=== PATIENT | female | born 1955 | race Caucasian/White ===

== ENCOUNTER 2017-11-30 17:13 | Emergency (ER) | payer MEDICAID, SELFPAY ==
[2017-11-30 17:55] VITALS: BP 126/63; PULSE 84; RESP 18; TEMP 36.9; O2SAT 99; BMI 37.6
--- NOTE | 2017-11-30 17:55 | XR_ITS ---
XR shoulder RT min 2V COMPARISON: Right shoulder 10/06/2016 HISTORY: Right shoulder pain after a fall TECHNIQUE: 3 views right shoulder FINDINGS: The clavicle is intact. There is minor degenerative change of the AC joint as noted previously. Again noted is mild sclerosis and cortical irregularity of the greater tuberosity of the humeral head. Is no fracture and there are no soft tissue calcifications. There is a slightly high riding humeral head suggesting possibility of rotator cuff pathology. IMPRESSION: Mild degenerative changes AC joint, question rotator cuff pathology, no definite interval change from the previous study
--- NOTE | 2017-11-30 19:20 | HMH.EDUTC ---
[facility] Disposition Clinical Impression: History of rotator cuff surgery, Fall Right shoulder pain Qualifiers: Chronicity: acute Qualified Code(s): M25.511 - Pain in right shoulder Disposition: Home, Self-Care Condition on Discharge: Good Instructions: DI for Shoulder Pain, How to Use a Sling, How To Perform RICE (Rest, Ice, Compress, Elevate) Additional Instructions: * use as tolerated. If pain, stop immediately. Do not move beyond the pain. * Rest * ice 15-20 mins 3-4 times a day * Sling for support and swelling unless in shower. Be sure not too tight but not too loose either. You state you already have one at home. * Ibuprofen every 6 hours as needed for pain and inflammation. If you need something more, you can take tylenol every 4 hours as needed as long as your primary care provider has told you it is ok to take both. Referrals: Americo Sharpe [Referring] - (Call first thing saturday morning and report fall onto recently repaired shoulder. ) Time of Disposition: 19:35 Medical Decision Making Vital Signs: 11/30/17 17:55 Temperature 98.5 F Temperature Source Oral Pulse Rate [Left Brachial] 84 Respiratory Rate 18 Blood Pressure [Left Arm] 126/63 Blood Pressure Mean [Left Arm] 84 Blood Pressure Source [Left Arm] Automatic Cuff Blood Pressure Position [Left Arm] Sitting 02 Sat by Pulse Oximetry 99 Oxygen Delivery Method Room Air Orders (Tests/Meds): ORDERS Category Date Time Status XR shoulder RT min 2V Stat Exams 11/30/17 17:55 Taken - Robson Inquiry Pt receiving controlled substance: No [facility] HPI - General Stated complaint: ao [id number] @1500 injured Rt Shoulder Time Seen by Provider: 11/30/17 19:00 Mode of Arrival: Ambulatory Source of Information: Patient Limitations: No Limitations Description of Symptoms (Recalled from Triage Doc. by RN): c/o rt shoulder pain after a fall yesterday. pt advises that she had a rt rotator cuff tear 2 months ago HEENT Symptoms (Recalled from RN notes): No Resp Symptoms (Recalled from RN notes): No Skin Symptoms (Recalled from RN notes): No MS Symptoms (Recalled from RN notes): Yes (rt shoulder pain) Functional Status (Recalled from RN notes): n/a - History of Present Illness Provider Complaint: c/o right shoulder pain and limited ROM s/p fall yesterday. Hx of right rotater cuff repair [address] Sharpe in [place]. Fell yesterday in the grass. Reports falling directly onto anterior shoulder. Tylenol hasn't helped. Can take NSAIDs but hasn't tried them. Denies a return to FROM since surgery but ROM worse since fall. denies N/T - Related Data Home Medications Medication Instructions Recorded Confirmed amlodipine 10 mg tablet 10 mg PO QDAY 11/28/17 aspirin 81 mg tablet,delayed 81 mg PO QDAY 11/28/17 release atorvastatin 80 mg tablet 80 mg PO QDAY 11/28/17 buspirone 10 mg tablet 10 mg PO BID 11/28/17 fluoxetine 20 mg capsule 20 mg PO QDAY 11/28/17 gabapentin 600 mg tablet 600 mg PO TID 11/28/17 hyoscyamine sulfate 0.125 mg tablet 0.125 mg PO QID 11/28/17 isosorbide mononitrate ER 60 mg 60 mg PO QAM 11/28/17 tablet,extended release 24 hr lisinopril 10 mg tablet 10 mg PO QDAY 11/28/17 metoprolol succinate ER 100 mg 100 mg PO QDAY 11/28/17 tablet,extended release 24 hr nitroglycerin 0.4 mg sublingual 0.4 mg SUBLINGUAL Q5M PRN 11/28/17 tablet tiotropium bromide 18 mcg capsule 18 mcg INHALATION QDAY 11/28/17 with inhalation device Previous Rx's Medication Instructions Recorded cephalexin 500 mg capsule 500 mg PO Q8H 10 Days #30 cap 11/28/17 prednisone 20 mg tablet 20 mg PO BID #10 tab 11/28/17 promethazine-DM 6.25 mg-15 mg/5 mL 5 ml PO Q6H PRN #180 ml 11/28/17 syrup Allergies Allergy/AdvReac Type Severity Reaction Status Date / Time No Known Allergies Allergy Unverified 11/28/17 11:27 - Worker's Comp Is this a Worker's Comp case?: No [facility] History I have reviewed the patient's past medical history: Yes Med
[2017-11-30 19:42] VITALS: BP 126/63; PULSE 84; RESP 18; TEMP 36.9; O2SAT 99
== END 2017-11-30 19:43 | disposition home or self-care (01) ==
PROVIDERS: Emergency Provider Nurse Practitioner Family; Family Provider Emergency Medicine; PCP Physician Assistant
DX: M25.511 Pain in right shoulder (principal); W19.XXXA Unspecified fall, initial encounter; Y93.9 Activity, unspecified; Y92.89 Other specified places as the place of occurrence of the external cause
CPT/HCPCS: 73030; 99202; 99282

== ENCOUNTER → 2017-12-12 09:49 | Outpatient (REF) | payer MEDICAID, SELFPAY ==
[2017-12-12 14:08] LABS: Anion Gap 14.2 mEq/L (5-15); Blood Urea Nitrogen 28 mg/dL (7-18); Carbon Dioxide 27 mmol/L (21.0-32.0); Chloride 104 mmol/L (98-107); Creatinine,Serum 0.99 mg/dL (0.55-1.02); Estimated Glomerular Filt Rate 57 ml/min (>60); GFR (African American) 69 ML/MIN (>60); Glucose 95 mg/dL (74-106); Magnesium 2.1 mg/dL (1.4-2.2); Potassium 4.2 mmoL/L (3.5-5.1); Sodium 141 mmol/L (136-145)
== END ==
LOC: LAB 09:49
PROVIDERS: Visit Provider Physician Assistant
DX: M62.838 Other muscle spasm (principal)
CPT/HCPCS: 80048; 83735

== ENCOUNTER 2018-02-18 08:51 | Emergency (ER) | payer MEDICAID, SELFPAY ==
[2018-02-18 09:00] VITALS: BP 125/72; PULSE 68; RESP 22; TEMP 36.8; O2SAT 96; BMI 38.9
--- NOTE | 2018-02-18 09:08 | HMH.EDUTC ---
[facility] [place] Clinical Impression: Bilateral low back pain with sciatica Qualifiers: Chronicity: chronic Sciatica laterality: bilateral sciatica Qualified Code(s): M54.42 - Lumbago with sciatica, left side; M54.41 - Lumbago with sciatica, right side; G89.29 - Other chronic pain Disposition: Home, Self-Care Condition on Discharge: Good Additional Instructions: Take prednisone as directed Follow-up with PCP if no improvement of symptoms in 48-72 hours. Go to ER if the following symptoms presents: urinary incontinence, bowel incontinence, significant unilateral leg swelling. Prescriptions: methylPREDNISolone [Medrol] 4 mg PO DIRECTED 6 Days #1 tab.ds.pk Ketorolac Tromethamine [Toradol 60mg/2mL vial] 60 mg IM ONCE #1 vial Referrals: Domitila Baldwin PA [Primary Care Provider] - Time of Disposition: 09:43 Medical Decision Making - Medical Records Medical records reviewed: Yes: I reviewed the patient's medical records. - Robson Inquiry Pt receiving controlled substance: No Vital Signs: 02/18/18 09:00 Temperature 98.3 F Temperature Source Oral Pulse Rate [Right Brachial] 68 Respiratory Rate 22 Blood Pressure [Right Arm] 125/72 Blood Pressure Mean [Right Arm] 89 Blood Pressure Source [Right Arm] Automatic Cuff Blood Pressure Position [Right Arm] Sitting 02 Sat by Pulse Oximetry 96 Oxygen Delivery Method Room Air [facility] [place] - General Stated complaint: back and leg pain no ao Time Seen by Provider: 02/18/18 09:08 Mode of Arrival: Family Vehicle Source of Information: Patient Limitations: No Limitations Description of Symptoms (Recalled from Triage Doc. by RN): c/o back pain since saturday. Radiates down both legs. No fall noted HEENT Symptoms (Recalled from RN notes): No Resp Symptoms (Recalled from RN notes): No Skin Symptoms (Recalled from RN notes): No MS Symptoms (Recalled from RN notes): Yes Functional Status (Recalled from RN notes): n/a - History of Present Illness Provider Complaint: Patient with pre-existing sciatica presents with worsening low back pain that radiates down both legs posteriorly. She reports noticing this change after cooking all day 2 days ago. She has also noticed some extra bruising along her calfs bilaterally, though she has not any trauma to them since symptom onset. She has been taking Toradol once a day, aspirin, and gabapentin for pain. She denies unilateral leg swelling, bowel and urinary incontinence. Location: back, left, right, lower extremity Radiation: extremity Quality: sharp Consistency: constant Relieving factors: medication, movement Exacerbating factors: rest Associated symptoms: denies other symptoms Treatments prior to arrival: NSAID, aspirin - Related Data Home Medications Medication Instructions Recorded Confirmed amlodipine 10 mg tablet 10 mg PO QDAY 11/28/17 aspirin 81 mg tablet,delayed 81 mg PO QDAY 11/28/17 release atorvastatin 80 mg tablet 80 mg PO QDAY 11/28/17 fluoxetine 20 mg capsule 20 mg PO QDAY 11/28/17 gabapentin 600 mg tablet 600 mg PO TID 11/28/17 hyoscyamine sulfate 0.125 mg tablet 0.125 mg PO QID 11/28/17 isosorbide mononitrate ER 60 mg 60 mg PO QAM 11/28/17 tablet,extended release 24 hr lisinopril 10 mg tablet 10 mg PO QDAY 11/28/17 metoprolol succinate ER 100 mg 100 mg PO QDAY 11/28/17 tablet,extended release 24 hr nitroglycerin 0.4 mg sublingual 0.4 mg SUBLINGUAL Q5M PRN 11/28/17 tablet tiotropium bromide 18 mcg capsule 18 mcg INHALATION QDAY 11/28/17 with inhalation device Previous Rx's Medication Instructions Recorded ibuprofen 800 mg tablet 800 mg PO TID PRN 30 Days #30 tab 12/02/17 prednisone 20 mg tablet 20 mg PO BID #10 tab 12/12/17 buspirone 10 mg tablet 10 mg PO BID #60 tab 12/27/17 Ketorolac Tromethamine [Toradol 60 mg IM ONCE #1 vial 02/18/18 60mg/2mL vial] methylPREDNISolone [Medrol] 4 mg PO DIRECTED 6 Days #1 02/18/18 tab.ds.pk Allergies Allergy/AdvReac Type
--- NOTE | 2018-02-18 09:12 | ED_ITS ---
[facility] [place] Dis[place] Clinical Impression: Bilateral low back pain with sciatica Qualifiers: Chronicity: chronic Sciatica laterality: bilateral sciatica Qualified Code(s): M54.42 - Lumbago with sciatica, left side; M54.41 - Lumbago with sciatica, right side; G89.29 - Other chronic pain Disposition: Home, Self-Care Condition on Discharge: Good Additional Instructions: Take prednisone as directed Follow-up with PCP if no improvement of symptoms in 48-72 hours. Go to ER if the following symptoms presents: urinary incontinence, bowel incontinence, significant unilateral leg swelling. Prescriptions: methylPREDNISolone [Medrol] 4 mg PO DIRECTED 6 Days #1 tab.ds.pk Ketorolac Tromethamine [Toradol 60mg/2mL vial] 60 mg IM ONCE #1 vial Referrals: Doimtila Baldwin PA [Primary Care Provider] - Time of Disposition: 09:43 Medical Decision Making - Medical Records Medical records reviewed: Yes: I reviewed the patient's medical records. - Robson Inquiry Pt receiving controlled substance: No Vital Signs: 02/18/18 09:00 Temperature 98.3 F Temperature Source Oral Pulse Rate [Right Brachial] 68 Respiratory Rate 22 Blood Pressure [Right Arm] 125/72 Blood Pressure Mean [Right Arm] 89 Blood Pressure Source [Right Arm] Automatic Cuff Blood Pressure Position [Right Arm] Sitting 02 Sat by Pulse Oximetry 96 Oxygen Delivery Method Room Air [facility] [place] HPI - General Stated complaint: back and leg pain no ao Time Seen by Provider: 02/18/18 09:08 Mode of Arrival: Family Vehicle Source of Information: Patient Limitations: No Limitations Description of Symptoms (Recalled from Triage Doc. by RN): c/o back pain since saturday. Radiates down both legs. No fall noted HEENT Symptoms (Recalled from RN notes): No Resp Symptoms (Recalled from RN notes): No Skin Symptoms (Recalled from RN notes): No MS Symptoms (Recalled from RN notes): Yes Functional Status (Recalled from RN notes): n/a - History of Present Illness Provider Complaint: Patient with pre-existing sciatica presents with worsening low back pain that radiates down both legs posteriorly. She reports noticing this change after cooking all day 2 days ago. She has also noticed some extra bruising along her calfs bilaterally, though she has not any trauma to them since symptom onset. She has been taking Toradol once a day, aspirin, and gabapentin for pain. She denies unilateral leg swelling, bowel and urinary incontinence. Location: back, left, right, lower extremity Radiation: extremity Quality: sharp Consistency: constant Relieving factors: medication, movement Exacerbating factors: rest Associated symptoms: denies other symptoms Treatments prior to arrival: NSAID, aspirin - Related Data Home Medications Medication Instructions Recorded Confirmed amlodipine 10 mg tablet 10 mg PO QDAY 11/28/17 aspirin 81 mg tablet,delayed 81 mg PO QDAY 11/28/17 release atorvastatin 80 mg tablet 80 mg PO QDAY 11/28/17 fluoxetine 20 mg capsule 20 mg PO QDAY 11/28/17 gabapentin 600 mg tablet 600 mg PO TID 11/28/17 hyoscyamine sulfate 0.125 mg tablet 0.125 mg PO QID 11/28/17 isosorbide mononitrate ER 60 mg 60 mg PO QAM 11/28/17 tablet,extended release 24 hr lisinopril 10 mg tablet 10 mg PO QDAY 11/28/17 metoprolol succinate ER 100 mg 100 mg PO QDAY 11/28/17 tablet,extended release 24 hr nitroglycerin 0.4 mg sublingual 0.4 m
[2018-02-18 10:28] VITALS: BP 120/70; PULSE 70; RESP 20; TEMP 37; O2SAT 96
== END 2018-02-18 10:30 | disposition home or self-care (01) ==
PROVIDERS: Emergency Provider Physician Assistant; Family Provider Emergency Medicine; PCP Physician Assistant
DX: M54.41 Lumbago with sciatica, right side (principal); M54.42 Lumbago with sciatica, left side; I10 Essential (primary) hypertension; J45.909 Unspecified asthma, uncomplicated; J44.9 Chronic obstructive pulmonary disease, unspecified; I73.9 Peripheral vascular disease, unspecified; F17.210 Nicotine dependence, cigarettes, uncomplicated; Z79.82 Long term (current) use of aspirin
CPT/HCPCS: 96372; 99201

== ENCOUNTER → 2018-03-10 09:50 | Outpatient (REF) | payer MEDICAID, SELFPAY ==
[2018-03-10 13:54] LABS: Basophils % 0.5 % (0.1-2.0); Eosinophils # 0.2 K/mm3 (0.0-0.4); Eosinophils % 2.6 % (0.1-12.0); Hematocrit 44.3 % (37.0-47.0); Hemoglobin 14.2 g/dL (12.2-16.2); Lymphocytes # 2.5 K/mm3 (0.7-4.5); Mean Corpuscular HGB Conc 32.1 g/dL (31.8-35.4); Mean Corpuscular Hemoglobin 31.3 pg (27.0-31.2); Mean Corpuscular Volume 97.4 fl (81-99); Mean Platelet Volume 7.9 fl (7.4-10.4); Monocytes # 0.5 K/mm3 (0.1-1.0); Monocytes % 4.8 % (1.7-9.3); Neutrophils % 65.1 % (37.0-80.0); Platelet Count 353 K/mm3 (142-424); Red Blood Count 4.55 M/mm3 (4.20-5.40); Red Cell Distribution Width 13.5 % (11.5-17.5); White Blood Count 9.2 K/mm3 (4.8-10.8)
[2018-03-10 14:14] LABS: Alanine Aminotransferase 24 U/L (12-78); Albumin Level 3.6 gm/dL (3.4-5.0); Albumin/Globulin Ratio 0.9 (1.1-1.8); Alkaline Phosphatase 132 U/L (46-116); Anion Gap 15.6 mEq/L (5-15); Aspartate Amino Transferase 18 U/L (15-37); Bilirubin,Total 0.4 mg/dL (0.2-1.0); Blood Urea Nitrogen 15 mg/dL (7-18); Calcium 9.3 mg/dL (8.5-10.1); Carbon Dioxide 26 mmol/L (21.0-32.0); Chloride 104 mmol/L (98-107); Chol/HDL Ratio 3.2 (1-3.5); Cholesterol 225 mg/dL (140-200); Estimated Glomerular Filt Rate 57 ml/min (>60); GFR (African American) 68 ML/MIN (>60); Glucose 108 mg/dL (74-106); HDL Cholesterol 70 mg/dL (29-89); LDL Cholesterol 136 mg/dL (0-130); Potassium 4.6 mmoL/L (3.5-5.1); Sodium 141 mmol/L (136-145); T4 (Thyroxine) 10.9 ug/dl (4.7-13.3); Thyroid Stimulating Hormone 3.14 uIU/ml (0.358-3.740); Total Protein,Serum 7.6 gm/dL (6.4-8.2); Triglycerides 95 mg/dL (30-200); VLDL Cholesterol 19 mg/dL (0-40)
[2018-03-11 06:05] LABS: Vitamin D 25 Hydroxy 28.3 ng/mL (30.0-100.0)
== END ==
LOC: LAB 09:50
PROVIDERS: Visit Provider Physician Assistant
DX: R53.83 Other fatigue (principal)
CPT/HCPCS: 80053; 80061; 82652; 84436; 84443; 85025

== ENCOUNTER 2018-05-13 11:33 | Emergency (ER) | payer MEDICAID, SELFPAY ==
[2018-05-13 11:34] VITALS: BP 149/89; PULSE 72; RESP 18; TEMP 36.8; O2SAT 96; BMI 39.4
--- NOTE | 2018-05-13 11:42 | HMH.EDWEAK ---
ED Disposition Clinical Impression: Chest pain, Weakness, Tobacco abuse Disposition: Xfer Short-Term Hosp Condition on Discharge: Good Referrals: Domitila Baldwin PA [Primary Care Provider] - Forms: Transfer Record - ED - Critical Care Critical Care Time: No Attestation: On , the high probability of a clinically significant, sudden or life threatening deterioration of the following system(s) required my full and direct attention, intervention and personal management. The time I documented below is in addition to time spent performing reported procedures but includes the following listed in this critical care notation. Medical Decision Making - Robson Inquiry Pt receiving controlled substance: No Robson was queried for this patient: No Vital Signs: 05/13/18 11:34 05/13/18 15:30 Temperature 98.2 F 97.7 F Temperature Source Oral Oral Pulse Rate [Right Brachial] 72 94 H Respiratory Rate 18 18 Blood Pressure [Right Arm] 149/89 143/76 Blood Pressure Mean [Right Arm] 109 98 Blood Pressure Source [Right Arm] Automatic Cuff Automatic Cuff Blood Pressure Position [Right Arm] Sitting Sitting 02 Sat by Pulse Oximetry 96 94 L Oxygen Delivery Method Room Air Room Air - Lab Data Lab Results 05/13/18 11:40: WBC 9.8, RBC 4.54, Hgb 13.7, Hct 43.1, MCV 94.9, MCH 30.2, MCHC 31.8, RDW 13.4, Plt Count 305, MPV 7.2 L, Neut % (Auto) 49.6, Lymph % (Auto) 41.0, [place] % (Auto) 5.3, Eos % (Auto) 3.2, Baso % (Auto) 0.8, Neut # (Auto) 4.9, Lymph # (Auto) 4.0, [place] # (Auto) 0.5, Eos # (Auto) 0.3, Baso # (Auto) 0.1 05/13/18 11:40: D-Dimer 899 H* 05/13/18 11:40: Sodium 141, Potassium 4.3, Chloride 106, Carbon Dioxide 28, Anion Gap 11.3, BUN 28 H, Creatinine 1.00, Estimated Creat Clear 94, Estimated GFR 56 L, Est GFR ( Amer) 68, Glucose 89, Calcium 8.5, Total Bilirubin 0.4, AST 18, ALT 21, Alkaline Phosphatase 129 H, Total Creatine Kinase 114, CK-MB (CK-2) 1.0, CK-MB (CK-2) Rel Index 0.9, Troponin I < 0.02, Total Protein 7.6, Albumin 3.4, Globulin 4.2 H, Albumin/Globulin Ratio 0.8 L 05/13/18 11:40: B-Natriuretic Peptide 28 05/13/18 14:10: Urine Color Yellow, Urine Appearance Clear, Urine pH 7.5, Ur Specific [place] 1.010, Urine Protein Negative, Urine Glucose (UA) Negative, Urine Ketones Negative, Urine Blood Negative, Urine Nitrate Negative, Urine Bilirubin Negative, Urine Urobilinogen 0.2, Ur Leukocyte Esterase Negative, Urine RBC Occasional, Urine WBC Occasional, Ur Squamous Epith Cells 10-20, Urine Bacteria Trace Result diagrams: 05/13/18 11:40 05/13/18 11:40 Orders (Tests/Meds): ED MEDICATIONS Discontinued Medications Generic Name Dose Route Start Last Admin Trade Name Freq PRN Reason Stop Dose Admin Enoxaparin Sodium 80 mg 05/13/18 15:04 05/13/18 15:07 Lovenox 80mg/0.8ml Syringe SQ 05/13/18 15:05 80 mg ONCE ONE Administration Famotidine 20 mg 05/13/18 15:04 05/13/18 15:08 Pepcid 20mg/2ml Vial IV 05/13/18 15:05 20 mg ONCE ONE Administration Iopamidol 70 ml 05/13/18 13:24 05/13/18 13:25 [id number]; 75ml Vial IV 05/13/18 13:25 70 ml ONCE ONE Administration Sodium Chloride 40 ml 05/13/18 13:24 05/13/18 13:25 Rad-Saline Flush 10ml Syringe IV 05/13/18 13:25 40 ml ONCE ONE Administration - Radiology Data #1 Image(s): Chest Image Reviewed: Yes I reviewed the patient's radiology image, Yes I reviewed the patient's radiology image w/the ED provider Preliminary Findings: Normal/NAD IMPRESSION: No change with no acute finding - CT Data CT Scan: Chest Time Received: 14:52 Findings Narrative: IMPRESSION: No acute finding. No evidence of pulmonary embolus Coronary artery calcifications Dictated By: Rajendra Gregg MD Signed By: <Electronically signed by Rajendra Gregg MD in [place]> 05/13/18 0483 DD/ 2220
--- NOTE | 2018-05-13 11:46 | ED_ITS ---
ED Disposition Clinical Impression: Chest pain, Weakness, Tobacco abuse Disposition: Xfer Short-Term Hosp Condition on Discharge: Good Referrals: Domitila Baldwin PA [Primary Care Provider] - Forms: Transfer Record - ED - Critical Care Critical Care Time: No Attestation: On , the high probability of a clinically significant, sudden or life threatening deterioration of the following system(s) required my full and direct attention, intervention and personal management. The time I documented below is in addition to time spent performing reported procedures but includes the following listed in this critical care notation. Medical Decision Making - Robson Inquiry Pt receiving controlled substance: No Robson was queried for this patient: No Vital Signs: 05/13/18 11:34 05/13/18 15:30 Temperature 98.2 F 97.7 F Temperature Source Oral Oral Pulse Rate [Right Brachial] 72 94 H Respiratory Rate 18 18 Blood Pressure [Right Arm] 149/89 143/76 Blood Pressure Mean [Right Arm] 109 98 Blood Pressure Source [Right Arm] Automatic Cuff Automatic Cuff Blood Pressure Position [Right Arm] Sitting Sitting 02 Sat by Pulse Oximetry 96 94 L Oxygen Delivery Method Room Air Room Air - Lab Data Lab Results 05/13/18 11:40: WBC 9.8, RBC 4.54, Hgb 13.7, Hct 43.1, MCV 94.9, MCH 30.2, MCHC 31.8, RDW 13.4, Plt Count 305, MPV 7.2 L, Neut % (Auto) 49.6, Lymph % (Auto) 41.0, [place] % (Auto) 5.3, Eos % (Auto) 3.2, Baso % (Auto) 0.8, Neut # (Auto) 4.9 , Lymph # (Auto) 4.0, [place] # (Auto) 0.5, Eos # (Auto) 0.3, Baso # (Auto) 0.1 05/13/18 11:40: D-Dimer 899 H* 05/13/18 11:40: Sodium 141, Potassium 4.3, Chloride 106, Carbon Dioxide 28, Anion Gap 11.3, BUN 28 H, Creatinine 1.00, Estimated Creat Clear 94, Estimated GFR 56 L, Est GFR ( Amer) 68, Glucose 89, Calcium 8.5, Total Bilirubin 0.4, AST 18, ALT 21, Alkaline Phosphatase 129 H, Total Creatine Kinase 114, CK- MB (CK-2) 1.0, CK-MB (CK-2) Rel Index 0.9, Troponin I < 0.02, Total Protein 7.6 , Albumin 3.4, Globulin 4.2 H, Albumin/Globulin Ratio 0.8 L 05/13/18 11:40: B-Natriuretic Peptide 28 05/13/18 14:10: Urine Color Yellow, Urine Appearance Clear, Urine pH 7.5, Ur Specific [place] 1.010, Urine Protein Negative, Urine Glucose (UA) Negative, Urine Ketones Negative, Urine Blood Negative, Urine Nitrate Negative, Urine Bilirubin Negative, Urine Urobilinogen 0.2, Ur Leukocyte Esterase Negative, Urine RBC Occasional, Urine WBC Occasional, Ur Squamous Epith Cells 10-20, Urine Bacteria Trace Result diagrams: 05/13/18 11:40 05/13/18 11:40 Orders (Tests/Meds): ED MEDICATIONS Discontinued Medications Generic Name Dose Route Start Last Admin Trade Name Freq PRN Reason Stop Dose Admin Enoxaparin Sodium 80 mg 05/13/18 15:04 05/13/18 15:07 Lovenox 80mg/0.8ml Syringe SQ 05/13/18 15:05 80 mg ONCE ONE Administration Famotidine 20 mg 05/13/18 15:04 05/13/18 15:08 Pepcid 20mg/2ml Vial IV 05/13/18 15:05 20 mg ONCE ONE Administration Iopamidol 70 ml 05/13/18 13:24 05/13/18 13:25 [id number]; 75ml Vial IV 05/13/18 13:25 70 ml ONCE ONE Administration Sodium Chloride 40 ml 05/13/18 13:24 05/13/18 13:25 Rad-Saline Flush 10ml Syri
--- NOTE | 2018-05-13 11:47 | XR_ITS ---
XR chest 2V HISTORY: ITS.REASON: chest pain ORDERING PHYSICIAN: Zoila Ramachandran MD PATIENT AGE: 63 years COMPARISON: 10/30/2017 FINDINGS: The cardiomediastinal silhouette and pulmonary vascularity are within normal limits. The lungs are clear without infiltrates, suspicious nodules, or pleural effusions. Hypertrophic changes are present along the inferolateral acromial region on the right with osteoarthritic change of the glenohumeral joint and subacromial stenosis. There are degenerative changes in the thoracic spine. IMPRESSION: No change with no acute finding
--- NOTE | 2018-05-13 11:56 | PC.NURSE ---
notified CV lab staff of order for echo
--- NOTE | 2018-05-13 11:57 | PC.NURSE ---
notified Rad of xray order on pt.
--- NOTE | 2018-05-13 11:59 | PC.NURSE ---
SANDOVAL ALFONSO speaking Kassi Pavon APRN
[2018-05-13 12:09] LABS: Basophils # 0.1 K/mm3 (0-0.2); Basophils % 0.8 % (0.1-2.0); Eosinophils # 0.3 K/mm3 (0.0-0.4); Eosinophils % 3.2 % (0.1-12.0); Hematocrit 43.1 % (37.0-47.0); Hemoglobin 13.7 g/dL (12.2-16.2); Mean Corpuscular HGB Conc 31.8 g/dL (31.8-35.4); Mean Corpuscular Hemoglobin 30.2 pg (27.0-31.2); Mean Corpuscular Volume 94.9 fl (81-99); Mean Platelet Volume 7.2 fl (7.4-10.4); Monocytes # 0.5 K/mm3 (0.1-1.0); Monocytes % 5.3 % (1.7-9.3); Neutrophils # 4.9 K/mm3 (1.8-7.8); Neutrophils % 49.6 % (37.0-80.0); Platelet Count 305 K/mm3 (142-424); Red Blood Count 4.54 M/mm3 (4.20-5.40); Red Cell Distribution Width 13.4 % (11.5-17.5); White Blood Count 9.8 K/mm3 (4.8-10.8)
--- NOTE | 2018-05-13 12:18 | CA_ITS ---
PROCEDURE: 2-D M-mode and color Doppler study INDICATIONS FOR THE TEST: Chest pain+ COPD+ Heart Murmur Tobacco Smoking+ Palpitations Fatigue Syncope Edema Hypertension+Diabetes Mellitus Rheumatic Fever SOB+OGDEN + Obesity+Hyperlipidemia+ Family History HD+ Additional History cad, stents, weakness PATIENT INFORMATION HEIGHT: 63 WEIGHT:223 GENDER: Female B/P:149/89 2-D/M-MODE INTERPRETATION: 2-D MEASUREMENTS OBSERVED VALUES IN CMS Right Ventricular Dimension (RVDd) 1.4 Interventricular Septum (Thickness)(IVsd) 0.9 Left Ventricular Internal Dimensions(LVIDd) 5.2 Left Ventricular Posterior Wall (Thickness)(LVPWd) 1.0 Aortic Root 3.0 Aortic Cusp Separation 2.0 Left Atrial Dimensions (LAD) 4.0 2D 1. Left atrium is mildly enlarged, left ventricle is normal size, there is mild concentric left ventricular hypertrophy, visually estimated ejection fraction of 55% with no obvious regional wall motion abnormality. 2. The right atrium and right ventricle are normal size and contractility. 3. The aortic valve is thickened and calcified, leaflet continue to display mobility. 4. The mitral and tricuspid valve leaflets are minimally thickened 5. The pulmonic valve is poorly visualized. 6. No significant pericardial effusion noted. DOPPLER INTERROGATION: Doppler interrogation of the aortic, mitral and tricuspid valvular presence of mild mitral, mild aortic and mild tricuspid regurgitation, tricuspid and jet velocity is insufficient for calculation of the right ventricular systolic pressure, diastolic parameters are inconclusive. CONCLUSION: 1. Mildly enlarged left atrium, normal left ventricular size, mild concentric left ventricular hypertrophy, visually estimated ejection fraction 55% with no obvious regional wall motion abnormality, diastolic parameters are inconclusive. 2. Mild aortic, mild mitral and tricuspid regurgitation 3. No significant pericardial effusion noted.
[2018-05-13 12:29] LABS: Alanine Aminotransferase 21 U/L (12-78); Albumin Level 3.4 gm/dL (3.4-5.0); Albumin/Globulin Ratio 0.8 (1.1-1.8); Alkaline Phosphatase 129 U/L (46-116); Anion Gap 11.3 mEq/L (5-15); Aspartate Amino Transferase 18 U/L (15-37); Bilirubin,Total 0.4 mg/dL (0.2-1.0); Blood Urea Nitrogen 28 mg/dL (7-18); CKMB Relative Index 0.9 U/L (0-4.0); Calcium 8.5 mg/dL (8.5-10.1); Carbon Dioxide 28 mmol/L (21.0-32.0); Chloride 106 mmol/L (98-107); Creatine Kinase 114 U/L (26-192); Creatinine Clearance Estimated 94 mL/min (0-300); Estimated Glomerular Filt Rate 56 ml/min (>60); GFR (African American) 68 ML/MIN (>60); Globulin 4.2 gm/dl (1.3-3.2); Glucose 89 mg/dL (74-106); Potassium 4.3 mmoL/L (3.5-5.1); Sodium 141 mmol/L (136-145); Total Protein,Serum 7.6 gm/dL (6.4-8.2); Troponin I < 0.02 ng/ml (0.00-0.06)
[2018-05-13 12:33] LABS: D-Dimer 899 ng/mL (0-400)
--- NOTE | 2018-05-13 12:41 | CT_ITS ---
CT angio chest HISTORY: ITS.REASON: chest pain, weakness and elevated dimer. ORDERING PHYSICIAN: Zoila Ramachandran MD PATIENT AGE: 63 years COMPARISON: 10/02/2017 TECHNIQUE: Axial images obtained following the administration of 75 mL of Isovue 370 . Sagittal, and coronal reformatted images are also generated and reviewed. All CT scans at the facility use one or more dose reduction, viz: automated exposure control; ma/kV adjustment per patient size (including targeted exams where dose is matched to indication; i.e. head); or iterative reconstruction technique. FINDINGS: No evidence of pulmonary embolus, aortic aneurysm , or aortic dissection. There are coronary artery calcifications present. Scattered small lymph nodes are present within mediastinum. There are centrilobular emphysematous changes. There is mild motion artifact which somewhat obscures fine detail. There are patchy areas of groundglass density within the lungs nonspecific. There is evidence of old granulomatous disease. The left adrenal gland is enlarged as before. IMPRESSION: No acute finding. No evidence of pulmonary embolus Coronary artery calcifications
--- NOTE | 2018-05-13 12:54 | PC.NURSE ---
CV lab staff at
[2018-05-13 14:22] LABS: Microscopic, Urine URINE MICROSCOPIC (MICROSCOPIC)
[2018-05-13 14:25] LABS: Appearance,Urine CLEAR (Clear); Bilirubin,Urine Negative (Negative); Blood, Urine Negative (Negative); Color,Urine YELLOW (Yellow); Glucose,Urine (UA) Negative (Negative); Ketones,Urine Negative (Negative); Leukocyte Esterase,Urine Negative (Negative); Nitrate,Urine Negative (Negative); PH,Urine 7.5 (5.0-8.5); Protein,Urine Negative (Negative); Urobilinogen,Urine 0.2 EU/dl (0.2)
[2018-05-13 15:09] LABS: Bacteria,Urine Trace /lpf; RBC,Urine Occasional #/hpf (0-3); WBC,Urine Occasional #/hpf (0-3)
[2018-05-13 15:30] VITALS: BP 143/76; PULSE 94; RESP 18; TEMP 36.5; O2SAT 94
--- NOTE | 2018-05-13 16:20 | PC.NURSE ---
Report called to [facility] spoke with Rebekah. Ambulance here to transport
[2018-05-13 16:22] VITALS: BP 143/76; PULSE 61; RESP 18; TEMP 36.5; O2SAT 94
== END 2018-05-13 16:23 | disposition short-term general hospital (02) ==
PROVIDERS: Emergency Provider Emergency Medicine; Family Provider Emergency Medicine; PCP Physician Assistant
DX: R07.9 Chest pain, unspecified (principal); R53.83 Other fatigue; F17.210 Nicotine dependence, cigarettes, uncomplicated; J44.9 Chronic obstructive pulmonary disease, unspecified; I10 Essential (primary) hypertension; Z79.82 Long term (current) use of aspirin; Z79.899 Other long term (current) drug therapy
CPT/HCPCS: 71046; 71275; 80053; 81001; 82550; 82553; 83880; 84484; 85025; 85378; 93005; 93306; 96372; 96374; 99284; Q9967

== ENCOUNTER → 2018-06-24 10:16 | Outpatient (CLI) | payer MEDICAID, SELFPAY ==
[2018-06-24 10:32] LABS: Basophils # 0.1 K/mm3 (0-0.2); Basophils % 0.9 % (0.1-2.0); Eosinophils # 0.4 K/mm3 (0.0-0.4); Hematocrit 39.8 % (37.0-47.0); Hemoglobin 13.1 g/dL (12.2-16.2); Lymphocytes # 3.1 K/mm3 (0.7-4.5); Lymphocytes % 35.9 K/mm3 (10-50); Mean Corpuscular HGB Conc 32.9 g/dL (31.8-35.4); Mean Corpuscular Hemoglobin 30.8 pg (27.0-31.2); Mean Corpuscular Volume 93.5 fl (81-99); Monocytes # 0.3 K/mm3 (0.1-1.0); Monocytes % 3.6 % (1.7-9.3); Neutrophils # 4.8 K/mm3 (1.8-7.8); Neutrophils % 55.5 % (37.0-80.0); Platelet Count 285 K/mm3 (142-424); Red Blood Count 4.26 M/mm3 (4.20-5.40); Red Cell Distribution Width 13.6 % (11.5-17.5); White Blood Count 8.7 K/mm3 (4.8-10.8)
[2018-06-24 12:56] LABS: Anion Gap 8.4 mEq/L (5-15); Blood Urea Nitrogen 28 mg/dL (7-18); Calcium 8.8 mg/dL (8.5-10.1); Carbon Dioxide 29 mmol/L (21.0-32.0); Chloride 108 mmol/L (98-107); Creatinine,Serum 0.97 mg/dL (0.55-1.02); Estimated Glomerular Filt Rate 58 ml/min (>60); GFR (African American) 71 ML/MIN (>60); Glucose 104 mg/dL (74-106); Potassium 4.4 mmoL/L (3.5-5.1); Sodium 141 mmol/L (136-145)
== END ==
PROVIDERS: Visit Provider Nurse Practitioner Family
DX: R07.2 Precordial pain (principal)
CPT/HCPCS: 36415; 80048; 85025

== ENCOUNTER → 2019-04-20 10:43 | Outpatient (CLI) | payer MEDICAID, SELFPAY ==
--- NOTE | 2019-04-20 10:52 | XR_ITS ---
XR chest 2V HISTORY: ITS.REASON: Edema, dyspnea ORDERING PHYSICIAN: CIRO Garcia PATIENT AGE: 64 years COMPARISON: 05/13/2018 FINDINGS: The cardiomediastinal silhouette and pulmonary vascularity are within normal limits. The lungs are clear without infiltrates, suspicious nodules, or pleural effusions. No acute bony abnormalities. There is an old right fifth rib fracture. Degenerative changes are present in the thoracic spine IMPRESSION: No change with no acute finding
== END ==
PROVIDERS: PCP Physician Assistant; Visit Provider Physician Assistant
DX: R60.9 Edema, unspecified (principal); R06.00 Dyspnea, unspecified
CPT/HCPCS: 71046

== ENCOUNTER → 2019-04-29 07:43 | Outpatient (CLI) | payer MEDICAID, SELFPAY ==
--- NOTE | 2019-04-29 07:45 | CA_ITS ---
PROCEDURE: 2-D M-mode and color Doppler study INDICATIONS FOR THE TEST: Chest pain COPD+ Heart Murmur Tobacco Smoking Palpitations Fatigue Syncope Edema+ Hypertension+Diabetes Mellitus Rheumatic Fever SOB+OGDEN Obesity Hyperlipidemia+ Family History HD Additional History CAD PATIENT INFORMATION HEIGHT: 65 WEIGHT:235 GENDER: Female B/P:140/80 2-D/M-MODE INTERPRETATION: 2-D MEASUREMENTS OBSERVED VALUES IN CMS Right Ventricular Dimension (RVDd) 2.7 Interventricular Septum (Thickness)(IVsd) 1.6 Left Ventricular Internal Dimensions(LVIDd) 4.4 Left Ventricular Posterior Wall (Thickness)(LVPWd) 1.1 Aortic Root 3.6 Aortic Cusp Separation 1.9 Left Atrial Dimensions (LAD) 3.9 2D 1. Left atrium is mildly enlarged, left ventricle is normal size, mild concentric left ventricular hypertrophy, visually estimated ejection fraction 55% with no regional wall motion abnormality. 2. The right atrium and right ventricle are mildly enlarged with normal contractility. 3. The aortic valve is thickened and calcified leaflet continue to display mobility. 4. The mitral and tricuspid valve leaflets are minimally thickened. 5. The pulmonic valve is poorly visualized. 6. No significant pericardial effusion noted. DOPPLER INTERROGATION: Doppler interrogation of the aortic, mitral and tricuspid valvular presence of mild mitral and tricuspid regurgitation, tricuspid regurgitation jet velocity is inadequate for calculation of the right ventricular systolic pressure, grade 1 diastolic dysfunction seen with tissue Doppler evidence of raised left atrial pressure. CONCLUSION: 1. Mildly enlarged left atrium, normal left ventricular size, mild concentric left ventricular hypertrophy, visually estimated ejection fraction 55% no wall motion abnormality, grade 1 diastolic dysfunction seen with tissue Doppler evidence of raised left atrial pressure. 2. Mild mitral and tricuspid regurgitation 3. No significant pericardial effusion noted.
== END ==
PROVIDERS: PCP Emergency Medicine; Visit Provider Physician Assistant
DX: R06.00 Dyspnea, unspecified (principal); R60.9 Edema, unspecified
CPT/HCPCS: 93306

== ENCOUNTER → 2019-04-29 17:54 | Outpatient (CLI) | payer MEDICAID, SELFPAY ==
[2019-04-29 18:51] LABS: Anion Gap 15.1 mEq/L (5-15); Blood Urea Nitrogen 26 mg/dL (7-18); Calcium 9.1 mg/dL (8.5-10.1); Carbon Dioxide 27 mmol/L (21.0-32.0); Chloride 102 mmol/L (98-107); Creatinine,Serum 1.24 mg/dL (0.55-1.02); Estimated Glomerular Filt Rate 44 ml/min (>60); GFR (African American) 53 ML/MIN (>60); Glucose 145 mg/dL (74-106); Potassium 4.1 mmoL/L (3.5-5.1); Sodium 140 mmol/L (136-145)
== END ==
PROVIDERS: Visit Provider Nurse Practitioner Family
DX: R60.0 Localized edema (principal)
CPT/HCPCS: 80048

== ENCOUNTER → 2019-11-24 18:53 | Outpatient (CLI) | payer MEDICAID, SELFPAY ==
[2019-11-24 19:30] LABS: Basophils # 0.1 K/mm3 (0-0.2); Basophils % 0.8 % (0.1-2.0); Eosinophils # 0.3 K/mm3 (0.0-0.4); Eosinophils % 3.1 % (0.1-12.0); Hematocrit 42.3 % (37.0-47.0); Hemoglobin 13.7 g/dL (12.2-16.2); Lymphocytes # 2.7 K/mm3 (0.7-4.5); Lymphocytes % 30.7 % (10-50); Mean Corpuscular HGB Conc 32.5 g/dL (31.8-35.4); Mean Corpuscular Hemoglobin 29.7 pg (27.0-31.2); Mean Corpuscular Volume 91.5 fl (81-99); Mean Platelet Volume 8.1 fl (7.4-10.4); Monocytes # 0.4 K/mm3 (0.1-1.0); Monocytes % 4.5 % (1.7-9.3); Neutrophils # 5.4 K/mm3 (1.8-7.8); Platelet Count 412 K/mm3 (142-424); Red Blood Count 4.62 M/mm3 (4.20-5.40); Red Cell Distribution Width 14.4 % (11.5-17.5); White Blood Count 8.9 K/mm3 (4.8-10.8)
[2019-11-24 21:52] LABS: Alanine Aminotransferase 19 U/L (12-78); Albumin Level 3.6 gm/dL (3.4-5.0); Albumin/Globulin Ratio 0.9 (1.1-1.8); Alkaline Phosphatase 118 U/L (46-116); Anion Gap 17.6 mEq/L (5-15); Aspartate Amino Transferase 12 U/L (15-37); Bilirubin,Total 0.3 mg/dL (0.2-1.0); Blood Urea Nitrogen 22 mg/dL (7-18); Calcium 8.9 mg/dL (8.5-10.1); Carbon Dioxide 24 mmol/L (21.0-32.0); Chloride 102 mmol/L (98-107); Chol/HDL Ratio 3.7 (1-3.5); Cholesterol 223 mg/dL (140-200); Creatinine,Serum 0.99 mg/dL (0.55-1.02); Estimated Glomerular Filt Rate 57 ml/min (>60); GFR (African American) 69 ML/MIN (>60); Globulin 4.1 gm/dl (1.3-3.2); Glucose 67 mg/dL (74-106); HDL Cholesterol 61 mg/dL (29-89); LDL Cholesterol 140 mg/dL (0-130); Potassium 4.6 mmoL/L (3.5-5.1); Sodium 139 mmol/L (136-145); T4 (Thyroxine) 10.6 ug/dl (4.7-13.3); Thyroid Stimulating Hormone 1.14 uIU/ml (0.358-3.740); Total Protein,Serum 7.7 gm/dL (6.4-8.2); Triglycerides 109 mg/dL (30-200); VLDL Cholesterol 22 mg/dL (0-40)
[2019-11-26 06:21] LABS: Vitamin D 25 Hydroxy 40.4 ng/mL (30.0-100.0)
== END ==
PROVIDERS: Visit Provider Physician Assistant
DX: G25.81 Restless legs syndrome (principal); G62.9 Polyneuropathy, unspecified; M62.838 Other muscle spasm; N28.9 Disorder of kidney and ureter, unspecified
CPT/HCPCS: 80053; 80061; 82652; 84436; 84443; 85025

== ENCOUNTER → 2019-12-06 14:15 | Outpatient (CLI) | payer MEDICAID, SELFPAY ==
--- NOTE | 2019-12-06 14:16 | XR_ITS ---
PROCEDURE: XR ANKLE WT BEARING LT MIN 3V CLINICAL INDICATION: foot ankle pain COMPARISON: No exams were available for comparison FINDINGS: There is no acute fracture or dislocation. Degenerative dorsal posterior and plantar calcaneal spurring is noted. IMPRESSION: Calcaneal spurring Dictated by: Catarino Best 12/07/2019 11:54 Electronically signed by Catarino Best in [place] 12/07/2019 11:54
--- NOTE | 2019-12-06 14:16 | XR_ITS ---
PROCEDURE: XR FOOT WT BEARING RT 3V CLINICAL INDICATION: foot ankle pain Is multi joint osteoarthritis. Degenerative dorsal posterior and plantar calcaneal spurring is noted. COMPARISON: FTR3 FOOT-RT-3 VIEWS from 08/13/2016 FTR3 FOOT-RT-3 VIEWS from 08/28/2016 XR FOOT RT 2V from 07/06/2019 FINDINGS: No fracture or dislocation. No lytic or blastic change. . There is multi joint osteoarthritis. Degenerative dorsal posterior and plantar calcaneal spurring is noted. No erosive changes evident. IMPRESSION: Multiple degenerative findings. No acute bone pathology. Dictated by: Catarino Best 12/07/2019 12:04 Electronically signed by Catarino Best in [place] 12/07/2019 12:04
--- NOTE | 2019-12-06 14:16 | XR_ITS ---
PROCEDURE: XR ANKLE WT BEARING RT MIN 3V CLINICAL INDICATION: foot ankle pain COMPARISON: No exams were available for comparison FINDINGS: There is no acute fracture or dislocation. There is degenerative dorsal posterior and plantar calcaneal spurring. The tibiotalar joint space appears preserved. IMPRESSION: No acute findings. Calcaneal spurring. Dictated by: Catarino Best 12/07/2019 12:11 Electronically signed by Catarino Best in [place] 12/07/2019 12:11
--- NOTE | 2019-12-06 14:16 | XR_ITS ---
PROCEDURE: XR FOOT WT BEARING LT 3V CLINICAL INDICATION: foot ankle pain COMPARISON: FTR3 FOOT-RT-3 VIEWS from 08/13/2016 FTR3 FOOT-RT-3 VIEWS from 08/28/2016 XR FOOT RT 2V from 07/06/2019 FINDINGS: No fracture or dislocation. No lytic or blastic change. There is normal mineralization. There is multi joint osteoarthritis perhaps greatest at the 1st metatarsophalangeal joint. Mild hallux valgus deformity is noted. No erosive changes evident. Degenerative dorsal posterior and plantar calcaneal spurring is noted. The dorsal soft tissue swelling at the level of the mid metatarsals noted previously is diminished. No findings to suggest air in the soft tissues are apparent. Other findings:None. IMPRESSION: Degenerative findings. No acute bone pathology Dictated by: Catarino Best 12/07/2019 12:07 Electronically signed by Catarino Best in [place] 12/07/2019 12:07
== END ==
PROVIDERS: PCP Physician Assistant; Visit Provider Podiatrist
DX: M25.572 Pain in left ankle and joints of left foot (principal)
CPT/HCPCS: 73610; 73630

== ENCOUNTER 2020-02-29 15:20 | Emergency (ER) | payer MEDICAID, SELFPAY ==
[2020-02-29 15:36] VITALS: BP 143/78; PULSE 63; RESP 18; TEMP 37; O2SAT 95; BMI 41.4
--- NOTE | 2020-02-29 15:41 | XR_ITS ---
PROCEDURE: XR CHEST PORTABLE CLINICAL HISTORY: cough/respiratory symptoms COMPARISON: CXR2V XR chest 2V from 05/13/[address] angio chest from 06/14/2019 XR CHEST PORTABLE from 08/27/2019 XR CHEST 2V from 01/03/2020 FINDINGS: The cardiomediastinal silhouette and pulmonary vascularity are within normal limits. The lungs are clear without infiltrates, suspicious nodules, or pleural effusions. There is a nondisplaced fracture involving the posterior aspect of the right 9th rib age indeterminate. IMPRESSION: Nondisplaced fracture right 9th rib otherwise negative Dictated by: Rajendra Gregg MD 02/29/2020 16:25 Electronically signed by Rajendra Gregg MD in [place] 02/29/2020 16:25
--- NOTE | 2020-02-29 15:48 | HMH.COUGH ---
Cough Clinic HPI - History of Present Illness Complaint:: 64-year-old white female, heavy smoker, history of emphysema, 1 day of the sudden onset of weakness, fevers, cough, she states is nonproductive but has junky sounding cough in the exam room. Her is at home, he has not been ill. She denies exposure to other ill folks. Home Medications: Home Medications Medication Instructions Recorded Confirmed Type aspirin 325 mg tablet 325 mg PO DAILY #90 tab 11/24/19 01/11/20 Rx cholecalciferol (vitamin D3) 25 1,000 unit PO ONCE #90 cap 11/24/19 01/11/20 Rx mcg (1,000 unit) capsule clopidogrel 75 mg tablet 75 mg PO DAILY #90 tab 11/24/19 01/11/20 Rx fenofibrate nanocrystallized 145 145 mg PO DAILY #90 tab 11/24/19 01/11/20 Rx mg tablet furosemide 20 mg tablet 20 mg PO QHS #90 tab 11/24/19 01/11/20 Rx gabapentin 600 mg tablet 600 mg PO TID #90 tab 11/24/19 01/11/20 Rx ibuprofen 800 mg tablet 800 mg PO TID PRN #30 tab 11/24/19 01/11/20 Rx isosorbide mononitrate 60 mg 60 mg PO QAM #90 tab 11/24/19 01/11/20 Rx tablet,extended release 24 hr metoprolol succinate 100 mg 100 mg PO QDAY #90 tab 11/24/19 01/11/20 Rx tablet,extended release 24 hr albuterol sulfate 1 puff CONTINUOUS NEBULIZATION 12/07/19 01/11/20 History DAILY ergocalciferol (vitamin D2) 1,250 50,000 unit PO QWEEK #14 cap 01/07/20 01/11/20 Rx mcg (50,000 unit) capsule promethazine-DM 6.25 mg-15 mg/5 mL 5 ml PO Q6H PRN #180 ml 01/11/20 01/11/20 Rx oral syrup Albuterol Sulfate [Proventil Hfa] See Rx Instructions .ROUTE .COMPLEX 02/29/20 History Atorvastatin Calcium [Atorvastatin 10 mg PO DAILY 02/29/20 History 10mg Tab] Buspirone HCl [Buspar 10mg 10 mg PO BID 02/29/20 History tablet] Doxycycline Hyclate [Doxycycline 100 mg PO BID 10 Days #20 cap 02/29/20 Rx 100mg Capsule] Fluoxetine HCl See Rx Instructions .ROUTE .COMPLEX 02/29/20 History Oseltamivir Phosphate 75 mg PO BID 02/29/20 History Ropinirole HCl See Rx Instructions .ROUTE .COMPLEX 02/29/20 History Tizanidine HCl 4 mg PO BID MDD \ 02/29/20 History lisinopriL [Prinivil 10mg Tablet] See Rx Instructions .ROUTE .COMPLEX 02/29/20 History methylPREDNISolone [Medrol] 4 mg PO PER PKG DIR 02/29/20 History predniSONE [Deltasone 20mg 20 mg PO BID 7 Days #14 tab 02/29/20 Rx tablet] Allergies/Adverse Reactions: Allergies Allergy/AdvReac Type Severity Reaction Status Date / Time No Known Allergies Allergy Verified 02/29/20 15:31 Cough Clinic Triage - Symptoms Fever History: No Chills: Yes Myalgia: Yes Nasal Drainage: No Sore Throat: Yes Productive Cough: No Non-productive Cough: Yes Ear or Sinus Pain: No Joint Pain: Yes Chest Pain: No Rash: No Shortness of Breath: Yes Nausea or Vomitting: Yes Headache: Yes Abdominal Pain: No Diarrhea: No - Exposure History Foreign Travel: No Direct Contact with COVID-19 Patient: No - Risk Factors Greater than 60 Years Old: Yes COPD: Yes Diabetes: No Heart Disease: Yes (stents, htn, hl) Home Oxygen Use: Yes Chronic Renal Disease: No Chronic Liver Disease: No Neurologic/Neurodevelopmental/intellectual disability: No Other Chronic Diseases: No If Female, currently : No Current Smoker: Yes (1ppd) Former Smoker: No Cough Clinic History I have reviewed the patient's past medical history: Yes Medical History: Reports:: Asthma, Chronic Obstructive Pulmonary Disease (COPD), Coronary Artery Disease, Depression, Gastroesophageal Reflux Disease(GERD), Hyperlipidemia, Hypertension, Lung Disease, Migraine Denies:: Cancer, Diabetes Mellitus Type 1, Diabetes Mellitus Type 2, Internal Pacemaker, MRSA, Seizures Comment: PVD pt needs to be scheduled for consultation for colonoscopy on 05/20/19 Laterality Cases: Bilateral: Arthroscopy Shoulder, Other Other Surgeries: Yes: Cardiac Catheterization, Colonoscopy, Coronary Stent, Hysterectomy-Total. No: Pacemaker Amputation: No Fractures: No Comment: Rotator cuff x2, rt
[2020-02-29 15:56] LABS: Hemoglobin 11.9 g/dL (12.2-16.2); Mean Corpuscular Volume 95.5 fl (81-99); Red Blood Count 4.09 M/mm3 (4.20-5.40); White Blood Count 11.4 K/mm3 (4.8-10.8)
[2020-02-29 15:57] LABS: Basophils # 0.1 K/mm3 (0-0.2); Basophils % 0.6 % (0.1-2.0); Eosinophils # 0.4 K/mm3 (0.0-0.4); Eosinophils % 3.3 % (0.1-12.0); Lymphocytes # 3.4 K/mm3 (0.7-4.5); Lymphocytes % 30.1 % (10-50); Mean Corpuscular HGB Conc 30.6 g/dL (31.8-35.4); Mean Corpuscular Hemoglobin 29.2 pg (27.0-31.2); Mean Platelet Volume 7.6 fl (7.4-10.4); Monocytes # 0.6 K/mm3 (0.1-1.0); Monocytes % 5.5 % (1.7-9.3); Neutrophils # 6.9 K/mm3 (1.8-7.8); Neutrophils % 60.5 % (37.0-80.0); Platelet Count 360 K/mm3 (142-424); Red Cell Distribution Width 14.4 % (11.5-17.5)
[2020-02-29 16:02] VITALS: BP 134/78; PULSE 63; RESP 18; TEMP 37; O2SAT 95
== END 2020-02-29 16:04 | disposition home or self-care (01) ==
PROVIDERS: Emergency Provider Internal Medicine Adolescent Medicine; PCP Physician Assistant
DX: J44.1 Chronic obstructive pulmonary disease with (acute) exacerbation (principal); F17.210 Nicotine dependence, cigarettes, uncomplicated; F33.1 Major depressive disorder, recurrent, moderate; I10 Essential (primary) hypertension; E78.5 Hyperlipidemia, unspecified; K21.9 Gastro-esophageal reflux disease without esophagitis; Z79.899 Other long term (current) drug therapy
CPT/HCPCS: 36415; 71045; 85025; 99201; 99213

== ENCOUNTER 2020-04-24 10:51 | Emergency (ER) | payer MEDICAID, SELFPAY ==
[2020-04-24 10:52] VITALS: BP 135/87; PULSE 96; RESP 16; TEMP 36.6; O2SAT 98; BMI 40.7
--- NOTE | 2020-04-24 10:58 | HMH.EDBACK ---
ED Disposition Clinical Impression: Lumbar radiculopathy Disposition: Home, Self-Care Condition on Discharge: Good Instructions: DI for Back Pain With Sciatica Prescriptions: Cyclobenzaprine HCl [Flexeril 10mg tablet] 5 mg PO TID PRN #5 tab PRN Reason: spasm Prescription Printed Naproxen 500 mg PO BID PRN #10 tab PRN Reason: pain Prescription Printed Referrals: Domitila Baldwin PA [Primary Care Provider] - 3 days Tran Krueger MD [Physician] - 3 days - Critical Care Critical Care Time: No Attestation: On , the high probability of a clinically significant, sudden or life threatening deterioration of the following system(s) required my full and direct attention, intervention and personal management. The time I documented below is in addition to time spent performing reported procedures but includes the following listed in this critical care notation. Medical Decision Making - Medical Records Medical records reviewed: Yes: I reviewed the patient's medical records. - Robson Inquiry Pt receiving controlled substance: Yes Robson was queried for this patient: No Risks and benefits of using a controlled substance: were discussed with pt by me Vital Signs: 04/24/20 10:52 04/24/20 11:47 04/24/20 12:00 Temperature 98 F Temperature Source Oral Pulse Rate [Left Radial] 96 H 75 73 Respiratory Rate 16 Blood Pressure [Right Arm] 135/87 118/83 120/79 Blood Pressure Mean [Right Arm] 103 94 92 Blood Pressure Source [Right Arm] Automatic Cuff Automatic Cuff Blood Pressure Position [Right Arm] Sitting Sitting Sitting 02 Sat by Pulse Oximetry 98 95 93 L Oxygen Delivery Method Room Air Room Air Room Air - Lab Data Lab Results 04/24/20 10:55: Urine Color Yellow, Urine Appearance Clear, Urine pH 6.5, Ur Specific [place] 1.010, Urine Protein Negative, Urine Glucose (UA) Negative, Urine Ketones Negative, Urine Blood Negative, Urine Nitrate Negative, Urine Bilirubin Negative, Urine Urobilinogen 0.2, Ur Leukocyte Esterase Negative, Urine RBC None, Urine WBC None, Ur Squamous Epith Cells 3-5, Urine Bacteria None Orders (Tests/Meds): ED MEDICATIONS Discontinued Medications Generic Name Dose Route Start Last Admin Trade Name Freq PRN Reason Stop Dose Admin Diazepam 5 mg 04/24/20 11:04 04/24/20 11:15 Diazepam 5mg Tablet PO 04/24/20 11:05 5 mg ONCE ONE Administration Ketorolac Tromethamine 30 mg 04/24/20 11:05 04/24/20 11:15 Toradol 60mg/2ml Vial IM 04/24/20 11:06 30 mg ONCE ONE Administration Oxycodone/Acetaminophen 1 each 04/24/20 11:34 04/24/20 11:43 Percocet 7.5/325mg Tablet PO 04/24/20 11:35 1 each ONCE ONE Administration Medical Decision Narrative: History and exam does not appear consistent with cauda equina, discitis, epidural abscess, mass. No recent trauma, no need for imaging at this time. This is happened to her before and was related to sciatica. No UTI. She has some improvement with Valium, Percocet and Toradol here. Will discharge home with anti-inflammatories and muscle relaxers, advised follow-up with orthopedic surgery for further advice and management, possible consideration for physical therapy if symptoms not resolved with conservative management in the next several days. Back Pain HPI - General Stated Complaint: lower back pain Time Seen by Provider: 04/24/20 10:58 Mode of Arrival: Ambulatory Source of Information: Patient Limitations: No Limitations - History of Present Illness HPI Narrative: This is a 65-year-old female with a past medical history significant for hypertension, hyperlipidemia, COPD, coronary artery disease, GERD who presents to the emergency department for evaluation of lower back pain that started yesterday. There was no trauma or fall. She had the symptoms several years ago and it was related to sciatica. The pain radiates down both legs. She denies any loss of bowel or bladder control. No recent fevers
[2020-04-24 11:10] LABS: Appearance,Urine CLEAR (Clear); Bilirubin,Urine Negative (Negative); Blood, Urine Negative (Negative); Color,Urine YELLOW (Yellow); Glucose,Urine (UA) Negative (Negative); Ketones,Urine Negative (Negative); Leukocyte Esterase,Urine Negative (Negative); Microscopic, Urine URINE MICROSCOPIC (MICROSCOPIC); Nitrate,Urine Negative (Negative); PH,Urine 6.5 (5.0-8.5); Protein,Urine Negative (Negative); Urobilinogen,Urine 0.2 EU/dl (0.2)
[2020-04-24 11:47] VITALS: BP 118/83; PULSE 75; O2SAT 95
--- NOTE | 2020-04-24 11:47 | PC.NURSE ---
Pt states she has had no relief from meds at this time. Pt sitting in position of comfort.
[2020-04-24 12:00] VITALS: BP 120/79; PULSE 73; O2SAT 93
[2020-04-24 12:17] VITALS: BP 120/79; PULSE 79; RESP 16; TEMP 36.6; O2SAT 98
== END 2020-04-24 12:18 | disposition home or self-care (01) ==
PROVIDERS: Emergency Provider Emergency Medicine; PCP Physician Assistant
DX: M54.16 Radiculopathy, lumbar region (principal); I10 Essential (primary) hypertension; E78.5 Hyperlipidemia, unspecified; I25.10 Atherosclerotic heart disease of native coronary artery without angina pectoris; J44.9 Chronic obstructive pulmonary disease, unspecified; K21.9 Gastro-esophageal reflux disease without esophagitis; F17.210 Nicotine dependence, cigarettes, uncomplicated; Z79.899 Other long term (current) drug therapy
CPT/HCPCS: 81001; 96372; 99282

== ENCOUNTER → 2020-06-23 10:44 | Outpatient (CLI) | payer MEDICAID, SELFPAY ==
--- NOTE | 2020-06-23 | MM_ITS ---
PROCEDURE: MM DIG MAMM BI DX W/CAD Digital Breast Tomosynthesis Included CLINICAL INDICATION: Palpable area right breast with bruising COMPARISON: [facility] DIGMAMMS MAMMOGRAM SCREEN-STEREO EQUIPMENT REPAIRER N/C from 09/23/1995 MG DIGMAMMS MAMMOGRAM SCREEN-STEREO EQUIPMENT REPAIRER N/C from 01/31/2001 MG DMSB DIG MAMM-SCREEN CULLEN from 03/24/2015 US US BREAST RT COMPLETE from 06/23/2020 TECHNIQUE: Standard CC and MLO images and 3D Tomosynthesis was obtained. R2 CAD reviewed. FINDINGS: There is average fibroglandular tissue. There is an ill-defined 18 x 17 mm asymmetric density in the upper inner aspect of the right breast. The margins are not well circumscribed. No abnormal calcifications. This has developed since the previous exam. There is some reported bruising in this area by the technologist. The left breast has an unremarkable appearance. Right breast ultrasound: In the 1 o'clock region of the right breast, there is a complex nodule measuring approximately 18 x 15 mm. This has a solid sent center with peripheral increased echogenicity with enhanced through transmission of sound and may represent a hematoma. This corresponds to the mammographic abnormality. This does not have a typical appearance for neoplasm. An abscess would be included in the differential diagnosis. No other significant anomalies are evident. IMPRESSION: Complex 18 mm nodule in the 1 o'clock region of the right breast as described above. This may be due to a hematoma. An abscess would be included in the differential diagnosis. Please correlate with clinical parameters. Recommend short-term sonographic follow-up in 4-6 weeks. BI-RAD Category: 3 Probably Benign Finding Short Term Follow-up FOLLOW-UP: Suggest follow-up ultrasound in 4-6 weeks (A letter has been sent to the patient regarding results of the study.) Dictated b Rajendra Gregg MD 06/24/2020 09:12 Rajendra Gregg MD in [place] 06/24/2020 09:12
--- NOTE | 2020-06-23 10:44 | US_ITS ---
PROCEDURE: MM DIG MAMM BI DX W/CAD Digital Breast Tomosynthesis Included CLINICAL INDICATION: Palpable area right breast with bruising COMPARISON: MG DIGMAMMS MAMMOGRAM SCREEN-INSPECTION AND TESTING SUPERVISOR N/C from 09/23/1995 MG DIGMAMMS MAMMOGRAM SCREEN-INSPECTION AND TESTING SUPERVISOR N/C from 01/31/2001 MG DMSB DIG MAMM-SCREEN CULLEN from 03/24/2015 US US BREAST RT COMPLETE from 06/23/2020 TECHNIQUE: Standard CC and MLO images and 3D Tomosynthesis was obtained. R2 CAD reviewed. FINDINGS: There is average fibroglandular tissue. There is an ill-defined 18 x 17 mm asymmetric density in the upper inner aspect of the right breast. The margins are not well circumscribed. No abnormal calcifications. This has developed since the previous exam. There is some reported bruising in this area by the technologist. The left breast has an unremarkable appearance. Right breast ultrasound: In the 1 o'clock region of the right breast, there is a complex nodule measuring approximately 18 x 15 mm. This has a solid sent center with peripheral increased echogenicity with enhanced through transmission of sound and may represent a hematoma. This corresponds to the mammographic abnormality. This does not have a typical appearance for neoplasm. An abscess would be included in the differential diagnosis. No other significant anomalies are evident. IMPRESSION: Complex 18 mm nodule in the 1 o'clock region of the right breast as described above. This may be due to a hematoma. An abscess would be included in the differential diagnosis. Please correlate with clinical parameters. Recommend short-term sonographic follow-up in 4-6 weeks. BI-RAD Category: 3 Probably Benign Finding Short Term Follow-up FOLLOW-UP: Suggest follow-up ultrasound in 4-6 weeks (A letter has been sent to the patient regarding results of the study.) Dictated b Rajendra Gregg MD 06/24/2020 09:12 Rajendra Gregg MD in [place] 06/24/2020 09:12
== END ==
PROVIDERS: PCP Physician Assistant; Visit Provider Physician Assistant
DX: N64.89 Other specified disorders of breast (principal)
CPT/HCPCS: 76641; 77062; 77066; G0279

== ENCOUNTER 2020-07-12 11:50 | Emergency (ER) | payer MEDICAID, SELFPAY ==
[2020-07-12 11:51] VITALS: BP 135/81; PULSE 96; RESP 20; TEMP 37.2; O2SAT 98; BMI 42.0
--- NOTE | 2020-07-12 12:06 | XR_ITS ---
PROCEDURE: XR FOOT LT 2V CLINICAL INDICATION: fall Posttraumatic pain COMPARISON: CR FTR3 FOOT-RT-3 VIEWS from 08/28/2016 CR XR FOOT RT 2V from 07/06/2019 CR XR FOOT WT BEARING RT 3V from 12/06/2019 CR XR FOOT WT BEARING LT 3V from 12/06/2019 FINDINGS: No fracture or dislocation. No lytic or blastic change. There is normal mineralization. There are mild osteoarthritic changes the 1st metatarsophalangeal joint Other findings:There is a small calcaneal spur and small Achilles enthesophyte. IMPRESSION: No acute findings. Dictated by: Rajendra Gregg MD 07/12/2020 12:45 Rajendra Gregg MD in [place] 07/12/2020 12:45
--- NOTE | 2020-07-12 12:07 | PC.NURSE ---
Radiology notified of xray
--- NOTE | 2020-07-12 12:13 | HMH.EDGENADL ---
ED Disposition Clinical Impression: Puncture wound of left foot excluding toes with infection Qualifiers: Encounter type: initial encounter Qualified Code(s): S91.332A - Puncture wound without foreign body, left foot, initial encounter Disposition: Home, Self-Care Condition on Discharge: Good Additional Instructions: Follow-up with Dr. Rehman, flask maker, within 2 to 3 days, call for appointment. Use crutches and elevate your foot. Clean the wound gently with soap and water daily and re-bandage. Keflex as prescribed. Turn to the emergency department if increasing swelling, pain, redness, red streaks, or fever greater than 100 degrees. Additional instructions for CONTROLLED SUBSTANCES: You have been prescribed a medication that is a controlled substance. Controlled substances include pain medications known as opiates and sedative nerve medications known as benzodiazepines. Tramadol, fioricet, and gabapentin are also controlled substances. Some common opiates include: Codeine (such as Tylenol #3) Hydrocodone (Vicodin, Lortab, Lorcet, [place]) Oxycodone (Percocet, Percodan, Oxycodone, Oxy IR) Some common benzodiazepines include: Diazepam (Valium) Lorazepam (Ativan) Alprazolam (Xanax) Clonazepam (Klonopin) Oxazepam (Serax) All of these controlled substances are highly addictive and frequently abused. Misuse can and frequently does lead to addiction as well as overdose and . Medication should be stored in a locked cabinet or other secure storage unit. Do not store the medication in a motor vehicle. Short term supplies, 3 days or less, are prescribed because of the highly addictive nature of the medication. Any of the controlled substance medication NOT taken should be disposed of properly and NOT SAVED. The recommended method of disposing of unused medications is: Place the medicines in a sealable plastic bag. If the medicine is a solid, crush it or add water to dissolve it. Add something undesirable (cat litter, coffee grounds, etc.) Dispose of sealed bag in household trash Do not flush or pour unused medicines down a sink or drain. Controlled substances should not be shared, given away or sold. Because of the addictive nature and frequent abuse, these medications are sometimes stolen. These medications should be kept in a safe place where they cannot be stolen. Do not keep them in your car or purse. Lost or stolen prescriptions for controlled substances WILL NOT BE REFILLED in this emergency department, regardless of whether a police report was filed. Prescriptions: Hydrocod/Acet 5/325 mg [[place] 5/325mg tablet] 1 tab PO Q6HP PRN #10 tab PRN Reason: Pain Transmission Status: Received by [id number] cephALEXin [Keflex 500mg Cap] 500 mg PO QID #40 cap Transmission Status: Received by [id number] Referrals: Domitila Baldwin PA [Primary Care Provider] - - Critical Care Critical Care Time: No Attestation: On , the high probability of a clinically significant, sudden or life threatening deterioration of the following system(s) required my full and direct attention, intervention and personal management. The time I documented below is in addition to time spent performing reported procedures but includes the following listed in this critical care notation. Medical Decision Making - Robson Inquiry Pt receiving controlled substance: Yes Robson was queried for this patient: Yes Reference #:: [id number] Risks and benefits of using a controlled substance: were discussed with pt by me Comment: 13 rxs. last rx gabapentin Vital Signs: 07/12/20 11:51 Temperature 98.9 F Temperature Source Oral Pulse Rate [Left Radial] 96 H Respiratory Rate 20 Blood Pressure [Right Arm] 135/81 Blood Pressure Mean [Right Arm] 99 Blood Pressure Source [Right Arm] Automatic Cuff Blood Pressure Position [Right Arm] Sitting 02 Sat by Pulse Oximetry 98 Oxygen Delivery Method Room Air
--- NOTE | 2020-07-12 13:17 | PC.NURSE ---
Dressing applied to open area on left foot. Pt tolerated well and DC instructions given for home care.Pt verbalized understanding
[2020-07-12 13:59] VITALS: BP 128/81; PULSE 90; RESP 20; TEMP 36.9; O2SAT 93
== END 2020-07-12 14:04 | disposition home or self-care (01) ==
PROVIDERS: Emergency Provider Emergency Medicine; PCP Physician Assistant
DX: S91.332A Puncture wound without foreign body, left foot, initial encounter (principal); W01.0XXA Fall on same level from slipping, tripping and stumbling without subsequent striking against object, initial encounter; Y92.019 Unspecified place in single-family (private) house as the place of occurrence of the external cause; I10 Essential (primary) hypertension; F33.1 Major depressive disorder, recurrent, moderate; J44.9 Chronic obstructive pulmonary disease, unspecified; K21.9 Gastro-esophageal reflux disease without esophagitis; I25.10 Atherosclerotic heart disease of native coronary artery without angina pectoris; E78.5 Hyperlipidemia, unspecified; G43.709 Chronic migraine without aura, not intractable, without status migrainosus; F17.210 Nicotine dependence, cigarettes, uncomplicated; Z90.710 Acquired absence of both cervix and uterus; Z79.899 Other long term (current) drug therapy
CPT/HCPCS: 10060; 73620; 96372; 99283

== ENCOUNTER 2020-08-29 21:22 | Emergency (ER) | payer MEDICAID, SELFPAY ==
--- NOTE | 2020-08-29 21:34 | ECG_ITS ---
APPROVED REPORT Exam: Resting ECG HR:88 bpm ECG Measurements Heart Rate 88 AXES VT 132 P 56 QRSd 86 QRS 46 QT 362 T 47 QTc 438 Conclusion Normal sinus rhythm Nonspecific ST and T wave abnormality Abnormal ECG Electronically signed by : Gurvinder Gregory, 08/30/2020 07:20:26
[2020-08-29 21:38] VITALS: BP 155/89; PULSE 95; RESP 20; TEMP 36.6; O2SAT 95; BMI 41.4
--- NOTE | 2020-08-29 22:38 | XR_ITS ---
PROCEDURE: XR CHEST 2V CLINICAL HISTORY: SHORTNESS OF AIR COMPARISON: CT AGCHEST CT angio chest from 06/14/2019 CR XR CHEST PORTABLE from 08/27/2019 CR XR CHEST 2V from 01/03/2020 CR XR CHEST PORTABLE from 02/29/2020 FINDINGS: The cardiomediastinal silhouette and pulmonary vascularity are within normal limits. The lungs are clear without infiltrates, suspicious nodules, or pleural effusions. There is minimal upper thoracic curvature convex left and lumbar curvature convex right. There is an old right 5th rib fracture. IMPRESSION: No acute findings. Dictated by: Rajendra Gregg MD 08/30/2020 05:27 Rajendra Gregg MD in [place] 08/30/2020 05:27
[2020-08-29 22:45] LABS: Basophils # 0.1 K/mm3 (0-0.2); Chloride 104 mmol/L (98-107); Eosinophils # 0.3 K/mm3 (0.0-0.4); Eosinophils % 2.9 % (0.1-12.0); Hematocrit 42.5 % (37.0-47.0); Hemoglobin 13.6 g/dL (12.2-16.2); Lymphocytes # 3.5 K/mm3 (0.7-4.5); Lymphocytes % 35.9 % (10-50); Mean Corpuscular Hemoglobin 30.4 pg (27.0-31.2); Mean Corpuscular Volume 95.2 fl (81-99); Mean Platelet Volume 7.2 fl (7.4-10.4); Monocytes # 0.5 K/mm3 (0.1-1.0); Monocytes % 5.1 % (1.7-9.3); Neutrophils # 5.4 K/mm3 (1.8-7.8); Neutrophils % 55.1 % (37.0-80.0); Platelet Count 334 K/mm3 (142-424); Potassium 3.8 mmoL/L (3.5-5.1); Red Blood Count 4.47 M/mm3 (4.20-5.40); Red Cell Distribution Width 13.9 % (11.5-17.5); Sodium 139 mmol/L (136-145); White Blood Count 9.8 K/mm3 (4.8-10.8)
[2020-08-29 22:48] LABS: Blood Urea Nitrogen 25 mg/dl (7-17); Creatinine Clearance Estimated 48 mL/min (50-200); Estimated Glomerular Filt Rate 56 ml/min (>60); GFR (African American) 68 ML/MIN (>60)
[2020-08-29 22:49] LABS: Anion Gap 9.8 mEq/L (5-15); Calcium 9.3 mg/dl (8.4-10.2); Carbon Dioxide 29 mmol/L (22.0-30.0); Glucose 120 mg/dl (74-100)
[2020-08-29 22:58] LABS: NT Pro Brain Natriuretic Pep. 45.8 pg/mL (0-125)
[2020-08-29 23:04] VITALS: BP 159/85; PULSE 85; RESP 18; O2SAT 95
[2020-08-29 23:08] LABS: Troponin I < 0.01 ng/ml (0.00-0.034)
--- NOTE | 2020-08-29 23:37 | HMH.EDSOB ---
ED Disposition Clinical Impression: Leg edema Disposition: Home, Self-Care Condition on Discharge: Good Instructions: DI for Shortness of Breath Additional Instructions: see pcp in am Referrals: Domitila Baldwin PA [Primary Care Provider] - - Critical Care Critical Care Time: No Attestation: On 08/29/20, the high probability of a clinically significant, sudden or life threatening deterioration of the following system(s) required my full and direct attention, intervention and personal management. The time I documented below is in addition to time spent performing reported procedures but includes the following listed in this critical care notation. Medical Decision Making - Medical Records Medical records reviewed: Yes: I reviewed the patient's medical records. - Robson Inquiry Pt receiving controlled substance: No Vital Signs: 08/29/20 21:38 08/29/20 23:04 Temperature 97.8 F Temperature Source Oral Pulse Rate [Right Brachial] 95 H 85 Respiratory Rate 20 18 Blood Pressure [Right Arm] 155/89 H 159/85 H Blood Pressure Mean [Right Arm] 111 109 Blood Pressure Source [Right Arm] Automatic Cuff Blood Pressure Position [Right Arm] Sitting 02 Sat by Pulse Oximetry 95 95 Oxygen Delivery Method Room Air Room Air - Lab Data Lab results reviewed: Yes: I reviewed the patient's lab results. Lab Results 08/29/20 21:50: WBC 9.8, RBC 4.47, Hgb 13.6, Hct 42.5, MCV 95.2, MCH 30.4, MCHC 32.0, RDW 13.9, Plt Count 334, MPV 7.2 L, Neut % (Auto) 55.1, Lymph % (Auto) 35.9, [place] % (Auto) 5.1, Eos % (Auto) 2.9, Baso % (Auto) 1.0, Neut # (Auto) 5.4, Lymph # (Auto) 3.5, [place] # (Auto) 0.5, Eos # (Auto) 0.3, Baso # (Auto) 0.1 08/29/20 21:50: Sodium 139, Potassium 3.8, Chloride 104, Carbon Dioxide 29, Anion Gap 9.8, BUN 25 H, Creatinine 1.00, Estimated Creat Clear 48, Estimated GFR 56 L, Est GFR ( Amer) 68, Glucose 120 H, Calcium 9.3, Troponin I < 0.01, NT-Pro-B Natriuret Pep 45.8 Result diagrams: 08/29/20 21:50 08/29/20 21:50 Orders (Tests/Meds): ORDERS Category Date Time Status Chest XR 2 view (NOT portable) [XR chest 2V] Stat Exams 08/29/20 22:38 Taken Troponin I Q3H Lab 08/30/20 01:45 Ordered Troponin I Q3H Lab 08/30/20 04:45 Ordered - Radiology Data #1 Image(s): Chest Image Reviewed: Yes I reviewed the patient's radiology image Preliminary Findings: Normal/NAD - ECG Data Tracing #1 Normal Sinus Rhythm: Yes Ischemic changes: non-specific ST-T wave changes - THIEN Score for Non-Stemi Age of Patient: 60-69 years old Heart Rate: 90-109 bpm Systolic Blood Pressure: 140-159 mmHg Serum Creatinine: 0.80-1.19 mg/dl CHF [place] Class: I-No CHF Other Risk Factors: None Non-Stemi Risk Score: 104 Resp/SOB HPI - General Chief Complaint: Shortness of Breath/Dyspnea Stated Complaint: R leg swollen pain in both Time Seen by Provider: 08/29/20 23:00 Mode of Arrival: Family Vehicle Source of Information: Patient, Medical Record Limitations: No Limitations Description of Symptoms (Recalled from ER Triage Doc. by RN): PT COMPLAINS OF BOTH ANKLES ARE SORE, RIGHT LEG SWELLING/SORENESS, BOTH LEGS SWELLING MORE THAN NORMAL,SHORTNESS OF AIR (SHE STATES IS NORMAL)BUT AUDIBLE AT TIME OF TRIAGE - History of Present Illness more sob and leg swelling than usual - has pain rt lower leg - MD Complaint: shortness of breath Onset (ago): hour(s) Severity: moderate Known history of: COPD, congestive heart failure Associated symptoms: denies other symptoms Treatment prior to arrival: none - Related Data Home oxygen amount: none Home Medications Medication Instructions Recorded Confirmed albuterol sulfate 1 puff CONTINUOUS NEBULIZATION 12/07/19 08/29/20 DAILY Albuterol Sulfate [Proventil Hfa] See Rx Instructions .ROUTE .COMPLEX 02/29/20 08/29/20 Atorvastatin Calcium [Lipitor 10mg 10 mg PO DAILY 02/29/20 08/29/20 Tab] lisinopriL [Prinivil 10mg Tablet] See Rx Instructions .RO
[2020-08-29 23:59] VITALS: BP 171/100; PULSE 86; RESP 16; TEMP 36.8; O2SAT 98
[2020-08-30 00:11] LABS: D-Dimer 0.75 ug/mL (0.15-8.0)
== END 2020-08-30 00:04 | disposition home or self-care (01) ==
PROVIDERS: Emergency Provider Emergency Medicine; PCP Physician Assistant
DX: R60.0 Localized edema (principal); J44.9 Chronic obstructive pulmonary disease, unspecified; I10 Essential (primary) hypertension; E78.5 Hyperlipidemia, unspecified; I25.10 Atherosclerotic heart disease of native coronary artery without angina pectoris; K21.9 Gastro-esophageal reflux disease without esophagitis; F17.210 Nicotine dependence, cigarettes, uncomplicated; G43.709 Chronic migraine without aura, not intractable, without status migrainosus; Z79.899 Other long term (current) drug therapy
CPT/HCPCS: 71046; 80048; 83880; 84484; 85025; 85378; 93005; 96372; 96374; 99283

== ENCOUNTER → 2020-08-30 09:51 | Outpatient (CLI) | payer MEDICAID, SELFPAY ==
--- NOTE | 2020-08-30 09:53 | CA_ITS ---
APPROVED REPORT Right Lower Extremity Venous Study for DVT. 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 Study suggests no evidence of SVT of the right lower extremity. Conclusion Study suggests no evidence of DVT of the right lower extremity. Study suggests no evidence of SVT of the right lower extremity. Critical Notification Physician Notified Date: 08/30/2020 Time: 10:20 Physician Name: Quintin Baldwin Electronically signed by : Rajendra Gregg MD 08/30/2020 17:51:07
[2020-08-30 10:49] LABS: Basophils # 0.1 K/mm3 (0-0.2); Basophils % 0.6 % (0.1-2.0); Eosinophils % 0.5 % (0.1-12.0); Hematocrit 44.3 % (37.0-47.0); Hemoglobin 14.1 g/dL (12.2-16.2); Lymphocytes # 1.5 K/mm3 (0.7-4.5); Lymphocytes % 17.4 % (10-50); Mean Corpuscular HGB Conc 31.8 g/dL (31.8-35.4); Mean Corpuscular Hemoglobin 30.6 pg (27.0-31.2); Mean Corpuscular Volume 96.5 fl (81-99); Mean Platelet Volume 7.1 fl (7.4-10.4); Monocytes # 0.3 K/mm3 (0.1-1.0); Monocytes % 3.5 % (1.7-9.3); Neutrophils # 6.9 K/mm3 (1.8-7.8); Neutrophils % 78.1 % (37.0-80.0); Platelet Count 360 K/mm3 (142-424); Red Blood Count 4.59 M/mm3 (4.20-5.40); Red Cell Distribution Width 13.8 % (11.5-17.5); White Blood Count 8.9 K/mm3 (4.8-10.8)
[2020-08-30 11:44] LABS: Erythrocyte Sedimentation Rate 18 mm/hr (0-30)
[2020-08-30 12:23] LABS: Chloride 105 mmol/L (98-107)
[2020-08-30 12:24] LABS: Potassium 4.3 mmoL/L (3.5-5.1); Sodium 139 mmol/L (136-145)
[2020-08-30 12:26] LABS: Alanine Aminotransferase 20 U/L (12-78); Aspartate Amino Transferase 25 U/L (14-36); Blood Urea Nitrogen 26 mg/dl (7-17); Estimated Glomerular Filt Rate 63 ml/min (>60); GFR (African American) 77 ML/MIN (>60)
[2020-08-30 12:27] LABS: Albumin Level 4.2 g/dl (3.5-5.0); Albumin/Globulin Ratio 1.2 (1.1-1.8); Alkaline Phosphatase 120 U/L (38-126); Anion Gap 12.3 mEq/L (5-15); Bilirubin,Total 0.5 mg/dl (0.2-1.3); Calcium 9.4 mg/dl (8.4-10.2); Carbon Dioxide 26 mmol/L (22.0-30.0); Globulin 3.5 g/dL (1.3-3.2); Glucose 140 mg/dl (74-100); Total Protein,Serum 7.7 g/dl (6.3-8.2)
[2020-08-30 12:33] LABS: C-Reactive Protein 7.8 mg/L (0-4)
[2020-08-30 12:45] LABS: T4 (Thyroxine) 10.8 ug/dl (5.53-11.0)
[2020-08-30 12:58] LABS: Thyroid Stimulating Hormone 0.57 uIU/mL (0.465-4.68)
[2020-08-30 13:39] LABS: Hemoglobin A1C 6.3 % (4.0-6.0)
[2020-08-30 14:08] LABS: Vitamin B12 286 pg/mL (239-931)
[2020-08-31 13:13] LABS: Anti-Centromere B Antibodies <0.2 AI (0.0-0.9); Anti-Jo-1 <0.2 AI (0.0-0.9); Anti-Smith Antibody <0.2 AI (0.0-0.9); Antichromatin Antibodies <0.2 AI (0.0-0.9); Antiscleroderma-70 Antibodies <0.2 AI (0.0-0.9); RNP Antibodies <0.2 AI (0.0-0.9); Sjogren's Anti-SS-A <0.2 AI (0.0-0.9); Sjogren's Anti-SS-B <0.2 AI (0.0-0.9)
[2020-09-01 10:17] LABS: Anti-DNA (DS) Ab Qn <1 IU/mL (0-9); RA Latex Turbid. 12.3 IU/mL (0.0-13.9)
== END ==
PROVIDERS: PCP Physician Assistant; Visit Provider Physician Assistant
DX: R60.9 Edema, unspecified (principal); M25.571 Pain in right ankle and joints of right foot; M25.572 Pain in left ankle and joints of left foot; G62.9 Polyneuropathy, unspecified
CPT/HCPCS: 36415; 80053; 82607; 83036; 84436; 84443; 85025; 85651; 86140; 86225; 86235; 86431; 93971

== ENCOUNTER → 2020-09-12 10:45 | Outpatient (CLI) | payer MEDICAID, SELFPAY ==
--- NOTE | 2020-09-12 10:51 | XR_ITS ---
PROCEDURE: XR FOOT WT BEARING LT 3V CLINICAL INDICATION: pain COMPARISON: CR XR FOOT RT 2V from 07/06/2019 CR XR FOOT WT BEARING RT 3V from 12/06/2019 CR XR FOOT WT BEARING LT 3V from 12/06/2019 CR XR FOOT LT 2V from 07/12/2020 FINDINGS: Minor osteoarthritic changes 1st metatarsophalangeal joint. Small calcaneal spurs present and there is minimal hypertrophic change of the anterior distal talus. IMPRESSION: No change with no acute finding. Mild osteoarthritic change 1st MTP joint Dictated by: Rajendra Gregg MD 09/12/2020 11:37 Rajendra Gregg MD in [place] 09/12/2020 11:37
--- NOTE | 2020-09-12 10:51 | XR_ITS ---
PROCEDURE: XR FOOT WT BEARING RT 3V CLINICAL INDICATION: pain COMPARISON: CR XR FOOT RT 2V from 07/06/2019 CR XR FOOT WT BEARING RT 3V from 12/06/2019 CR XR FOOT WT BEARING LT 3V from 12/06/2019 CR XR FOOT LT 2V from 07/12/2020 FINDINGS: No fracture or dislocation. No lytic or blastic change. There is normal mineralization. Mild osteoarthritic changes are present at the 1st metatarsophalangeal joint and 1st tarsal metatarsal joint as well as the talonavicular joint. There is some mild superior displacement of the navicular with mild pes planus. The superior displacement of the navicular is less than when compared to the previous exam. There is an overlying wrap in place. Small calcaneal spur noted. IMPRESSION: Osteoarthritic change with pes planus as described above Dictated by: Rajendra Gregg MD 09/12/2020 11:58 Rajendra Gregg MD in [place] 09/12/2020 11:58
--- NOTE | 2020-09-12 10:51 | XR_ITS ---
PROCEDURE: XR SHOULDER RT MIN 2V CLINICAL INDICATION: shoulder pain COMPARISON: CR SHOU3R [id number] VIEWS from 10/06/2016 CR SHOULDCMRT XR shoulder RT min 2V from 11/30/2017 FINDINGS: There are severe osteoarthritic changes the right glenohumeral joint with high-riding humeral head and severe subacromial stenosis which has progressed since the previous exam. Rotator cuff tear suspected with this degree subacromial stenosis. MRI may confirm. There is an old right 5th rib fracture. IMPRESSION: Severe osteoarthritis with severe subacromial stenosis suggesting rotator cuff tear which may be confirmed with MRI. These findings have progressed Dictated by: Rajendra Gregg MD 09/12/2020 11:54 Rajendra Gregg MD in [place] 09/12/2020 11:54
--- NOTE | 2020-09-12 10:51 | XR_ITS ---
PROCEDURE: XR SHOULDER LT MIN 2V CLINICAL INDICATION: BL shoulder pain COMPARISON: CR SHOU3R [id number] VIEWS from 10/06/2016 CR SHOULDCMRT XR shoulder RT min 2V from 11/30/2017 FINDINGS: No fracture or dislocation. No lytic or blastic change. There is normal mineralization. Mild osteoarthritic changes are present involving the glenohumeral joint on the left and at the AC joint. There is slightly high-riding humeral head on the left. Other findings:None. IMPRESSION: Osteoarthritic change Dictated by: Rajendra Gregg MD 09/12/2020 11:56 Rajendra Gregg MD in [place] 09/12/2020 11:56
== END ==
PROVIDERS: PCP Physician Assistant; Visit Provider Podiatrist
DX: M25.512 Pain in left shoulder (principal); M25.511 Pain in right shoulder; M25.572 Pain in left ankle and joints of left foot; M25.571 Pain in right ankle and joints of right foot
CPT/HCPCS: 73030; 73630

== ENCOUNTER → 2020-09-15 10:42 | Outpatient (CLI) | payer MEDICAID, SELFPAY ==
--- NOTE | 2020-09-15 10:48 | US_ITS ---
PROCEDURE: US BREAST RT COMPLETE CLINICAL INDICATION: 4 week f/u COMPARISON: US US BREAST RT COMPLETE from 06/23/2020 FINDINGS: Targeted ultrasound upper inner quadrant at the site of the previous lesion now appears entirely normal suggesting that this did represent a resolving hematoma or possibly an abscess which has resolved. The surrounding breast parenchyma is unremarkable. There are 2 normal appearing nodes in the axilla. IMPRESSION: Interval resolution of previous palpable tender lesion suggesting either resolving hematoma or and or abscess Dictated by: Dr. Domenic Correia MD 09/16/2020 13:07 Dr. Domenic Correia MD in [place] 09/16/2020 13:07
== END ==
PROVIDERS: PCP Physician Assistant; Visit Provider Physician Assistant
DX: N64.4 Mastodynia (principal)
CPT/HCPCS: 76641

== ENCOUNTER → 2020-09-29 12:28 | Outpatient (CLI) | payer MEDICAID, SELFPAY ==
--- NOTE | 2020-09-29 12:30 | US_ITS ---
APPROVED REPORT Exam Type: Lower Extremity Segmental Pressures Machine Operator Helper: Ashlie Gallegos RDCS Indications Claudication: Rest Pain: Edema Current Smoker History of Smoking CAD Pressures/Indices Right Indices Left Indices Brachial 146.00 mmHg Brachial 132.00 mmHg Low Thigh 0.00 mmHg 0.00 Low Thigh 130.00 mmHg 0.89 Calf 153.00 mmHg 1.05 Calf 129.00 mmHg 0.88 Ankle(PT) 133.00 mmHg 0.91 Ankle(PT) 118.00 mmHg 0.81 Ankle(DP) 134.00 mmHg 0.92 Ankle(DP) 119.00 mmHg 0.82 Digit 107.00 mmHg 0.73 Digit 110.00 mmHg 0.75 Findings diminished pulse bilaterally at posterior tibeal waveforms normal R LINDA .92 L LINDA .82 R TBI .7 L TBI .82 Conclusion diminished pulse bilaterally at posterior tibeal waveforms normal R LINDA .92 L LINDA .82 R TBI .7 L TBI .82 Mild left arterial disease Electronically signed by : Rajendra Gregg MD 09/29/2020 17:44:17
== END ==
PROVIDERS: PCP Physician Assistant; Visit Provider Podiatrist
DX: R09.89 Other specified symptoms and signs involving the circulatory and respiratory systems (principal)
CPT/HCPCS: 93923

== ENCOUNTER → 2020-09-29 13:08 | Outpatient (CLI) | payer MEDICAID, SELFPAY ==
[2020-09-29 15:49] LABS: Blood Urea Nitrogen 27 mg/dl (7-17); Estimated Glomerular Filt Rate 56 ml/min (>60); GFR (African American) 68 ML/MIN (>60)
== END ==
PROVIDERS: Visit Provider Podiatrist
DX: Z01.818 Encounter for other preprocedural examination (principal)
CPT/HCPCS: 36415; 82565; 84520

== ENCOUNTER → 2020-10-05 08:35 | Outpatient (CLI) | payer MEDICAID, SELFPAY ==
--- NOTE | 2020-10-05 08:35 | MR_ITS ---
PROCEDURE: MR ANKLE RT WO/W CON CLINICAL INDICATION: pain evaluate for rt ankle peronial tendonitis. Pt s/o rt ankle pain x 6-7 months with no known injury or trauma. Pt states it hurts all over the rt ankle. A the the COMPARISON: CR XR FOOT WT BEARING RT 3V from 09/12/2020 TECHNIQUE: Routine multiplanar multi echo sequences are performed without and with gadolinium enhancement. FINDINGS: There is a 10x 4 mm sub chondral cystic area in the central aspect the calcaneus along the anterior aspect of the posterior subtalar joint. A small subchondral area of increased T2 signal is present along the posterior aspect of the anterior subtalar joint within the calcaneus and there is a sub cortical cystic area within the central aspect of the talus inferiorly between the anterior and posterior subtalar joint. These areas may represent sub chondral cystic changes from osteoarthritis. There is pes planus. Small ankle joint effusion is present and there is a small amount of fluid between the tarsal bones. Cystic areas also present in the proximal aspect of the 3rd metatarsal. There is a small amount fluid within the tendon sheath of the flexor digitorum longus and flexor hallucis longus at the ankle joint area. The posterior tibialis, flexor digitorum longus, and flexor hallucis longus tendons appear intact. There is increased T2 signal involving the peroneus brevis tendon just distal to the tip of the lateral malleolus. The there is some contrast enhancement in this region best demonstrated on the coronal post enhanced images. A complete tear is not present. There is some generalized edema of the ankle. There is increased T2 signal involving the extensor hallucis longus tendon. This is at the level of the ankle joint. Tendinitis or or tendon tear is a consideration. This is best demonstrated on series 7, image 17. Please correlate with physical exam two the possibility of tendon tear at this region. IMPRESSION: 1. Increased T2 signal of the peroneus brevis tendon consistent with tendinitis. Partial tear is also consideration. 2. Focal increased T2 signal involving the extensor hallucis longus tendon which may be due to tendinitis or partial tear. 3. Osteoarthritic changes of the ankle with scattered subchondral cystic changes and joint effusions. Dictated by: Rajendra Gregg MD 10/10/2020 08:39 Rajendra Gregg MD in [place] 10/10/2020 08:39
== END ==
PROVIDERS: PCP Physician Assistant; Visit Provider Podiatrist
DX: M67.88 Other specified disorders of synovium and tendon, other site (principal)
CPT/HCPCS: 73723; A9576

== ENCOUNTER 2020-10-28 11:02 | Emergency (ER) | payer MEDICAID, SELFPAY ==
[2020-10-28 11:15] VITALS: BP 128/68; PULSE 92; RESP 22; TEMP 36.9; O2SAT 96; BMI 44.9
--- NOTE | 2020-10-28 11:26 | HMH.EDUTC ---
[facility] [place] Disposition Clinical Impression: Bronchitis, Exposure to COVID-19 virus, Viral syndrome Disposition: Home, Self-Care Condition on Discharge: Good Instructions: Preventing the Spread of Coronavirus Discharge Instructions Additional Instructions: Drink plenty of fluids. Take tylenol for pain or fever. Return if you begin to have difficulty breathing. Follow up with your regular doctor. GO TO THE ER FOR ANY WORSENING SYMPTOMS Prescriptions: Benzonatate [Tessalon Perle 100mg Cap] 100 mg PO TIDP PRN #30 cap PRN Reason: Cough Transmission Status: Received by [id number] Azithromycin [Z-Zion 250mg Tab*] 250 mg PO UD DOSE PK #6 tab [facility]: [id number] Referrals: Domitila Baldwin PA [Primary Care Provider] - Time of Disposition: 12:15 Medical Decision Making - Medical Records Medical records reviewed: No: I reviewed the patient's medical records. - Robson Inquiry Pt receiving controlled substance: No Vital Signs: 10/28/20 11:15 10/28/20 12:16 Temperature 98.4 F 98.4 F Temperature Source Oral Pulse Rate 92 H Pulse Rate [Right Brachial] 92 H Respiratory Rate 22 22 Blood Pressure 128/68 Blood Pressure [Right Arm] 128/68 Blood Pressure Mean [Right Arm] 88 Blood Pressure Source [Right Arm] Automatic Cuff Blood Pressure Position [Right Arm] Sitting 02 Sat by Pulse Oximetry 96 Oxygen Delivery Method Room Air - Lab Data Lab Results 10/28/20 11:47: Influenza Type A Ag Negative, Influenza Type B Ag Negative Orders (Tests/Meds): ORDERS Category Date Time Status Covid-19 Nasal PCR Sendout Armando Stat Lab 10/28/20 11:15 Received [facility] [place] HPI - General Stated complaint: fever,headache,achey Time Seen by Provider: 10/28/20 11:26 - History of Present Illness Provider Complaint: She c/o chills, fever, cough, and diarrhea since yesterday. She has family members that currently have covid. She denies any chest pain or shortness of breath. - Related Data Home Medications Medication Instructions Recorded Confirmed Atorvastatin Calcium [Lipitor 10mg 10 mg PO DAILY 02/29/20 10/20/20 Tab] fluticasone propionate 50 g INTRANASAL 10/10/20 10/20/20 mcg/actuation nasal spray,suspension loratadine 10 mg tablet 10 mg PO tab 10/10/20 10/20/20 fluoxetine 20 mg capsule 20 mg PO DAILY cap 10/20/20 10/20/20 lisinopril 10 mg tablet 10 mg PO DAILY tab 10/20/20 10/20/20 ropinirole 2 mg tablet 2 mg PO HS tab 10/20/20 10/20/20 Previous Rx's Medication Instructions Recorded aspirin 325 mg tablet 325 mg PO DAILY #90 tab 11/24/19 fenofibrate nanocrystallized 145 145 mg PO DAILY #90 tab 11/24/19 mg tablet furosemide 20 mg tablet 20 mg PO QHS #90 tab 11/24/19 isosorbide mononitrate 60 mg 60 mg PO QAM #90 tab 11/24/19 tablet,extended release 24 hr metoprolol succinate 100 mg 100 mg PO QDAY #90 tab 11/24/19 tablet,extended release 24 hr tramadol 50 mg tablet 50 mg PO Q8H #30 tab 05/09/20 tizanidine 4 mg tablet 4 mg PO BID #180 tab 05/31/20 buspirone 10 mg tablet 10 mg PO BID #90 tab 07/04/20 njtoyocorq-lqnpvubllcydi-gexmqxzt 1 cap PO BID PRN #20 cap 07/04/20 50 mg-300 mg-40 mg capsule clopidogrel 75 mg tablet 75 mg PO DAILY #90 tab 08/10/20 trazodone 50 mg tablet 50 mg PO QHS #90 tab 08/30/20 cyclobenzaprine 10 mg tablet 10 mg PO TID PRN #90 tab 09/02/20 metformin 500 mg tablet,extended 500 mg PO DAILY #30 tab 09/02/20 release 24hr gabapentin 600 mg tablet 600 mg PO TID #90 tab 09/13/20 diclofenac sodium 1 % topical gel 4 g TOPICAL QID PRN 30 Days #100 g 09/16/20 meloxicam 7.5 mg tablet 7.5 mg PO DAILY #30 tab 09/16/20 albuterol sulfate 90 mcg/actuation 1 inh INHALATION QID PRN #8.5 g 10/06/20 aerosol inhaler ipratropium 0.5 mg-albuterol 3 mg 3 ml INHALATION QID PRN #180 ml 10/06/20 (2.5 mg base)/3 mL nebulization soln fluticasone 250 mcg-salmeterol 50 1 inh INHALATION BID #60 each 10/11/20 mcg/dose blistr p
[2020-10-28 12:04] LABS: UTC Influenza A Antigen Negative (Negative)
[2020-10-28 12:05] LABS: UTC Influenza B Antigen Negative (Negative)
[2020-10-28 12:16] VITALS: BP 128/68; PULSE 92; RESP 22; TEMP 36.9; O2SAT 96
[2020-10-29 14:17] LABS: Covid-19 Nasal PCR Sendout Lex POSITIVE
--- NOTE | 2020-10-29 14:22 | PC.NURSE ---
Patient notified of positive COVID. Educated on quarantine.
== END 2020-10-28 12:21 | disposition home or self-care (01) ==
PROVIDERS: Emergency Provider Nurse Practitioner Family; PCP Physician Assistant
DX: U07.1 COVID-19 (principal); I10 Essential (primary) hypertension; E78.5 Hyperlipidemia, unspecified; K21.9 Gastro-esophageal reflux disease without esophagitis; E10.9 Type 1 diabetes mellitus without complications; J44.9 Chronic obstructive pulmonary disease, unspecified; F17.210 Nicotine dependence, cigarettes, uncomplicated; Z79.899 Other long term (current) drug therapy
CPT/HCPCS: 87804; 99201; U0004

== ENCOUNTER 2020-11-20 13:15 | Emergency (ER) | payer MEDICAID, SELFPAY ==
[2020-11-20 13:16] VITALS: BP 146/79; PULSE 89; RESP 16; TEMP 36.8; O2SAT 98; BMI 42.0
[2020-11-20 14:16] VITALS: BP 146/79; PULSE 70; O2SAT 95
[2020-11-20 14:30] VITALS: BP 149/72; PULSE 84; O2SAT 94
[2020-11-20 15:00] VITALS: BP 131/67; PULSE 86; O2SAT 95
--- NOTE | 2020-11-20 15:01 | HMH.EDGENADL ---
ED Disposition Clinical Impression: Viral syndrome Disposition: Home, Self-Care Condition on Discharge: Good Additional Instructions: You were seen on an emergency basis. It is very important that you follow up with your primary care provider and/or specialist as we discussed within 2 days. All labs and imaging were obtained and interpreted here to rule out life threatening emergencies, but your final results should be reviewed by your primary doctor at your follow up appointment. Please return to the emergency department if any of your symptoms worsen, or if they do not improve as we discussed. Referrals: Domitila Baldwin PA [Primary Care Provider] - - Critical Care Critical Care Time: No Attestation: On 11/20/20, the high probability of a clinically significant, sudden or life threatening deterioration of the following system(s) required my full and direct attention, intervention and personal management. The time I documented below is in addition to time spent performing reported procedures but includes the following listed in this critical care notation. Medical Decision Making - Medical Records Medical records reviewed: Yes: I reviewed the patient's medical records. - Robson Inquiry Pt receiving controlled substance: No Vital Signs: 11/20/20 13:16 11/20/20 14:16 11/20/20 14:30 Temperature 98.2 F Temperature Source Oral Pulse Rate [Right] 89 70 84 Respiratory Rate 16 Blood Pressure [Right Arm] 146/79 H 146/79 H 149/72 H Blood Pressure Mean [Right Arm] 101 101 97 Blood Pressure Source [Right Arm] Automatic Cuff Automatic Cuff Automatic Cuff Blood Pressure Position [Right Arm] Sitting Sitting Sitting 02 Sat by Pulse Oximetry 98 95 94 L Oxygen Delivery Method Room Air Room Air Room Air 11/20/20 15:00 11/20/20 17:35 Temperature Temperature Source Pulse Rate [Right] 86 74 Respiratory Rate 16 Blood Pressure [Right Arm] 131/67 132/74 Blood Pressure Mean [Right Arm] 88 93 Blood Pressure Source [Right Arm] Automatic Cuff Automatic Cuff Blood Pressure Position [Right Arm] Sitting Sitting 02 Sat by Pulse Oximetry 95 97 Oxygen Delivery Method Room Air Room Air - Lab Data Lab results reviewed: Yes: I reviewed the patient's lab results. Lab Results 11/20/20 16:50: WBC 9.9, RBC 4.43, Hgb 13.3, Hct 41.1, MCV 92.8, MCH 30.1, MCHC 32.5, RDW 14.5, Plt Count 390, MPV 7.4, Neut % (Auto) 59.1, Lymph % (Auto) 30.2, [place] % (Auto) 5.4, Eos % (Auto) 4.2, Baso % (Auto) 1.0, Neut # (Auto) 5.9, Lymph # (Auto) 3.0, [place] # (Auto) 0.5, Eos # (Auto) 0.4, Baso # (Auto) 0.1 11/20/20 16:50: Sodium 141, Potassium 4.3, Chloride 103, Carbon Dioxide 30, Anion Gap 12.3, BUN 19 H, Creatinine 0.90, Estimated Creat Clear 48, Estimated GFR 63, Est GFR ( Amer) 77, Glucose 106 H, Calcium 9.7, Total Bilirubin 0.4, AST 27, ALT 16, Alkaline Phosphatase 165 H, Total Protein 8.4 H, Albumin 4.3, Globulin 4.1 H, Albumin/Globulin Ratio 1.0 L Result diagrams: 11/20/20 16:50 11/20/20 16:50 Orders (Tests/Meds): ED MEDICATIONS Generic Name Dose Route Start Last Admin Trade Name Freq PRN Reason Stop Dose Admin Lactated Ringer's 1,000 mls @ 999 mls/hr 11/20/20 16:15 11/20/20 17:29 Lactated Ringer's 1000 Ml Bag IV 11/20/20 17:15 999 mls/hr .Q1H1M PAOLA Administration Discontinued Medications Generic Name Dose Route Start Last Admin Trade Name Freq PRN Reason Stop Dose Admin Acetaminophen 650 mg 11/20/20 18:02 11/20/20 18:03 Acetaminophen 325mg Tab PO 11/20/20 18:03 650 mg ONCE ONE Administration Albuterol/Ipratropium 2 puff 11/20/20 15:04 11/20/20 15:21 Combivent 20mcg/100mcg Respimat Inhaler IH 11/20/20 15:05 2 puff ONCE ONE Administration Lactated Ringer's 500 mls @ 999 mls/hr 11/20/20 15:15 Lactated Ringer's 1000 Ml Bag IV 11/20/20 15:45 .Q31M PAOLA Miscellaneous 1 unit 11/20/20 15:04 11/20/20 15:21 Aerochamber/Optihaler 11/20/20 15:05 1 unit ONCE ONE
--- NOTE | 2020-11-20 16:18 | PC.NURSE ---
at bedside attempting IV access with US
[2020-11-20 16:54] LABS: Basophils # 0.1 K/mm3 (0-0.2); Eosinophils # 0.4 K/mm3 (0.0-0.4); Eosinophils % 4.2 % (0.1-12.0); Hematocrit 41.1 % (37.0-47.0); Hemoglobin 13.3 g/dL (12.2-16.2); Lymphocytes % 30.2 % (10-50); Mean Corpuscular HGB Conc 32.5 g/dL (31.8-35.4); Mean Corpuscular Hemoglobin 30.1 pg (27.0-31.2); Mean Corpuscular Volume 92.8 fl (81-99); Mean Platelet Volume 7.4 fl (7.4-10.4); Monocytes # 0.5 K/mm3 (0.1-1.0); Monocytes % 5.4 % (1.7-9.3); Neutrophils # 5.9 K/mm3 (1.8-7.8); Neutrophils % 59.1 % (37.0-80.0); Platelet Count 390 K/mm3 (142-424); Red Blood Count 4.43 M/mm3 (4.20-5.40); Red Cell Distribution Width 14.5 % (11.5-17.5); White Blood Count 9.9 K/mm3 (4.8-10.8)
[2020-11-20 17:07] LABS: Alanine Aminotransferase 16 U/L (12-78); Albumin Level 4.3 g/dl (3.5-5.0); Alkaline Phosphatase 165 U/L (38-126); Anion Gap 12.3 mEq/L (5-15); Aspartate Amino Transferase 27 U/L (14-36); Bilirubin,Total 0.4 mg/dl (0.2-1.3); Blood Urea Nitrogen 19 mg/dl (7-17); Calcium 9.7 mg/dl (8.4-10.2); Carbon Dioxide 30 mmol/L (22.0-30.0); Chloride 103 mmol/L (98-107); Creatinine Clearance Estimated 48 mL/min (50-200); Estimated Glomerular Filt Rate 63 ml/min (>60); GFR (African American) 77 ML/MIN (>60); Globulin 4.1 g/dL (1.3-3.2); Glucose 106 mg/dl (74-100); Potassium 4.3 mmoL/L (3.5-5.1); Sodium 141 mmol/L (136-145); Total Protein,Serum 8.4 g/dl (6.3-8.2)
[2020-11-20 17:35] VITALS: BP 132/74; PULSE 74; RESP 16; O2SAT 97
[2020-11-20 18:51] VITALS: BP 132/74; PULSE 70; RESP 16; TEMP 36.8; O2SAT 98
== END 2020-11-20 18:58 | disposition home or self-care (01) ==
PROVIDERS: Emergency Provider Physician Assistant; PCP Physician Assistant
DX: B34.9 Viral infection, unspecified (principal); Z86.16 Personal history of COVID-19; I25.10 Atherosclerotic heart disease of native coronary artery without angina pectoris; J44.9 Chronic obstructive pulmonary disease, unspecified; I10 Essential (primary) hypertension; K21.9 Gastro-esophageal reflux disease without esophagitis; Z79.899 Other long term (current) drug therapy
CPT/HCPCS: 80053; 85025; 96365; 99283

== ENCOUNTER → 2020-12-12 10:52 | Outpatient (CLI) | payer MEDICAID, SELFPAY ==
--- NOTE | 2020-12-12 10:52 | CT_ITS ---
Procedure: CT ANGIO ABDOMEN/FEMORAL CLINICAL HISTORY: CT angio abdomen/RUNOFF bilateral lower ext. Bilateral leg pain, leg dislpcation, cool to touch Abnormal brissa COMPARISON: CT CT ABDOMEN PELVIS W CON from 01/03/2020 TECHNIQUE: IV Contrast: 100ml Isovue 370 Axial images obtained with sagittal and coronal reformats. All CT scans at the facility use one or more dose reduction, viz: automated exposure control, ma/kV adjustment per patient size (including targeted exams where dose is matched to indication, i.e. head), or iterative reconstruction technique. FINDINGS: Scattered atheromatous changes are present involving the abdominal aorta. There is a small saccular aneurysm projecting off the posterior aspect of the abdominal aorta just below the level of the renal arteries. This area measures 8 mm. There is mild dilatation of the infrarenal abdominal aorta at 2.8 cm. There is no evidence retroperitoneal hemorrhage. There are atheromatous changes involving the renal arteries with less than 50 percent stenosis of the proximal right renal artery. There is a small left accessory renal artery inferior to the main renal artery supplying the lower pole to the left kidney. No significant aortic stenosis. Atheromatous changes involve the iliac arteries bilaterally. The right common iliac and external iliac and internal iliac show no significant stenosis. No significant stenosis of the left common or external iliac artery. Right lower extremity runoff: The common femoral, superficial femoral artery, and right popliteal artery have an unremarkable appearance. There is 3 vessel runoff to the ankle in the right calf. Left lower extremity runoff: Mild atheromatous changes of the left common femoral without significant stenosis. The left superficial femoral and popliteal artery have an unremarkable appearance. There is 3 vessel runoff to the ankle on the left. Small vessel disease noted involving the distal posterior tibial on the left. No occlusive changes evident.. Nonvascular 4 mm noncalcified nodule right lower lobe medially. Subpleural opacity right posterior costophrenic sulcus. There is left-sided adrenal enlargement not significantly changed and may be due to adenomatous involvement. There is a small umbilical hernia containing fat. There are mild degenerative changes of the hips and knees with small bilateral knee joint effusions. IMPRESSION: 1. 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 2. Scattered atheromatous changes of the aorta and iliac vessels. 3. Negative bilateral lower extremity runoff. No significant stenotic lesions or areas of occlusion evident. 4. Mild osteoarthritis of the hips and knees with small bilateral knee joint effusions Dictated by: Rajendra Gregg MD 12/14/2020 11:04 Rajendra Gregg MD in [place] 12/14/2020 11:04
[2020-12-12 11:48] LABS: Blood Urea Nitrogen 26 mg/dl (7-17); Estimated Glomerular Filt Rate 56 ml/min (>60); GFR (African American) 68 ML/MIN (>60)
== END ==
PROVIDERS: PCP Physician Assistant; Visit Provider Internal Medicine
DX: I70.213 Atherosclerosis of native arteries of extremities with intermittent claudication, bilateral legs (principal); R94.30 Abnormal result of cardiovascular function study, unspecified
CPT/HCPCS: 36415; 75635; 82565; 84520; 93225; 93226; Q9967

== ENCOUNTER → 2021-01-23 13:42 | Outpatient (CLI) | payer MEDICAID, SELFPAY ==
[2021-01-23 14:14] LABS: Alanine Aminotransferase 15 U/L (12-78); Albumin Level 4.2 g/dl (3.5-5.0); Albumin/Globulin Ratio 1.4 (1.1-1.8); Alkaline Phosphatase 126 U/L (38-126); Anion Gap 12.7 mEq/L (5-15); Aspartate Amino Transferase 21 U/L (14-36); Bilirubin,Total 0.4 mg/dl (0.2-1.3); Blood Urea Nitrogen 22 mg/dl (7-17); Calcium 9.8 mg/dl (8.4-10.2); Carbon Dioxide 27 mmol/L (22.0-30.0); Chloride 106 mmol/L (98-107); Chol/HDL Ratio 3.5 (1-3.5); Cholesterol 213 mg/dl (140-200); Estimated Glomerular Filt Rate 63 ml/min (>60); GFR (African American) 77 ML/MIN (>60); Globulin 3.1 g/dL (1.3-3.2); Glucose 132 mg/dl (74-100); HDL Cholesterol 61 mg/dl (40-60); Potassium 4.7 mmoL/L (3.5-5.1); Sodium 141 mmol/L (136-145); Total Protein,Serum 7.3 g/dl (6.3-8.2); Triglycerides 132 mg/dl (30-150); VLDL Cholesterol 26 mg/dL (0-40)
[2021-01-23 14:22] LABS: Amphetamine/Metha Screen,Urine Negative ng/ml (<1000); Barbiturates Screen,Urine Negative ng/ml (<200)
[2021-01-23 14:23] LABS: Benzodiazepines Screen,Urine Negative ng/ml (<200); Cannabinoid Screen,Urine Negative ng/ml (<50)
[2021-01-23 14:24] LABS: Cocaine Screen,Urine Negative ng/ml (<300); Direct LDL Cholesterol 111.39 mg/dL (100-129)
[2021-01-23 14:25] LABS: Methadone Screen,Urine Negative ng/ml (<300); Opiate Screen,Urine Negative ng/ml (<300)
[2021-01-23 14:26] LABS: Basophils # 0.1 K/mm3 (0-0.2); Eosinophils # 0.2 K/mm3 (0.0-0.4); Eosinophils % 3.2 % (0.1-12.0); Hematocrit 42.2 % (37.0-47.0); Hemoglobin 13.4 g/dL (12.2-16.2); Lymphocytes # 2.6 K/mm3 (0.7-4.5); Lymphocytes % 34.7 % (10-50); Mean Corpuscular HGB Conc 31.8 g/dL (31.8-35.4); Mean Corpuscular Volume 94.3 fl (81-99); Mean Platelet Volume 8.2 fl (7.4-10.4); Monocytes # 0.4 K/mm3 (0.1-1.0); Monocytes % 4.6 % (1.7-9.3); Neutrophils # 4.3 K/mm3 (1.8-7.8); Neutrophils % 56.6 % (37.0-80.0); Phencyclidine Screen,Urine Negative ng/ml (<25); Platelet Count 338 K/mm3 (142-424); Red Blood Count 4.47 M/mm3 (4.20-5.40); Red Cell Distribution Width 14.7 % (11.5-17.5); White Blood Count 7.6 K/mm3 (4.8-10.8)
[2021-01-23 14:29] LABS: 25-OH Vitamin D, Total 19.3 ng/mL (30-100); Free T4 (Free Thyroxine) 1.02 ng/dl (0.78-2.19)
[2021-01-23 14:36] LABS: Hemoglobin A1C 6.4 % (4.0-6.0)
[2021-01-23 14:44] LABS: Thyroid Stimulating Hormone 1.19 uIU/mL (0.465-4.68)
== END ==
PROVIDERS: Visit Provider Physician Assistant
DX: I25.10 Atherosclerotic heart disease of native coronary artery without angina pectoris (principal); E11.9 Type 2 diabetes mellitus without complications; E55.9 Vitamin D deficiency, unspecified; M54.40 Lumbago with sciatica, unspecified side; M79.604 Pain in right leg; M79.605 Pain in left leg; R22.43 Localized swelling, mass and lump, lower limb, bilateral; R53.83 Other fatigue; R60.0 Localized edema; Z79.899 Other long term (current) drug therapy; Z79.84 Long term (current) use of oral hypoglycemic drugs
CPT/HCPCS: 80053; 80061; 80305; 82043; 82306; 83036; 84439; 84443; 85025

== ENCOUNTER 2021-05-08 20:30 | Emergency (ER) | payer MEDICAID, SELFPAY ==
[2021-05-08 20:50] VITALS: BP 156/91; PULSE 86; RESP 26; TEMP 36.7; O2SAT 93; BMI 43.4
--- NOTE | 2021-05-08 21:43 | HMH.EDUTC ---
[facility] Disposition Clinical Impression: Headache Qualifiers: Headache type: unspecified Headache chronicity pattern: unspecified pattern Intractability: not intractable Qualified Code(s): R51.9 - Headache, unspecified Disposition: Home, Self-Care Condition on Discharge: Good Instructions: Migraine -- Adult, DI for Headache Additional Instructions: Go home lay down and sleep off remainder of migraine headache *Follow up with your Family Doctor if no improvement or any worsening of symptoms Straight to ER if any life threatening symptoms or worse headache of your life Return if needed Referrals: Domitila Baldwin PA [Primary Care Provider] - As needed Time of Disposition: 22:18 Medical Decision Making - Robson Inquiry Pt receiving controlled substance: No Robson was queried for this patient: No Vital Signs: 05/08/21 20:50 05/08/21 22:07 Temperature 98.0 F 98.0 F Temperature Source Oral Pulse Rate 86 Pulse Rate [Right Brachial] 86 Respiratory Rate 26 H 26 H Blood Pressure 156/91 H Blood Pressure [Left Arm] 156/91 H Blood Pressure Mean [Left Arm] 112 Blood Pressure Source [Left Arm] Automatic Cuff Blood Pressure Position [Left Arm] Sitting 02 Sat by Pulse Oximetry 93 L Oxygen Delivery Method Room Air Orders (Tests/Meds): ED MEDICATIONS Discontinued Medications Generic Name Dose Route Start Last Admin Trade Name Aroldo PRN Reason Stop Dose Admin Ketorolac Tromethamine 60 mg 05/08/21 22:00 05/08/21 22:05 Ketorolac 60mg/2ml Vial IM 05/08/21 22:01 60 mg ONCE ONE Administration Promethazine HCl 6.25 mg 05/08/21 22:00 05/08/21 22:05 Promethazine Hcl 25mg/Ml 1ml Vial IM 05/08/21 22:01 6.25 mg ONCE ONE Administration Sodium Chloride 25 ml 05/08/21 22:00 05/08/21 22:07 Sodium Chloride 0.9% 25ml Bag IV 05/08/21 22:01 Not Given ONCE ONE Medical Decision Narrative: Medication discussed with pharmacy Patient has history of COPD and reports that she has taken both Toradol and phenergan in the past without complications or reactions Patient reports that headache is much improved after medication family at patient side to drive her home [facility] HPI - General Stated complaint: MANNING Time Seen by Provider: 05/08/21 21:43 Mode of Arrival: Ambulatory Source of Information: Patient Limitations: No Limitations Description of Symptoms (Recalled from Triage Doc. by RN): PATIENT C/O HEADACHE WITH NAUSEA, VOMITING, AND DECREASED APPETITE X 5 DAYS HEENT Symptoms (Recalled from RN notes): Yes Resp Symptoms (Recalled from RN notes): No Skin Symptoms (Recalled from RN notes): No MS Symptoms (Recalled from RN notes): No Functional Status (Recalled from RN notes): WNL - History of Present Illness Provider Complaint: Patient states that she has a history of migraine headaches and sometimes she has to come in and get a shot of Toradol for it States that she started with the migraine about 5 days ago States that she has tried to clear it up with over the counter medication but it hasnt helped and she is having some nausea with it and not wanting to eat due to making her sick at her stomach States that this is like other migraines she has had in the past and denies worse headache of her life States that she took Ibuprofen this morning but hasnt helped - Related Data Home Medications Medication Instructions Recorded Confirmed Atorvastatin Calcium [Lipitor 10mg 10 mg PO DAILY 02/29/20 03/01/21 Tab] fluticasone propionate 50 1 g INTRANASAL DAILY 10/10/20 03/01/21 mcg/actuation nasal spray,suspension loratadine 10 mg tablet 10 mg PO DAILY tab 10/10/20 03/01/21 lisinopril 10 mg tablet 10 mg PO DAILY tab 10/20/20 03/01/21 Buspirone HCl [Buspar 10mg See Rx Instructions .ROUTE .COMPLEX 05/08/21 tablet] Cholecalciferol (Vitamin D3) 25 mcg PO DAILY 05/08/21 [Vitamin D3 1,000 Unit Cap] Clopidogrel Bisulfate [Plavix] See Rx Instructions .ROUTE .COMPLEX 05/08/21 Er
[2021-05-08 22:07] VITALS: BP 156/91; PULSE 86; RESP 26; TEMP 36.7; O2SAT 93
== END 2021-05-08 22:22 | disposition home or self-care (01) ==
PROVIDERS: Emergency Provider Nurse Practitioner; PCP Physician Assistant
DX: G43.909 Migraine, unspecified, not intractable, without status migrainosus (principal); E11.9 Type 2 diabetes mellitus without complications; J44.9 Chronic obstructive pulmonary disease, unspecified; I10 Essential (primary) hypertension; K21.9 Gastro-esophageal reflux disease without esophagitis; E78.5 Hyperlipidemia, unspecified; F17.210 Nicotine dependence, cigarettes, uncomplicated; Z79.899 Other long term (current) drug therapy
CPT/HCPCS: 96372; 99202; G0463

== ENCOUNTER → 2021-05-10 10:23 | Outpatient (CLI) | payer MEDICAID, SELFPAY | PROVIDERS: Visit Provider Surgery | DX: Z01.812 Encounter for preprocedural laboratory examination (principal); Z20.822 Contact with and (suspected) exposure to COVID-19; Z12.11 Encounter for screening for malignant neoplasm of colon | CPT/HCPCS: U0003 ==

== ENCOUNTER 2021-05-11 07:26 | Day surgery (SDC) | payer MEDICAID, SELFPAY ==
[2021-05-08 14:39] VITALS: BMI 43.7
--- NOTE | 2021-05-11 07:21 | HMH.ANESCL ---
[facility] Anesthesia Checklist - Patient Identification Patient Identification: Arm Band - Structural Data Admitted From: Home Planned Operative Procedure/s: Colonoscopy Consent for Planned Operative Procedure(s) Verified: Yes - NPO Status Verified Time NPO: 00:00 - Additional verifications Anesthesia Reactions: No - Airway Assessment C-Spine Mobility Assessed: Yes TMJ Mobility Assessed: Yes - Neurological Assessment Level of Consciousness: Awake Hx Seizures: No Numbness or tingling in extremities: No - Anesthesia Plan Anesthesia Risk discussed: Yes Anesthesia Plan: Verified ASA Class: III Anesthesia Type: MAC [facility] History I have reviewed the patient's past medical history: Yes Medical History: Reports:: Asthma, Chronic Obstructive Pulmonary Disease (COPD), Coronary Artery Disease, Depression, Diabetes Mellitus Type 1, Diabetes Mellitus Type 2, Gastroesophageal Reflux Disease(GERD), Hyperlipidemia, Hypertension, Lung Disease, Migraine, Peripheral Artery Disease Denies:: Cancer, Internal Pacemaker, MRSA, Seizures *Have you ever received a pneumonia vaccine?: No *Have you received a flu vaccine this season?: Yes Other Medical History: Reports: Arthritis Anesthesia experience/problems:: None Laterality Cases: Left: Other, Bilateral: Arthroscopy Shoulder, Cataract Other Surgeries: Yes: Cardiac Catheterization, Colonoscopy, Coronary Stent, Hysterectomy-Total. No: Pacemaker Amputation: No Fractures: No - *Social History Last grade of school completed: High school graduate Smoking Status: Current every day smoker Tobacco Type: cigarettes # Packs/Day (cigarettes): 1 Alcohol Intake: never Substance Use Type: denies use *Occupational Status:: other Housing: other Household Members: other *Travel in the last 8 weeks: None - Psychiatric History Pschychiatric History:: Reports:: Depression Family Hx:: Cancer, Diabetes
[2021-05-11 07:49] VITALS: BP 127/72; PULSE 76; RESP 20; TEMP 36.3; O2SAT 95
[2021-05-11 07:56] LABS: POC Glucose,Bedside 115 (70-110)
[2021-05-11 08:11] VITALS: O2SAT 98
--- NOTE | 2021-05-11 08:56 | HMH.SCOPE ---
- Procedure: Date: 05/11/21 Patient Date of :: 1955 Procedure Performed:: Colonoscopy with polypectomy Indications:: History of complex polyps Performing Provider:: Nash Forrester MD Referring Provider:: . Sedation:: Monitored anesthesia care Procedure:: After informed consent was obtained the patient was taken to the endoscopy suite. Sedation ensued after the patient was transferred to the left lateral decubitus position. Pulse, blood pressure, and oxygen saturation were monitored throughout the procedure. Digital rectal exam revealed no significant abnormality. The colonoscope was placed in position. The entire colon was evaluated. The colonoscope was carefully removed and the patient was transferred to recovery in stable condition. Please see findings and specimens below for detail. Findings:: Bowel preparation poor Fairly significant tortuosity and spasticity Complex polyps (see specimens) Specimens:: Lobulated 9 mm right colon polyp (snare) Polyp at 65 cm Lobulated splenic flexure polyp (snare) Recommendations:: Timing of repeat colonoscopy is pending pathology but will likely be between 2-3 years secondary to history of multiple complex polyps, limited bowel preparation, and polyps noted on fairly short-term repeat evaluation. Complications:: No immediate Estimated blood obtained (mL): 1
[2021-05-11 08:58] VITALS: BP 111/59; PULSE 85; RESP 16; TEMP 36.2; O2SAT 95
[2021-05-11 09:13] VITALS: BP 108/65; PULSE 80; RESP 16; O2SAT 98
[2021-05-11 09:28] VITALS: BP 113/65; PULSE 84; RESP 18; O2SAT 98
== END 2021-05-11 09:28 | disposition home or self-care (01) ==
LOC: OUTP 07:27
PROVIDERS: PCP Physician Assistant; Visit Provider Surgery
PROC: 0DJD8ZZ Inspection of Lower Intestinal Tract, Via Natural or Artificial Opening Endoscopic (ICD-10-PCS; CPT 45385; principal; 2021-05-11 08:30)
DX: Z12.11 Encounter for screening for malignant neoplasm of colon (principal); Z86.010 Personal history of colon polyps; K56.2 Volvulus; K63.5 Polyp of colon; J44.9 Chronic obstructive pulmonary disease, unspecified; I25.10 Atherosclerotic heart disease of native coronary artery without angina pectoris; F32.9 Major depressive disorder, single episode, unspecified; E10.9 Type 1 diabetes mellitus without complications; E11.9 Type 2 diabetes mellitus without complications; K21.9 Gastro-esophageal reflux disease without esophagitis; E78.5 Hyperlipidemia, unspecified; I10 Essential (primary) hypertension
CPT/HCPCS: 45385; 45380; 82962

== ENCOUNTER → 2021-05-24 09:38 | Outpatient (CLI) | payer MEDICAID, SELFPAY ==
[2021-05-24 10:06] LABS: Basophils # 0.1 K/mm3 (0-0.2); Basophils % 1.4 % (0.1-2.0); Eosinophils # 0.3 K/mm3 (0.0-0.4); Eosinophils % 3.8 % (0.1-12.0); Hematocrit 43.8 % (37.0-47.0); Hemoglobin 14.3 g/dL (12.2-16.2); Lymphocytes # 2.8 K/mm3 (0.7-4.5); Lymphocytes % 31.4 % (10-50); Mean Corpuscular HGB Conc 32.7 g/dL (31.8-35.4); Mean Corpuscular Hemoglobin 29.4 pg (27.0-31.2); Mean Corpuscular Volume 89.9 fl (81-99); Mean Platelet Volume 8.7 fl (7.4-10.4); Monocytes # 0.5 K/mm3 (0.1-1.0); Monocytes % 5.5 % (1.7-9.3); Neutrophils # 5.2 K/mm3 (1.8-7.8); Neutrophils % 57.9 % (37.0-80.0); Platelet Count 336 K/mm3 (142-424); Red Blood Count 4.87 M/mm3 (4.20-5.40); Red Cell Distribution Width 14.3 % (11.5-17.5); White Blood Count 8.9 K/mm3 (4.8-10.8)
[2021-05-24 10:34] LABS: Alanine Aminotransferase 12 U/L (12-78); Albumin Level 4.1 g/dl (3.5-5.0); Albumin/Globulin Ratio 1.2 (1.1-1.8); Alkaline Phosphatase 137 U/L (38-126); Anion Gap 13.7 mEq/L (5-15); Aspartate Amino Transferase 18 U/L (14-36); Bilirubin,Total 0.4 mg/dl (0.2-1.3); Blood Urea Nitrogen 24 mg/dl (7-17); Calcium 9.4 mg/dl (8.4-10.2); Carbon Dioxide 27 mmol/L (22.0-30.0); Chloride 103 mmol/L (98-107); Chol/HDL Ratio 4.3 (1-3.5); Cholesterol 225 mg/dl (140-200); Estimated Glomerular Filt Rate 56 ml/min (>60); GFR (African American) 68 ML/MIN (>60); Globulin 3.3 g/dL (1.3-3.2); Glucose 99 mg/dl (74-100); HDL Cholesterol 52 mg/dl (40-60); Potassium 4.7 mmoL/L (3.5-5.1); Sodium 139 mmol/L (136-145); Total Protein,Serum 7.4 g/dl (6.3-8.2); Triglycerides 281 mg/dl (30-150); Uric Acid 4.7 mg/dl (2.5-6.2); VLDL Cholesterol 56 mg/dL (0-40)
[2021-05-24 10:35] LABS: Microalbumin < 6.000 mg/L (0-16.7)
[2021-05-24 10:45] LABS: C-Reactive Protein 5.8 mg/L (0-4); Direct LDL Cholesterol 127.05 mg/dL (100-129)
[2021-05-24 10:47] LABS: Erythrocyte Sedimentation Rate 10 mm/hr (0-30)
[2021-05-24 10:51] LABS: T4 (Thyroxine) 9.7 ug/dl (5.53-11.0)
[2021-05-24 11:05] LABS: Thyroid Stimulating Hormone 3.25 uIU/mL (0.465-4.68)
[2021-05-24 11:40] LABS: Vitamin B12 329 pg/mL (239-931)
[2021-05-24 11:41] LABS: Folate 5.97 ng/mL
[2021-05-25 05:30] LABS: HIV Screen 4th Generation wRfx Non Reactive (Non Reactive)
[2021-05-25 12:15] LABS: RA Latex Turbid. 31.4 IU/mL (0.0-13.9)
[2021-05-25 14:21] LABS: Anti-Centromere B Antibodies <0.2 AI (0.0-0.9); Anti-DNA (DS) Ab Qn <1 IU/mL (0-9); Anti-Jo-1 <0.2 AI (0.0-0.9); Anti-Smith Antibody <0.2 AI (0.0-0.9); Antichromatin Antibodies <0.2 AI (0.0-0.9); Antiscleroderma-70 Antibodies <0.2 AI (0.0-0.9); RNP Antibodies <0.2 AI (0.0-0.9); Sjogren's Anti-SS-A <0.2 AI (0.0-0.9); Sjogren's Anti-SS-B <0.2 AI (0.0-0.9)
[2021-05-26 02:13] LABS: Lupus Reflex Interpretation Comment: (.); PTT-LA 34.4 sec (0.0-51.9)
[2021-05-26 23:07] LABS: Anti-Cyclic Citrullinated Pept 5 units (0-19)
== END ==
PROVIDERS: Visit Provider Physician Assistant
DX: G62.9 Polyneuropathy, unspecified (principal); M79.605 Pain in left leg; M79.604 Pain in right leg; M79.671 Pain in right foot; M79.672 Pain in left foot; R22.43 Localized swelling, mass and lump, lower limb, bilateral
CPT/HCPCS: 36415; 80053; 80061; 82043; 82607; 82746; 83036; 84436; 84443; 84550; 85025; 85613; 85651; 86140; 86200; 86225; 86235; 86431; 86703; G0432

== ENCOUNTER → 2021-06-14 14:11 | Outpatient (CLI) | payer MEDICAID, SELFPAY ==
--- NOTE | 2021-06-14 14:11 | MR_ITS ---
PROCEDURE: MR LUMBAR SPINE WO CON CLINICAL INDICATION: LBP with BLE radiculopathy COMPARISON: None TECHNIQUE: Standard multiplanar multiecho sequences are performed without contrast. 3-D MIP and myelographic images are also rendered and reviewed FINDINGS: The spinal cord ends at the L1-L2 level. There is degenerative disc disease in the lower thoracic spine. There is mild facet hypertrophic change on right T11-T12 with right-sided foraminal narrowing imaged only in the sagittal plane. L1-L2: Mild degenerative disc disease with minimal bulging disc and mild facet hypertrophic change. L2-L3: Unremarkable. L3-L4: Mild bilateral foraminal narrowing from facet and endplate hypertrophy L4-5: Mild degenerative disc disease with moderate right-sided and [id number] left-sided foraminal narrowing from facet hypertrophy, mild bulging disc, and minimal endplate hypertrophic change. The foraminal narrowing is greater on the right compared to the left. There is moderate facet and ligamentum hypertrophic change at this level with borderline canal stenosis. L5-S1: Facet and ligamentum hypertrophic change with mild to moderate right and moderate left foraminal narrowing. No extruded herniated disc IMPRESSION: Multilevel lumbar spondylosis as described above. Please see above for detailed description at each level. No extruded herniated disc apparent Dictated by: Rajendra Gregg MD 06/14/2021 18:21 Rajendra Gregg MD in [place] 06/14/2021 18:21
== END ==
PROVIDERS: PCP Physician Assistant; Visit Provider Physician Assistant
DX: M54.16 Radiculopathy, lumbar region (principal); G62.9 Polyneuropathy, unspecified; M79.604 Pain in right leg; M79.605 Pain in left leg; M79.671 Pain in right foot; M79.672 Pain in left foot
CPT/HCPCS: 72148; 76376

== ENCOUNTER 2021-06-28 20:22 | Emergency (ER) | payer MEDICAID, SELFPAY ==
[2021-06-28 20:37] VITALS: BP 156/71; PULSE 80; RESP 16; TEMP 36.5; O2SAT 95; BMI 42.0
--- NOTE | 2021-06-28 20:44 | XR_ITS ---
PROCEDURE INFORMATION: Exam: XR Left Knee Exam date and time: 06/28/2021 8:44 PM Age: 66 years old Clinical indication: Injury or trauma; Blunt trauma; Knee; Left; Patient HX: Fall 3 ft off scaffolding TECHNIQUE: Imaging protocol: XR Left knee. Views: 3 views. COMPARISON: CR [id number] [id number] VIEWS-LT 01/07/2017 7:35 PM FINDINGS: Bones/joints: Mild tricompartmental osteoarthrosis. No acute fracture or dislocation. Soft tissues: Normal. IMPRESSION: No acute fracture or dislocation.
--- NOTE | 2021-06-28 20:44 | CT_ITS ---
PROCEDURE INFORMATION: Exam: CT Head Without Contrast Exam date and time: 06/28/2021 8:44 PM Age: 66 years old Clinical indication: Injury or trauma; Fall; Blunt trauma (contusions or hematomas); Consciousness not specified TECHNIQUE: Imaging protocol: Computed tomography of the head without contrast. 3D rendering (Not supervised by radiologist): MIP and/or 3D reconstructed images were created by the technologist. Radiation optimization: All CT scans at this facility use at least one of these dose optimization techniques: automated exposure control; mA and/or kV adjustment per patient size (includes targeted exams where dose is matched to clinical indication); or iterative reconstruction. COMPARISON: No relevant prior studies available. FINDINGS: Brain: Chronic left thalamic lacunar infarction. Mild to moderate chronic brain volume loss and chronic small vessel ischemic changes. Cerebral ventricles: No ventriculomegaly. Paranasal sinuses: Visualized sinuses are unremarkable. No fluid levels. Mastoid air cells: Small left mastoid effusion. Orbital cavity: Status post bilateral cataract surgery. Bones/joints: Unremarkable. No acute fracture. Soft tissues: Unremarkable. IMPRESSION: No acute intracranial findings.
--- NOTE | 2021-06-28 20:44 | CT_ITS ---
PROCEDURE INFORMATION: Exam: CT Cervical Spine Without Contrast Exam date and time: 06/28/2021 8:44 PM Age: 66 years old Clinical indication: Injury or trauma; Fall; Blunt trauma TECHNIQUE: Imaging protocol: Computed tomography images of the cervical spine without contrast. Radiation optimization: All CT scans at this facility use at least one of these dose optimization techniques: automated exposure control; mA and/or kV adjustment per patient size (includes targeted exams where dose is matched to clinical indication); or iterative reconstruction. COMPARISON: CT HEAD/BRAIN WO CON 06/28/2021 9:38 PM FINDINGS: Bones/joints: Straightening of the curvature of the cervical spine is likely positional. Discs/Spinal canal/Neural foramina: No significant disc protrusion. No severe spinal canal stenosis. No significant neural foraminal narrowing. Mastoid air cells: Small left mastoid effusion. Lungs: Lung apices are normal. Soft tissues: Unremarkable. IMPRESSION: No acute fracture or malalignment of the cervical spine.
--- NOTE | 2021-06-28 20:44 | XR_ITS ---
PROCEDURE INFORMATION: Exam: XR Left Foot Exam date and time: 06/28/2021 8:44 PM Age: 66 years old Clinical indication: Injury or trauma; Blunt trauma; Foot; Left; Patient HX: Fall 3 ft off scaffolding TECHNIQUE: Imaging protocol: XR Left foot. Views: 3 or more views. COMPARISON: CR XR FOOT WT BEARING LT 3V 09/12/2020 10:55 AM FINDINGS: Bones/joints: Calcaneus enthesophytes. No acute fracture or dislocation. Soft tissues: Moderate soft tissue edema around the lower calf and ankle. IMPRESSION: No acute fracture or dislocation.
--- NOTE | 2021-06-28 20:44 | XR_ITS ---
PROCEDURE INFORMATION: Exam: XR Pelvis Exam date and time: 06/28/2021 8:44 PM Age: 66 years old Clinical indication: Injury or trauma; Fall; Blunt trauma (contusions or hematomas); Bilateral; Pelvic region TECHNIQUE: Imaging protocol: XR pelvis. Views: 1 or 2 view. COMPARISON: CT ABDOMEN PELVIS W CON 01/03/2020 3:52 PM FINDINGS: Bones/joints: No acute fracture or dislocation. Soft tissues: Unremarkable. IMPRESSION: No acute fracture or dislocation.
--- NOTE | 2021-06-28 20:44 | XR_ITS ---
PROCEDURE INFORMATION: Exam: XR Chest Exam date and time: 06/28/2021 8:44 PM Age: 66 years old Clinical indication: Injury or trauma; Blunt trauma (contusions or hematomas); Patient HX: Fall 3 ft off scaffolding TECHNIQUE: Imaging protocol: XR of the chest. Views: 1 view. COMPARISON: CR XR CHEST 2V 08/29/2020 11:06 PM FINDINGS: Lungs: Mild bibasilar atelectasis. Pleural spaces: Unremarkable. No pleural effusion. No pneumothorax. Heart/Mediastinum: Unremarkable. No cardiomegaly. Bones/joints: Old right 5th rib fracture. IMPRESSION: No acute intrathoracic organ injury.
--- NOTE | 2021-06-28 20:44 | XR_ITS ---
PROCEDURE INFORMATION: Exam: XR Left Tibia and Fibula Exam date and time: 06/28/2021 8:44 PM Age: 66 years old Clinical indication: Injury or trauma; Blunt trauma; Lower leg; Left; Patient HX: Fall 3 ft off scaffolding TECHNIQUE: Imaging protocol: XR Left tibia and fibula. Views: 2 views. COMPARISON: CR XR FOOT WT BEARING LT 3V 09/12/2020 10:55 AM FINDINGS: Bones/joints: No acute fracture or dislocation. Calcaneus enthesophytes. Soft tissues: Normal. Other findings: Moderate edema around the calf. IMPRESSION: 1. No acute fracture or dislocation. 2. Moderate edema around the calf.
--- NOTE | 2021-06-28 20:45 | XR_ITS ---
PROCEDURE INFORMATION: Exam: XR Right Toe(s) Exam date and time: 06/28/2021 8:45 PM Age: 66 years old Clinical indication: Injury or trauma; Fall; Blunt trauma; Toes; Right TECHNIQUE: Imaging protocol: XR Right toes. Views: Minimum 2 views. COMPARISON: CR XR FOOT WT BEARING RT 3V 09/12/2020 10:55 AM FINDINGS: Bones/joints: No acute fracture or dislocation. Mild osteoarthrosis of the great toe MTP joint. Soft tissues: Normal. IMPRESSION: No acute fracture or dislocation.
--- NOTE | 2021-06-28 20:45 | XR_ITS ---
PROCEDURE INFORMATION: Exam: XR Right Foot Exam date and time: 06/28/2021 8:45 PM Age: 66 years old Clinical indication: Injury or trauma; Fall; Blunt trauma; Foot; Right TECHNIQUE: Imaging protocol: XR Right foot. Views: 3 or more views. COMPARISON: CR XR FOOT WT BEARING RT 3V 09/12/2020 10:55 AM FINDINGS: Bones/joints: Calcaneus enthesophytes. No acute fracture or dislocation. Soft tissues: Normal. IMPRESSION: No acute fracture or dislocation.
--- NOTE | 2021-06-28 21:03 | ECG_ITS ---
APPROVED REPORT Exam: Resting ECG HR:73 bpm ECG Measurements Heart Rate 73 AXES IA 136 P 69 QRSd 86 QRS 75 QT 370 T 45 QTc 407 Conclusion Normal sinus rhythm ST abnormality, possible digitalis effect Abnormal ECG Electronically signed by : Gurvinder Gregory MD 06/29/2021 22:28:26
--- NOTE | 2021-06-28 21:11 | PC.NURSE ---
attempt for iv and labs x 2 per this nurse. unable to obtain. lab notified. po from lab at bedside.
--- NOTE | 2021-06-28 21:21 | HMH.EDFALL ---
ED Disposition Clinical Impression: Multiple contusions Syncope Qualifiers: Syncope type: vasovagal syncope Qualified Code(s): R55 - Syncope and collapse Concussion without loss of consciousness Qualifiers: Encounter type: initial encounter Qualified Code(s): S06.0X0A - Concussion without loss of consciousness, initial encounter Sprain of foot, left Qualifiers: Encounter type: initial encounter Qualified Code(s): S93.602A - Unspecified sprain of left foot, initial encounter Disposition: Home, Self-Care Condition on Discharge: Good Instructions: DI for Ligament Sprains Additional Instructions: ice and call pcp for follow up Referrals: Domitila Baldwin PA [Primary Care Provider] - - Critical Care Critical Care Time: No Attestation: On 06/28/21, the high probability of a clinically significant, sudden or life threatening deterioration of the following system(s) required my full and direct attention, intervention and personal management. The time I documented below is in addition to time spent performing reported procedures but includes the following listed in this critical care notation. Medical Decision Making - Medical Records Medical records reviewed: Yes: I reviewed the patient's medical records. - Robson Inquiry Pt receiving controlled substance: No Vital Signs: 06/28/21 20:37 Temperature 97.7 F Temperature Source Oral Pulse Rate [Right Brachial] 80 Respiratory Rate 16 Blood Pressure [Right Arm] 156/71 H Blood Pressure Mean [Right Arm] 99 Blood Pressure Source [Right Arm] Automatic Cuff Blood Pressure Position [Right Arm] Sitting 02 Sat by Pulse Oximetry 95 Oxygen Delivery Method Room Air - Lab Data Lab results reviewed: Yes: I reviewed the patient's lab results. Lab Results 06/28/21 22:07: WBC 12.1 H, RBC 4.51, Hgb 13.3, Hct 40.4, MCV 89.6, MCH 29.5, MCHC 33.0, RDW 14.7, Plt Count 322, MPV 7.7, Neut % (Auto) 58.3, Lymph % (Auto) 34.3, Stephens % (Auto) 4.2, Eos % (Auto) 2.2, Baso % (Auto) 0.9, Neut # (Auto) 7.1, Lymph # (Auto) 4.2, Stephens # (Auto) 0.5, Eos # (Auto) 0.3, Baso # (Auto) 0.1 06/28/21 22:07: Sodium 140, Potassium 4.2, Chloride 104, Carbon Dioxide 29, Anion Gap 11.2, BUN 22 H, Creatinine 1.10 H, Estimated Creat Clear 43, Estimated GFR 50 L, Est GFR ( Amer) 61, Glucose 92, Calcium 9.3, Total Bilirubin 0.3, AST 26, ALT 17, Alkaline Phosphatase 146 H, Troponin I < 0.01, Total Protein 8.0, Albumin 4.4, Globulin 3.6 H, Albumin/Globulin Ratio 1.2 Result diagrams: 06/28/21 22:07 06/28/21 22:07 Orders (Tests/Meds): ORDERS Category Date Time Status Troponin I Q3H Lab 06/28/21 23:40 Received Troponin I Q3H Lab 06/29/21 02:46 Ordered - Radiology Data #1 Image(s): Chest, Pelvis, Tib/Fib, Ankle, Foot/Toes Image Reviewed: Yes I have reviewed radiologist's interpretation Preliminary Findings: No Fracture Seen - CT Data CT Scan: Head, C-Spine Time Received: 00:[address] Reviewed: Yes: I have viewed the radiologist's interpretation Preliminary Findings: No Fracture Seen - ECG Data Tracing #1 Normal Sinus Rhythm: Yes Ischemic changes: non-specific ST-T wave changes Medical Decision Narrative: cough syncope and has multiple contusions but no fx Fall HPI - General Chief Complaint: Fall Stated Complaint: AO [id number] fell off [facility], 3 ft Time Seen by Provider: 06/28/21 20:45 Mode of Arrival: Family Vehicle Source of Information: Patient, Medical Record Limitations: No Limitations Description of Symptoms (Recalled from ER Triage Doc. by RN): pt presents after falling approx 3 feet off a scaffold earlier this afternoon. she stated she was up there painting, took a drink of coffee, became strangled on the coffee and came to on the floor. reports family witnessed event and helped her up. reports pain to the left knee, radiating to left foot. difficulty in weight-bearing on same side. also complains of pain in right great toe. denies dyspnea, payton
[2021-06-28 22:20] LABS: Basophils # 0.1 K/mm3 (0-0.2); Basophils % 0.9 % (0.1-2.0); Eosinophils # 0.3 K/mm3 (0.0-0.4); Eosinophils % 2.2 % (0.1-12.0); Hematocrit 40.4 % (37.0-47.0); Hemoglobin 13.3 g/dL (12.2-16.2); Lymphocytes # 4.2 K/mm3 (0.7-4.5); Lymphocytes % 34.3 % (10-50); Mean Corpuscular Hemoglobin 29.5 pg (27.0-31.2); Mean Corpuscular Volume 89.6 fl (81-99); Mean Platelet Volume 7.7 fl (7.4-10.4); Monocytes # 0.5 K/mm3 (0.1-1.0); Monocytes % 4.2 % (1.7-9.3); Neutrophils # 7.1 K/mm3 (1.8-7.8); Neutrophils % 58.3 % (37.0-80.0); Platelet Count 322 K/mm3 (142-424); Red Blood Count 4.51 M/mm3 (4.20-5.40); Red Cell Distribution Width 14.7 % (11.5-17.5); White Blood Count 12.1 K/mm3 (4.8-10.8)
[2021-06-28 22:22] LABS: Chloride 104 mmol/L (98-107)
[2021-06-28 22:23] LABS: Potassium 4.2 mmoL/L (3.5-5.1); Sodium 140 mmol/L (136-145)
[2021-06-28 22:25] LABS: Alanine Aminotransferase 17 U/L (12-78); Alkaline Phosphatase 146 U/L (38-126); Aspartate Amino Transferase 26 U/L (14-36); Bilirubin,Total 0.3 mg/dl (0.2-1.3); Blood Urea Nitrogen 22 mg/dl (7-17); Creatinine Clearance Estimated 43 mL/min (50-200); Estimated Glomerular Filt Rate 50 ml/min (>60); GFR (African American) 61 ML/MIN (>60)
[2021-06-28 22:26] LABS: Albumin Level 4.4 g/dl (3.5-5.0); Albumin/Globulin Ratio 1.2 (1.1-1.8); Anion Gap 11.2 mEq/L (5-15); Calcium 9.3 mg/dl (8.4-10.2); Carbon Dioxide 29 mmol/L (22.0-30.0); Globulin 3.6 g/dL (1.3-3.2); Glucose 92 mg/dl (74-100)
[2021-06-28 22:40] LABS: Troponin I < 0.01 ng/ml (0.00-0.034)
[2021-06-29 00:10] LABS: Troponin I < 0.01 ng/ml (0.00-0.034)
[2021-06-29 00:37] VITALS: BP 145/70; PULSE 75; RESP 18; TEMP 36.8; O2SAT 99
== END 2021-06-29 00:39 | disposition home or self-care (01) ==
PROVIDERS: Emergency Provider Emergency Medicine; PCP Physician Assistant
DX: S06.0X0A Concussion without loss of consciousness, initial encounter (principal); S93.602A Unspecified sprain of left foot, initial encounter; W11.XXXA Fall on and from ladder, initial encounter; Y92.019 Unspecified place in single-family (private) house as the place of occurrence of the external cause; E11.9 Type 2 diabetes mellitus without complications; F33.1 Major depressive disorder, recurrent, moderate; J44.9 Chronic obstructive pulmonary disease, unspecified; I25.10 Atherosclerotic heart disease of native coronary artery without angina pectoris; K21.9 Gastro-esophageal reflux disease without esophagitis; E78.5 Hyperlipidemia, unspecified; I10 Essential (primary) hypertension; F17.210 Nicotine dependence, cigarettes, uncomplicated; Z79.899 Other long term (current) drug therapy
CPT/HCPCS: 29515; 36415; 70450; 71045; 72125; 72170; 73562; 73590; 73630; 73660; 80053; 84484; 85025; 93005; 99282

== ENCOUNTER → 2021-07-17 10:25 | Outpatient (POV) | payer MEDICAID, SELFPAY ==
[2021-07-17 10:58] VITALS: BP 147/81; PULSE 85; RESP 18; O2SAT 93; BMI 44.2
--- NOTE | 2021-07-17 12:21 | HMH.PMCON ---
Assessment and Plan (1) Degenerative joint disease (DJD) of lumbar spine Status: Chronic Category: Medical Code(s): M47.816 - Spondylosis without myelopathy or radiculopathy, lumbar region (2) Lumbar radiculopathy Status: Chronic Category: Medical Code(s): M54.16 - Radiculopathy, lumbar region (3) Facet arthropathy Status: Chronic Category: Medical Code(s): M47.819 - Spondylosis without myelopathy or radiculopathy, site unspecified (4) Lumbar spondylosis Status: Chronic Category: Medical Code(s): M47.816 - Spondylosis without myelopathy or radiculopathy, lumbar region - Assessment and plan all Dx Assessment and Plan for all problems:: Patient I did review her MRI. She does have facet hypertrophy along with lumbar spondylosis. She has a positive Kemps test with difficulty bending forward or extension/twisting at waist. Patient is on Plavix therapy prescribed by Dr. Gamboa office in [facility] for cardiac stents. The patient is also diabetic. We did discuss medial branch block/facet joint injections at L4-L5 L5-S1 bilaterally. This would be the patient's number #1 diagnostic injection. We did discuss if she gets at least 60% relief we will proceed with a repeat injection. Again if she gets significant relief, we can proceed with an RFA. She is in agreement. She does understand we will seek approval for the patient to hold her Plavix therapy with Dr. Gamboa. We will see her back in the clinic after her medial branch block/facet joint injections for evaluation of symptoms. She is diabetic. She has been informed of the risks and benefits of corticosteroids and to closely monitor her blood glucose level following the injection. She is in agreement. Risks and benefits of the procedure have been explained to the patient. Patient would like to proceed with the procedure. Possible side effects of corticosteroids have been discussed with the patient. Patient has been instructed to contact the clinic with any concerns before the next appointment. Dr. Robb has reviewed this note and agrees with this plan of care. This note was dictated using voice recognition software and make contain errors or omissions. HPI - Data of Consult Patient: new to practice Consult date: 07/17/21 Requesting Physician: Bethany Osborn APRN Primary Care Provider: CIRO Garcia - Consult Narrative Reason for consult: Low back pain, bilateral lower extremity pain History of present illness: Ms. Zavaleta is a 66 year old female who presents today for consultation for chronic low back pain and bilateral lower extremity pain. Patient was referred to us by Domitila Baldwin PA-C. Patient says that she has had this pain for greater than a year. She denies any fall or trauma. She says that she did develop Covid in October 2020. Since then her pain has worsened to her lower extremities. Patient says that her pain is worse with standing walking and when lying down. She says when her legs are elevated, she does get some relief. She is unable to lift her legs alone, however. She says that she feels worse with leaning forward. She is unable to bend forward or turn or extend at her waist. She says that she is unable to tie her shoes due to the pain. Patient did undergo physical therapy for the past and says that she got no relief. She has tried taking ibuprofen and anti-inflammatories but had GI upset. Patient does have imaging from 06/14/2021?MRI of her lumbar spine. She says that she is currently taking acetaminophen with codeine by her primary care provider. Patient says that she is also having swelling in her bilateral lower extremities. She is on Plavix for cardiac stents which was prescribed to her by Dr. Gamboa in [facility]. She has tried home stretching program with no significant relief. CC: Bethany Osborn APRN [facility] History Medical History: Reports:: Asthma, Chronic Obstructive Pulmonary Disease (COPD), Toure
== END ==
PROVIDERS: PCP Physician Assistant; Visit Provider Clinical Nurse Specialist Family Health
DX: M47.896 Other spondylosis, lumbar region (principal); M54.16 Radiculopathy, lumbar region
CPT/HCPCS: 99202; G0463

== ENCOUNTER 2021-07-28 09:54 | Emergency (ER) | payer MEDICAID, SELFPAY ==
[2021-07-28 10:57] VITALS: BP 167/94; PULSE 74; RESP 18; TEMP 36.7; O2SAT 95; BMI 42.8
[2021-07-28 11:02] VITALS: BP 167/94; PULSE 74; RESP 18; TEMP 36.7
--- NOTE | 2021-07-28 11:39 | HMH.EDUTC ---
[facility] [place] Disposition Clinical Impression: Viral syndrome, Exposure to COVID-19 virus, Bronchitis Disposition: Home, Self-Care Condition on Discharge: Good Instructions: DI for Acute Bronchitis, DI for COVID-19 (Suspected or Confirmed ), Preventing the Spread of Coronavirus Discharge Instructions Additional Instructions: Drink plenty of fluids. Take tylenol or ibuprofen for pain or fever. Take the medications as directed. Follow up with your regular doctor. GO TO THE ER FOR ANY WORSENING SYMPTOMS Quarantine until you know the results of your covid-19 test. If it is positive, the health department should call you and give you further instructions about your length of Quarantine and other things. Notify your school or workplace of your results and follow their instructions regarding return to work/school. The cough medication (promethazine dm) will make you drowsy, so don't drive or operate heavy machinery after taking it. Prescriptions: methylPREDNISolone [Medrol] 4 mg PO DIRECTED 6 Days #21 packet Transmission Status: Received by [facility] Benzonatate [Tessalon Perle 100mg Cap] 100 mg PO TIDP PRN #30 cap PRN Reason: Cough Transmission Status: Received by [facility] Azithromycin [Z-Zion 250mg Tab*] 250 mg PO UD DOSE PK #6 tab Transmission Status: Received by [facility] Referrals: Domitila Baldwin PA [Primary Care Provider] - Forms: Work/School Release Time of Disposition: 11:43 Medical Decision Making - Medical Records Medical records reviewed: No: I reviewed the patient's medical records. - Robson Inquiry Pt receiving controlled substance: No Vital Signs: 07/28/21 10:57 07/28/21 11:02 Temperature 98.1 F 98.1 F Temperature Source Oral Pulse Rate 74 Pulse Rate [Left] 74 Respiratory Rate 18 18 Blood Pressure 167/94 H Blood Pressure [Right Arm] 167/94 H Blood Pressure Mean [Right Arm] 118 02 Sat by Pulse Oximetry 95 Oxygen Delivery Method Room Air Orders (Tests/Meds): ORDERS Category Date Time Status Covid-19 Nasal PCR ([facility]) Routine Lab 07/28/21 10:59 Received [facility] [place] HPI - General Stated complaint: exposure,symthoms Time Seen by Provider: 07/28/21 11:39 Mode of Arrival: Ambulatory Source of Information: Patient Limitations: No Limitations Description of Symptoms (Recalled from Triage Doc. by RN): pt c/o MANNING, nausea, soa, chills and lethargy. HEENT Symptoms (Recalled from RN notes): Yes Resp Symptoms (Recalled from RN notes): Yes (soa) Skin Symptoms (Recalled from RN notes): No MS Symptoms (Recalled from RN notes): No Functional Status (Recalled from RN notes): body aches and chills - History of Present Illness Provider Complaint: She is here complaining of having a headache for since yesterday, a dry cough, body aches. She was exposed to covid-19 last week. She has been vaccinated against covid-19. She actually had covid-19 last October also. She states that she feels exactly like she did when she first started having covid symptoms before. She denies any shortness of breath or chest pain. - Related Data Home Medications Medication Instructions Recorded Confirmed fluticasone propionate 50 1 g INTRANASAL DAILY 10/10/20 06/08/21 mcg/actuation nasal spray,suspension loratadine 10 mg tablet 10 mg PO DAILY tab 10/10/20 06/08/21 lisinopril 10 mg tablet 10 mg PO DAILY tab 10/20/20 06/08/21 Buspirone HCl [Buspar 10mg 10 mg PO DAILY 05/08/21 06/08/21 tablet] Cholecalciferol (Vitamin D3) 25 mcg PO DAILY 05/08/21 06/08/21 [Vitamin D3 1,000 Unit Cap] Clopidogrel Bisulfate [Plavix] 75 mg PO DAILY 05/08/21 06/08/21 Ergocalciferol (Vitamin D2) 1,250 mcg PO WEEKLY 05/08/21 06/08/21 [Drisdol] Meloxicam 7.5 mg PO DAILY 05/08/21 06/08/21 Metformin HCl [Glucophage Xr] 500 mg PO DAILY 05/08/21 06/08/21 Ropinirole HCl 2 mg PO HS 05/08/21 06/08/21 Pramipexole Di-HCl [Pramipexole 0.5 mg PO DAILY 05/11/21 06/08/21 Dihy
--- NOTE | 2021-07-29 09:19 | PC.NURSE ---
informed patient that she was positive
--- NOTE | 2021-07-31 09:34 | PC.NURSE ---
Notified pt of positive COVID results
== END 2021-07-28 11:58 | disposition home or self-care (01) ==
PROVIDERS: Emergency Provider Nurse Practitioner Family; PCP Physician Assistant
DX: U07.1 COVID-19 (principal)
CPT/HCPCS: 99202; G0463; U0003

== ENCOUNTER 2021-08-18 10:15 | Day surgery (SDC) | payer MEDICAID, SELFPAY ==
[2021-08-18 10:17] VITALS: BP 124/68; PULSE 73; RESP 18; TEMP 36.7; O2SAT 95; BMI 42.0
[2021-08-18 11:03] VITALS: BP 152/73; PULSE 72; RESP 18; O2SAT 96
[2021-08-18 11:04] VITALS: BP 155/85; PULSE 72; RESP 18; O2SAT 96
[2021-08-18 11:16] VITALS: BP 141/77; PULSE 72; RESP 20; O2SAT 96
--- NOTE | 2021-08-18 11:22 | HMH.PMPROC ---
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 She has increasing pain in her low back. Is worse with extension and twisting. She is tender over the facet joints of L4-5 and L5-S1 bilaterally. We will plan on bilateral lumbar medial branch block/facet joint injections of L4-5 and L5-S1 today. Procedure Details:: Lumbar medial branch block Informed consent was obtained and the risks and benefits of the procedure was explained to the patient. The back was prepped using ChloraPrep. The skin and subcutaneous tissues were anesthetized using lidocaine. I placed 22-gauge spinal needles into the facet joint/medial branches of L4-L5 and L5-S1 bilaterally. Needle placement was confirmed with dye. After this we injected 3 mL bupivacaine 0.25% and Depo-Medrol 20 mg into each facet joint/medial branch of L4-L5 and L5-S1 bilaterally. We used a total of 80 mg Depo-Medrol for both levels bilaterally. The patient tolerated the procedure well with no complications. Plan and Disposition:: We will follow-up with her and 2 weeks. Will reevaluate symptoms at that time. If these blocks are successful then we will seek approval for RF ablation to the facet joints of L4-5 and L5-S1 bilaterally.
== END 2021-08-18 11:17 | disposition home or self-care (01) ==
LOC: SC.PAINP 10:16
PROVIDERS: PCP Physician Assistant; Visit Provider Anesthesiology
DX: M51.36 Other intervertebral disc degeneration, lumbar region (principal); M47.816 Spondylosis without myelopathy or radiculopathy, lumbar region; M54.06 Panniculitis affecting regions of neck and back, lumbar region; G43.909 Migraine, unspecified, not intractable, without status migrainosus; I25.10 Atherosclerotic heart disease of native coronary artery without angina pectoris; E78.5 Hyperlipidemia, unspecified; I10 Essential (primary) hypertension; J44.9 Chronic obstructive pulmonary disease, unspecified; J45.909 Unspecified asthma, uncomplicated; K21.9 Gastro-esophageal reflux disease without esophagitis; M19.90 Unspecified osteoarthritis, unspecified site; E11.9 Type 2 diabetes mellitus without complications
CPT/HCPCS: 64493; 64494; J1040; Q9966

== ENCOUNTER → 2021-08-22 08:11 | Outpatient (POV) | payer MEDICAID, SELFPAY ==
--- NOTE | 2021-08-22 08:27 | HMH.PAINSOAP ---
[facility] Pain Management SOAP Note Subjective:: Patient is a 66-year-old white female who presents today for follow-up after medial branch block/facet joint injections. Patient did undergo injective therapy on 08/18/2021. She reports 2 days later her pain worsened at a 10 out of 10. She says the pain is worse now than it was prior to the injection. She is now having twitching in her legs at bedtime as well as worsening low back pain. She rates her pain a 10 out of 10. She did contact the clinic yesterday to be seen today. The patient says the medial branch blocks did not give her relief. The patient's MRI was positive for spondylosis and facet arthropathy. Patient says that she is unable to stand, walk, or band since the injection. She says her leg pain is worse at bedtime. Review of Systems General: No recent weight changes, no fever, no sleep disturbances Respiratory: No cough, no shortness of air, no recurring pulmonary infections Cardiovascular/peripheral vascular: No chest pain, no palpitations, no edema, no shortness of breath Gastrointestinal: No new onset incontinence, normal bowel movements reported Genitourinary: No new onset incontinence Musculoskeletal: Low back pain worse with standing, walking, bending forward Psychiatric: [Normal mood/affect] Neurological: [Denies weakness in extremities], [denies balance issues] Objective:: Physical exam General: Alert and oriented x3, no acute distress, pleasant and cooperative, [on room air] Lungs: Respirations even and unlabored, symmetrical chest expansion Eyes: PERRL Musculoskeletal: Flexion and extension of lumbar [spine] somewhat guarded secondary to pain, strength in upper and lower extremities [5/5], [antalgic gait noted] Neurological: Speech clear, [client care coordinator equal], no gross sensory deficit Assessment:: Degenerative disc disease lumbar spine with lumbar radiculopathy symptoms, lumbar spondylosis, lumbar facet arthropathy, restless leg syndrome Plan:: We will order the patient prednisone 20 mg 1 tablet p.o. twice daily for 5 days to see if this relieves some of her symptoms. We will also start the patient on Requip 0.25 mg 1 tablet p.o. at bedtime. She is having twitching and leg pain at bedtime. We will see the patient back in 2 weeks to see if the medication has relieved her symptoms. Risks and benefits of the medication have been explained in detail to the patient. If side effects do present with the medication, she has been advised to stop the medication immediately and call the clinic. The patient has been advised to consult with his/her primary care provider and pharmacist regarding drug-drug interaction of medications currently prescribed. Patient has been instructed to contact the clinic with any concerns before the next appointment. Dr. Robb has reviewed this note and agrees with this plan of care. This note was dictated using voice recognition software and make contain errors or omissions. [facility] History I have reviewed the patient's past medical history: Yes Medical History: Reports:: Asthma, Chronic Obstructive Pulmonary Disease (COPD), Coronary Artery Disease, Depression, Gastroesophageal Reflux Disease(GERD), Hyperlipidemia, Hypertension, Lung Disease, Migraine, Peripheral Artery Disease Denies:: Cancer, Diabetes Mellitus Type 1, Diabetes Mellitus Type 2, Internal Pacemaker, MRSA, Seizures *Have you ever received a pneumonia vaccine?: No *Have you received a flu vaccine this season?: No Other Medical History: Reports: Arthritis. Denies: Blood Transfusion Reaction Laterality Cases: Left: Other, Bilateral: Arthroscopy Shoulder Other Surgeries: Yes: Cardiac Catheterization, Colonoscopy, Coronary Stent, Hysterectomy-Total. No: Pacemaker Amputation: No Fractures: No - *Social History Smoking Status: Current every day smoker Tobacco Type: cigarettes # Packs/Day (cigarettes): 1 Alcohol Intake: never Alcohol Intake Frequency:: holidays/special occasions
[2021-08-22 08:34] VITALS: PULSE 74; RESP 18; O2SAT 95; BMI 42.5
== END ==
PROVIDERS: Visit Provider Clinical Nurse Specialist Family Health
DX: M51.16 Intervertebral disc disorders with radiculopathy, lumbar region (principal); M47.896 Other spondylosis, lumbar region; M54.06 Panniculitis affecting regions of neck and back, lumbar region; G25.81 Restless legs syndrome
CPT/HCPCS: 99212; G0463

== ENCOUNTER → 2021-09-05 08:45 | Outpatient (POV) | payer MEDICAID, SELFPAY ==
[2021-09-05 08:54] VITALS: BP 153/83; PULSE 77; RESP 18; O2SAT 95; BMI 42.8
--- NOTE | 2021-09-05 09:04 | HMH.PAINSOAP ---
[facility] Pain Management SOAP Note Subjective:: Patient is a 66-year-old white female who presents today for follow-up. The patient is being seen in the clinic for low back pain with radiation into bilateral lower extremities. The pain is worse for the patient when she is standing, walking, and bending. The patient did undergo medial branch block/facet joint injections but got no relief and actually reported her pain to be worse after the injections. With the patient's return visit, she was started on prednisone and Requip for worsening lower extremity pain. Today, the patient has returned and reports prednisone gave her no relief. She also says that she was on Requip and did forget to inform the clinic. Patient does rate her pain a 10 out of 10 today. She is using a walker for ambulation. She says that she is having pain in bilateral low back area with radiation into her bilateral legs along with numbness and tingling. She does have occasional weakness in her lower extremities as well. Patient is diabetic and is on Plavix therapy. She did try physical therapy for more than 6 weeks in the past with no significant relief. She has also tried home stretching. She is unable to take anti-inflammatories due to Plavix use. She has tried using ice and heat therapies as well as oral prednisone. Patient is managed with acetaminophen with codeine and gets no relief. She has also tried tramadol in the past and says this did not help her. Review of Systems General: No recent weight changes, no fever, no sleep disturbances Respiratory: No cough, no shortness of air, no recurring pulmonary infections Cardiovascular/peripheral vascular: No chest pain, no palpitations, no edema, no shortness of breath Gastrointestinal: No new onset incontinence, normal bowel movements reported Genitourinary: No new onset incontinence Musculoskeletal: Low back pain with radiation into bilateral lower extremities worse with standing walking and movement Psychiatric: [Normal mood/affect] Neurological: [Denies weakness in extremities], [denies balance issues] Objective:: Physical exam General: Alert and oriented x3, no acute distress, pleasant and cooperative Lungs: Respirations even and unlabored, symmetrical chest expansion Eyes: PERRL Musculoskeletal: Flexion and extension of lumbar [spine] somewhat guarded secondary to pain, [antalgic gait noted] Neurological: Speech clear, no gross sensory deficit Assessment:: Degenerative disc disease lumbar spine with lumbar radiculopathy symptoms Plan:: Patient I did review her MRI. She does have bulging disks with foraminal narrowing at L4-L5 area. Given the patient's worsening symptoms and minimal relief with the medial branch blocks, we will schedule the patient for lumbar epidural steroid injection at L4-L5 area. We did discuss today the patient's options if she does not get relief with the epidural steroid injection. She has tried acetaminophen with codeine along with tramadol. The medications did not give her any relief. If the patient does not get significant relief with the injection, she and I did discuss possible spinal cord stimulation therapy. We will begin the process in the event the patient does not get long-term relief with the injection. We will schedule patient for psychological evaluation. The patient is on Plavix therapy and does understand she will need to hold this medication prior to the injection. She is also diabetic. Patient will continue with home stretching and ice and heat therapies. We will follow up with her after the injection for reevaluation of symptoms. Possible side effects of corticosteroids have been discussed with the patient. Risks and benefits of the procedure have been explained to the patient. Patient would like to proceed with the procedure. Patient has been instructed to contact the clinic with any concerns before the next appointment. Dr. Robb has reviewed this
== END ==
PROVIDERS: Visit Provider Clinical Nurse Specialist Family Health
DX: M51.16 Intervertebral disc disorders with radiculopathy, lumbar region (principal)
CPT/HCPCS: 99212; G0463

== ENCOUNTER → 2021-09-07 14:26 | Outpatient (CLI) | payer MEDICAID, SELFPAY ==
[2021-09-07 14:51] LABS: Creatinine,Urine Random 66 mg/dL (Not Estab.)
[2021-09-07 14:52] LABS: Microalbumin/Creatinine Ratio 12.2
== END ==
PROVIDERS: Visit Provider Physician Assistant
DX: E11.9 Type 2 diabetes mellitus without complications (principal); Z79.84 Long term (current) use of oral hypoglycemic drugs
CPT/HCPCS: 82043; 82570

== ENCOUNTER → 2021-09-11 12:25 | Outpatient (CLI) | payer MEDICAID, SELFPAY ==
[2021-09-11 12:57] LABS: Basophils # 0.1 K/mm3 (0-0.2); Basophils % 0.8 % (0.1-2.0); Eosinophils # 0.2 K/mm3 (0.0-0.4); Eosinophils % 2.4 % (0.1-12.0); Hematocrit 43.5 % (37.0-47.0); Hemoglobin 14.2 g/dL (12.2-16.2); Lymphocytes # 3.4 K/mm3 (0.7-4.5); Lymphocytes % 36.6 % (10-50); Mean Corpuscular HGB Conc 32.7 g/dL (31.8-35.4); Mean Corpuscular Hemoglobin 31.1 pg (27.0-31.2); Mean Corpuscular Volume 95.1 fl (81-99); Mean Platelet Volume 7.7 fl (7.4-10.4); Monocytes # 0.4 K/mm3 (0.1-1.0); Monocytes % 4.5 % (1.7-9.3); Neutrophils # 5.2 K/mm3 (1.8-7.8); Neutrophils % 55.7 % (37.0-80.0); Platelet Count 353 K/mm3 (142-424); Red Blood Count 4.57 M/mm3 (4.20-5.40); Red Cell Distribution Width 14.6 % (11.5-17.5); White Blood Count 9.3 K/mm3 (4.8-10.8)
[2021-09-11 13:42] LABS: Alanine Aminotransferase 14 U/L (12-78); Albumin Level 3.7 g/dl (3.5-5.0); Albumin/Globulin Ratio 1.2 (1.1-1.8); Alkaline Phosphatase 110 U/L (38-126); Anion Gap 12.1 mEq/L (5-15); Aspartate Amino Transferase 21 U/L (14-36); Bilirubin,Total 0.4 mg/dl (0.2-1.3); Blood Urea Nitrogen 22 mg/dl (7-17); Calcium 9.1 mg/dl (8.4-10.2); Carbon Dioxide 28 mmol/L (22.0-30.0); Chloride 106 mmol/L (98-107); Chol/HDL Ratio 3.5 (1-3.5); Cholesterol 209 mg/dl (140-200); Estimated Glomerular Filt Rate 45 ml/min (>60); GFR (African American) 55 ML/MIN (>60); Globulin 3.1 g/dL (1.3-3.2); Glucose 98 mg/dl (74-100); HDL Cholesterol 60 mg/dl (40-60); Potassium 4.1 mmoL/L (3.5-5.1); Sodium 142 mmol/L (136-145); Total Protein,Serum 6.8 g/dl (6.3-8.2); Triglycerides 220 mg/dl (30-150); VLDL Cholesterol 44 mg/dL (0-40)
[2021-09-11 13:55] LABS: 25-OH Vitamin D, Total 55.5 ng/mL (30-100)
[2021-09-11 14:10] LABS: Thyroid Stimulating Hormone 0.96 uIU/mL (0.465-4.68)
[2021-09-11 14:15] LABS: Ferritin 27.6 ng/ml (11.1-264)
[2021-09-11 14:28] LABS: Vitamin B12 526 pg/mL (239-931)
== END ==
PROVIDERS: Visit Provider Physician Assistant
DX: E11.42 Type 2 diabetes mellitus with diabetic polyneuropathy (principal); G25.81 Restless legs syndrome; E55.9 Vitamin D deficiency, unspecified; Z79.84 Long term (current) use of oral hypoglycemic drugs
CPT/HCPCS: 36415; 80053; 80061; 82306; 82607; 82728; 83036; 84439; 84443; 85025

== ENCOUNTER 2021-09-12 19:47 | Emergency (ER) | payer MEDICAID, SELFPAY ==
[2021-09-12 19:48] VITALS: BP 168/90; PULSE 72; RESP 20; TEMP 37; O2SAT 96; BMI 42.0
--- NOTE | 2021-09-12 20:35 | HMH.EDUTC ---
[facility] [place] Disposition Clinical Impression: Low back pain Qualifiers: Chronicity: unspecified Back pain laterality: bilateral Sciatica presence: with sciatica Sciatica laterality: bilateral sciatica Qualified Code(s): M54.42 - Lumbago with sciatica, left side Disposition: Home, Self-Care Condition on Discharge: Good Instructions: Low Back Pain, DI for Low Back Pain, DI for Chronic Pain -- Adult, Prednisone Additional Instructions: *Take prescribed pain medication as prescribed *Remember you had a Toradol shot in the clinic today, which is similar to Motrin *Ice 20 minutes every 2 hours for the first 48 hours after the initial injury followed by moist heat every 20 minutes 3-4 times a day to affected area Follow up with Pain management you may call the office tomorrow to see if they may can see you sooner *Keep this area active, no movement leads to more stiffness, However take it easy and avoid heavy lifting pushing or pulling *Follow up with you family doctor if no improvement for further treatment Referrals: Domitila Baldwin PA [Primary Care Provider] - As needed Time of Disposition: 21:12 Medical Decision Making - Robson Inquiry Pt receiving controlled substance: No Robson was queried for this patient: No Vital Signs: 09/12/21 19:48 Temperature 98.6 F Temperature Source Oral Pulse Rate [Left Radial] 72 Respiratory Rate 20 Blood Pressure [Right Arm] 168/90 H Blood Pressure Mean [Right Arm] 116 Blood Pressure Source [Right Arm] Automatic Cuff Blood Pressure Position [Right Arm] Sitting 02 Sat by Pulse Oximetry 96 Oxygen Delivery Method Room Air Orders (Tests/Meds): ED MEDICATIONS Discontinued Medications Generic Name Dose Route Start Last Admin Trade Name Aroldo PRN Reason Stop Dose Admin Ketorolac Tromethamine 30 mg 09/12/21 20:57 09/12/21 21:20 Ketorolac 60mg/2ml Vial IM 09/12/21 20:58 30 mg ONCE ONE Administration Methylprednisolone Sodium Succinate 125 mg 09/12/21 21:09 09/12/21 21:20 Methylprednisolone Sod Succ 125mg Vial IM 09/12/21 21:10 125 mg ONCE ONE Administration Medical Decision Narrative: Medication discussed and dosed per pharmacy due to patient medications Discussed with patient an recommended Xray of Lspine and patient declined xray states that she had xray for them Patient states that she has had both SoluMedrol and Toradol injections in the past without complications or reactions Medications discussed with pharmacy Patient state that pain is much better after injections [facility] [place] HPI - General Stated complaint: back pain Time Seen by Provider: 09/12/21 20:39 Mode of Arrival: Ambulatory Source of Information: Patient Limitations: No Limitations Description of Symptoms (Recalled from Triage Doc. by RN): c/o lower back pain when she woke up this am, denies any injury HEENT Symptoms (Recalled from RN notes): No Resp Symptoms (Recalled from RN notes): No Skin Symptoms (Recalled from RN notes): No MS Symptoms (Recalled from RN notes): Yes Functional Status (Recalled from RN notes): na - History of Present Illness Provider Complaint: Patient states that she has a history of low back pain and she sees pain management and got several injections in her back and they are suppose to be doing an epidural to help with pain but she woke up this morning with pain in her lower back that goes into buttock and both upper legs Denies injury states that she has took her prescribed pain medication but it didnt help much so she came in to see if she could get a shot or something to help tonight Denies loss of control of bowel or bladder - Related Data Home Medications Medication Instructions Recorded Confirmed fluticasone propionate 50 1 g INTRANASAL DAILY 10/10/20 09/07/21 mcg/actuation nasal spray,suspension loratadine 10 mg tablet 10 mg PO DAILY tab 10/10/20 09/07/21 lisinopril 10 mg tablet 10 mg PO DAILY tab 10/20/20 09/07/21 Buspirone HCl [Buspar 10mg 10 mg PO DA
[2021-09-12 21:39] VITALS: BP 168/90; PULSE 72; RESP 20; TEMP 37; O2SAT 96
== END 2021-09-12 21:40 | disposition home or self-care (01) ==
PROVIDERS: Emergency Provider Nurse Practitioner; PCP Physician Assistant
DX: M54.42 Lumbago with sciatica, left side (principal); J44.9 Chronic obstructive pulmonary disease, unspecified; I25.10 Atherosclerotic heart disease of native coronary artery without angina pectoris; F33.1 Major depressive disorder, recurrent, moderate; K21.9 Gastro-esophageal reflux disease without esophagitis; E78.5 Hyperlipidemia, unspecified; I10 Essential (primary) hypertension; G43.709 Chronic migraine without aura, not intractable, without status migrainosus; Z79.899 Other long term (current) drug therapy
CPT/HCPCS: 96372; 99202; G0463

== ENCOUNTER 2021-09-22 07:37 | Emergency (ER) | payer MEDICAID, SELFPAY ==
[2021-09-22 07:52] VITALS: BP 132/74; PULSE 90; O2SAT 97
[2021-09-22 08:01] VITALS: BP 133/85; PULSE 86; O2SAT 95
[2021-09-22 08:02] VITALS: BP 132/74; PULSE 94; RESP 17; TEMP 36.6; O2SAT 94; BMI 42.8
--- NOTE | 2021-09-22 08:14 | XR_ITS ---
PROCEDURE: XR CHEST PORTABLE CLINICAL HISTORY: sob COMPARISON: CT [facility] CT angio chest from 06/14/2019 CR XR CHEST PORTABLE from 02/29/2020 CR XR CHEST 2V from 08/29/2020 CR XR CHEST PORTABLE from 06/28/2021 FINDINGS: The cardiomediastinal silhouette and pulmonary vascularity are within normal limits. COPD changes. There is faint increased density in the left upper lobe which may represent an area of infiltrate. Soft tissue artifact would be an additional consideration. Chronic changes are present in the right lower lobe. Degenerative changes of the shoulders. IMPRESSION: Possible left upper lobe infiltrate. Upright PA and lateral chest may provide further evaluation. Dictated by: Rajendra Gregg MD 09/22/2021 08:56 Rajendra Gregg MD in [place] 09/22/2021 08:56
--- NOTE | 2021-09-22 08:15 | PC.NURSE ---
Called rad for chest x ray
--- NOTE | 2021-09-22 08:26 | HMH.EDGENADL ---
ED Disposition Clinical Impression: Acute bronchitis Qualifiers: Bronchitis organism: unspecified organism Qualified Code(s): J20.9 - Acute bronchitis, unspecified Disposition: Home, Self-Care Condition on Discharge: Good Instructions: DI for Acute Bronchitis Additional Instructions: Prednisone and Zithromax as prescribed. Tylenol or ibuprofen for achiness and headache. Continue your other breathing medications as per usual. Prescriptions: predniSONE [Prednisone 20mg Tab] 20 mg PO BID #10 tab Transmission Status: Received by [facility] Azithromycin [Zithromax 250mg tab] 250 mg PO DIRECTED #6 tab Transmission Status: Received by [facility] Referrals: Domitila Baldwin PA [Primary Care Provider] - 3 days - Critical Care Critical Care Time: No Attestation: On 09/22/21, the high probability of a clinically significant, sudden or life threatening deterioration of the following system(s) required my full and direct attention, intervention and personal management. The time I documented below is in addition to time spent performing reported procedures but includes the following listed in this critical care notation. Medical Decision Making - Medical Records Medical records reviewed: Yes: I reviewed the patient's medical records. MR Comment: Reviewed previous Covid tests. Positive PCR test on 10/28/2020 and on 07/28/2021. Vaccinated on 01/16/2021. - Robson Inquiry Pt receiving controlled substance: No Vital Signs: 09/22/21 07:52 09/22/21 08:01 09/22/21 08:02 Temperature 97.9 F Temperature Source Oral Pulse Rate 90 86 Pulse Rate [Right Radial] 94 H Respiratory Rate 17 Blood Pressure 132/74 133/85 Blood Pressure [Right Arm] 132/74 Blood Pressure Mean 100 101 Blood Pressure Mean [Right Arm] 93 Blood Pressure Source [Right Arm] Automatic Cuff Blood Pressure Position [Right Arm] Supine 02 Sat by Pulse Oximetry 97 95 94 L Oxygen Delivery Method Room Air - Lab Data Lab Results 09/22/21 08:08: WBC 7.7, RBC 4.69, Hgb 14.4, Hct 45.5, MCV 96.8, MCH 30.7, MCHC 31.7 L, RDW 14.8, Plt Count 353, MPV 8.0, Neut % (Auto) 59.8, Lymph % (Auto) 32.0, [place] % (Auto) 4.3, Eos % (Auto) 2.6, Baso % (Auto) 1.4, Neut # (Auto) 4.6, Lymph # (Auto) 2.5, [place] # (Auto) 0.3, Eos # (Auto) 0.2, Baso # (Auto) 0.1 09/22/21 08:08: Sodium 141, Potassium 4.3, Chloride 106, Carbon Dioxide 29, Anion Gap 10.3, BUN 20 H, Creatinine 0.80, Estimated Creat Clear 47, Estimated GFR 72, Est GFR ( Amer) 87, Glucose 121 H, Calcium 9.3, Total Bilirubin 0.3, AST 20, ALT 16, Alkaline Phosphatase 134 H, Total Protein 7.3, Albumin 4.0, Globulin 3.3 H, Albumin/Globulin Ratio 1.2 09/22/21 08:08: SARS-CoV-2 (PCR) Not detected, Influenza A Untype (PCR) Not detected, Influenza Type B (PCR) Not detected Result diagrams: 09/22/21 08:08 09/22/21 08:08 - Radiology Data #1 Image(s): Chest Image Reviewed: Yes I reviewed the patient's radiology image, Yes I discussed the image results w/the radiologist, Yes I have reviewed radiologist's interpretation 2 view chest x-ray negative. Initial portable read as possible left upper infiltrate, but 2 view is normal according to Dr. Chauhan. PROCEDURE: XR CHEST PORTABLE CLINICAL HISTORY: sob COMPARISON: CT [facility] CT angio chest from 06/14/2019 CR XR CHEST PORTABLE from 02/29/2020 CR XR CHEST 2V from 08/29/2020 CR XR CHEST PORTABLE from 06/28/2021 FINDINGS: The cardiomediastinal silhouette and pulmonary vascularity are within normal limits. COPD changes. There is faint increased density in the left upper lobe which may represent an area of infiltrate. Soft tissue artifact would be an additional consideration. Chronic changes are present in the right lower lobe. Degenerative changes of the shoulders. IMPRESSION: Possible left upper lobe infiltrate. Upright PA and lateral chest may provide further evaluation. Dictated by:
[2021-09-22 08:37] LABS: Coronavirus 19, PCR Not Detected (NotDetected); Influenza A, PCR Not Detected (NotDetected); Influenza B, PCR Not Detected (NotDetected)
[2021-09-22 08:39] LABS: Basophils # 0.1 K/mm3 (0-0.2); Basophils % 1.4 % (0.1-2.0); Eosinophils # 0.2 K/mm3 (0.0-0.4); Eosinophils % 2.6 % (0.1-12.0); Hematocrit 45.5 % (37.0-47.0); Hemoglobin 14.4 g/dL (12.2-16.2); Lymphocytes # 2.5 K/mm3 (0.7-4.5); Mean Corpuscular HGB Conc 31.7 g/dL (31.8-35.4); Mean Corpuscular Hemoglobin 30.7 pg (27.0-31.2); Mean Corpuscular Volume 96.8 fl (81-99); Monocytes # 0.3 K/mm3 (0.1-1.0); Monocytes % 4.3 % (1.7-9.3); Neutrophils # 4.6 K/mm3 (1.8-7.8); Neutrophils % 59.8 % (37.0-80.0); Platelet Count 353 K/mm3 (142-424); Red Blood Count 4.69 M/mm3 (4.20-5.40); Red Cell Distribution Width 14.8 % (11.5-17.5); White Blood Count 7.7 K/mm3 (4.8-10.8)
[2021-09-22 08:45] LABS: Alanine Aminotransferase 16 U/L (12-78); Albumin/Globulin Ratio 1.2 (1.1-1.8); Alkaline Phosphatase 134 U/L (38-126); Anion Gap 10.3 mEq/L (5-15); Aspartate Amino Transferase 20 U/L (14-36); Bilirubin,Total 0.3 mg/dl (0.2-1.3); Blood Urea Nitrogen 20 mg/dl (7-17); Calcium 9.3 mg/dl (8.4-10.2); Carbon Dioxide 29 mmol/L (22.0-30.0); Chloride 106 mmol/L (98-107); Creatinine Clearance Estimated 47 mL/min (50-200); Estimated Glomerular Filt Rate 72 ml/min (>60); GFR (African American) 87 ML/MIN (>60); Globulin 3.3 g/dL (1.3-3.2); Glucose 121 mg/dl (74-100); Potassium 4.3 mmoL/L (3.5-5.1); Sodium 141 mmol/L (136-145); Total Protein,Serum 7.3 g/dl (6.3-8.2)
--- NOTE | 2021-09-22 09:05 | XR_ITS ---
PROCEDURE: XR CHEST 2V CLINICAL HISTORY: possible LATRICE infilt on pCXR COMPARISON: No exams were available for comparison FINDINGS: The cardiomediastinal silhouette and pulmonary vascularity are within normal limits. The lungs are clear without infiltrates, suspicious nodules, or pleural effusions. Previously noted patchy density in the left upper lobe is no longer apparent and was consistent with overlying soft tissue attenuation. Degenerative changes of the spine. Coronary artery stent. IMPRESSION: No acute findings. Dictated by: Rajendra Gregg MD 09/22/2021 09:23 Rajendra Gregg MD in [place] 09/22/2021 09:23
[2021-09-22 09:42] VITALS: BP 141/81; PULSE 79; RESP 19; TEMP 36.6; O2SAT 94
== END 2021-09-22 09:42 | disposition home or self-care (01) ==
PROVIDERS: Emergency Provider Emergency Medicine; PCP Physician Assistant
DX: J44.0 Chronic obstructive pulmonary disease with (acute) lower respiratory infection (principal); J20.9 Acute bronchitis, unspecified; Z20.822 Contact with and (suspected) exposure to COVID-19; K21.9 Gastro-esophageal reflux disease without esophagitis; I10 Essential (primary) hypertension; E78.5 Hyperlipidemia, unspecified; Z79.899 Other long term (current) drug therapy; F17.210 Nicotine dependence, cigarettes, uncomplicated
CPT/HCPCS: 71045; 71046; 80053; 85025; 99283; C9803; U0003; U0005

== ENCOUNTER 2021-10-06 12:53 | Day surgery (SDC) | payer MEDICAID, SELFPAY ==
[2021-10-06 12:55] VITALS: BP 141/83; PULSE 83; RESP 18; TEMP 36.7; O2SAT 96; BMI 43.7
[2021-10-06 13:29] VITALS: BP 149/78; PULSE 81; RESP 18; O2SAT 95
[2021-10-06 13:32] VITALS: BP 144/88; PULSE 81; RESP 18; O2SAT 95
--- NOTE | 2021-10-06 13:40 | P.PCN_ITS ---
- Procedure Date: 10/06/21 Time: 13:40 Anesthesiologist:: Lila Newsome MD Complications:: None Pre-procedure Diagnosis:: Degenerative disc disease of lumbar spine with lumbar radiculopathy Post-procedure Diagnosis:: Same Indications for Procedure:: Patient is a very pleasant 66-year-old white female who presents today with chronic low back pain rating into her legs related to the above diagnosis. She has tried and failed conservative treatment including oral pain medications and home stretching program for greater than 6 weeks. The plan for today is for the patient to undergo a lumbar epidural steroid injection under fluoroscopy at L5- S1 #1. Procedure Details:: Informed consent was obtained and the risk and benefits of the procedure was explained to the patient. The patient was taken to the procedure room. The patient was placed prone on the procedure table. The patient was prepped and draped in sterile fashion. C-arm fluoroscopy was used to view the lumbar spine. Skin and subcutaneous tissues were anesthetized using lidocaine. I placed an 18-gauge epidural needle and advanced into the L5-S1 interspace using fluoroscopic guidance and [id number] to air and saline. After confirmation of needle placement in the epidural space with dye I injected 1 mL of lidocaine 1.0% with Depo-Medrol 80 mg. Patient tolerated the procedure well with no complications. Plan and Disposition:: Follow-up with this patient in 2 weeks. Will reevaluate pain symptoms at that time.
[2021-10-06 13:51] VITALS: BP 144/84; PULSE 78; RESP 20; O2SAT 95
== END 2021-10-06 13:52 | disposition home or self-care (01) ==
LOC: SC.PAINP 12:54
PROVIDERS: PCP Physician Assistant; Visit Provider Anesthesiology Pain Medicine
DX: M51.16 Intervertebral disc disorders with radiculopathy, lumbar region (principal); G43.909 Migraine, unspecified, not intractable, without status migrainosus; I25.10 Atherosclerotic heart disease of native coronary artery without angina pectoris; I73.9 Peripheral vascular disease, unspecified; E78.5 Hyperlipidemia, unspecified; I10 Essential (primary) hypertension; J44.9 Chronic obstructive pulmonary disease, unspecified; K21.9 Gastro-esophageal reflux disease without esophagitis; F32.A Depression, unspecified; Z72.0 Tobacco use; Z99.81 Dependence on supplemental oxygen; N28.9 Disorder of kidney and ureter, unspecified
CPT/HCPCS: 62323; J1040; Q9966

== ENCOUNTER 2021-10-16 10:08 | Emergency (ER) | payer MEDICAID, SELFPAY ==
--- NOTE | 2021-10-16 11:35 | XR_ITS ---
PROCEDURE: XR ANKLE RT MIN 3V XR tib fib right two views CLINICAL INDICATION: pain COMPARISON: CR XR ANKLE WT BEARING LT MIN 3V from 12/06/2019 CR XR ANKLE WT BEARING RT MIN 3V from 12/06/2019 CR XR TIBIA FIBULA RT 2V from 10/16/2021 FINDINGS: No fracture or dislocation. No lytic or blastic change. There is normal mineralization. The joint spaces are well-preserved. No significant degenerative/arthritic changes. No erosive changes evident. Other findings:Mild soft tissue swelling of the ankle on both sides. IMPRESSION: Soft tissue swelling otherwise negative Dictated by: Rajendra Gregg MD 10/16/2021 12:18 Rajendra Gregg MD in [place] 10/16/2021 12:18
--- NOTE | 2021-10-16 11:35 | XR_ITS ---
PROCEDURE: XR FOOT RT MIN 3V CLINICAL INDICATION: pain COMPARISON: CR XR FOOT WT BEARING LT 3V from 09/12/2020 CR XR FOOT WT BEARING RT 3V from 09/12/2020 CR XR FOOT LT MIN 3V from 06/28/2021 CR XR FOOT RT MIN 3V from 06/28/2021 FINDINGS: No acute fracture or dislocation. There are mild osteoarthritic changes at the 1st MTP joint. Small calcaneal spur and Achilles enthesophyte noted. At the base of the 3rd metatarsal there is no lucent area measuring approximately 1 cm. This is nonspecific and could even be due to artifact from overlying grooves within the proximal metatarsal. A lesion here is not excluded. IMPRESSION: No acute fracture. Lucency of the proximal 3rd metatarsal possibly due to artifact versus lucent lesion. Follow-up suggested Dictated by: Rjaendra Gregg MD 10/16/2021 12:22 Rajendra Gregg MD in [place] 10/16/2021 12:22
[2021-10-16 11:39] VITALS: BP 149/65; PULSE 89; RESP 18; TEMP 36.6; O2SAT 96; BMI 42.0
--- NOTE | 2021-10-16 12:07 | HMH.EDUTC ---
[facility] [place] Clinical Impression: Right leg pain, Right leg swelling, Synovial cyst of popliteal space [Nolasco], right knee Disposition: Home, Self-Care Condition on Discharge: Good Instructions: DI for Nolasco Cyst, DI for Leg Pain Additional Instructions: Rest the extremity, Elevate the extremity as tolerated while you are resting. Take tylenol or ibuprofen for pain. Follow up with Dr. Whitmore (orthopedics). I put in a referral but you need to call his office and schedule an appointment. Follow up with your regular doctor. GO TO THE ER FOR ANY WORSENING SYMPTOMS Prescriptions: Ibuprofen [Ibuprofen 600mg Tablet] 600 mg PO Q6HP PRN #30 tab PRN Reason: Mild Pain Transmission Status: Pending to [id number] Referrals: Domitila Baldwin PA [Primary Care Provider] - Mj Whitmore MD [Staff Physician] - Time of Disposition: 13:16 Medical Decision Making - Medical Records Medical records reviewed: No: I reviewed the patient's medical records. - Robson Inquiry Pt receiving controlled substance: No Vital Signs: 10/16/21 11:39 Temperature 97.9 F Temperature Source Oral Pulse Rate [Left] 89 Respiratory Rate 18 Blood Pressure [Right Arm] 149/65 H Blood Pressure Mean [Right Arm] 93 02 Sat by Pulse Oximetry 96 [facility] [place] - General Stated complaint: right ankle pain Time Seen by Provider: 10/16/21 12:07 Mode of Arrival: Wheelchair Source of Information: Patient Limitations: No Limitations Description of Symptoms (Recalled from Triage Doc. by RN): pt states pt started having R foot/ankle/tib fib pain. pt states as of this am she can no longer put weight on her foot and is in worse pain. pt is very edematous. HEENT Symptoms (Recalled from RN notes): No Resp Symptoms (Recalled from RN notes): No Skin Symptoms (Recalled from RN notes): No MS Symptoms (Recalled from RN notes): Yes (R foot/ankle and tib fib pain and swelling) Functional Status (Recalled from RN notes): wnl - History of Present Illness Provider Complaint: She c/o right lower leg swelling and pain for the past 2 days. She states that her right ankle and lower leg hurts and is very tender when she tries to walk on it. She denies any chest pain or shortness of breath. She denies any history blood clots. - Related Data Home Medications Medication Instructions Recorded Confirmed fluticasone propionate 50 1 g INTRANASAL DAILY 10/10/20 10/06/21 mcg/actuation nasal spray,suspension loratadine 10 mg tablet 10 mg PO DAILY tab 10/10/20 10/06/21 lisinopril 10 mg tablet 10 mg PO DAILY tab 10/20/20 10/06/21 Buspirone HCl [Buspar 10mg 10 mg PO DAILY 05/08/21 10/06/21 tablet] Cholecalciferol (Vitamin D3) 25 mcg PO DAILY 05/08/21 10/06/21 [Vitamin D3 1,000 Unit Cap] Clopidogrel Bisulfate [Plavix] 75 mg PO DAILY 05/08/21 10/06/21 Meloxicam 7.5 mg PO DAILY 05/08/21 10/06/21 Metformin HCl [Glucophage Xr] 500 mg PO DAILY 05/08/21 10/06/21 Pramipexole Di-HCl [Pramipexole 0.5 mg PO DAILY 05/11/21 10/06/21 Dihydrochloride] Tizanidine HCl 4 mg PO BID 05/11/21 10/06/21 Atorvastatin Calcium [Lipitor 20mg 20 mg PO HS 08/18/21 10/06/21 Tab] Azithromycin [Z-Zion 250mg Tab*] 250 mg PO UD DOSE PK 08/18/21 10/06/21 Trazodone HCl See Rx Instructions .ROUTE .COMPLEX 08/18/21 10/06/21 methylPREDNISolone [Medrol] 4 mg PO DIRECTED 08/18/21 10/06/21 Azithromycin [Zithromax 250mg 250 mg PO DIRECTED 10/06/21 10/06/21 tab] Cyclobenzaprine HCl [Flexeril 10mg See Rx Instructions .ROUTE .COMPLEX 10/06/21 10/06/21 tablet] Ropinirole HCl 4 mg PO HS 10/06/21 10/06/21 predniSONE [Prednisone 20mg 20 mg PO BID 10/06/21 10/06/21 Tab] predniSONE [Prednisone 20mg 20 mg PO BID 10/06/21 10/06/21 Tab] Previous Rx's Medication Instructions Recorded aspirin 325 mg tablet 325 mg PO DAILY #90 tab 11/24/19 fenofibrate nanocrystallized 145 145 mg PO DAILY #90 tab 11/24/19 mg tablet isosorbide
--- NOTE | 2021-10-16 12:22 | CA_ITS ---
APPROVED REPORT Right Lower Extremity Venous Study for DVT. Preliminary School Psychologist: MARY Indications Lower Extremity Pain: Right Current Smoker CAD right leg swelling, no injury Vein Imaging CFV (R): compressive, spontaneous, phasic, augmentation SFJ (R): compressive, spontaneous, phasic, augmentation FEM (R): compressive, spontaneous, phasic, augmentation POP (R): compressive, spontaneous, phasic, augmentation DFV (R): compressive, spontaneous, phasic, augmentation PTV (R): compressive, spontaneous, phasic, augmentation GSV (R): compressive, spontaneous, phasic, augmentation SSV (R): compressive, spontaneous, phasic, augmentation Peroneals (R):compressive, spontaneous, phasic, augmentation GAS (R): compressive, spontaneous, phasic, augmentation Findings Color flow duplex demonstrates no evidence of DVT of the following right lower extremity Veins:Common Femoral Vein, Femoral Vein, Popliteal Vein, Posterior Tibial Veins, Peroneal Veins. Negative for DVT. Incidental finding of a Nolasco's cyst in the right popliteal fossa measuring 3.5 x 1.6cm. Conclusion Negative for DVT. Incidental finding of a Nolasco's cyst in the right popliteal fossa measuring 3.5 x 1.6cm. Critical Notification Critical Value: No Physician Notified Date: 10/16/2021 Time: 13:14 Physician Name: Real Other Discipline: SAVANAH Electronically signed by : Rajendra Gregg MD 10/16/2021 16:20:11
[2021-10-16 13:31] VITALS: BP 149/65; PULSE 89; RESP 18; TEMP 37.2
== END 2021-10-16 13:35 | disposition home or self-care (01) ==
PROVIDERS: Emergency Provider Nurse Practitioner Family; PCP Physician Assistant
DX: M71.21 Synovial cyst of popliteal space [Baker], right knee (principal); I10 Essential (primary) hypertension; K21.9 Gastro-esophageal reflux disease without esophagitis; E11.9 Type 2 diabetes mellitus without complications; I25.10 Atherosclerotic heart disease of native coronary artery without angina pectoris; J44.9 Chronic obstructive pulmonary disease, unspecified; F17.210 Nicotine dependence, cigarettes, uncomplicated; E78.5 Hyperlipidemia, unspecified; Z79.899 Other long term (current) drug therapy
CPT/HCPCS: 73590; 73610; 73630; 93971; 99202; G0463

== ENCOUNTER → 2021-10-26 10:34 | Outpatient (POV) | payer MEDICAID, SELFPAY ==
[2021-10-26 10:46] VITALS: BP 137/80; PULSE 102; RESP 18; O2SAT 94; BMI 43.7
--- NOTE | 2021-10-26 11:09 | HMH.PAINSOAP ---
[facility] Pain Management SOAP Note Subjective:: Patient is a pleasant 66-year-old female who is here today for a follow-up after a lumbar epidural steroid injection under fluoroscopy at L5-S1 #1. Patient is currently being managed for degenerative disc disease of the lumbar spine with lumbar radiculopathy. After the procedure, patient states that she had no relief. Patient previously had a medial branch block with no relief as well. Patient says that she has shooting sharp pain from her low back to bilateral legs and feet. From the patient's MRI in May 2021, patient has multilevel lumbar spondylosis, mild to moderate left-sided foraminal narrowing from facet hypertrophy, and ligamentum hypertrophic changes that is causing spinal canal stenosis. Patient is currently being managed with gabapentin 800 mg 3 times a day that is prescribed by Domitila Baldwin PA-C. Patient says that this medication is helping some of her discomfort but it is not helping her back pain. She rates her pain today as 8 out of 10. Her Robson number is [phone] with an active morphine equivalent of 0. Review of Systems General: No recent weight changes, no fever, no sleep disturbances Respiratory: No cough, no shortness of air, no recurring pulmonary infections Cardiovascular/peripheral vascular: No chest pain, no palpitations, no edema, no shortness of breath Gastrointestinal: No new onset incontinence, normal bowel movements reported Genitourinary: No new onset incontinence Musculoskeletal: Low back pain, radiating pain to bilateral hips, legs, and feet Psychiatric: [Normal mood/affect] Neurological: [Denies weakness in extremities], [denies balance issues] Objective:: Physical exam General: Alert and oriented x3, no acute distress, pleasant and cooperative Lungs: Respirations even and unlabored, symmetrical chest expansion Eyes: PERRL Musculoskeletal: Flexion and extension of lumbar [spine] somewhat guarded secondary to pain, [antalgic gait noted] Neurological: Speech clear, no gross sensory deficit Assessment:: Degenerative disc disease of the lumbar spine with lumbar radiculopathy Spondylosis Spinal stenosis Plan:: We will schedule the patient for another lumbar epidural steroid injection with epidurogram at the level of L4-L5#2. Patient is a diabetic we will need her sugar monitored during the procedure. Risks and benefits of the procedure have been explained to the patient. Patient would like to proceed with the procedure. I also discussed with the patient that she could be a good candidate for a spinal cord stimulator trial. We will refer the patient for a psychiatric evaluation for spinal cord stimulator trial. Patient has been instructed to contact the clinic with any concerns before the next appointment. Dr. Robb has reviewed this note and agrees with this plan of care. This note was dictated using voice recognition software and make contain errors or omissions. [facility] History Medical History: Reports:: Asthma, Chronic Obstructive Pulmonary Disease (COPD), Coronary Artery Disease, Depression, Diabetes Mellitus Type 2, Gastroesophageal Reflux Disease(GERD), Hyperlipidemia, Hypertension, Lung Disease, Migraine, Peripheral Artery Disease, Peripheral Vascular Disease Denies:: Cancer, Diabetes Mellitus Type 1, Internal Pacemaker, MRSA, Seizures *Have you ever received a pneumonia vaccine?: Yes *Have you received a flu vaccine this season?: No Other Medical History: Reports: Arthritis. Denies: Blood Transfusion Reaction Laterality Cases: Left: Other, Bilateral: Arthroscopy Shoulder Other Surgeries: Yes: Cardiac Catheterization, Colonoscopy, Coronary Stent, Hysterectomy-Total. No: Pacemaker Amputation: No Fractures: No - *Social History Smoking Status: Current every day smoker Tobacco Type: cigarettes # Packs/Day (cigarettes): 1 Alcohol Intake: never Alcohol Intake Frequency:: holidays/special occasions only Substance Use Type: denies
== END ==
PROVIDERS: Visit Provider Clinical Nurse Specialist Family Health
DX: M51.16 Intervertebral disc disorders with radiculopathy, lumbar region (principal); M54.6 Pain in thoracic spine; M48.00 Spinal stenosis, site unspecified
CPT/HCPCS: 99212; G0463

== ENCOUNTER 2021-11-12 15:19 | Emergency (ER) | payer MEDICAID, SELFPAY ==
[2021-11-12 16:10] VITALS: BP 149/80; PULSE 72; RESP 18; TEMP 36.9; O2SAT 92; BMI 42.0
[2021-11-12 16:27] LABS: UTC Strep Screen (Rapid) Negative (Negative)
[2021-11-12 16:28] LABS: UTC Influenza A Antigen Negative (Negative); UTC Influenza B Antigen Negative (Negative)
--- NOTE | 2021-11-12 16:50 | HMH.EDUTC ---
[facility] [place] Dis[place] Clinical Impression: Bronchitis, COVID-19 virus test result unknown Disposition: Home, Self-Care Condition on Discharge: Good Instructions: Acute Bronchitis, DI for Acute Bronchitis Additional Instructions: Start antibiotic today. Be sure to complete entire prescription even if feeling better Tylenol and ibuprofen as needed for pain or fever Humidifier/vaporizer/hot steamy shower Follow-up with primary care tomorrow. Follow-up immediately in the ER of the [facility] for new or worsening symptoms or no noticeable improvement over the next 48-72 hours. Stop smoking Inhaler every 4-6 hours as needed. Should help open airways improved cough, wheezing, shortness of breath Fahad Engel will not cause drowsiness to use at bedtime to help stop cough so that she can get some sleep Start steroids today. Helps with inflammation therefore coughing and wheezing. Follow directions on package. Prescriptions: predniSONE [Prednisone 20mg Tab] 20 mg PO BID #10 tab Transmission Status: Pending to [id number] Azithromycin [Zithromax 250mg tab] 250 mg PO DIRECTED #6 tab Transmission Status: Pending to [id number] Referrals: Domitila Baldwin PA [Primary Care Provider] - Time of Disposition: 17:02 Medical Decision Making - Robson Inquiry Pt receiving controlled substance: No Vital Signs: 11/12/21 16:10 Temperature 98.5 F Temperature Source Oral Pulse Rate [Right Brachial] 72 Respiratory Rate 18 Blood Pressure [Right Arm] 149/80 H Blood Pressure Mean [Right Arm] 103 Blood Pressure Source [Right Arm] Automatic Cuff Blood Pressure Position [Right Arm] Sitting 02 Sat by Pulse Oximetry 92 L Oxygen Delivery Method Room Air - Lab Data Lab Results 11/12/21 16:17: Influenza Type A Ag Negative, Influenza Type B Ag Negative 11/12/21 16:17: Strep Scn Rapid Clinic Negative Orders (Tests/Meds): ORDERS Category Date Time Status Covid-19 Nasal PCR ([facility]) Routine Lab 11/12/21 16:10 Received Strep Screen Confirmation Stat Micro 11/12/21 16:17 Received [facility] [place] HPI - General Chief complaint: Urgent Treatment Center Stated complaint: sore throat,cough,MANNING,no taste/smell Time Seen by Provider: 11/12/21 16:50 Mode of Arrival: Ambulatory Source of Information: Patient Limitations: No Limitations Description of Symptoms (Recalled from Triage Doc. by RN): PATIENT C/O BODY ACHES, HEADACHE, SORE THROAT, DECREASED APPETITE, AND LOSS OF TASTE AND SMELL X 2 DAYS HEENT Symptoms (Recalled from RN notes): Yes Resp Symptoms (Recalled from RN notes): Yes Skin Symptoms (Recalled from RN notes): No MS Symptoms (Recalled from RN notes): No Functional Status (Recalled from RN notes): WNL - Related Data Home Medications Medication Instructions Recorded Confirmed fluticasone propionate 50 1 g INTRANASAL DAILY 10/10/20 10/26/21 mcg/actuation nasal spray,suspension loratadine 10 mg tablet 10 mg PO DAILY tab 10/10/20 10/26/21 lisinopril 10 mg tablet 10 mg PO DAILY tab 10/20/20 10/26/21 Buspirone HCl [Buspar 10mg 10 mg PO DAILY 05/08/21 10/26/21 tablet] Cholecalciferol (Vitamin D3) 25 mcg PO DAILY 05/08/21 10/26/21 [Vitamin D3 1,000 Unit Cap] Clopidogrel Bisulfate [Plavix] 75 mg PO DAILY 05/08/21 10/26/21 Meloxicam 7.5 mg PO DAILY 05/08/21 10/26/21 Metformin HCl [Glucophage Xr] 500 mg PO DAILY 05/08/21 10/26/21 Pramipexole Di-HCl [Pramipexole 0.5 mg PO DAILY 05/11/21 10/26/21 Dihydrochloride] Tizanidine HCl 4 mg PO BID 05/11/21 10/26/21 Atorvastatin Calcium [Lipitor 20mg 20 mg PO HS 08/18/21 10/26/21 Tab] Trazodone HCl See Rx Instructions .ROUTE .COMPLEX 08/18/21 10/26/21 methylPREDNISolone [Medrol] 4 mg PO DIRECTED 08/18/21 10/26/21 Cyclobenzaprine HCl [Flexeril 10mg See Rx Instructions .ROUTE .COMPLEX 10/06/21 10/26/21 tablet] Ropinirole HCl 4 mg PO HS 10/06/21 10/26/21 Previous Rx's Medication Instructions Recorded aspirin 325 mg tablet 325 mg PO DA
[2021-11-12 17:03] VITALS: BP 149/80; PULSE 72; RESP 18; TEMP 36.9; O2SAT 92
== END 2021-11-12 17:15 | disposition home or self-care (01) ==
PROVIDERS: Emergency Provider Nurse Practitioner Family; PCP Physician Assistant
DX: J20.9 Acute bronchitis, unspecified (principal); J45.909 Unspecified asthma, uncomplicated; E11.9 Type 2 diabetes mellitus without complications; F33.1 Major depressive disorder, recurrent, moderate; K21.9 Gastro-esophageal reflux disease without esophagitis; E78.5 Hyperlipidemia, unspecified; I10 Essential (primary) hypertension; F17.210 Nicotine dependence, cigarettes, uncomplicated
CPT/HCPCS: 87804; 87880; 96372; 99202; C9803; G0463; U0003; U0005

== ENCOUNTER → 2021-12-01 09:56 | Day surgery (SDC) | payer MEDICAID, SELFPAY ==
[2021-12-01 10:07] VITALS: BP 153/84; PULSE 91; RESP 20; TEMP 36.2; O2SAT 95; BMI 42.0
[2021-12-01 11:13] VITALS: BP 161/78; PULSE 89; RESP 18; O2SAT 95
[2021-12-01 11:14] VITALS: BP 117/66; PULSE 93; RESP 18; O2SAT 94
[2021-12-01 11:30] VITALS: BP 149/82; PULSE 89; RESP 20; O2SAT 94
--- NOTE | 2021-12-01 11:30 | P.PCN_ITS ---
- Procedure Date: 12/01/21 Time: 11:30 Anesthesiologist:: Lila Newsome MD Complications:: None Pre-procedure Diagnosis:: Degenerative disc disease of the lumbar spine with lumbar radiculopathy Post-procedure Diagnosis:: Same Indications for Procedure:: Patient is a very pleasant 66-year-old white female who presents today with chronic low back pain rating into her legs related to the above diagnosis. She has tried and failed conservative treatment including oral pain medications and home stretching program for greater than 6 weeks. She has previously undergone a lumbar epidural steroid injection under fluoroscopy at L5-S1 #1 but unfortunately she states she did not receive any pain relief. She also has previously undergone a medial branch block injection with no relief. She states the pain is worse with prolonged standing and walking but she denies any pain relief with leaning forward. She states that resting including sitting down or laying down temporarily helps with the pain. She states that the pain starts in her low back and radiates into her legs. The plan for today is for the patient to undergo a lumbar epidural steroid injection under fluoroscopy at L4-L5 #2 with epidurogram. Procedure Details:: Informed consent was obtained and the risk and benefits of the procedure was explained to the patient. The patient was taken to the procedure room. The patient was placed prone on the procedure table. The patient was prepped and draped in sterile fashion. C-arm fluoroscopy was used to view the lumbar spine. Skin and subcutaneous tissues were anesthetized using lidocaine. I placed an 18-gauge epidural needle and advanced into the 4 L5 interspace using fluoroscopic guidance and [id number] to air and saline. Confirmation of needle placement in the epidural space was performed with contrast dye and an epidurogram was performed which demonstrated very minimal stenosis at L4-L5. I did not appreciate any stenosis at L3-L4 or L5-S1. I injected 1 mL of lidocaine 1.0% with Depo-Medrol 80 mg. Patient tolerated the procedure well with no complications. Plan and Disposition:: Will follow-up with this patient in 2 weeks. Will reevaluate pain symptoms at that time. Discussed epidurogram findings with the patient which included very minimal stenosis at L4-L5. I did not appreciate any stenosis at L3-L4 or L5-S1. Furthermore, the patient states that even though she experiences pain with prolonged standing and walking and that it does improve with sitting down or laying down, she denies any relief with leaning forward. I discussed with the patient that she she only experienced very minimal or short-term pain relief with this injection we may consider spinal cord stimulation in the future. I we will give her a brochure on the [employer] SCS system today.
== END ==
PROVIDERS: PCP Physician Assistant; Visit Provider Anesthesiology Pain Medicine
DX: M51.16 Intervertebral disc disorders with radiculopathy, lumbar region (principal)
CPT/HCPCS: 62323; J1040; Q9966

== ENCOUNTER → 2021-12-04 12:33 | Outpatient (CLI) | payer MEDICAID, SELFPAY | PROVIDERS: PCP Physician Assistant; Visit Provider Nurse Practitioner | DX: Z20.822 Contact with and (suspected) exposure to COVID-19 (principal) | CPT/HCPCS: C9803; U0003; U0005 ==

== ENCOUNTER → 2021-12-05 14:14 | Outpatient (CLI) | payer MEDICAID, SELFPAY ==
--- NOTE | 2021-12-05 14:19 | XR_ITS ---
FINAL REPORT CLINICAL HISTORY: SOA, cough, smoker, 5 cardiac stents. COMPARISON: September 22, 2021 FINDINGS: Two views of the chest were obtained. The heart size and pulmonary vascularity are within normal limits. The mediastinum is normal. No acute pulmonary abnormality is identified. There is no pneumothorax. The bony thorax is intact. IMPRESSION: No active cardiopulmonary disease. Reviewed, Interpreted and Dictated by Andres Max III, MD Transcribed by Nohemy Ulrich Authenticated by Andres Max III, MD on 12/05/2021 03:45:39 PM [facility]
== END ==
PROVIDERS: PCP Physician Assistant; Visit Provider Nurse Practitioner Family
DX: R06.02 Shortness of breath (principal)
CPT/HCPCS: 71046

== ENCOUNTER 2021-12-11 10:37 | Emergency (ER) | payer MEDICAID, SELFPAY ==
[2021-12-11 10:44] VITALS: BP 162/96; PULSE 99; RESP 18; TEMP 37.1; O2SAT 97; BMI 43.0
--- NOTE | 2021-12-11 10:47 | XR_ITS ---
FINAL REPORT CLINICAL HISTORY: soa COMPARISON: December 05, 2021 FINDINGS: There is lordotic positioning. The heart size is normal. The mediastinum is normal. There is minimal scarring in the lung bases. There is no focal infiltrate or edema. There are no pleural effusions. There is no pneumothorax. There is no osseous abnormality. IMPRESSION: No acute cardiopulmonary process Reviewed, Interpreted and Dictated by Deyvi Guerra MD Transcribed by Enmanuel Joshi Authenticated by Deyvi Guerra MD on 12/11/2021 12:17:34 PM [facility]
--- NOTE | 2021-12-11 10:49 | HMH.EDGENADL ---
ED Disposition Clinical Impression: Bronchitis Disposition: Home, Self-Care Condition on Discharge: Good Instructions: DI for Acute Bronchitis Additional Instructions: follow up pcp Referrals: Domitila Baldwin PA [Primary Care Provider] - - Critical Care Critical Care Time: No Attestation: On , the high probability of a clinically significant, sudden or life threatening deterioration of the following system(s) required my full and direct attention, intervention and personal management. The time I documented below is in addition to time spent performing reported procedures but includes the following listed in this critical care notation. Medical Decision Making - Medical Records Medical records reviewed: Yes: I reviewed the patient's medical records. - Robson Inquiry Pt receiving controlled substance: No Vital Signs: 12/11/21 10:44 12/11/21 11:11 Temperature 98.7 F Temperature Source Oral Pulse Rate 91 H Pulse Rate [Left Radial] 99 H Respiratory Rate 18 20 Blood Pressure 143/79 H Blood Pressure [Right Arm] 162/96 H Blood Pressure Mean [Right Arm] 118 02 Sat by Pulse Oximetry 97 94 L Oxygen Delivery Method Room Air Room Air Orders (Tests/Meds): ED MEDICATIONS Discontinued Medications Generic Name Dose Route Start Last Admin Trade Name Freq PRN Reason Stop Dose Admin Albuterol/Ipratropium 4 puff 12/11/21 10:47 12/11/21 10:52 Combivent 20mcg/100mcg Respimat Inhaler IH 12/11/21 10:48 4 puff ONCE ONE Administration Prednisone 60 mg 12/11/21 10:48 12/11/21 10:52 Prednisone 20mg Tab PO 12/11/21 10:49 60 mg ONCE ONE Administration ORDERS Category Date Time Status Chest XR -- portable [XR chest portable] Stat Exams 12/11/21 10:47 Taken Medical Decision Narrative: reeval, apperas well vss, ok with plan to rx and f/u pcp General Adult HPI - General Chief complaint: Upper Respiratory Infection Stated complaint: covid symptoms Time Seen by Provider: 12/11/21 10:49 Mode of Arrival: Ambulatory Limitations: No Limitations Description of Symptoms (Recalled from ER Triage Doc. by RN): pt to ed c/o covid symptoms. pt states loss of taste and smell, soa, aches and chills since yesterday/ pt denies cp. - History of Present Illness HPI narrative: 1 day uri symptoms, wheezing, fever Radiation: non-radiation Severity: moderate Quality: constant Relieving factors: none Exacerbating factors: none Associated symptoms: denies other symptoms - Related Data Home Medications Medication Instructions Recorded Confirmed fluticasone propionate 50 1 g INTRANASAL DAILY 10/10/20 12/05/21 mcg/actuation nasal spray,suspension loratadine 10 mg tablet 10 mg PO DAILY tab 10/10/20 12/05/21 lisinopril 10 mg tablet 10 mg PO DAILY tab 10/20/20 12/05/21 Buspirone HCl [Buspar 10mg 10 mg PO DAILY 05/08/21 12/05/21 tablet] Cholecalciferol (Vitamin D3) 25 mcg PO DAILY 05/08/21 12/05/21 [Vitamin D3 1,000 Unit Cap] Clopidogrel Bisulfate [Plavix] 75 mg PO DAILY 05/08/21 12/05/21 Meloxicam 7.5 mg PO DAILY 05/08/21 12/05/21 Metformin HCl [Glucophage Xr] 500 mg PO DAILY 05/08/21 12/05/21 Pramipexole Di-HCl [Pramipexole 0.5 mg PO DAILY 05/11/21 12/05/21 Dihydrochloride] Tizanidine HCl 4 mg PO BID 05/11/21 12/05/21 Atorvastatin Calcium [Lipitor 20mg 20 mg PO HS 08/18/21 12/05/21 Tab] Trazodone HCl See Rx Instructions .ROUTE .COMPLEX 08/18/21 12/05/21 methylPREDNISolone [Medrol] 4 mg PO DIRECTED 08/18/21 12/05/21 Cyclobenzaprine HCl [Flexeril 10mg See Rx Instructions .ROUTE .COMPLEX 10/06/21 12/05/21 tablet] Ropinirole HCl 4 mg PO HS 10/06/21 12/05/21 Ergocalciferol (Vitamin D2) See Rx Instructions .ROUTE .COMPLEX 12/01/21 12/05/21 [Drisdol] Previous Rx's Medication Instructions Recorded aspirin 325 mg tablet 325 mg PO DAILY #90 tab 11/24/19 fenofibrate nanocrystallized 145 145 mg PO DAILY #90 tab 11/24/19 mg tablet isosorbide mononi
--- NOTE | 2021-12-11 10:53 | PC.NURSE ---
Radiology at bedside
[2021-12-11 11:11] VITALS: BP 143/79; PULSE 91; RESP 20; O2SAT 94
[2021-12-11 12:16] VITALS: BP 145/88; PULSE 88; RESP 18; TEMP 37.1; O2SAT 96
== END 2021-12-11 12:19 | disposition home or self-care (01) ==
PROVIDERS: Emergency Provider Emergency Medicine; PCP Physician Assistant
DX: J20.9 Acute bronchitis, unspecified (principal); J06.9 Acute upper respiratory infection, unspecified; Z20.822 Contact with and (suspected) exposure to COVID-19; I10 Essential (primary) hypertension; E78.5 Hyperlipidemia, unspecified; F17.210 Nicotine dependence, cigarettes, uncomplicated; I25.10 Atherosclerotic heart disease of native coronary artery without angina pectoris; K21.9 Gastro-esophageal reflux disease without esophagitis; E11.9 Type 2 diabetes mellitus without complications; Z79.899 Other long term (current) drug therapy
CPT/HCPCS: 71045; 99282; C9803; U0003; U0005

== ENCOUNTER → 2021-12-14 13:03 | Outpatient (CLI) | payer MEDICAID, SELFPAY | PROVIDERS: Visit Provider Nurse Practitioner | DX: Z20.822 Contact with and (suspected) exposure to COVID-19 (principal) | CPT/HCPCS: C9803; U0003; U0005 ==

== ENCOUNTER → 2022-01-08 08:43 | Outpatient (POV) | payer MEDICAID, SELFPAY ==
[2022-01-08 09:13] VITALS: BP 135/72; PULSE 101; RESP 18; O2SAT 94; BMI 42.0
--- NOTE | 2022-01-08 09:45 | HMH.PAINSOAP ---
[facility] Pain Management SOAP Note Subjective:: She is a very pleasant 66-year-old white female who presents today for follow-up. She is currently being treated for degenerative disc disease of the lumbar spine with lumbar radiculopathy. She has previously tried and failed conservative treatment including oral pain medications and home stretching program for greater than 6 weeks. She also recently underwent a lumbar epidural steroid injection at L5-S1 #1 with epidurogram on December 01, 2021 but unfortunately she did not experience any pain relief with this injection. Epidurogram demonstrated very minimal stenosis at L4-5 but there was no stenosis appreciated at L3-L4 and L5-S1. At the last visit we discussed that given the epidurogram findings she may be a better candidate for spinal cord stimulator therapy compared to the mild procedure. She is interested in learning more about spinal cord stimulator therapy. Continues to experience low back pain rating down her legs that she describes as sharp shooting aching pain with associated numbness and tingling. She is currently taking gabapentin 800 mg 3 times daily that is prescribed by her primary care physician and she notes very minimal pain relief with this medication. She is requesting medication therapy to help in the interim. Objective:: General: Alert and oriented x3, no acute distress, pleasant and cooperative Lungs: Resps E/U, symmetric chest expansion Eyes: PERRL Musculoskeletal: limited flexion and extension of the lumbar spine secondary to pain. Deep tendon reflexes were normal in bilateral lower extremities. Motor exam was grossly intact in the bilateral lower extremities, antalgic gait noted. Positive straight leg raise on the right. 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 I discussed with the patient regarding the steps to undergo SCS implantation including psychological evaluation, SCS trial, and SCS implant. I discussed with patient we will first schedule her for psychological evaluation and follow-up in our clinic in 1 month for reassessment and scheduling for SCS trial. I will also prescribe her ibuprofen 800 mg 3 times daily #90 for 1 month supply. I gave the patient instructions to take 2 tablets of Tylenol 500 mg with 1 tablet of ibuprofen 800 mg to be taken up to 3 times daily as needed for pain. She is to continue gabapentin 800 mg 3 times daily. [facility] History Medical History: Reports:: Asthma, Chronic Obstructive Pulmonary Disease (COPD), Coronary Artery Disease, Depression, Diabetes Mellitus Type 1, Diabetes Mellitus Type 2, Gastroesophageal Reflux Disease(GERD), Hyperlipidemia, Hypertension, Lung Disease, Migraine, Peripheral Artery Disease, Peripheral Vascular Disease Denies:: Cancer, Internal Pacemaker, MRSA, Seizures *Have you ever received a pneumonia vaccine?: Yes *Have you received a flu vaccine this season?: Yes Other Medical History: Reports: Arthritis. Denies: Blood Transfusion Reaction Laterality Cases: Left: Other, Bilateral: Arthroscopy Shoulder Other Surgeries: Yes: Cardiac Catheterization, Colonoscopy, Coronary Stent, Hysterectomy-Total. No: Pacemaker Amputation: No Fractures: No - *Social History Smoking Status: Current every day smoker Tobacco Type: cigarettes # Packs/Day (cigarettes): 1 Alcohol Intake: never Alcohol Intake Frequency:: holidays/special occasions only Substance Use Type: denies use *Occupational Status:: unemployed Housing: house Household Members: spouse *Travel in the last 8 weeks: None - Psychiatric History Pschychiatric History:: Reports:: Depression Family Hx:: Other
== END ==
PROVIDERS: Visit Provider Anesthesiology Pain Medicine
DX: M51.16 Intervertebral disc disorders with radiculopathy, lumbar region (principal)
CPT/HCPCS: 99212; G0463

== ENCOUNTER 2022-01-12 08:43 | Emergency (ER) | payer MEDICAID, SELFPAY ==
[2022-01-12 08:44] VITALS: BP 158/81; PULSE 86; RESP 18; TEMP 36.8; O2SAT 94
--- NOTE | 2022-01-12 08:59 | XR_ITS ---
FINAL REPORT CLINICAL HISTORY: cough COMPARISON: December 11, 2021 FINDINGS: The heart size is normal. The mediastinum is normal. There are chronic changes in the lung bases. There are no pleural effusions. There is no pneumothorax. There is no osseous abnormality. IMPRESSION: No acute cardiopulmonary process Reviewed, Interpreted and Dictated by Deyvi Guerra MD Transcribed by Enmanuel Joshi Authenticated by Deyvi Guerra MD on 01/12/2022 10:36:[address] [facility]
[2022-01-12 09:01] VITALS: BP 117/67; PULSE 78; RESP 13; O2SAT 97
[2022-01-12 09:23] LABS: Coronavirus 19, PCR Not Detected (NotDetected); Influenza A, PCR Not Detected (NotDetected); Influenza B, PCR Not Detected (NotDetected)
[2022-01-12 09:28] LABS: Basophils % 0.6 % (0.1-2.0); Eosinophils # 0.2 K/mm3 (0.0-0.4); Hematocrit 42.2 % (37.0-47.0); Hemoglobin 13.9 g/dL (12.2-16.2); Lymphocytes % 28.6 % (10-50); Mean Corpuscular HGB Conc 32.9 g/dL (31.8-35.4); Mean Corpuscular Hemoglobin 30.8 pg (27.0-31.2); Mean Corpuscular Volume 93.9 fl (81-99); Mean Platelet Volume 7.3 fl (7.4-10.4); Monocytes # 0.4 K/mm3 (0.1-1.0); Monocytes % 5.1 % (1.7-9.3); Neutrophils # 4.4 K/mm3 (1.8-7.8); Neutrophils % 62.7 % (37.0-80.0); Platelet Count 328 K/mm3 (142-424); Red Cell Distribution Width 13.3 % (11.5-17.5)
[2022-01-12 09:31] VITALS: BP 107/73; PULSE 83; RESP 15; O2SAT 97
[2022-01-12 09:34] LABS: Alanine Aminotransferase 19 U/L (12-78); Albumin Level 4.1 g/dl (3.5-5.0); Albumin/Globulin Ratio 1.4 (1.1-1.8); Alkaline Phosphatase 111 U/L (38-126); Aspartate Amino Transferase 27 U/L (14-36); Bilirubin,Total 0.5 mg/dl (0.2-1.3); Blood Urea Nitrogen 19 mg/dl (7-17); Calcium 8.8 mg/dl (8.4-10.2); Carbon Dioxide 29 mmol/L (22.0-30.0); Chloride 104 mmol/L (98-107); Creatinine Clearance Estimated 2 mL/min (50-200); Estimated Glomerular Filt Rate 63 ml/min (>60); GFR (African American) 76 ML/MIN (>60); Glucose 111 mg/dl (74-100); Lipase 55 U/L (23-300); Sodium 140 mmol/L (136-145); Total Protein,Serum 7.1 g/dl (6.3-8.2)
--- NOTE | 2022-01-12 09:49 | PC.NURSE ---
Patient ambulatory to restroom with tech
--- NOTE | 2022-01-12 09:54 | HMH.EDGENADL ---
ED Disposition Clinical Impression: Gastroenteritis, Viral syndrome Acute bronchitis Qualifiers: Bronchitis organism: other organism Qualified Code(s): J20.8 - Acute bronchitis due to other specified organisms COPD (chronic obstructive pulmonary disease) Qualifiers: COPD type: COPD with acute exacerbation Qualified Code(s): J44.1 - Chronic obstructive pulmonary disease with (acute) exacerbation Disposition: Home, Self-Care Condition on Discharge: Good Instructions: DI for Viral Gastroenteritis -- Adult Prescriptions: Doxycycline Monohydrate [Doxycycline [place] 100mg Tab] 100 mg PO Q12 #20 tab Transmission Status: Pending to [facility] methylPREDNISolone [Medrol 4mg tab] 4 mg PO DIRECTED #21 tab Transmission Status: Pending to [facility] Ondansetron [Zofran 4mg ODT] 4 mg PO BIDP PRN #10 tab PRN Reason: Nausea Transmission Status: Pending to [facility] Referrals: Domitila Baldwin PA [Primary Care Provider] - - Critical Care Critical Care Time: No Attestation: On 01/12/22, the high probability of a clinically significant, sudden or life threatening deterioration of the following system(s) required my full and direct attention, intervention and personal management. The time I documented below is in addition to time spent performing reported procedures but includes the following listed in this critical care notation. Medical Decision Making - Medical Records Medical records reviewed: Yes: I reviewed the patient's medical records. - Robson Inquiry Pt receiving controlled substance: No Vital Signs: 01/12/22 08:44 01/12/22 09:01 01/12/22 09:31 Temperature 98.2 F Temperature Source Oral Pulse Rate 78 83 Pulse Rate [Right Radial] 86 Respiratory Rate 18 13 15 Blood Pressure 117/67 107/73 L Blood Pressure [Right Arm] 158/81 H Blood Pressure Mean 86 82 Blood Pressure Mean [Right Arm] 106 Blood Pressure Source [Right Arm] Automatic Cuff Blood Pressure Position [Right Arm] Sitting 02 Sat by Pulse Oximetry 94 L 97 97 Oxygen Delivery Method Room Air 01/12/22 10:10 01/12/22 10:30 Temperature Temperature Source Pulse Rate 74 68 Pulse Rate [Right Radial] Respiratory Rate 15 15 Blood Pressure 118/98 H 105/60 L Blood Pressure [Right Arm] Blood Pressure Mean 103 80 Blood Pressure Mean [Right Arm] Blood Pressure Source [Right Arm] Blood Pressure Position [Right Arm] 02 Sat by Pulse Oximetry 96 96 Oxygen Delivery Method - Lab Data Lab Results 01/12/22 08:15: SARS-CoV-2 (PCR) Not detected, Influenza A Untype (PCR) Not detected, Influenza Type B (PCR) Not detected 01/12/22 09:15: WBC 7.0, RBC 4.50, Hgb 13.9, Hct 42.2, MCV 93.9, MCH 30.8, MCHC 32.9, RDW 13.3, Plt Count 328, MPV 7.3 L, Neut % (Auto) 62.7, Lymph % (Auto) 28.6, [place] % (Auto) 5.1, Eos % (Auto) 3.0, Baso % (Auto) 0.6, Neut # (Auto) 4.4, Lymph # (Auto) 2.0, [place] # (Auto) 0.4, Eos # (Auto) 0.2, Baso # (Auto) 0.0 01/12/22 09:15: Sodium 140, Potassium 4.0, Chloride 104, Carbon Dioxide 29, Anion Gap 11.0, BUN 19 H, Creatinine 0.90, Estimated Creat Clear 2, Estimated GFR 63, Est GFR ( Amer) 76, Glucose 111 H, Calcium 8.8, Total Bilirubin 0.5, AST 27, ALT 19, Alkaline Phosphatase 111, Total Protein 7.1, Albumin 4.1, Globulin 3.0, Albumin/Globulin Ratio 1.4, Lipase 55 01/12/22 10:10: Urine Color Yellow, Urine Appearance Clear, Urine pH 7.0, Ur Specific [place] 1.010, Urine Protein Negative, Urine Glucose (UA) Negative, Urine Ketones Negative, Urine Blood Trace-i, Urine Nitrate Negative, Urine Bilirubin Negative, Urine Urobilinogen 0.2, Ur Leukocyte Esterase Negative, Urine RBC Occasional, Urine WBC 3-5, Ur Squamous Epith Cells 3-5, Urine Bacteria None Result diagrams: 01/12/22 09:15 01/12/22 09:15 Orders (Tests/Meds): ED MEDICATIONS Discontinued Medications Generic Name Dose Route Start Last Admin Trade Name Freq PRN Reason Stop Dose Admin Albuterol/Ip
[2022-01-12 10:10] VITALS: BP 118/98; PULSE 74; RESP 15; O2SAT 96
[2022-01-12 10:14] LABS: Microscopic, Urine URINE MICROSCOPIC (MICROSCOPIC)
[2022-01-12 10:20] LABS: Appearance,Urine CLEAR (Clear); Bilirubin,Urine Negative (Negative); Blood, Urine TRACE-I (Negative); Color,Urine YELLOW (Yellow); Glucose,Urine (UA) Negative (Negative); Ketones,Urine Negative (Negative); Leukocyte Esterase,Urine Negative (Negative); Nitrate,Urine Negative (Negative); Protein,Urine Negative (Negative); Urobilinogen,Urine 0.2 EU/dl (0.2)
[2022-01-12 10:30] VITALS: BP 105/60; PULSE 68; RESP 15; O2SAT 96
--- NOTE | 2022-01-12 10:32 | PC.NURSE ---
Respiratory called fro [facility]
[2022-01-12 10:42] LABS: RBC,Urine Occasional #/hpf (0-3)
[2022-01-12 11:29] VITALS: BP 111/74; PULSE 71; RESP 14; TEMP 36.8; O2SAT 91
== END 2022-01-12 11:31 | disposition home or self-care (01) ==
PROVIDERS: Emergency Provider Emergency Medicine; PCP Physician Assistant
DX: J02.0 Streptococcal pharyngitis (principal)
CPT/HCPCS: 71045; 80053; 81001; 83690; 85025; 96365; 96367; 96375; 99283; C9803; U0003; U0005

== ENCOUNTER → 2022-01-17 12:08 | Outpatient (CLI) | payer MEDICAID, SELFPAY ==
--- NOTE | 2022-01-17 12:12 | XR_ITS ---
FINAL REPORT CLINICAL HISTORY: RT knee pain FINDINGS: 4 views of the right knee were obtained. There is no acute fracture or dislocation. Mild degenerative changes are greatest in the medial compartment. The soft tissues are unremarkable. IMPRESSION: Mild degenerative change. Reviewed, Interpreted and Dictated by Andres Max III, MD Transcribed by Enmanuel Joshi Authenticated by Andres Max III, MD on 01/17/2022 01:41:48 PM [facility]
--- NOTE | 2022-01-17 12:12 | XR_ITS ---
FINAL REPORT CLINICAL HISTORY: bilateral knee pain FINDINGS: 4 views of the left knee were obtained. There is no acute fracture or dislocation. There are mild and moderate degenerative changes. There is moderate narrowing of the medial compartment joint space. A small joint effusion is present. IMPRESSION: Mild and moderate degenerative change with a small joint effusion. Reviewed, Interpreted and Dictated by Andres Max III, MD Transcribed by Enmanuel Joshi Authenticated by Andrse Max III, MD on 01/17/2022 01:41:43 PM [facility]
== END ==
PROVIDERS: PCP Physician Assistant; Visit Provider Orthopaedic Surgery
DX: M25.562 Pain in left knee (principal); M25.561 Pain in right knee
CPT/HCPCS: 73564

== ENCOUNTER 2022-01-22 10:03 | Emergency (ER) | payer MEDICAID, SELFPAY ==
--- NOTE | 2022-01-22 09:56 | ECG_ITS ---
APPROVED REPORT Exam: Resting ECG HR:81 bpm ECG Measurements Heart Rate 81 AXES UT 132 P 39 QRSd 86 QRS 69 QT 357 T 65 QTc 394 Conclusion SINUS RHYTHM MODERATE ST DEPRESSION [0.05+ mV ST DEPRESSION] ABNORMAL ECG UNCONFIRMED REPORT Electronically signed by : Gurvinder Gregory MD 01/22/2022 19:47:55
[2022-01-22 10:03] VITALS: BP 148/79; PULSE 81; RESP 17; TEMP 37.1; O2SAT 98; BMI 43.7
--- NOTE | 2022-01-22 10:07 | XR_ITS ---
FINAL REPORT CLINICAL HISTORY: chest pain COMPARISON: January 12, 2022 FINDINGS: A single portable view of the chest was obtained. The heart size and pulmonary vascularity are within normal limits. The mediastinum is within normal limits. There is right bronchial wall thickening that may represent bronchitis similar to prior exam. The bony thorax is intact. IMPRESSION: Right bronchial wall thickening that may represent bronchitis, similar. Reviewed, Interpreted and Dictated by Andres Max III, MD Transcribed by Bethany Ramirez Authenticated by Andres Max III, MD on 01/22/2022 10:46:49 AM [facility]
[2022-01-22 10:20] LABS: Basophils # 0.1 K/mm3 (0-0.2); Basophils % 1.1 % (0.1-2.0); Eosinophils # 0.3 K/mm3 (0.0-0.4); Eosinophils % 2.3 % (0.1-12.0); Hematocrit 44.8 % (37.0-47.0); Hemoglobin 14.3 g/dL (12.2-16.2); Lymphocytes % 34.1 % (10-50); Mean Corpuscular HGB Conc 31.9 g/dL (31.8-35.4); Mean Corpuscular Hemoglobin 30.8 pg (27.0-31.2); Mean Corpuscular Volume 96.8 fl (81-99); Mean Platelet Volume 7.6 fl (7.4-10.4); Monocytes # 0.6 K/mm3 (0.1-1.0); Monocytes % 4.9 % (1.7-9.3); Neutrophils # 6.8 K/mm3 (1.8-7.8); Neutrophils % 57.6 % (37.0-80.0); Platelet Count 397 K/mm3 (142-424); Red Blood Count 4.63 M/mm3 (4.20-5.40); Red Cell Distribution Width 13.5 % (11.5-17.5); White Blood Count 11.8 K/mm3 (4.8-10.8)
[2022-01-22 10:25] LABS: Chloride 100 mmol/L (98-107); Sodium 136 mmol/L (136-145)
[2022-01-22 10:26] LABS: Potassium 4.3 mmoL/L (3.5-5.1)
[2022-01-22 10:28] LABS: Alanine Aminotransferase 21 U/L (12-78); Albumin Level 4.1 g/dl (3.5-5.0); Albumin/Globulin Ratio 1.2 (1.1-1.8); Alkaline Phosphatase 142 U/L (38-126); Anion Gap 10.3 mEq/L (5-15); Aspartate Amino Transferase 25 U/L (14-36); Bilirubin,Total 0.6 mg/dl (0.2-1.3); Blood Urea Nitrogen 26 mg/dl (7-17); Carbon Dioxide 30 mmol/L (22.0-30.0); Estimated Glomerular Filt Rate 63 ml/min (>60); GFR (African American) 76 ML/MIN (>60); Globulin 3.4 g/dL (1.3-3.2); Total Protein,Serum 7.5 g/dl (6.3-8.2)
[2022-01-22 10:29] LABS: Calcium 9.1 mg/dl (8.4-10.2); Glucose 92 mg/dl (74-100)
[2022-01-22 10:31] VITALS: BP 127/60; PULSE 71; RESP 21; O2SAT 95
[2022-01-22 10:57] LABS: Troponin I < 0.01 ng/ml (0.00-0.034)
[2022-01-22 11:01] VITALS: BP 130/93; PULSE 69; RESP 19; O2SAT 94
--- NOTE | 2022-01-22 11:04 | HMH.EDCP ---
ED Disposition Clinical Impression: Chest pain Disposition: Home, Self-Care Condition on Discharge: Good Instructions: DI for Atypical Chest Pain Additional Instructions: Please keep your appointment with your auth specialist in the next week. Please return to the hospital if your chest pain returns, difficulty breathing, heart racing, lightheadedness or any other concerns. Referrals: Provider,Referral, [Primary Care Provider] - - Critical Care Critical Care Time: No Attestation: On 01/22/22, the high probability of a clinically significant, sudden or life threatening deterioration of the following system(s) required my full and direct attention, intervention and personal management. The time I documented below is in addition to time spent performing reported procedures but includes the following listed in this critical care notation. Medical Decision Making - Medical Records Medical records reviewed: Yes: I reviewed the patient's medical records. - Robson Inquiry Pt receiving controlled substance: No Vital Signs: 01/22/22 10:03 01/22/22 10:31 01/22/22 11:01 Temperature 98.8 F Temperature Source Oral Pulse Rate 71 69 Pulse Rate [Left Radial] 81 Respiratory Rate 17 21 19 Blood Pressure 127/60 130/93 H Blood Pressure [Right Arm] 148/79 H Blood Pressure Mean 108 104 Blood Pressure Mean [Right Arm] 102 Blood Pressure Source [Right Arm] Automatic Cuff Blood Pressure Position [Right Arm] Sitting 02 Sat by Pulse Oximetry 98 95 94 L Oxygen Delivery Method Room Air 01/22/22 11:20 Temperature 98.8 F Temperature Source Pulse Rate 73 Pulse Rate [Left Radial] Respiratory Rate 20 Blood Pressure 130/93 H Blood Pressure [Right Arm] Blood Pressure Mean Blood Pressure Mean [Right Arm] Blood Pressure Source [Right Arm] Blood Pressure Position [Right Arm] 02 Sat by Pulse Oximetry Oxygen Delivery Method Room Air - Lab Data Lab results reviewed: Yes: I reviewed the patient's lab results. Lab Results 01/22/22 10:05: WBC 11.8 H, RBC 4.63, Hgb 14.3, Hct 44.8, MCV 96.8, MCH 30.8, MCHC 31.9, RDW 13.5, Plt Count 397, MPV 7.6, Neut % (Auto) 57.6, Lymph % (Auto) 34.1, [place] % (Auto) 4.9, Eos % (Auto) 2.3, Baso % (Auto) 1.1, Neut # (Auto) 6.8, Lymph # (Auto) 4.0, [place] # (Auto) 0.6, Eos # (Auto) 0.3, Baso # (Auto) 0.1 01/22/22 10:05: Sodium 136, Potassium 4.3, Chloride 100, Carbon Dioxide 30, Anion Gap 10.3, BUN 26 H, Creatinine 0.90, Estimated GFR 63, Est GFR ( Amer) 76, Glucose 92, Calcium 9.1, Total Bilirubin 0.6, AST 25, ALT 21, Alkaline Phosphatase 142 H, Troponin I < 0.01, Total Protein 7.5, Albumin 4.1, Globulin 3.4 H, Albumin/Globulin Ratio 1.2 Result diagrams: 01/22/22 10:05 01/22/22 10:05 Medical Decision Narrative: Miss trevino is a 66 yo female w/ PMH for T2DM who presents to the ED for chest pain which hsa since resolved on arrival. Patient is afebrile and hemodynamically stable on arrival, non toxic appearing. Physical exam: Patient is satting well on RA, breathing comfortably and has equal breath sounds bilaterally, no heart murmurs. Differentials to consider but not limited to include: IA/CAD, pneumonia, viral mediated illness, low suspicion for PE given current clinical picture will not investigate further. Basic labs, trop are non actionable. Patient is discharged and informed to fu w/ her PCP in 2-3 days for further management. Chest Pain HPI - General Chief Complaint: Chest Pain Stated Complaint: chest pain Time Seen by Provider: 01/22/22 10:10 Mode of Arrival: Ambulatory Source of Information: Patient Limitations: No Limitations Description of Symptoms (Recalled from ER Triage Doc. by RN): c/o left chest pain since 8am - History of Present Illness HPI narrative: Miss Trevino is a 66 yo female w/ T2DM who presents to the ED for intermittent left sided chest pain which started around 8AM, has since resolved. Patient reports x2 episodes lasting a few seconds with s
[2022-01-22 11:20] VITALS: BP 130/93; PULSE 73; RESP 20; TEMP 37.1; O2SAT 95
== END 2022-01-22 11:21 | disposition home or self-care (01) ==
PROVIDERS: Emergency Provider Student in an Organized Health Care Education/Training Program
DX: R07.89 Other chest pain (principal); M54.32 Sciatica, left side; M54.31 Sciatica, right side; I10 Essential (primary) hypertension; I25.10 Atherosclerotic heart disease of native coronary artery without angina pectoris; I73.9 Peripheral vascular disease, unspecified; K21.9 Gastro-esophageal reflux disease without esophagitis; E78.5 Hyperlipidemia, unspecified; E10.42 Type 1 diabetes mellitus with diabetic polyneuropathy; M19.90 Unspecified osteoarthritis, unspecified site; G25.81 Restless legs syndrome; G43.909 Migraine, unspecified, not intractable, without status migrainosus; E55.9 Vitamin D deficiency, unspecified; J44.9 Chronic obstructive pulmonary disease, unspecified; F32.A Depression, unspecified; Z79.02 Long term (current) use of antithrombotics/antiplatelets; Z79.1 Long term (current) use of non-steroidal anti-inflammatories (NSAID); Z79.51 Long term (current) use of inhaled steroids; Z79.82 Long term (current) use of aspirin; Z79.84 Long term (current) use of oral hypoglycemic drugs; Z79.899 Other long term (current) drug therapy
CPT/HCPCS: 71045; 80053; 84484; 85025; 93005; 99284

== ENCOUNTER → 2022-02-07 18:40 | Outpatient (CLI) | payer MEDICAID, SELFPAY ==
[2022-02-07 13:23] LABS: Basophils # 0.1 K/mm3 (0-0.2); Basophils % 0.9 % (0.1-2.0); Eosinophils # 0.4 K/mm3 (0.0-0.4); Eosinophils % 4.2 % (0.1-12.0); Hematocrit 43.3 % (37.0-47.0); Hemoglobin 13.7 g/dL (12.2-16.2); Lymphocytes # 3.1 K/mm3 (0.7-4.5); Lymphocytes % 37.4 % (10-50); Mean Corpuscular HGB Conc 31.5 g/dL (31.8-35.4); Mean Corpuscular Hemoglobin 31.1 pg (27.0-31.2); Mean Corpuscular Volume 98.5 fl (81-99); Mean Platelet Volume 8.6 fl (7.4-10.4); Monocytes # 0.4 K/mm3 (0.1-1.0); Monocytes % 5.1 % (1.7-9.3); Neutrophils # 4.3 K/mm3 (1.8-7.8); Neutrophils % 52.3 % (37.0-80.0); Platelet Count 349 K/mm3 (142-424); Red Cell Distribution Width 13.8 % (11.5-17.5); White Blood Count 8.2 K/mm3 (4.8-10.8)
[2022-02-07 13:27] LABS: Alanine Aminotransferase 19 U/L (12-78); Albumin/Globulin Ratio 1.4 (1.1-1.8); Alkaline Phosphatase 117 U/L (38-126); Anion Gap 12.2 mEq/L (5-15); Aspartate Amino Transferase 23 U/L (14-36); Bilirubin,Total 0.5 mg/dl (0.2-1.3); Blood Urea Nitrogen 23 mg/dl (7-17); Calcium 9.2 mg/dl (8.4-10.2); Carbon Dioxide 26 mmol/L (22.0-30.0); Chloride 105 mmol/L (98-107); Chol/HDL Ratio 2.7 (1-3.5); Cholesterol 200 mg/dl (140-200); Estimated Glomerular Filt Rate 63 ml/min (>60); GFR (African American) 76 ML/MIN (>60); Globulin 2.9 g/dL (1.3-3.2); Glucose 100 mg/dl (74-100); HDL Cholesterol 74 mg/dl (40-60); Magnesium 1.9 mg/dl (1.6-2.3); Potassium 4.2 mmoL/L (3.5-5.1); Sodium 139 mmol/L (136-145); Total Protein,Serum 6.9 g/dl (6.3-8.2); Triglycerides 72 mg/dl (30-150); VLDL Cholesterol 14 mg/dL (0-40)
[2022-02-07 13:51] LABS: 25-OH Vitamin D, Total 41.8 ng/mL (30-100)
[2022-02-07 13:53] LABS: Direct LDL Cholesterol 88.76 mg/dL (100-129)
[2022-02-07 14:10] LABS: Hemoglobin A1C 6.1 % (4.0-6.0)
[2022-02-07 14:42] LABS: Vitamin B12 > 1000 pg/mL (239-931)
[2022-02-07 19:22] LABS: Iron 96 ug/dL (37-170)
[2022-02-07 19:31] LABS: Total Iron Binding Capacity 383 ug/dL (265-497)
[2022-02-07 19:54] LABS: Thyroid Stimulating Hormone 1.88 uIU/mL (0.465-4.68)
[2022-02-07 19:59] LABS: Ferritin 25.4 ng/ml (11.1-264)
== END ==
PROVIDERS: Visit Provider Physician Assistant
DX: I10 Essential (primary) hypertension (principal); E11.9 Type 2 diabetes mellitus without complications; E66.9 Obesity, unspecified; Z79.84 Long term (current) use of oral hypoglycemic drugs; Z72.0 Tobacco use; Z68.41 Body mass index [BMI] 40.0-44.9, adult
CPT/HCPCS: 80053; 80061; 82306; 82607; 82728; 83036; 83540; 83550; 83735; 84443; 85025

== ENCOUNTER 2022-02-18 20:38 | Emergency (ER) | payer MEDICAID, SELFPAY ==
[2022-02-18 20:39] VITALS: BP 165/82; PULSE 82; RESP 20; TEMP 36.7; O2SAT 96; BMI 43.4
--- NOTE | 2022-02-18 21:02 | XR_ITS ---
PROCEDURE INFORMATION: Exam: XR Chest Exam date and time: 02/18/2022 9:03 PM Age: 66 years old Clinical indication: Pain; Left-sided; Additional info: Shoulder pain unable to raise left arm no trauma TECHNIQUE: Imaging protocol: XR of the chest. Views: 2 views. COMPARISON: CR XR CHEST PORTABLE 01/22/2022 10:09 AM FINDINGS: Lungs: Coarse interstitial lung markings likely chronic. No consolidation. Pleural spaces: Unremarkable. No pleural effusion. No pneumothorax. Heart/Mediastinum: Unremarkable. No cardiomegaly. Bones/joints: Unremarkable. IMPRESSION: No acute findings.
--- NOTE | 2022-02-18 21:02 | CT_ITS ---
PROCEDURE INFORMATION: Exam: CT Cervical Spine Without Contrast Exam date and time: 02/18/2022 9:16 PM Age: 66 years old Clinical indication: Other: Left shoulder pain; Additional info: L shuolder to neck pain unable to raise left arm no trauma TECHNIQUE: Imaging protocol: Computed tomography images of the cervical spine without contrast. Radiation optimization: All CT scans at this facility use at least one of these dose optimization techniques: automated exposure control; mA and/or kV adjustment per patient size (includes targeted exams where dose is matched to clinical indication); or iterative reconstruction. COMPARISON: CT CERVICAL SPINE WO CON 06/28/2021 9:45 PM FINDINGS: Bones/joints: No acute fracture. Normal alignment. Discs/Spinal canal/Neural foramina: No significant disc protrusion. No severe spinal canal stenosis. No significant neural foraminal narrowing. Lungs: Lung apices are normal. Soft tissues: Unremarkable. IMPRESSION: No acute findings.
--- NOTE | 2022-02-18 21:02 | XR_ITS ---
PROCEDURE INFORMATION: Exam: XR Left Shoulder Exam date and time: 02/18/2022 9:06 PM Age: 66 years old Clinical indication: Pain; Shoulder; Left; Additional info: L shoulder pain no trauma unable to raise arm TECHNIQUE: Imaging protocol: XR Left shoulder. Views: 2 or more views. COMPARISON: CR XR SHOULDER LT MIN 2V 09/12/2020 10:55 AM FINDINGS: Bones/joints: No acute fracture or dislocation. Degenerative changes at the AC joint with mild joint space narrowing and osteophyte formation. There is also seen degenerative lucencies involving the humeral head. No AVN. Soft tissues: Normal. IMPRESSION: No acute findings. Chronic changes as above.
[2022-02-18 21:10] LABS: Basophils # 0.2 K/mm3 (0-0.2); Basophils % 1.5 % (0.1-2.0); Eosinophils # 0.3 K/mm3 (0.0-0.4); Eosinophils % 2.4 % (0.1-12.0); Hematocrit 43.3 % (37.0-47.0); Hemoglobin 14.2 g/dL (12.2-16.2); Lymphocytes % 38.5 % (10-50); Mean Corpuscular HGB Conc 32.7 g/dL (31.8-35.4); Mean Corpuscular Hemoglobin 31.2 pg (27.0-31.2); Mean Corpuscular Volume 95.2 fl (81-99); Monocytes # 0.4 K/mm3 (0.1-1.0); Monocytes % 4.1 % (1.7-9.3); Neutrophils # 5.6 K/mm3 (1.8-7.8); Neutrophils % 53.5 % (37.0-80.0); Platelet Count 310 K/mm3 (142-424); Red Blood Count 4.55 M/mm3 (4.20-5.40); Red Cell Distribution Width 13.8 % (11.5-17.5); White Blood Count 10.5 K/mm3 (4.8-10.8)
[2022-02-18 21:16] LABS: Alanine Aminotransferase 23 U/L (12-78); Albumin Level 4.4 g/dl (3.5-5.0); Albumin/Globulin Ratio 1.3 (1.1-1.8); Alkaline Phosphatase 129 U/L (38-126); Anion Gap 8.3 mEq/L (5-15); Aspartate Amino Transferase 28 U/L (14-36); Bilirubin,Total 0.5 mg/dl (0.2-1.3); Blood Urea Nitrogen 28 mg/dl (7-17); Calcium 8.9 mg/dl (8.4-10.2); Carbon Dioxide 29 mmol/L (22.0-30.0); Chloride 104 mmol/L (98-107); Creatinine Clearance Estimated 47 mL/min (50-200); Estimated Glomerular Filt Rate 63 ml/min (>60); GFR (African American) 76 ML/MIN (>60); Globulin 3.5 g/dL (1.3-3.2); Glucose 86 mg/dl (74-100); Potassium 4.3 mmoL/L (3.5-5.1); Sodium 137 mmol/L (136-145); Total Protein,Serum 7.9 g/dl (6.3-8.2)
[2022-02-18 21:22] LABS: C-Reactive Protein 4.8 mg/L (0-4)
[2022-02-18 21:33] LABS: Procalcitonin 0.067 ng/mL (0.0-2.0); Troponin I < 0.01 ng/ml (0.00-0.034)
[2022-02-18 21:34] LABS: Erythrocyte Sedimentation Rate 17 mm/hr (0-30)
--- NOTE | 2022-02-18 21:45 | HMH.EDUPEXT ---
ED Disposition Clinical Impression: Shoulder pain, left Qualifiers: Chronicity: acute Qualified Code(s): M25.512 - Pain in left shoulder Disposition: Home, Self-Care Condition on Discharge: Good Instructions: DI for Shoulder Pain Additional Instructions: ice and see pcp for follow up Referrals: Domitila Baldwin PA [Primary Care Provider] - - Critical Care Critical Care Time: No Attestation: On 02/18/22, the high probability of a clinically significant, sudden or life threatening deterioration of the following system(s) required my full and direct attention, intervention and personal management. The time I documented below is in addition to time spent performing reported procedures but includes the following listed in this critical care notation. Medical Decision Making - Medical Records Medical records reviewed: Yes: I reviewed the patient's medical records. - Robson Inquiry Pt receiving controlled substance: No Vital Signs: 02/18/22 20:39 Temperature 98.0 F Temperature Source Oral Pulse Rate [Right] 82 Respiratory Rate 20 Blood Pressure [Right Arm] 165/82 H Blood Pressure Mean [Right Arm] 109 Blood Pressure Source [Right Arm] Automatic Cuff 02 Sat by Pulse Oximetry 96 Oxygen Delivery Method Room Air - Lab Data Lab results reviewed: Yes: I reviewed the patient's lab results. Lab Results 02/18/22 21:00: ESR 17 02/18/22 21:00: Troponin I < 0.01, C-Reactive Protein 4.8 H, Procalcitonin 0.067 02/18/22 21:00: WBC 10.5, RBC 4.55, Hgb 14.2, Hct 43.3, MCV 95.2, MCH 31.2, MCHC 32.7, RDW 13.8, Plt Count 310, MPV 8.0, Neut % (Auto) 53.5, Lymph % (Auto) 38.5, Fannin % (Auto) 4.1, Eos % (Auto) 2.4, Baso % (Auto) 1.5, Neut # (Auto) 5.6, Lymph # (Auto) 4.0, Fannin # (Auto) 0.4, Eos # (Auto) 0.3, Baso # (Auto) 0.2 02/18/22 21:00: Sodium 137, Potassium 4.3, Chloride 104, Carbon Dioxide 29, Anion Gap 8.3, BUN 28 H, Creatinine 0.90, Estimated Creat Clear 47, Estimated GFR 63, Est GFR ( Amer) 76, Glucose 86, Calcium 8.9, Total Bilirubin 0.5, AST 28, ALT 23, Alkaline Phosphatase 129 H, Total Protein 7.9, Albumin 4.4, Globulin 3.5 H, Albumin/Globulin Ratio 1.3 Result diagrams: 02/18/22 21:00 02/18/22 21:00 Orders (Tests/Meds): ED MEDICATIONS Generic Name Dose Route Start Last Admin Trade Name Freq PRN Reason Stop Dose Admin Sodium Chloride 1,000 mls @ 999 mls/hr 02/18/22 21:15 02/18/22 21:35 Sod Chlor 0.9% 1000ml Bag IV 02/18/22 22:15 999 mls/hr .Q1H1M PAOLA Administration Discontinued Medications Generic Name Dose Route Start Last Admin Trade Name Freq PRN Reason Stop Dose Admin Ketorolac Tromethamine 30 mg 02/18/22 21:02 02/18/22 21:35 Ketorolac 30mg/Ml Vial IV 02/18/22 21:03 30 mg ONCE ONE Administration ORDERS Category Date Time Status Troponin I Q3H Lab 02/19/22 00:15 Ordered Troponin I Q3H Lab 02/19/22 03:15 Ordered - Radiology Data #1 Image(s): Chest, Shoulder Image Reviewed: Yes I have reviewed radiologist's interpretation Preliminary Findings: No Fracture Seen - CT Data CT Scan: C-Spine Time Received: 22:[address] Reviewed: Yes: I have viewed the radiologist's interpretation Preliminary Findings: No Fracture Seen Medical Decision Narrative: has acute exacerbation of lt shoulder pain w/o trauma and no rash with dec rom in all martines Upper Extremity HPI - General Chief Complaint: Extremity Injury, Upper Stated Complaint: knots on left shoulder, neck pain Time Seen by Provider: 02/18/22 21:45 Mode of Arrival: Family Vehicle Source of Information: Patient, Medical Record Limitations: No Limitations Description of Symptoms (Recalled from ER Triage Doc. by RN): Pt c/o L shoulder pain that radiates to posterior neck. States she woke up yesterday with the left shoulder pain and today, feels like there is a knot on my shoulder . Denies any trauma, falls, recent injury. She Denies ny fever, chills, n/v/d, cough, or SOA. Denies chest pain or
[2022-02-18 22:11] VITALS: BP 145/79; PULSE 80; RESP 20; TEMP 36.7; O2SAT 97
== END 2022-02-18 22:34 | disposition home or self-care (01) ==
PROVIDERS: Emergency Provider Emergency Medicine; PCP Physician Assistant
DX: M25.512 Pain in left shoulder (principal); M54.2 Cervicalgia; I10 Essential (primary) hypertension; I25.10 Atherosclerotic heart disease of native coronary artery without angina pectoris; I73.9 Peripheral vascular disease, unspecified; E10.42 Type 1 diabetes mellitus with diabetic polyneuropathy; K21.9 Gastro-esophageal reflux disease without esophagitis; E78.5 Hyperlipidemia, unspecified; M51.17 Intervertebral disc disorders with radiculopathy, lumbosacral region; J98.4 Other disorders of lung; G25.81 Restless legs syndrome; G43.909 Migraine, unspecified, not intractable, without status migrainosus; E55.9 Vitamin D deficiency, unspecified; F32.A Depression, unspecified; F17.210 Nicotine dependence, cigarettes, uncomplicated; J44.9 Chronic obstructive pulmonary disease, unspecified; Z79.02 Long term (current) use of antithrombotics/antiplatelets; Z79.51 Long term (current) use of inhaled steroids; Z79.82 Long term (current) use of aspirin; Z79.84 Long term (current) use of oral hypoglycemic drugs; Z79.899 Other long term (current) drug therapy
CPT/HCPCS: 71046; 72125; 73030; 80053; 84145; 84484; 85025; 85651; 86140; 96361; 96365; 96374; 96375; 99285; J2405

== ENCOUNTER 2022-03-01 21:22 | Emergency (ER) | payer MEDICAID, SELFPAY ==
[2022-03-01] VITALS (7 sets, daily range): BP systolic 123–147; BP diastolic 72–118; PULSE 79–91; RESP 16; TEMP 36.7; O2SAT 94–96; BMI 43.4
--- NOTE | 2022-03-01 22:12 | XR_ITS ---
PROCEDURE INFORMATION: Exam: XR Right Knee Exam date and time: 03/01/2022 10:11 PM Age: 66 years old Clinical indication: Pain; Knee; Right; Patient HX: Denies injury TECHNIQUE: Imaging protocol: XR Right knee. Views: 3 views. COMPARISON: CR XR KNEE RT 4V 01/17/2022 12:20 PM FINDINGS: Bones/joints: Superior pole patellar enthesophyte. Mild tricompartmental osteoarthrosis. No acute fracture or dislocation. Soft tissues: Normal. Other findings: Mild edema overlying the patellar tendon. IMPRESSION: No acute fracture or dislocation.
--- NOTE | 2022-03-01 23:44 | HMH.EDGENADL ---
ED Disposition Clinical Impression: Knee pain, acute Qualifiers: Laterality: right Qualified Code(s): M25.561 - Pain in right knee Disposition: Home, Self-Care Condition on Discharge: Good Instructions: DI for Knee Pain Additional Instructions: call pcp and ortho for follow up Prescriptions: predniSONE [Prednisone 20mg Tab] 20 mg PO BID #10 tab Transmission Status: Pending to [id number] Referrals: Domitila Baldwin PA [Primary Care Provider] - Mj Whitmore MD [Staff Physician] - - Critical Care Critical Care Time: No Attestation: On 03/01/22, the high probability of a clinically significant, sudden or life threatening deterioration of the following system(s) required my full and direct attention, intervention and personal management. The time I documented below is in addition to time spent performing reported procedures but includes the following listed in this critical care notation. Medical Decision Making - Medical Records Medical records reviewed: Yes: I reviewed the patient's medical records. - Robson Inquiry Pt receiving controlled substance: No Vital Signs: 03/01/22 21:22 03/01/22 21:28 03/01/22 21:30 Temperature 98.1 F Temperature Source Oral Pulse Rate 89 89 Pulse Rate [Left] 91 H Respiratory Rate 16 Blood Pressure 138/118 H 138/73 Blood Pressure [Right Arm] 138/73 Blood Pressure Mean 123 Blood Pressure Mean [Right Arm] 94 02 Sat by Pulse Oximetry 96 96 96 Oxygen Delivery Method Room Air Room Air Room Air - Lab Data Lab results reviewed: Yes: I reviewed the patient's lab results. Orders (Tests/Meds): ORDERS Category Date Time Status XR knee RT 3V Stat Exams 03/01/22 22:12 Taken - Radiology Data #1 Image(s): Knee Image Reviewed: Yes I reviewed the patient's radiology image Preliminary Findings: Abnormal Medical Decision Narrative: has rt knee pain with no def fx - no reddness General Adult HPI - General Chief complaint: PAIN Stated complaint: Pain R Knee Time Seen by Provider: 03/01/22 23:47 Mode of Arrival: Ambulatory Source of Information: Patient, Medical Record Limitations: No Limitations Description of Symptoms (Recalled from ER Triage Doc. by RN): pt states she is having knee pain in the right knee states that its 08/27 - History of Present Illness HPI narrative: rt knee pain w/o fever and no trauma and pain with wt bearing - no hip pain Onset (ago): hour(s) Location: lower extremity Severity: moderate Associated symptoms: denies other symptoms - Related Data Home Medications Medication Instructions Recorded Confirmed loratadine 10 mg tablet 10 mg PO DAILY tab 10/10/20 02/07/22 lisinopril 10 mg tablet 10 mg PO DAILY tab 10/20/20 02/07/22 Cholecalciferol (Vitamin D3) 25 mcg PO DAILY 05/08/21 02/07/22 [Vitamin D3 1,000 Unit Cap] Metformin HCl [Glucophage Xr] 500 mg PO DAILY 05/08/21 02/07/22 Atorvastatin Calcium [Lipitor 20mg 20 mg PO HS 08/18/21 02/07/22 Tab] Cyclobenzaprine HCl [Flexeril 10mg See Rx Instructions .ROUTE .COMPLEX 10/06/21 02/07/22 tablet] furosemide 20 mg tablet 20 mg PO tab 02/07/22 02/07/22 trazodone 100 mg tablet 100 mg PO HS tab 02/07/22 02/07/22 Previous Rx's Medication Instructions Recorded aspirin 325 mg tablet 325 mg PO DAILY #90 tab 11/24/19 fenofibrate nanocrystallized 145 145 mg PO DAILY #90 tab 11/24/19 mg tablet isosorbide mononitrate 60 mg 60 mg PO QAM #90 tab 11/24/19 tablet,extended release 24 hr metoprolol succinate 100 mg 100 mg PO QDAY #90 tab 11/24/19 tablet,extended release 24 hr diclofenac sodium 1 % topical gel 4 g TOPICAL QID PRN 30 Days #100 g 09/16/20 albuterol sulfate 90 mcg/actuation 1 inh INHALATION QID PRN #8.5 g 10/06/20 aerosol inhaler fluoxetine 20 mg capsule 20 mg PO DAILY #90 cap 11/08/20 cetirizine 10 mg tablet 10 mg PO DAILY #30 tab 12/18/21 fluticasone propionate 50 1 spray INTRANASAL QDAY 30 Days
[2022-03-02] VITALS: BP 135/81; PULSE 76; O2SAT 92
[2022-03-02 00:25] VITALS: BP 135/81; PULSE 78; RESP 14; TEMP 36.5; O2SAT 98
== END 2022-03-02 00:30 | disposition home or self-care (01) ==
PROVIDERS: Emergency Provider Emergency Medicine; PCP Physician Assistant
DX: M25.561 Pain in right knee (principal); M51.17 Intervertebral disc disorders with radiculopathy, lumbosacral region; I10 Essential (primary) hypertension; I25.10 Atherosclerotic heart disease of native coronary artery without angina pectoris; I73.9 Peripheral vascular disease, unspecified; K21.9 Gastro-esophageal reflux disease without esophagitis; E78.5 Hyperlipidemia, unspecified; E11.40 Type 2 diabetes mellitus with diabetic neuropathy, unspecified; M19.90 Unspecified osteoarthritis, unspecified site; G43.909 Migraine, unspecified, not intractable, without status migrainosus; G25.81 Restless legs syndrome; J44.9 Chronic obstructive pulmonary disease, unspecified; F32.A Depression, unspecified; F17.210 Nicotine dependence, cigarettes, uncomplicated; Z79.01 Long term (current) use of anticoagulants; Z79.1 Long term (current) use of non-steroidal anti-inflammatories (NSAID); Z79.51 Long term (current) use of inhaled steroids; Z79.82 Long term (current) use of aspirin; Z79.84 Long term (current) use of oral hypoglycemic drugs; Z79.899 Other long term (current) drug therapy
CPT/HCPCS: 73562; 99284

== ENCOUNTER → 2022-03-19 13:59 | Outpatient (CLI) | payer MEDICARE, MEDICAID, SELFPAY ==
--- NOTE | 2022-03-19 14:01 | CA_ITS ---
FINAL REPORT TECHNIQUE: Color Doppler, duplex Doppler and compression sonography of the left lower extremity deep venous systems was performed. CLINICAL HISTORY: pain left lower FINDINGS: There is no evidence of deep venous thrombosis from the level of the groin to the calf. The veins are patent and compressible. IMPRESSION: No evidence of deep venous thrombosis left lower extremity. Reviewed, Interpreted and Dictated by Andres Max III, MD Transcribed by Enmanuel Joshi Authenticated by Andres Max III, MD on 03/19/2022 03:59:27 PM [facility]
== END ==
PROVIDERS: PCP Physician Assistant; Visit Provider Physician Assistant
DX: R60.0 Localized edema (principal)
CPT/HCPCS: 93971

== ENCOUNTER 2022-03-21 15:35 | Emergency (ER) | payer MEDICARE, MEDICAID, SELFPAY ==
[2022-03-21 15:36] VITALS: BP 112/79; PULSE 91; RESP 18; TEMP 36.9; O2SAT 95; BMI 42.5
--- NOTE | 2022-03-21 16:56 | HMH.EDGENADL ---
ED Disposition Clinical Impression: Ruptured Bakers cyst, Bilateral leg pain Disposition: Home, Self-Care Condition on Discharge: Fair Instructions: DI for Nolasco Cyst Additional Instructions: Take Percocet instead of hydrocodone for pain. Do not take hydrocodone while taking Percocet. Wheelchair as needed. See Dr. Whitmore in his office tomorrow as scheduled. Additional instructions for CONTROLLED SUBSTANCES: You have been prescribed a medication that is a controlled substance. Controlled substances include pain medications known as opiates and sedative nerve medications known as benzodiazepines. Tramadol, fioricet, and gabapentin are also controlled substances. Some common opiates include: Codeine (such as Tylenol #3) Hydrocodone (Vicodin, Lortab, Lorcet, Corry) Oxycodone (Percocet, Percodan, Oxycodone, Oxy IR) Some common benzodiazepines include: Diazepam (Valium) Lorazepam (Ativan) Alprazolam (Xanax) Clonazepam (Klonopin) Oxazepam (Serax) All of these controlled substances are highly addictive and frequently abused. Misuse can and frequently does lead to addiction as well as overdose and . Medication should be stored in a locked cabinet or other secure storage unit. Do not store the medication in a motor vehicle. Short term supplies, 3 days or less, are prescribed because of the highly addictive nature of the medication. Any of the controlled substance medication NOT taken should be disposed of properly and NOT SAVED. The recommended method of disposing of unused medications is: Place the medicines in a sealable plastic bag. If the medicine is a solid, crush it or add water to dissolve it. Add something undesirable (cat litter, coffee grounds, etc.) Dispose of sealed bag in household trash Do not flush or pour unused medicines down a sink or drain. Controlled substances should not be shared, given away or sold. Because of the addictive nature and frequent abuse, these medications are sometimes stolen. These medications should be kept in a safe place where they cannot be stolen. Do not keep them in your car or purse. Lost or stolen prescriptions for controlled substances WILL NOT BE REFILLED in this emergency department, regardless of whether a police report was filed. Prescriptions: Oxycodone HCl/Acetaminophen [Percocet 5/325mg tablet] 1 tab PO Q6HP PRN #10 tablet PRN Reason: Moderate To Severe Pain Transmission Status: Sent to [facility] Referrals: Domitila Baldwin PA [Primary Care Provider] - - Critical Care Critical Care Time: No Attestation: On 03/21/22, the high probability of a clinically significant, sudden or life threatening deterioration of the following system(s) required my full and direct attention, intervention and personal management. The time I documented below is in addition to time spent performing reported procedures but includes the following listed in this critical care notation. Medical Decision Making - Medical Records Medical records reviewed: Yes: I reviewed the patient's medical records. MR Comment: Reviewed venous Doppler result from 03/19/2022 left leg which was negative for DVT. Reviewed recent x-ray of right knee 03/01/2022 which showed mild osteoarthritis no acute fracture or dislocation. Reviewed previous venous Doppler of right lower extremity at this facility 10/16/2021 which showed no DVT, but incidental note of Nolasco's cyst. - Robson Inquiry Pt receiving controlled substance: Yes Robson was queried for this patient: Yes Risks and benefits of using a controlled substance: were discussed with pt by me Vital Signs: 03/21/22 15:36 03/21/22 17:01 Temperature 98.4 F Temperature Source Oral Pulse Rate 90 Pulse Rate [Right Radial] 91 H Respiratory Rate 18 18 Blood Pressure 167/112 H Blood Pressure [Right Arm] 112/79 Blood Pressure Mean 130 Blood Pressure Mean [Right Arm] 90 Blood Pressure Source [Right Arm] Aut
[2022-03-21 17:01] VITALS: BP 167/112; PULSE 90; RESP 18; O2SAT 96
--- NOTE | 2022-03-21 17:04 | XR_ITS ---
PROCEDURE INFORMATION: Exam: XR Right Knee Exam date and time: 03/21/2022 5:13 PM Age: 67 years old Clinical indication: Pain; Knee; Right TECHNIQUE: Imaging protocol: XR Right knee. Views: 3 views. COMPARISON: CR XR KNEE RT 3V 03/01/2022 10:11 PM FINDINGS: Bones/joints: Mild-moderate narrowing of the medial knee compartment is demonstrated. Mild patellofemoral degenerative changes are demonstrated. Soft tissues: There is mild soft tissue swelling superficial to the medial knee compartment. There is a small suprapatellar effusion. IMPRESSION: 1. Mild-moderate degenerative osteoarthritis most pronounced involving the medial knee compartment. 2. Small suprapatellar effusion. 3. Soft tissue swelling superficial to the medial knee compartment. Could not exclude ligamentous injury.
--- NOTE | 2022-03-21 17:04 | XR_ITS ---
PROCEDURE INFORMATION: Exam: XR Left Knee Exam date and time: 03/21/2022 5:14 PM Age: 67 years old Clinical indication: Pain; Knee; Left TECHNIQUE: Imaging protocol: XR Left knee. Views: 3 views. COMPARISON: CR XR KNEE LT 4V 01/17/2022 12:20 PM FINDINGS: Bones/joints: Moderate narrowing medial knee compartment. Prominent spur formation arising from the medial femoral condyle corresponding region of the tibial plateau. Mild patellofemoral degenerative changes demonstrated. Osteophyte formation arising from the anteromedial lateral femoral condyles. Soft tissues: Small suprapatellar effusion. IMPRESSION: 1. Tricompartmental degenerative osteoarthritis. Findings most pronounced medial knee compartment. 2. Small suprapatellar effusion.
--- NOTE | 2022-03-21 17:06 | PC.NURSE ---
pt reports has a walker at home but is unable to use it for ambulation at this r/t pain.
--- NOTE | 2022-03-21 17:07 | PC.NURSE ---
contacted care management for assistance with wheelchair ordering, spoke with farzad
[2022-03-21 17:45] VITALS: BP 162/71; PULSE 87; RESP 20; TEMP 36.8; O2SAT 97
--- NOTE | 2022-03-22 15:27 | CARE MANAGER ---
Received call from ER (Fanny Gamez) regarding patient need for a wheelchair, order and demographic was faxed to [facility] and wheelchair was delivered to [facility] ER.
== END 2022-03-21 17:45 | disposition home or self-care (01) ==
PROVIDERS: Emergency Provider Emergency Medicine; PCP Physician Assistant
DX: M66.0 Rupture of popliteal cyst; M79.605 Pain in left leg; M79.604 Pain in right leg; J44.9 Chronic obstructive pulmonary disease, unspecified; I25.10 Atherosclerotic heart disease of native coronary artery without angina pectoris; E10.9 Type 1 diabetes mellitus without complications; E11.9 Type 2 diabetes mellitus without complications; K21.9 Gastro-esophageal reflux disease without esophagitis; E78.5 Hyperlipidemia, unspecified; I10 Essential (primary) hypertension; G43.909 Migraine, unspecified, not intractable, without status migrainosus; I73.9 Peripheral vascular disease, unspecified
CPT/HCPCS: 73562; 99213; 99283; G0463

== ENCOUNTER → 2022-04-05 08:15 | Outpatient (POV) | payer MEDICARE, MEDICAID, SELFPAY ==
[2022-04-05 08:45] VITALS: BP 145/74; PULSE 75; RESP 18; TEMP 36.6; O2SAT 94; BMI 36.8
--- NOTE | 2022-04-05 10:22 | HMH.PAINSOAP ---
[facility] Pain Management SOAP Note Subjective:: Patient is a pleasant 67-year-old female who presents today for follow-up. Patient is currently being treated for degenerative disc disease of lumbar spine with lumbar radiculopathy symptoms, facet arthropathy, lumbar spondylosis. We have previously tried 1 round of medial branch block at L4-L5 and L5-S1, lumbar epidural steroid injection x2 that all did not provide significant relief. When we last saw this patient, we have discussed with her that she might benefit more from a spinal cord stimulator therapy. We referred the patient for psychiatric evaluation but she canceled that appointment. We have not seen this patient since December 2021. Lately, patient has been managing her pain with gabapentin 800 mg 3 times a day and she was given short rounds of [place] 5 mg 3 times a day and Percocet 5 mg. She is complaining today of worsening low back pain that radiates down to her legs. Her knees are also hurting. She says that she almost fell the other day because she feels like her back gave out on her. Rates her pain today as 8/10. Robson [phone] with an active morphine equivalent of 15. Injection History: 08/18/2021- [facility] [place]. L4-L5, L5-S1 20% relief 10/06/2021 - [facility] L4-L5, 20-30% relief 12/01/2021 - [facility] L4-L5, 20% relief Review of Systems: General: No recent weight changes, no fever, no sleep disturbances Respiratory: No cough, no shortness of air, no recurring pulmonary infections Cardiovascular/peripheral vascular: No chest pain, no palpitations, no edema, no shortness of breath Gastrointestinal: No new onset incontinence, normal bowel movements reported Genitourinary: No new onset incontinence Musculoskeletal: Low back pain, bilateral knee pain, bilateral hip pain Psychiatric: [Normal mood/affect] Neurological: [Denies weakness in extremities], [denies balance issues] Objective:: Physical Exam: General: Alert and oriented x3, no acute distress, pleasant and cooperative Lungs: Respirations even and unlabored, symmetrical chest expansion Eyes: PERRL Musculoskeletal: Flexion and extension of lumbar [spine] somewhat guarded secondary to pain, [antalgic gait noted]; bilateral SI are positive for JULIA, Caroline's, [place]'s, [place]'s, compression, and distraction. Tender to palpation around the bilateral greater trochanteric bursa's. Neurological: Speech clear, no gross sensory deficit Assessment:: Degenerative disc disease of lumbar spine with lumbar radiculopathy symptoms Lumbar facet arthropathy, lumbar spondylosis Bilateral sacroiliitis Bilateral greater trochanteric bursitis Plan:: Patient has been having worsening pain in the low back that radiates to bilateral lower extremities. We have tried medial branch block and lumbar epidural steroid injection that provided minimal relief. We were working of the patient for a spinal cord stimulator therapy. She canceled her psychiatric evaluation. Today, patient is complaining of significant pain around her bilateral upper buttock and bilateral lateral thigh. She has trouble getting up from a sitting position. Tender to palpation around the bilateral greater trochanteric bursa. SI exam is positive. We will schedule the patient for bilateral SI injection. Then 2 weeks later, we will schedule the patient for a bilateral greater trochanteric bursa injection. Follow-up after her injections Patient has been instructed to contact the clinic with any concerns before the next appointment. Dr. Robb has reviewed this note and agrees with this plan of care. This note was dictated using voice recognition software and make contain errors or omissions. [facility] History Medical History: Reports:: Asthma, Chronic Obstructive Pulmonary Disease (COPD), Coronary Artery Disease, Depression, Diabetes Mellitus Type 1, Diabetes Mellitus Type 2, Gastroesophageal Reflux Disease(GERD), Hyperlipidemia, Hypertension, Lung Disease, Migraine, Peripheral Artery Disease, P
== END ==
PROVIDERS: Visit Provider Student in an Organized Health Care Education/Training Program
DX: M51.16 Intervertebral disc disorders with radiculopathy, lumbar region (principal); M47.896 Other spondylosis, lumbar region; M46.1 Sacroiliitis, not elsewhere classified; M70.61 Trochanteric bursitis, right hip; M70.62 Trochanteric bursitis, left hip
CPT/HCPCS: 99212; G0463

== ENCOUNTER 2022-04-15 22:12 | Emergency (ER) | payer MEDICARE, MEDICAID, SELFPAY ==
[2022-04-15 22:14] VITALS: BP 172/91; PULSE 82; RESP 18; TEMP 36.7; O2SAT 93; BMI 43.0
[2022-04-15 22:25] VITALS: BMI 43.0
--- NOTE | 2022-04-15 22:25 | XR_ITS ---
PROCEDURE INFORMATION: Exam: XR Right Knee Exam date and time: 04/15/2022 10:51 PM Age: 67 years old Clinical indication: Injury or trauma; Fall; Blunt trauma; Knee; Right TECHNIQUE: Imaging protocol: XR Right knee. Views: 3 views. COMPARISON: CR XR KNEE RT 3V 03/21/2022 5:13 PM FINDINGS: Bones/joints: There is a nonanatomic lucency in the fibular head that was not on prior study. Mild tricompartmental osteoarthrosis. Small patellar superior enthesophyte. Soft tissues: Mild anterior soft tissue edema. Vasculature: Vascular calcifications. IMPRESSION: 1. There is a nonanatomic lucency in the fibular head that was not on prior study. Please correlate with point tenderness to see if this represents a nondisplaced fracture or artifact. 2. Mild anterior soft tissue edema.
--- NOTE | 2022-04-15 22:25 | XR_ITS ---
PROCEDURE INFORMATION: Exam: XR Left Hip Exam date and time: 04/15/2022 10:49 PM Age: 67 years old Clinical indication: Injury or trauma; Fall; Blunt trauma (contusions or hematomas); Left; Hip TECHNIQUE: Imaging protocol: XR Left hip. Views: 2 or 3 views hip with pelvis when performed. COMPARISON: CR XR PELVIS 1-2V 06/28/2021 9:10 PM FINDINGS: Bones/joints: No acute fracture or dislocation. Soft tissues: Unremarkable. IMPRESSION: No acute fracture or dislocation. If the patient is unable to bear weight, consider CT to exclude occult fracture.
--- NOTE | 2022-04-15 22:26 | XR_ITS ---
PROCEDURE INFORMATION: Exam: XR Chest Exam date and time: 04/15/2022 10:48 PM Age: 67 years old Clinical indication: Injury or trauma; Fall; Blunt trauma (contusions or hematomas) TECHNIQUE: Imaging protocol: XR of the chest. Views: 4 or more views. COMPARISON: CR XR CHEST 2V 02/18/2022 9:03 PM FINDINGS: Lungs: Unremarkable. No consolidation. Pleural spaces: Unremarkable. No pleural effusion. No pneumothorax. Heart/Mediastinum: Unremarkable. No cardiomegaly. Bones/joints: Unremarkable. IMPRESSION: No acute findings.
--- NOTE | 2022-04-15 23:09 | HMH.EDFALL ---
ED Disposition Clinical Impression: Right knee sprain Qualifiers: Encounter type: initial encounter Involved ligament of knee: unspecified ligament Qualified Code(s): S83.91XA - Sprain of unspecified site of right knee, initial encounter Contusion of hip, left Qualifiers: Encounter type: initial encounter Qualified Code(s): S70.02XA - Contusion of left hip, initial encounter Disposition: Home, Self-Care Condition on Discharge: Good Instructions: How to Prevent Falls Additional Instructions: ice and call pcp for follow up Referrals: Domitila Baldwin PA [Primary Care Provider] - - Critical Care Critical Care Time: No Attestation: On 04/15/22, the high probability of a clinically significant, sudden or life threatening deterioration of the following system(s) required my full and direct attention, intervention and personal management. The time I documented below is in addition to time spent performing reported procedures but includes the following listed in this critical care notation. Medical Decision Making - Medical Records Medical records reviewed: Yes: I reviewed the patient's medical records. - Robson Inquiry Pt receiving controlled substance: No Vital Signs: 04/15/22 22:14 Temperature 98.0 F Temperature Source Oral Pulse Rate [Right] 82 Respiratory Rate 18 Blood Pressure [Right Arm] 172/91 H Blood Pressure Mean [Right Arm] 118 02 Sat by Pulse Oximetry 93 L - Lab Data Lab results reviewed: Yes: I reviewed the patient's lab results. - Radiology Data #1 Image(s): Pelvis, Hip, Knee Image Reviewed: Yes I have reviewed radiologist's interpretation Preliminary Findings: No Fracture Seen - CT Data CT Scan: Other (hip and knee ) Time Received: 01:[address] Reviewed: Yes: I have viewed the radiologist's interpretation Preliminary Findings: Abnormal Medical Decision Narrative: pt with djd changes and on going issues with knees but no acute fx Fall HPI - General Chief Complaint: Fall Stated Complaint: AO 2130 Fell Left hip pain Time Seen by Provider: 04/15/22 23:09 Mode of Arrival: Ambulatory Source of Information: Patient, Medical Record Limitations: No Limitations Description of Symptoms (Recalled from ER Triage Doc. by RN): pt states rt knee gave out and pt fell landing on lt side. pt c/o rt knee, lt hip pain - History of Present Illness HPI Narrative: rt knee gave out and fall with lt hip pain - has seen ortho and uses walker complaint: fall Onset (ago): hour(s) Fall from: walking Fall witnessed: no Place fall occurred: home Loss of consciousness: none Prolonged down time: no Context: tripped/slipped, history of frequent falls Location of injury - extremities: Left: thigh, Right: knee Severity: moderate Associated symptoms (after fall): denies - Related Data Home Medications Medication Instructions Recorded Confirmed loratadine 10 mg tablet 10 mg PO DAILY tab 10/10/20 03/22/22 lisinopril 10 mg tablet 10 mg PO DAILY tab 10/20/20 03/22/22 Cholecalciferol (Vitamin D3) 25 mcg PO DAILY 05/08/21 03/22/22 [Vitamin D3 1,000 Unit Cap] Metformin HCl [Glucophage Xr] 500 mg PO DAILY 05/08/21 03/22/22 Atorvastatin Calcium [Lipitor 20mg 20 mg PO HS 08/18/21 03/22/22 Tab] Cyclobenzaprine HCl [Flexeril 10mg See Rx Instructions .ROUTE .COMPLEX 10/06/21 03/22/22 tablet] furosemide 20 mg tablet 20 mg PO DAILY tab 02/07/22 03/22/22 trazodone 100 mg tablet 100 mg PO HS tab 02/07/22 03/22/22 Blood Sugar Diagnostic [Blood See Rx Instructions .ROUTE 04/05/22 Glucose Test] .MEDSUPPLY Blood-Glucose Meter See Rx Instructions .ROUTE 04/05/22 NEEDED PRN Buspirone HCl [Buspar 10mg See Rx Instructions .ROUTE .COMPLEX 04/05/22 tablet] Cetirizine HCl 10 mg PO DAILY 04/05/22 Clopidogrel Bisulfate [Plavix] See Rx Instructions .ROUTE .COMPLEX 04/05/22 Ergocalciferol (Vitamin D2) See Rx Instructions .ROUTE .COMPLEX 04/05/22 [Drisdol] Ferrous Sulfate
--- NOTE | 2022-04-16 00:14 | CT_ITS ---
PROCEDURE INFORMATION: Exam: CT Right Lower Extremity Without Contrast, Knee Exam date and time: 04/16/2022 12:28 AM Age: 67 years old Clinical indication: Injury or trauma; Fall; Blunt trauma; Knee; Right TECHNIQUE: Imaging protocol: CT of the Right lower extremity without contrast was performed. Exam focused on the knee. Radiation optimization: All CT scans at this facility use at least one of these dose optimization techniques: automated exposure control; mA and/or kV adjustment per patient size (includes targeted exams where dose is matched to clinical indication); or iterative reconstruction. COMPARISON: CR XR KNEE RT 3V 04/15/2022 10:51 PM FINDINGS: Bones/joints: Mild tricompartmental osteoarthrosis. No acute fracture or dislocation. Patellar superior pole enthesophyte. Small suprapatellar knee effusion. Soft tissues: Small popliteal cyst. IMPRESSION: No acute fracture or dislocation. Possible fibular head fracture seen on radiographs was artifact.
--- NOTE | 2022-04-16 00:14 | CT_ITS ---
PROCEDURE INFORMATION: Exam: CT Left Lower Extremity Without Contrast, Hip Exam date and time: 04/16/2022 12:31 AM Age: 67 years old Clinical indication: Injury or trauma; Fall; Blunt trauma; Hip; Left TECHNIQUE: Imaging protocol: CT of the Left lower extremity without contrast was performed. Exam focused on the hip. Radiation optimization: All CT scans at this facility use at least one of these dose optimization techniques: automated exposure control; mA and/or kV adjustment per patient size (includes targeted exams where dose is matched to clinical indication); or iterative reconstruction. COMPARISON: CR XR HIP LT 2-3V W/PELVIS 04/15/2022 10:49 PM FINDINGS: Bones/joints: No acute fracture or dislocation. Soft tissues: Normal. Vasculature: Mild atherosclerotic changes of the arteries. IMPRESSION: No acute fracture or dislocation.
[2022-04-16 01:56] VITALS: BP 136/82; PULSE 79; RESP 19; TEMP 37; O2SAT 98
== END 2022-04-16 01:57 | disposition home or self-care (01) ==
PROVIDERS: Emergency Provider Emergency Medicine; PCP Physician Assistant
DX: S83.91XA Sprain of unspecified site of right knee, initial encounter (principal); S70.02XA Contusion of left hip, initial encounter; W01.0XXA Fall on same level from slipping, tripping and stumbling without subsequent striking against object, initial encounter; Y92.019 Unspecified place in single-family (private) house as the place of occurrence of the external cause; J45.909 Unspecified asthma, uncomplicated; I10 Essential (primary) hypertension; E78.5 Hyperlipidemia, unspecified; K21.9 Gastro-esophageal reflux disease without esophagitis; J44.9 Chronic obstructive pulmonary disease, unspecified; Z72.0 Tobacco use
CPT/HCPCS: 71045; 73502; 73562; 73700; 99284

== ENCOUNTER 2022-04-20 08:44 | Day surgery (SDC) | payer MEDICARE, MEDICAID, SELFPAY ==
[2022-04-20 08:57] VITALS: BP 162/85; PULSE 82; RESP 20; TEMP 36.2; O2SAT 90; BMI 42.0
[2022-04-20 09:24] VITALS: BP 172/94; PULSE 79; RESP 19; O2SAT 92
[2022-04-20 09:25] VITALS: BP 162/84; PULSE 78; RESP 19; O2SAT 92
--- NOTE | 2022-04-20 09:33 | P.PCN_ITS ---
- Procedure Date: 04/20/22 Time: 09:33 Anesthesiologist:: Julio César Robb MD Complications:: None Pre-procedure Diagnosis:: Sacroiliitis Post-procedure Diagnosis:: Same Indications for Procedure:: Patient is a pleasant 67-year-old white female who been treating for low back pain with bilateral hip pain she had previous medial branch blocks which did not give her any relief. She is tender over both SI joints. She has a positive Kaila's test bilaterally. She has positive Orlando's test bilaterally. We will do bilateral SI joint injections under fluoroscopy today. She is also tender o frank both trochanteric bursa's. We will plan on doing bilateral trochanteric bursa injections in 2 weeks. Procedure Details:: B/L SI joint injection under fluoroscopy Informed consent was obtained and the risks and benefits of the procedure was explained to the patient. The patient was taken to the procedure room and placed prone on the procedure table. The patient was prepped using ChloraPrep. The skin and subcutaneous tissues overlying the SI joints were anesthetized using lidocaine. I placed a 22-gauge needle first in the left SI joint and second in the right SI joint. Needle placement was confirmed with dye. After this we injected 5 mL bupivacaine 0.25% and Depo-Medrol 40 mg into each SI joint. Patient tolerated the procedure well with no complication. Plan and Disposition:: We will follow-up with her in 2 weeks. Will reevaluate symptoms at that time.
[2022-04-20 09:44] VITALS: BP 161/89; PULSE 72; RESP 20; O2SAT 92
== END 2022-04-20 09:45 | disposition home or self-care (01) ==
LOC: SC.PAINP 08:45
PROVIDERS: PCP Physician Assistant; Visit Provider Anesthesiology
DX: M46.1 Sacroiliitis, not elsewhere classified (principal); M51.16 Intervertebral disc disorders with radiculopathy, lumbar region; M47.26 Other spondylosis with radiculopathy, lumbar region; M70.62 Trochanteric bursitis, left hip; M70.61 Trochanteric bursitis, right hip; J44.9 Chronic obstructive pulmonary disease, unspecified; I25.10 Atherosclerotic heart disease of native coronary artery without angina pectoris; F32.A Depression, unspecified; E11.51 Type 2 diabetes mellitus with diabetic peripheral angiopathy without gangrene; E78.5 Hyperlipidemia, unspecified; I10 Essential (primary) hypertension; Z72.0 Tobacco use
CPT/HCPCS: 27096; G0260; J1030; Q9966

== ENCOUNTER 2022-05-04 09:27 | Day surgery (SDC) | payer MEDICARE, MEDICAID, SELFPAY ==
[2022-05-04 09:40] VITALS: BP 127/72; PULSE 82; RESP 22; TEMP 36.4; O2SAT 94; BMI 42.0
[2022-05-04 10:01] VITALS: BP 146/88; PULSE 89; RESP 20
--- NOTE | 2022-05-04 10:06 | P.PCN_ITS ---
- Procedure Date: 05/04/22 Time: 10:06 Anesthesiologist:: Toño Ordoñez CRNA Complications:: None Pre-procedure Diagnosis:: Degenerative osteoarthritis bilateral knees Post-procedure Diagnosis:: Same Indications for Procedure:: Patient is a very pleasant 67-year-old female who is been treated in our clinic for back pain. Bilateral hip pain. Bilateral degenerative osteoarthritis knee s. Today she presents for intra-articular injection of cortisone bilateral knees. She rates the pain in the knees 8/10. She describes as sharp, stabbing, dull, aching. Walking is almost impossible due to the pain in the knees. She does use a walker for stability. Procedure Details:: Procedure Details: Bilateral intra-articular knee injection Informed consent was obtained risk and benefits of the procedure were explained to the patient. Patient was taken the procedure room both knees were prepped using ChloraPrep. A 25-gauge needle was used to inject 10 mL bupivacaine 0.25% and Depo-Medrol 40 mg into each knee. We did a total of 80 mg Depo-Medrol for both knees. The patient tolerated the procedure well with no complications. Plan and Disposition:: We will follow-up with her in 2 weeks. Will reevaluate symptoms at that time. Plan and Disposition:: Patient was discharged without complaint of pain in bilateral knees.
[2022-05-04 10:14] VITALS: BP 114/67; PULSE 74; RESP 20; O2SAT 91
== END 2022-05-04 10:15 | disposition home or self-care (01) ==
LOC: SC.PAINP 09:28
PROVIDERS: PCP Physician Assistant; Visit Provider Nurse Anesthetist, Certified Registered
DX: M17.0 Bilateral primary osteoarthritis of knee (principal); I10 Essential (primary) hypertension
CPT/HCPCS: 20610; J1040

== ENCOUNTER 2022-05-12 15:11 | Emergency (ER) | payer MEDICARE, MEDICAID, SELFPAY ==
[2022-05-12 15:30] VITALS: BP 108/69; PULSE 64; RESP 21; TEMP 36.8; O2SAT 96; BMI 42.3
[2022-05-12 15:45] VITALS: BP 108/69; PULSE 64; RESP 21; TEMP 36.8; O2SAT 96
--- NOTE | 2022-05-12 15:46 | HMH.EDUTC ---
[facility] Disposition Clinical Impression: Exposure to COVID-19 virus, Upper respiratory infection, viral Disposition: Home, Self-Care Condition on Discharge: Good Instructions: DI for COVID-19 (Suspected or Confirmed ), COVID-19: Protecting Yourself When You're at High Risk, Preventing the Spread of Coronavirus Discharge Instructions Additional Instructions: covid swab was sent to lab, call tomorrow for results. self isolate until test results are known to be negative No sign of a bacterial infection. Likely viral. Viruses can take 7-14 days to run their course. Nasal saline and bulb syringe or nose Mar to remove nasal drainage to help with nasal congestion. Hard to eat, drink, sleep with nasal congestion so important to keep this cleaned out. Monitor temp. Tylenol or Motrin as needed for pain or fever Encourage fluids, water, Gatorade, Powerade, Pedialyte if infant/toddler/child Warm salt water gargles Warm fluids Sore throat lozenges Sleep elevated Humidifier/vaporizer Follow-up immediately for new or worsening symptoms or no noticeable improvement over the next 48-72 hours. Referrals: Domitila Baldwin PA [Primary Care Provider] - Time of Disposition: 15:50 Medical Decision Making - Robson Inquiry Pt receiving controlled substance: No Vital Signs: 05/12/22 15:30 05/12/22 15:45 Temperature 98.3 F 98.3 F Temperature Source Oral Pulse Rate 64 Pulse Rate [Left Brachial] 64 Respiratory Rate 21 21 Blood Pressure 108/69 L Blood Pressure [Left Arm] 108/69 L Blood Pressure Mean [Left Arm] 82 Blood Pressure Source [Left Arm] Automatic Cuff Blood Pressure Position [Left Arm] Sitting 02 Sat by Pulse Oximetry 96 Oxygen Delivery Method Room Air Orders (Tests/Meds): ORDERS Category Date Time Status Covid-19 Nasal PCR ([facility]) Routine Lab 05/12/22 15:26 Ordered [facility] HPI - General Chief complaint: Urgent Treatment Center Stated complaint: covid exposure Time Seen by Provider: 05/12/22 15:46 Mode of Arrival: Ambulatory Source of Information: Patient Limitations: No Limitations Description of Symptoms (Recalled from Triage Doc. by RN): PATIENT C/O NAUSEA, CONGESTION, FATIGUE, DIARRHEA, AND WEAKNESS X 3 DAYS. RECENTLY EXPOSED TO COVID HEENT Symptoms (Recalled from RN notes): No Resp Symptoms (Recalled from RN notes): No Skin Symptoms (Recalled from RN notes): No MS Symptoms (Recalled from RN notes): No Functional Status (Recalled from RN notes): WNL - History of Present Illness Provider Complaint: 67 yr old female presents for c/o nausea,nasal congestion,fatigue,diarrhea and weakness for 3 days. recently exposed to covid - Related Data Home Medications Medication Instructions Recorded Confirmed loratadine 10 mg tablet 10 mg PO DAILY tab 10/10/20 05/04/22 lisinopril 10 mg tablet 10 mg PO DAILY tab 10/20/20 05/04/22 Cholecalciferol (Vitamin D3) 25 mcg PO DAILY 05/08/21 05/04/22 [Vitamin D3 1,000 Unit Cap] Metformin HCl [Glucophage Xr] 500 mg PO DAILY 05/08/21 05/04/22 Atorvastatin Calcium [Lipitor 20mg 20 mg PO HS 08/18/21 05/04/22 Tab] Cyclobenzaprine HCl [Flexeril 10mg See Rx Instructions .ROUTE .COMPLEX 10/06/21 05/04/22 tablet] trazodone 100 mg tablet 100 mg PO HS tab 02/07/22 05/04/22 Blood Sugar Diagnostic [Blood See Rx Instructions .ROUTE 04/05/22 05/04/22 Glucose Test] .MEDSUPPLY Blood-Glucose Meter See Rx Instructions .ROUTE 04/05/22 05/04/22 NEEDED PRN Buspirone HCl [Buspar 10mg See Rx Instructions .ROUTE .COMPLEX 04/05/22 05/04/22 tablet] Cetirizine HCl 10 mg PO DAILY 04/05/22 05/04/22 Clopidogrel Bisulfate [Plavix] See Rx Instructions .ROUTE .COMPLEX 04/05/22 05/04/22 Ergocalciferol (Vitamin D2) See Rx Instructions .ROUTE .COMPLEX 04/05/22 05/04/22 [Drisdol] Ferrous Sulfate [Slow Fe] 142 mg PO DAILY 04/05/22 05/04/22 Fluticasone Propionate 1 spray NS QDAY 04/05/22 05/04/22 Ipratropium/Albuterol Sulfate 3 ml IH Q6 04/05/22 05/04/22 [Duoneb 3mL n
== END 2022-05-12 15:50 | disposition home or self-care (01) ==
PROVIDERS: Emergency Provider Nurse Practitioner Family; PCP Physician Assistant
DX: J06.9 Acute upper respiratory infection, unspecified (principal); Z20.822 Contact with and (suspected) exposure to COVID-19; R11.0 Nausea; R09.89 Other specified symptoms and signs involving the circulatory and respiratory systems; R53.83 Other fatigue; R19.7 Diarrhea, unspecified; R53.1 Weakness; J44.9 Chronic obstructive pulmonary disease, unspecified; I25.10 Atherosclerotic heart disease of native coronary artery without angina pectoris; E11.8 Type 2 diabetes mellitus with unspecified complications; Z79.84 Long term (current) use of oral hypoglycemic drugs; F17.210 Nicotine dependence, cigarettes, uncomplicated; I10 Essential (primary) hypertension; K21.9 Gastro-esophageal reflux disease without esophagitis; E78.5 Hyperlipidemia, unspecified
CPT/HCPCS: 99212; C9803; G0463; U0003; U0005

== ENCOUNTER → 2022-05-17 16:27 | Outpatient (CLI) | payer MEDICARE, MEDICAID, SELFPAY | PROVIDERS: Visit Provider Physician Assistant | DX: N39.0 Urinary tract infection, site not specified (principal); B96.1 Klebsiella pneumoniae [K. pneumoniae] as the cause of diseases classified elsewhere | CPT/HCPCS: 87086; 87088; 87186 ==

== ENCOUNTER 2022-05-25 07:58 | Emergency (ER) | payer MEDICARE, MEDICAID, SELFPAY ==
[2022-05-25 07:59] VITALS: BP 120/72; PULSE 107; RESP 22; TEMP 37.2; O2SAT 89; BMI 41.3
[2022-05-25 08:04] VITALS: BMI 41.3
--- NOTE | 2022-05-25 08:05 | XR_ITS ---
FINAL REPORT CLINICAL HISTORY: SOA, COVID POSITIVE COMPARISON: April 15, 2022 FINDINGS: The heart size is normal. The mediastinum is normal. There are mild bibasilar pulmonary opacities. There are no pleural effusions. There is no pneumothorax. There is no osseous abnormality. IMPRESSION: Mild bibasilar pulmonary opacities could represent atelectasis or pneumonia. Reviewed, Interpreted and Dictated by Andres Max III, MD Transcribed by Enmanuel Joshi Authenticated and [facility]
--- NOTE | 2022-05-25 08:05 | PC.NURSE ---
SANDOVAL ALFONSO at
--- NOTE | 2022-05-25 08:06 | PC.NURSE ---
rad notified of xray order
--- NOTE | 2022-05-25 08:06 | HMH.EDGENADL ---
ED Disposition Clinical Impression: COVID-19, COPD exacerbation Respiratory failure with hypoxia Qualifiers: Chronicity: acute on chronic Qualified Code(s): J96.21 - Acute and chronic respiratory failure with hypoxia Disposition: Home, Self-Care Condition on Discharge: Fair - Critical Care Critical Care Time: No Attestation: On 05/25/22, the high probability of a clinically significant, sudden or life threatening deterioration of the following system(s) required my full and direct attention, intervention and personal management. The time I documented below is in addition to time spent performing reported procedures but includes the following listed in this critical care notation. Medical Decision Making - Robson Inquiry Pt receiving controlled substance: No Vital Signs: 05/25/22 07:59 05/25/22 08:20 Temperature 99.0 F Temperature Source Oral Pulse Rate 90 Pulse Rate [Right Radial] 107 H Respiratory Rate 22 Blood Pressure [Right Arm] 120/72 Blood Pressure Mean [Right Arm] 88 Blood Pressure Source [Right Arm] Automatic Cuff Blood Pressure Position [Right Arm] Sitting 02 Sat by Pulse Oximetry 89 L Oxygen Delivery Method Room Air - Lab Data Lab Results 05/25/22 08:03: SARS-CoV-2 (PCR) Detected A, Influenza A Untype (PCR) Not detected, Influenza Type B (PCR) Not detected 05/25/22 08:06: WBC 6.5, RBC 4.50, Hgb 13.8, Hct 43.7, MCV 97.1, MCH 30.7, MCHC 31.7 L, RDW 14.2, Plt Count 280, MPV 7.9, Neut % (Auto) 63.4, Lymph % (Auto) 25.4, Twiggs % (Auto) 7.3, Eos % (Auto) 1.0, Baso % (Auto) 2.8 H, Neut # (Auto) 4.1, Lymph # (Auto) 1.7, Twiggs # (Auto) 0.5, Eos # (Auto) 0.1, Baso # (Auto) 0.2 05/25/22 08:06: Sodium 135 L, Potassium 3.6, Chloride 101, Carbon Dioxide 29, Anion Gap 8.6, BUN 20 H, Creatinine 1.00, Estimated Creat Clear 46, Estimated GFR 56 L, Est GFR ( Amer) 67, Glucose 106 H, Calcium 8.6, Total Bilirubin 0.3, AST 25, ALT 18, Alkaline Phosphatase 103, Total Protein 7.1, Albumin 3.9, Globulin 3.2, Albumin/Globulin Ratio 1.2 05/25/22 08:06: Lactate 0.8 Result diagrams: 05/25/22 08:06 05/25/22 08:06 Orders (Tests/Meds): ED MEDICATIONS Generic Name Dose Route Start Last Admin Trade Name Freleandra PRN Reason Stop Dose Admin Sodium Chloride 10 ml 05/25/22 08:05 Sodium Chloride 0.9% 10ml Flush Syringe IV 06/24/22 08:04 NEEDED PRN Maintain IV Site Sodium Chloride 3 ml 05/25/22 08:52 Sodium Chloride 3% 15ml Neb 06/24/22 08:51 ONCE PRN INDUCE SPUTUM COLLECTION Discontinued Medications Generic Name Dose Route Start Last Admin Trade Name Freq PRN Reason Stop Dose Admin Albuterol/Ipratropium 3 ml 05/25/22 08:07 05/25/22 08:11 Ipratropium/Albuterol 3 Ml [facility] 05/25/22 08:08 3 ml ONCE ONE Administration Sodium Chloride 1,000 mls @ 999 mls/hr 05/25/22 08:56 05/25/22 08:57 Sod Chlor 0.9% 1000ml Bag IV 05/25/22 09:56 999 mls/hr .Q1H1M ONE Administration Iopamidol 70 ml 05/25/22 09:57 05/25/22 09:59 Iopamidol-370 (76%);100ml Bottle IV 05/25/22 09:58 70 ml ONCE ONE Administration Methylprednisolone Sodium Succinate 125 mg 05/25/22 08:07 05/25/22 08:11 Methylprednisolone Sod Succ 125mg Vial IV 05/25/22 08:08 125 mg ONCE ONE Administration Sodium Chloride 10 ml 05/25/22 09:57 05/25/22 09:59 Sodium Chloride 0.9% 10ml Syr (Rad Only) IV 05/25/22 09:58 10 ml ONCE ONE Administration Sodium Chloride 50 ml 05/25/22 09:57 05/25/22 09:59 0.9 % Sodium Chloride 50 Ml Vial IV 05/25/22 09:58 50 ml ONCE ONE Administration ORDERS Category Date Time Status Blood Culture Stat Micro 05/25/22 08:06 Received Sputum Culture & Gram Stain Stat Micro 05/25/22 08:20 Received - Radiology Data #1 Image(s): Chest Image Reviewed: Yes I reviewed the patient's radiology image, Yes I have reviewed radiologist's interpretation Procedure(s): XR chest portable Accession Number(s): [id number] cc
[2022-05-25 08:20] VITALS: PULSE 90; PULSE 94
[2022-05-25 08:25] LABS: Influenza A, PCR Not Detected (NotDetected); Influenza B, PCR Not Detected (NotDetected)
[2022-05-25 08:31] LABS: Basophils # 0.2 K/mm3 (0-0.2); Basophils % 2.8 % (0.1-2.0); Eosinophils # 0.1 K/mm3 (0.0-0.4); Hematocrit 43.7 % (37.0-47.0); Hemoglobin 13.8 g/dL (12.2-16.2); Lymphocytes # 1.7 K/mm3 (0.7-4.5); Lymphocytes % 25.4 % (10-50); Mean Corpuscular HGB Conc 31.7 g/dL (31.8-35.4); Mean Corpuscular Hemoglobin 30.7 pg (27.0-31.2); Mean Corpuscular Volume 97.1 fl (81-99); Mean Platelet Volume 7.9 fl (7.4-10.4); Monocytes # 0.5 K/mm3 (0.1-1.0); Monocytes % 7.3 % (1.7-9.3); Neutrophils # 4.1 K/mm3 (1.8-7.8); Neutrophils % 63.4 % (37.0-80.0); Platelet Count 280 K/mm3 (142-424); Red Cell Distribution Width 14.2 % (11.5-17.5); White Blood Count 6.5 K/mm3 (4.8-10.8)
[2022-05-25 08:40] LABS: Lactic Acid 0.8 mmol/L (0.7-2.1)
[2022-05-25 08:42] LABS: Alanine Aminotransferase 18 U/L (12-78); Albumin Level 3.9 g/dl (3.5-5.0); Albumin/Globulin Ratio 1.2 (1.1-1.8); Alkaline Phosphatase 103 U/L (38-126); Anion Gap 8.6 mEq/L (5-15); Aspartate Amino Transferase 25 U/L (14-36); Bilirubin,Total 0.3 mg/dl (0.2-1.3); Blood Urea Nitrogen 20 mg/dl (7-17); Calcium 8.6 mg/dl (8.4-10.2); Carbon Dioxide 29 mmol/L (22.0-30.0); Chloride 101 mmol/L (98-107); Creatinine Clearance Estimated 46 mL/min (50-200); Estimated Glomerular Filt Rate 56 ml/min (>60); GFR (African American) 67 ML/MIN (>60); Globulin 3.2 g/dL (1.3-3.2); Glucose 106 mg/dl (74-100); Potassium 3.6 mmoL/L (3.5-5.1); Sodium 135 mmol/L (136-145); Total Protein,Serum 7.1 g/dl (6.3-8.2)
[2022-05-25 08:50] LABS: Coronavirus 19, PCR Detected (NotDetected)
--- NOTE | 2022-05-25 09:15 | CT_ITS ---
FINAL REPORT TECHNIQUE: Then section axial CT images of the chest were obtained with contrast. Three-D reformatted images were also obtained.This study was performed with techniques to keep radiation doses as low as reasonably achievable (ALARA). Individualized dose reduction techniques using automated exposure control or adjustment of mA and/or kV according to the patient''s size were employed. CLINICAL HISTORY: covid 19, hypoxia SOA 70 ML ISOV[address] 370 GIVEN FINDINGS: There is no evidence of pulmonary embolism. There is no evidence of thoracic aortic aneurysm or dissection. There is mild mediastinal adenopathy. There is a borderline size left axillary lymph node. There is no evidence of pulmonary mass or suspicious nodule. No localized inflammatory process is seen within the lungs. There is mild bibasilar atelectasis or scarring. Limited images of the upper abdomen demonstrates left adrenal gland enlargement favoring an adenoma. IMPRESSION: 1. No evidence of pulmonary embolism. 2. No acute process. 3. Mild mediastinal adenopathy. Reviewed, Interpreted and Dictated by Andres Max III, MD Transcribed by Enmanuel Joshi Authenticated and [facility]
--- NOTE | 2022-05-25 09:22 | PC.NURSE ---
Called care management and spoke with Florinda. Advised of pt admission. States that pt will be an acute admission. made aware.
--- NOTE | 2022-05-25 09:44 | HMH.HP ---
[facility] History Medical History: Reports:: Asthma, Chronic Obstructive Pulmonary Disease (COPD), Coronary Artery Disease, Depression, Diabetes Mellitus Type 2, Gastroesophageal Reflux Disease(GERD), Hyperlipidemia, Hypertension, Lung Disease, Migraine, Peripheral Artery Disease, Peripheral Vascular Disease Denies:: Cancer, Diabetes Mellitus Type 1, Internal Pacemaker, MRSA, Seizures *Have you ever received a pneumonia vaccine?: Yes *Have you received a flu vaccine this season?: Yes Other Medical History: Reports: Arthritis. Denies: Blood Transfusion Reaction Laterality Cases: Left: Other, Bilateral: Arthroscopy Shoulder Other Surgeries: Yes: Cardiac Catheterization, Colonoscopy, Coronary Stent, Hysterectomy-Total. No: Pacemaker Amputation: No Fractures: No - *Social History Smoking Status: Current every day smoker Tobacco Type: cigarettes # Packs/Day (cigarettes): 1 Alcohol Intake: never Alcohol Intake Frequency:: holidays/special occasions only Substance Use Type: denies use *Occupational Status:: unemployed Housing: house Household Members: spouse - Psychiatric History Pschychiatric History:: Reports:: Depression Family Hx:: No significant family history Meds Home Medications Medication Instructions Recorded Confirmed Type aspirin 325 mg tablet 325 mg PO DAILY #90 tab 11/24/19 05/17/22 Rx fenofibrate nanocrystallized 145 145 mg PO DAILY #90 tab 11/24/19 05/17/22 Rx mg tablet isosorbide mononitrate 60 mg 60 mg PO QAM #90 tab 11/24/19 05/17/22 Rx tablet,extended release 24 hr metoprolol succinate 100 mg 100 mg PO QDAY #90 tab 11/24/19 05/17/22 Rx tablet,extended release 24 hr diclofenac sodium 1 % topical gel 4 g TP QID PRN 30 Days #100 g 09/16/20 05/17/22 Rx albuterol sulfate 90 mcg/actuation 1 inh IH QID PRN #8.5 g 10/06/20 05/17/22 Rx aerosol inhaler loratadine 10 mg tablet 10 mg PO DAILY tab 10/10/20 05/17/22 History lisinopril 10 mg tablet 10 mg PO DAILY tab 10/20/20 05/17/22 History fluoxetine 20 mg capsule 20 mg PO DAILY #90 cap 11/08/20 05/17/22 Rx Cholecalciferol (Vitamin D3) 25 mcg PO DAILY 05/08/21 05/17/22 History [Vitamin D3 1,000 Unit Cap] Metformin HCl [Glucophage Xr] 500 mg PO DAILY 05/08/21 05/17/22 History Atorvastatin Calcium [Lipitor 20mg 20 mg PO HS 08/18/21 05/17/22 History Tab] Cyclobenzaprine HCl [Flexeril 10mg See Rx Instructions .ROUTE .COMPLEX 10/06/21 05/17/22 History tablet] Ibuprofen [Ibuprofen 800mg 800 mg PO Q8HP PRN #90 tab 01/08/22 05/17/22 Rx Tablet] Ondansetron [Zofran 4mg ODT] 4 mg PO BIDP PRN #10 tab 01/12/22 05/17/22 Rx trazodone 100 mg tablet 100 mg PO HS tab 02/07/22 05/17/22 History tramadol 50 mg tablet 50 mg PO Q8H PRN #90 tab 02/08/22 05/17/22 Rx gabapentin 800 mg tablet 800 mg PO TID #90 tab 02/19/22 05/17/22 Rx hydrocodone 5 mg-acetaminophen 325 1 tab PO Q8H PRN #21 tab 03/19/22 05/17/22 Rx mg tablet Blood Sugar Diagnostic [Blood See Rx Instructions .ROUTE 04/05/22 05/17/22 History Glucose Test] .MEDSUPPLY Blood-Glucose Meter See Rx Instructions .ROUTE 04/05/22 05/17/22 History NEEDED PRN Buspirone HCl [Buspar 10mg See Rx Instructions .ROUTE .COMPLEX 04/05/22 05/17/22 History tablet] Cetirizine HCl 10 mg PO DAILY 04/05/22 05/17/22 History Clopidogrel Bisulfate [Plavix] See Rx Instructions .ROUTE .COMPLEX 04/05/22 05/17/22 History Ergocalciferol (Vitamin D2) See Rx Instructions .ROUTE .COMPLEX 04/05/22 05/17/22 History [Drisdol] Ferrous Sulfate [Slow Fe] 142 mg PO DAILY 04/05/22 05/17/22 History Fluticasone Propionate 1 spray NS QDAY 04/05/22 05/17/22 History Ipratropium/Albuterol Sulfate 3 ml IH Q6 04/05/22 05/17/22 History [Duoneb 3mL neb] Lancets [Onetouch Delica Safety See Rx Instructions .ROUTE 04/05/22 05/17/22 History Lancet] .MEDSUPPLY Ropinirole HCl [Ropinirole ER] 6 mg PO HS 04/05/22 05/17/22 History furosemide 40 mg tablet 40 mg PO DAILY tab 05/01/22 05/17/22 History lancets 28 gauge See Rx Instru
--- NOTE | 2022-05-25 09:51 | PC.NURSE ---
Pt returned from Rad
--- NOTE | 2022-05-25 10:50 | PC.NURSE ---
Called house mover to inform her that we are cancelling the pt's admission. Pt has spoken with MD and this nurse and states that she does not wish to stay in the hospital and wants to go home. Pt states that she has O2 at home that she can use.
[2022-05-25 11:05] VITALS: BP 115/88; PULSE 90; RESP 22; TEMP 37.2; O2SAT 96
== END 2022-05-25 11:08 | disposition home or self-care (01) ==
LOC: ER 08:03 → 2ND 10:49
PROVIDERS: Emergency Provider Emergency Medicine; PCP Physician Assistant
DX: U07.1 COVID-19 (principal); J96.21 Acute and chronic respiratory failure with hypoxia; J44.1 Chronic obstructive pulmonary disease with (acute) exacerbation; R10.84 Generalized abdominal pain; M79.605 Pain in left leg; M79.604 Pain in right leg; R59.0 Localized enlarged lymph nodes; M54.40 Lumbago with sciatica, unspecified side; I10 Essential (primary) hypertension; K21.9 Gastro-esophageal reflux disease without esophagitis; E78.5 Hyperlipidemia, unspecified; E11.40 Type 2 diabetes mellitus with diabetic neuropathy, unspecified; F17.210 Nicotine dependence, cigarettes, uncomplicated; I25.10 Atherosclerotic heart disease of native coronary artery without angina pectoris; J98.4 Other disorders of lung; I73.9 Peripheral vascular disease, unspecified; M19.90 Unspecified osteoarthritis, unspecified site; G43.909 Migraine, unspecified, not intractable, without status migrainosus; F32.A Depression, unspecified; Z79.01 Long term (current) use of anticoagulants; Z79.02 Long term (current) use of antithrombotics/antiplatelets; Z79.1 Long term (current) use of non-steroidal anti-inflammatories (NSAID); Z79.51 Long term (current) use of inhaled steroids; Z79.82 Long term (current) use of aspirin; Z79.84 Long term (current) use of oral hypoglycemic drugs; Z79.899 Other long term (current) drug therapy; Z99.81 Dependence on supplemental oxygen
CPT/HCPCS: 71045; 71275; 80053; 83605; 85025; 87040; 87070; 87205; 96361; 96374; 99284; C9803; Q9967; U0003; U0005

== ENCOUNTER 2022-07-10 10:08 | Emergency (ER) | payer MEDICARE, MEDICAID, SELFPAY ==
--- NOTE | 2022-07-10 10:20 | XR_ITS ---
FINAL REPORT CLINICAL HISTORY: sob COMPARISON: 05/25/2022 FINDINGS: TWO-VIEW CHEST The heart size is normal. The mediastinum is normal. There is scarring at the left base. The lungs are otherwise clear. There is no pneumothorax. IMPRESSION: No acute cardiopulmonary process. Reviewed, Interpreted and Dictated by Deyvi Guerra MD Transcribed by Lauren Turpin Authenticated and [facility]
--- NOTE | 2022-07-10 10:20 | HMH.EDUTC ---
[facility] Disposition Clinical Impression: Viral syndrome, Exposure to COVID-19 virus, COPD exacerbation Disposition: Home, Self-Care Condition on Discharge: Good Instructions: Preventing the Spread of Coronavirus Discharge Instructions, DI for COVID-19 (Suspected or Confirmed ) Additional Instructions: Drink plenty of fluids. Take tylenol or ibuprofen for pain or fever. Take the medications as directed. Follow up with your regular doctor. GO TO THE ER FOR ANY WORSENING SYMPTOMS Quarantine until you know the results of your covid-19 test. Notify your school or workplace of your results and follow their instructions regarding return to work/school. Prescriptions: Benzonatate [Benzonatate 100mg cap] 100 mg PO TIDP PRN #30 cap PRN Reason: Cough Transmission Status: Pending to [facility] methylPREDNISolone [Medrol] 4 mg PO DIRECTED 6 Days #21 packet Transmission Status: Pending to [facility] Azithromycin [Z-Zion 250mg Tab*] 250 mg PO UD DOSE PK #6 tab Transmission Status: Pending to [facility] Referrals: Domitila Baldwin PA [Primary Care Provider] - Time of Disposition: 10:44 Medical Decision Making - Medical Records Medical records reviewed: No: I reviewed the patient's medical records. - Robson Inquiry Pt receiving controlled substance: No Vital Signs: 07/10/22 10:25 Temperature 97.3 F L Temperature Source Oral Pulse Rate [Left] 102 H Respiratory Rate 20 Blood Pressure [Right Arm] 105/62 L Blood Pressure Mean [Right Arm] 76 02 Sat by Pulse Oximetry 96 - Lab Data Lab results reviewed: Yes: I reviewed the patient's lab results. Lab Results 07/10/22 10:32: Strep Scn Rapid Clinic Negative Orders (Tests/Meds): ORDERS Category Date Time Status Chest XR 2 view (NOT portable) [XR chest 2V] Stat Exams 07/10/22 10:20 Taken Covid-19 Nasal PCR ([facility]) Routine Lab 07/10/22 10:34 Ordered Strep Screen Confirmation Stat Micro 07/10/22 10:32 Received [facility] HPI - General Stated complaint: Sneezing, cough, headache, sore throat Time Seen by Provider: 07/10/22 10:20 - History of Present Illness Provider Complaint: She states that for the past 2 days she has had worsening body aches, chills, low grade fever and congestion. She has a history of copd. - Related Data Home Medications Medication Instructions Recorded Confirmed loratadine 10 mg tablet 10 mg PO DAILY tab 10/10/20 05/17/22 lisinopril 10 mg tablet 10 mg PO DAILY tab 10/20/20 05/17/22 Cholecalciferol (Vitamin D3) 25 mcg PO DAILY 05/08/21 05/17/22 [Vitamin D3 1,000 Unit Cap] Metformin HCl [Glucophage Xr] 500 mg PO DAILY 05/08/21 05/17/22 Atorvastatin Calcium [Lipitor 20mg 20 mg PO HS 08/18/21 05/17/22 Tab] Cyclobenzaprine HCl [Flexeril 10mg See Rx Instructions .ROUTE .COMPLEX 10/06/21 05/17/22 tablet] trazodone 100 mg tablet 100 mg PO HS tab 02/07/22 05/17/22 Blood Sugar Diagnostic [Blood See Rx Instructions .ROUTE 04/05/22 05/17/22 Glucose Test] .MEDSUPPLY Blood-Glucose Meter See Rx Instructions .ROUTE 04/05/22 05/17/22 NEEDED PRN Buspirone HCl [Buspar 10mg See Rx Instructions .ROUTE .COMPLEX 04/05/22 05/17/22 tablet] Cetirizine HCl 10 mg PO DAILY 04/05/22 05/17/22 Clopidogrel Bisulfate [Plavix] See Rx Instructions .ROUTE .COMPLEX 04/05/22 05/17/22 Ergocalciferol (Vitamin D2) See Rx Instructions .ROUTE .COMPLEX 04/05/22 05/17/22 [Drisdol] Ferrous Sulfate [Slow Fe] 142 mg PO DAILY 04/05/22 05/17/22 Fluticasone Propionate 1 spray NS QDAY 04/05/22 05/17/22 Ipratropium/Albuterol Sulfate 3 ml IH Q6 04/05/22 05/17/22 [Duoneb 3mL neb] Lancets [Onetouch Delica Safety See Rx Instructions .ROUTE 04/05/22 05/17/22 Lancet] .MEDSUPPLY Ropinirole HCl [Ropinirole ER] 6 mg PO HS 04/05/22 05/17/22 furosemide 40 mg tablet 40 mg PO DAILY tab 05/01/22 05/17/22 lancets 28 gauge See Rx Instructions .ROUTE 05/01/22 05/17/22 .MEDSUPPLY #100 each
[2022-07-10 10:25] VITALS: BP 105/62; PULSE 102; RESP 20; TEMP 36.3; O2SAT 96; BMI 40.1
[2022-07-10 10:33] LABS: UTC Strep Screen (Rapid) Negative (Negative)
[2022-07-10 10:45] VITALS: BP 105/62; PULSE 102; RESP 20; TEMP 36.3
== END 2022-07-10 10:50 | disposition home or self-care (01) ==
PROVIDERS: Emergency Provider Nurse Practitioner Family; PCP Physician Assistant
DX: J44.1 Chronic obstructive pulmonary disease with (acute) exacerbation (principal); Z20.822 Contact with and (suspected) exposure to COVID-19
CPT/HCPCS: 71046; 87880; 99212; C9803; G0463; U0003; U0005

== ENCOUNTER 2022-08-12 16:08 | Emergency (ER) | payer MEDICARE, MEDICAID, SELFPAY ==
[2022-08-12 16:10] VITALS: BP 128/72; PULSE 94; RESP 16; TEMP 36.6; O2SAT 98; BMI 42.0
[2022-08-12 17:00] VITALS: BP 144/88; PULSE 88; RESP 20; O2SAT 93
--- NOTE | 2022-08-12 17:00 | XR_ITS ---
PROCEDURE INFORMATION: Exam: XR Chest Exam date and time: 08/12/2022 5:05 PM Age: 67 years old Clinical indication: Cough TECHNIQUE: Imaging protocol: Radiologic exam of the chest. Views: 2 views. COMPARISON: CR XR CHEST 2V 07/10/2022 10:15 AM FINDINGS: Lungs: Hyperinflated lungs, as can be seen in COPD. No lobar consolidation, pleural effusion or pulmonary edema. Pleural spaces: See Lungs finding. Heart/Mediastinum: Unremarkable. No cardiomegaly. Bones/joints: Unremarkable. IMPRESSION: 1. Hyperinflated lungs, as can be seen in COPD. 2. No lobar consolidation, pleural effusion or pulmonary edema. Plain films are relatively insensitive for detecting any possible ground glass opacities.
--- NOTE | 2022-08-12 17:01 | HMH.EDGENADL ---
Discharge Plan Disposition Patient Disposition: Home, Self-Care Condition: Fair Chief Complaint: Headache Prescriptions Prescriptions: No Action loratadine 10 mg tablet 10 mg PO DAILY Label Comments: TAKE 1 TABLET BY MOUTH AT NIGHT furosemide 40 mg tablet 40 mg PO DAILY Label Comments: TAKE 1 TABLET BY MOUTH ONCE DAILY (DME) lancets [FreeStyle Lancets] 28 gauge misc See Rx Instructions .ROUTE .MEDSUPPLY Qty: 100 Rx Instructions: As directed ciprofloxacin HCl [Cipro] 500 mg tablet 500 mg PO BID 5 Days Qty: 10 0RF aspirin 325 mg tablet 325 mg PO DAILY Qty: 90 3RF fenofibrate nanocrystallized 145 mg tablet 145 mg PO DAILY Qty: 90 0RF Rx Instructions: swallow whole; do not chew/break/dissolve/open isosorbide mononitrate 60 mg tablet extended release 24 hr 60 mg PO QAM Qty: 90 0RF metoprolol succinate [Toprol XL] 100 mg tablet extended release 24 hr 100 mg PO QDAY Qty: 90 0RF albuterol sulfate 90 mcg/actuation HFA aerosol inhaler 1 inh IH QID PRN (Reason: shortness of breath or wheezing) Qty: 8.5 2RF trazodone 100 mg tablet 100 mg PO HS Label Comments: TAKE 1 TABLET BY MOUTH ONCE DAILY AT NIGHT diclofenac sodium 1 % gel 4 g TP QID PRN (Reason: pain ) 30 Days Qty: 100 2RF Rx Instructions: apply to single, ankle, foot; for foot includes sole/toes/top of foot tramadol 50 mg tablet 50 mg PO Q8H PRN (Reason: pain) Qty: 90 0RF hydrocodone-acetaminophen 5-325 mg tablet 1 tab PO Q8H PRN (Reason: pain) Qty: 21 0RF promethazine-DM 6.25-15 mg/5 mL syrup 5 ml PO Q6H PRN (Reason: cough) Qty: 180 0RF ibuprofen 800 mg tablet 800 mg PO Q8HP PRN (Reason: Moderate Pain) Qty: 30 0RF peg 3350-electrolytes [GaviLyte-G] 236-22.74-6.74 -5.86 gram recon soln 240 ml PO Q10M Qty: 4000 0RF Rx Instructions: see mailed instructions gabapentin 800 mg tablet 800 mg PO TID Qty: 90 1RF fluoxetine 20 mg capsule 20 mg PO DAILY Qty: 90 3RF (DME) BD Veritor At-Home COVID19 Tst Kit See Rx Instructions .Route Qty: 2 0RF Rx Instructions: As directed (DME) BD Veritor At-Home COVID19 Tst Kit See Rx Instructions .Route Qty: 2 0RF Rx Instructions: As directed metformin 500 mg tablet extended release 24 hr 500 mg PO DAILY Qty: 90 3RF Rx Instructions: Take 1 tablet by mouth once daily cyclobenzaprine 10 MG tablet See Rx Instructions .Route .COMPLEX Rx Instructions: Take 1 tablet by mouth once daily azithromycin 250 MG tablet 250 mg PO UD DOSE PK Qty: 6 0RF Rx Instructions: Take two (2) tablets today, then one (1) tablet days #2 thru #5 benzonatate 100 MG capsule 100 mg PO TIDP PRN (Reason: Cough) Qty: 30 0RF methylprednisolone 4 MG tablets,dose pack 4 mg PO DIRECTED 6 Days Qty: 21 0RF lisinopril 10 mg tablet 10 mg PO DAILY cholecalciferol (vitamin D3) 1,000 UNIT capsule 25 mcg PO DAILY atorvastatin 20 MG tablet 20 mg PO HS ondansetron 4 MG tablet,disintegrating 4 mg PO BIDP PRN (Reason: Nausea) Qty: 10 0RF ipratropium-albuterol 3 ML solution for nebulization 3 ml IH Q6 cetirizine 10 MG tablet 10 mg PO DAILY clopidogrel 75 MG tablet See Rx Instructions .Route .COMPLEX Rx Instructions: TAKE 1 TABLET BY MOUTH ONCE DAILY FOR BLOOD THINNER (DME) blood sugar diagnostic 1 EACH strip See Rx Instructions .Route .MEDSUPPLY Rx Instructions: PT TO TEST GLUCOSE BID ([facility]) blood-glucose meter 1 EACH kit See Rx Instructions .Route NEEDED Rx Instructions: As directed buspirone 10 MG tablet See Rx Instructions .Route .COMPLEX Rx Instructions: Take 1 tablet by mouth twice daily ergocalciferol (vitamin D2) 1,250 MCG capsule See Rx Instructions .Route .COMPLEX Rx Instructions: Take 1 capsule by mouth once a week fluticasone prop
[2022-08-12 17:38] LABS: Coronavirus 19, PCR Not Detected (NotDetected); Influenza A, PCR Not Detected (NotDetected); Influenza B, PCR Not Detected (NotDetected)
[2022-08-12 17:54] LABS: Basophils # 0.2 K/mm3 (0-0.2); Basophils % 1.6 % (0.1-2.0); Eosinophils # 0.4 K/mm3 (0.0-0.4); Eosinophils % 3.3 % (0.1-12.0); Hematocrit 43.5 % (37.0-47.0); Hemoglobin 13.8 g/dL (12.2-16.2); Lymphocytes # 3.8 K/mm3 (0.7-4.5); Lymphocytes % 36.2 % (10-50); Mean Corpuscular HGB Conc 31.6 g/dL (31.8-35.4); Mean Corpuscular Hemoglobin 30.4 pg (27.0-31.2); Mean Corpuscular Volume 96.1 fl (81-99); Mean Platelet Volume 7.9 fl (7.4-10.4); Monocytes # 0.5 K/mm3 (0.1-1.0); Neutrophils # 5.7 K/mm3 (1.8-7.8); Neutrophils % 53.7 % (37.0-80.0); Platelet Count 330 K/mm3 (142-424); Red Blood Count 4.53 M/mm3 (4.20-5.40); Red Cell Distribution Width 13.7 % (11.5-17.5); White Blood Count 10.6 K/mm3 (4.8-10.8)
[2022-08-12 17:55] LABS: Chloride 102 mmol/L (98-107); Potassium 3.7 mmoL/L (3.5-5.1); Sodium 141 mmol/L (136-145)
[2022-08-12 17:58] LABS: Anion Gap 12.7 mEq/L (5-15); Blood Urea Nitrogen 19 mg/dl (7-17); Carbon Dioxide 30 mmol/L (22.0-30.0); Creatinine Clearance Estimated 46 mL/min (50-200); Estimated Glomerular Filt Rate 56 ml/min (>60); GFR (African American) 67 ML/MIN (>60)
[2022-08-12 17:59] LABS: Glucose 102 mg/dl (74-100)
[2022-08-12 18:03] LABS: Strep Scrn Group A (Rapid) Negative (Negative)
--- NOTE | 2022-08-12 18:11 | PC.NURSE ---
pt sleeping, at bedside
--- NOTE | 2022-08-12 19:17 | PC.NURSE ---
Pt voiced no needs or complaints at this time.
[2022-08-12 19:36] VITALS: BP 120/72; PULSE 88; RESP 19; TEMP 36.8; O2SAT 97
== END 2022-08-12 19:49 | disposition home or self-care (01) ==
PROVIDERS: Emergency Provider Emergency Medicine; PCP Physician Assistant
DX: R51.9 Headache, unspecified (principal); J06.9 Acute upper respiratory infection, unspecified; E11.9 Type 2 diabetes mellitus without complications; I10 Essential (primary) hypertension; I73.9 Peripheral vascular disease, unspecified; G25.81 Restless legs syndrome; F32.A Depression, unspecified; Z72.0 Tobacco use
CPT/HCPCS: 71046; 80048; 85025; 87430; 96374; 96375; 99284; C9803; U0003; U0005

== ENCOUNTER 2022-08-26 14:23 | Emergency (ER) | payer MEDICARE, MEDICAID, SELFPAY ==
[2022-08-26 14:24] VITALS: BP 130/72; PULSE 82; RESP 20; TEMP 36.8; O2SAT 97; BMI 43.7
--- NOTE | 2022-08-26 14:31 | XR_ITS ---
PROCEDURE INFORMATION: Exam: XR Chest Exam date and time: 08/26/2022 2:55 PM Age: 67 years old Clinical indication: Pain; Left-sided; Additional info: Chest pian left side TECHNIQUE: Imaging protocol: Radiologic exam of the chest. Views: 1 view. COMPARISON: CR XR CHEST 2V 08/12/2022 5:05 PM FINDINGS: Lungs: No lobar consolidation, pleural effusion or pulmonary edema. Pleural spaces: See Lungs finding. Heart/Mediastinum: Unremarkable. No cardiomegaly. Bones/joints: Unremarkable. IMPRESSION: No lobar consolidation, pleural effusion or pulmonary edema. Plain films are relatively insensitive for detecting any possible ground glass opacities.
--- NOTE | 2022-08-26 14:31 | PC.NURSE ---
ED MD AT BEDSIDE FOR EVALUATION
[2022-08-26 14:58] LABS: Basophils # 0.1 K/mm3 (0-0.2); Basophils % 1.3 % (0.1-2.0); Eosinophils # 0.3 K/mm3 (0.0-0.4); Eosinophils % 3.7 % (0.1-12.0); Hematocrit 41.3 % (37.0-47.0); Hemoglobin 13.5 g/dL (12.2-16.2); Lymphocytes # 3.1 K/mm3 (0.7-4.5); Lymphocytes % 35.8 % (10-50); Mean Corpuscular HGB Conc 32.7 g/dL (31.8-35.4); Mean Corpuscular Hemoglobin 30.6 pg (27.0-31.2); Mean Corpuscular Volume 93.4 fl (81-99); Mean Platelet Volume 8.1 fl (7.4-10.4); Monocytes # 0.4 K/mm3 (0.1-1.0); Neutrophils # 4.7 K/mm3 (1.8-7.8); Neutrophils % 54.1 % (37.0-80.0); Platelet Count 339 K/mm3 (142-424); Red Blood Count 4.43 M/mm3 (4.20-5.40); Red Cell Distribution Width 14.1 % (11.5-17.5); White Blood Count 8.7 K/mm3 (4.8-10.8)
--- NOTE | 2022-08-26 14:59 | ECG_ITS ---
APPROVED REPORT Exam: Resting ECG HR:73 bpm ECG Measurements Heart Rate 73 AXES HI 145 P 55 QRSd 88 QRS 57 QT 379 T 41 QTc 405 Conclusion SINUS RHYTHM NONSPECIFIC ST & T-WAVE ABNORMALITY BORDERLINE ECG UNCONFIRMED REPORT Electronically signed by : Gurvinder Gregory MD 08/27/2022 18:00:46
[2022-08-26 15:04] LABS: Chloride 103 mmol/L (98-107); Potassium 4.2 mmoL/L (3.5-5.1); Sodium 141 mmol/L (136-145)
[2022-08-26 15:06] LABS: Blood Urea Nitrogen 22 mg/dl (7-17); Creatinine Clearance Estimated 46 mL/min (50-200); Estimated Glomerular Filt Rate 56 ml/min (>60); GFR (African American) 67 ML/MIN (>60)
[2022-08-26 15:07] LABS: Alanine Aminotransferase 15 U/L (12-78); Albumin Level 4.2 g/dl (3.5-5.0); Albumin/Globulin Ratio 1.3 (1.1-1.8); Alkaline Phosphatase 120 U/L (38-126); Anion Gap 12.2 mEq/L (5-15); Aspartate Amino Transferase 25 U/L (14-36); Bilirubin,Total 0.3 mg/dl (0.2-1.3); Calcium 8.8 mg/dl (8.4-10.2); Carbon Dioxide 30 mmol/L (22.0-30.0); Globulin 3.3 g/dL (1.3-3.2); Glucose 97 mg/dl (74-100); Total Protein,Serum 7.5 g/dl (6.3-8.2)
[2022-08-26 15:42] LABS: Troponin I < 0.01 ng/ml (0.00-0.034)
--- NOTE | 2022-08-26 16:18 | HMH.EDGENADL ---
Discharge Plan Disposition Patient Disposition: Home, Self-Care Condition: Good Prescriptions Prescriptions: New methocarbamol 750 mg tablet 750 mg PO Q8H Qty: 20 0RF No Action loratadine 10 mg tablet 10 mg PO DAILY Label Comments: TAKE 1 TABLET BY MOUTH AT NIGHT furosemide 40 mg tablet 40 mg PO DAILY Label Comments: TAKE 1 TABLET BY MOUTH ONCE DAILY (DME) lancets [FreeStyle Lancets] 28 gauge misc See Rx Instructions .ROUTE .MEDSUPPLY Qty: 100 Rx Instructions: As directed aspirin 325 mg tablet 325 mg PO DAILY Qty: 90 3RF fenofibrate nanocrystallized 145 mg tablet 145 mg PO DAILY Qty: 90 0RF Rx Instructions: swallow whole; do not chew/break/dissolve/open metoprolol succinate [Toprol XL] 100 mg tablet extended release 24 hr 100 mg PO QDAY Qty: 90 0RF albuterol sulfate 90 mcg/actuation HFA aerosol inhaler 1 inh IH QID PRN (Reason: shortness of breath or wheezing) Qty: 8.5 2RF atorvastatin 80 mg tablet 80 mg PO Label Comments: TAKE 1 TABLET BY MOUTH ONCE DAILY ibuprofen 800 mg tablet 800 mg PO Q8HP PRN (Reason: Moderate Pain) Qty: 30 0RF peg 3350-electrolytes [GaviLyte-G] 236-22.74-6.74 -5.86 gram recon soln 240 ml PO Q10M Qty: 4000 0RF Rx Instructions: see mailed instructions fluoxetine 20 mg capsule 20 mg PO DAILY Qty: 90 3RF metformin 500 mg tablet extended release 24 hr 500 mg PO DAILY Qty: 90 3RF Rx Instructions: Take 1 tablet by mouth once daily gabapentin 800 mg tablet 800 mg PO TID Qty: 90 0RF cyclobenzaprine 10 MG tablet See Rx Instructions .Route .COMPLEX Rx Instructions: Take 1 tablet by mouth once daily lisinopril 10 mg tablet 10 mg PO DAILY cholecalciferol (vitamin D3) 1,000 UNIT capsule 25 mcg PO DAILY ondansetron 4 MG tablet,disintegrating 4 mg PO BIDP PRN (Reason: Nausea) Qty: 10 0RF ipratropium-albuterol 3 ML solution for nebulization 3 ml IH Q6 cetirizine 10 MG tablet 10 mg PO DAILY clopidogrel 75 MG tablet See Rx Instructions .Route .COMPLEX Rx Instructions: TAKE 1 TABLET BY MOUTH ONCE DAILY FOR BLOOD THINNER (DME) blood sugar diagnostic 1 EACH strip See Rx Instructions .Route .MEDSUPPLY Rx Instructions: PT TO TEST GLUCOSE BID (DME) blood-glucose meter 1 EACH kit See Rx Instructions .Route NEEDED Rx Instructions: As directed buspirone 10 MG tablet See Rx Instructions .Route .COMPLEX Rx Instructions: Take 1 tablet by mouth twice daily ergocalciferol (vitamin D2) 1,250 MCG capsule See Rx Instructions .Route .COMPLEX Rx Instructions: Take 1 capsule by mouth once a week fluticasone propionate 16 GM spray,suspension 1 spray NS QDAY Rx Instructions: administer into each nostril ropinirole 6 MG tablet extended release 24 hr 6 mg PO HS ferrous sulfate 142 MG tablet extended release 142 mg PO DAILY (DME) lancets 1 EACH misc See Rx Instructions .Route .MEDSUPPLY Rx Instructions: As directed Referrals Follow up/Referrals: Domitila Baldwin PA [Primary Care Provider] - See instructions Activity Restrictions/Add. Instructions Additional Instructions/Restrictions: Please follow-up with your primary care physician in the next 2 to 3 days for further management. Please also utilize Robaxin as prescribed. May also supplement with Tylenol. Please use [id number] cough suppressant as well as natural remedies such as mint tea to help with cough. May also utilize hot showers. Please return for any worsening symptoms such as difficulty breathing, worsening chest pain or any other concerns. Clinical Impressions Clinical Impression: Musculoskeletal chest pain, Cough Instructions Patient Instructions: Cough, DI for Musculoskeletal Pain Print Language Print Language: French Discharge ED Provider: Min
--- NOTE | 2022-08-26 16:26 | PC.NURSE ---
ROUNDED ON PT, NO NEEDS AT THIS TIME. CALL LIGHT WITHIN REACH
[2022-08-26 17:29] VITALS: BP 126/57; PULSE 75; RESP 20; TEMP 36.8; O2SAT 96
== END 2022-08-26 17:31 | disposition home or self-care (01) ==
PROVIDERS: Emergency Provider Student in an Organized Health Care Education/Training Program; PCP Physician Assistant
DX: R07.89 Other chest pain (principal); R05.9 Cough, unspecified
CPT/HCPCS: 71045; 80053; 84484; 85025; 93005; 99283

== ENCOUNTER → 2022-10-02 12:43 | Outpatient (CLI) | payer MEDICARE, MEDICAID, SELFPAY ==
--- NOTE | 2022-10-02 12:53 | XR_ITS ---
FINAL REPORT CLINICAL HISTORY: knee pain FINDINGS: 3 views of the right knee were obtained. There is no acute fracture or dislocation. There is moderate narrowing of the medial compartment joint space. There are osteophytes along the medial joint margin. There is moderate osteophyte formation along the undersurface of the patella. A small joint effusion is present. 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 Small joint effusion. Reviewed, Interpreted and Dictated by Deyvi Guerra MD Transcribed by Enmanuel Joshi Authenticated and [facility]
== END ==
PROVIDERS: PCP Physician Assistant; Visit Provider Orthopaedic Surgery
DX: M25.561 Pain in right knee (principal)
CPT/HCPCS: 73562

== ENCOUNTER → 2022-11-05 07:38 | Outpatient (CLI) | payer MEDICARE, MEDICAID, SELFPAY ==
--- NOTE | 2022-11-05 07:43 | XR_ITS ---
FINAL REPORT CLINICAL HISTORY: Right foot pain..no trauma COMPARISON: 10/16/2021 FINDINGS: RIGHT FOOT: Three views of the right foot were obtained. There is no acute fracture or dislocation. There is a mild hallux valgus deformity. Mild degenerative changes are seen. Calcaneal spurs are present. Soft tissues are unremarkable. IMPRESSION: Degenerative changes with no acute bony abnormality. Reviewed, Interpreted and Dictated by Andres Max III, MD Transcribed by Cyn Gu Authenticated and [facility]
--- NOTE | 2022-11-05 07:43 | XR_ITS ---
FINAL REPORT CLINICAL HISTORY: Right ankle pain..no trauma FINDINGS: RIGHT ANKLE: Three views of the right ankle were obtained. There is no acute fracture or dislocation. There are calcaneal spurs. Mild degenerative changes are seen. There is soft tissue swelling. IMPRESSION: Mild degenerative change with no acute bony abnormality. Reviewed, Interpreted and Dictated by Andres Max III, MD Transcribed by Cyn Gu Authenticated and . [facility]
== END ==
PROVIDERS: PCP Physician Assistant; Visit Provider Podiatrist
DX: M79.671 Pain in right foot (principal); M25.571 Pain in right ankle and joints of right foot
CPT/HCPCS: 73610; 73630

== ENCOUNTER 2023-01-17 13:58 | Emergency (ER) | payer MEDICARE, MEDICAID, SELFPAY ==
[2023-01-17 13:59] VITALS: BP 139/76; PULSE 88; RESP 19; TEMP 36.7; O2SAT 97; BMI 39.4
[2023-01-17 14:10] VITALS: BP 172/86; PULSE 107; RESP 20; TEMP 36.9; O2SAT 94; BMI 42.0
--- NOTE | 2023-01-17 14:15 | EXP.UTC ---
Discharge Plan Disposition Patient Disposition: Home, Self-Care Condition: Good Prescriptions Prescriptions: New cephalexin 500 mg capsule 500 mg PO QID Qty: 40 0RF mupirocin 2 % ointment 1 applic topical TID 7 Days Qty: 15 0RF No Action furosemide 40 mg tablet 40 mg PO DAILY Label Comments: TAKE 1 TABLET BY MOUTH ONCE DAILY (DME) lancets [FreeStyle Lancets] 28 gauge misc See Rx Instructions .ROUTE .MEDSUPPLY Qty: 100 Rx Instructions: As directed aspirin 325 mg tablet 325 mg PO DAILY Qty: 90 3RF albuterol sulfate 90 mcg/actuation HFA aerosol inhaler 1 inh IH QID PRN (Reason: shortness of breath or wheezing) Qty: 8.5 2RF atorvastatin 80 mg tablet 80 mg PO Label Comments: TAKE 1 TABLET BY MOUTH ONCE DAILY tramadol 200 mg tablet extended release 24 hr 200 mg PO DAILY Qty: 30 0RF trazodone 100 mg tablet 100 mg PO azithromycin [Zithromax] 250 mg tablet See Rx Instructions PO .COMPLEX Qty: 6 0RF Rx Instructions: For 250 mg dose pack: take 500 mg today (day 1), then 250 mg for 4 days (days 2-5) PO ibuprofen 800 mg tablet 800 mg PO Q8HP PRN (Reason: Moderate Pain) Qty: 30 0RF fluoxetine 20 mg capsule 20 mg PO DAILY Qty: 90 3RF metformin 500 mg tablet extended release 24 hr 500 mg PO DAILY Qty: 90 3RF Rx Instructions: Take 1 tablet by mouth once daily (DME) blood-glucose meter Kit See Rx Instructions .Route NEEDED Qty: 1 0RF Rx Instructions: Test sugar twice daily As directed (DME) blood sugar diagnostic Strip See Rx Instructions .Route .MEDSUPPLY Qty: 100 2RF Rx Instructions: PT TO TEST GLUCOSE BID (DME) lancets 30 gauge misc See Rx Instructions .Route .MEDSUPPLY Qty: 100 2RF Rx Instructions: Test sugar twice daily or As directed ipratropium-albuterol 0.5 mg-3 mg(2.5 mg base)/3 mL solution for nebulization 3 ml IH Q6 Qty: 180 0RF gabapentin 800 mg tablet 800 mg PO TID Qty: 90 0RF meloxicam 7.5 mg tablet See Rx Instructions .ROUTE .COMPLEX Qty: 30 0RF Dose Instruction: TAKE 1 TABLET BY MOUTH ONCE DAILY FOR PAIN Rx Instructions: TAKE 1 TABLET BY MOUTH ONCE DAILY FOR PAIN promethazine-DM 6.25-15 mg/5 mL syrup 5 ml PO Q6H PRN (Reason: cough) Qty: 180 0RF methocarbamol 750 mg tablet 750 mg PO Q8H Qty: 20 0RF cholecalciferol (vitamin D3) 1,000 UNIT capsule 25 mcg PO DAILY ondansetron 4 MG tablet,disintegrating 4 mg PO BIDP PRN (Reason: Nausea) Qty: 10 0RF cetirizine 10 MG tablet 10 mg PO DAILY clopidogrel 75 MG tablet See Rx Instructions .Route .COMPLEX Rx Instructions: TAKE 1 TABLET BY MOUTH ONCE DAILY FOR BLOOD THINNER buspirone 10 MG tablet See Rx Instructions .Route .COMPLEX Rx Instructions: Take 1 tablet by mouth twice daily ergocalciferol (vitamin D2) 1,250 MCG capsule See Rx Instructions .Route .COMPLEX Rx Instructions: Take 1 capsule by mouth once a week fluticasone propionate 16 GM spray,suspension 1 spray NS QDAY Rx Instructions: administer into each nostril ropinirole 6 MG tablet extended release 24 hr 6 mg PO HS ferrous sulfate 142 MG tablet extended release 142 mg PO DAILY Referrals Follow up/Referrals: Domitila Baldwin PA [Primary Care Provider] - See instructions Activity Restrictions/Add. Instructions Additional Instructions/Restrictions: Keep the wound clean and dry. Watch the wound for signs of infection, such as redness, swelling, drainage, fever. etc. Don't pull the steri-strips off. Let them come off on their own. Take tylenol or ibuprofen for pain. Follow up with your regular doctor. These wounds are sometimes hard to get healed up, especially since you are a diabetic. So, make sure you follow up with your primary care physician. GO TO THE ER FOR ANY WORSENING SYMPTOMS OR CONCERNS. Clinic
[2023-01-17 15:57] VITALS: BP 172/86; PULSE 107; RESP 20; TEMP 36.9; O2SAT 94
--- NOTE | 2023-01-17 15:58 | PC.NURSE ---
Applied non adherent pad then wrapped in kerlex and taped down. Gave pt some supplies to take home. Educated pt to make sure redress wound and to follow up with pcp.
== END 2023-01-17 15:55 | disposition home or self-care (01) ==
PROVIDERS: Emergency Provider Nurse Practitioner Family; PCP Physician Assistant
DX: S81.811A Laceration without foreign body, right lower leg, initial encounter (principal); Z23 Encounter for immunization
CPT/HCPCS: 12002; 90471; 90715; 99213; G0463

== ENCOUNTER 2023-01-28 11:35 | Emergency (ER) | payer MEDICARE, MEDICAID, SELFPAY ==
[2023-01-28 11:47] VITALS: BP 154/94; PULSE 94; RESP 20; TEMP 36.8; O2SAT 96; BMI 42.0
--- NOTE | 2023-01-28 11:48 | HMH.EDGENADL ---
Discharge Plan Disposition Patient Disposition: Home, Self-Care Prescriptions Prescriptions: New doxycycline hyclate 100 mg capsule 100 mg PO BID 10 Days Qty: 20 0RF prednisone 50 mg tablet 50 mg PO DAILY 5 Days Qty: 5 0RF Rx Instructions: Please begin 1 day after ED visit albuterol sulfate 90 mcg/actuation HFA aerosol inhaler 4 inh inhalation Q4H PRN (Reason: shortness of breath or wheezing) Qty: 8.5 0RF Rx Instructions: 4 puffs every 4 hours for 48 hours then as needed for shortness of breath or wheezing following No Action furosemide 40 mg tablet 40 mg PO DAILY Label Comments: TAKE 1 TABLET BY MOUTH ONCE DAILY (DME) lancets [FreeStyle Lancets] 28 gauge misc See Rx Instructions .ROUTE .MEDSUPPLY Qty: 100 Rx Instructions: As directed aspirin 325 mg tablet 325 mg PO DAILY Qty: 90 3RF albuterol sulfate 90 mcg/actuation HFA aerosol inhaler 1 inh IH QID PRN (Reason: shortness of breath or wheezing) Qty: 8.5 2RF atorvastatin 80 mg tablet 80 mg PO Label Comments: TAKE 1 TABLET BY MOUTH ONCE DAILY tramadol 200 mg tablet extended release 24 hr 200 mg PO DAILY Qty: 30 0RF trazodone 100 mg tablet 100 mg PO azithromycin [Zithromax] 250 mg tablet See Rx Instructions PO .COMPLEX Qty: 6 0RF Rx Instructions: For 250 mg dose pack: take 500 mg today (day 1), then 250 mg for 4 days (days 2-5) PO fluoxetine 20 mg capsule 20 mg PO DAILY Qty: 90 3RF metformin 500 mg tablet extended release 24 hr 500 mg PO DAILY Qty: 90 3RF Rx Instructions: Take 1 tablet by mouth once daily (DME) blood-glucose meter Kit See Rx Instructions .Route NEEDED Qty: 1 0RF Rx Instructions: Test sugar twice daily As directed (DME) blood sugar diagnostic Strip See Rx Instructions .Route .MEDSUPPLY Qty: 100 2RF Rx Instructions: PT TO TEST GLUCOSE BID (DME) lancets 30 gauge misc See Rx Instructions .Route .MEDSUPPLY Qty: 100 2RF Rx Instructions: Test sugar twice daily or As directed ipratropium-albuterol 0.5 mg-3 mg(2.5 mg base)/3 mL solution for nebulization 3 ml IH Q6 Qty: 180 0RF gabapentin 800 mg tablet 800 mg PO TID Qty: 90 0RF meloxicam 7.5 mg tablet See Rx Instructions .ROUTE .COMPLEX Qty: 30 0RF Dose Instruction: TAKE 1 TABLET BY MOUTH ONCE DAILY FOR PAIN Rx Instructions: TAKE 1 TABLET BY MOUTH ONCE DAILY FOR PAIN promethazine-DM 6.25-15 mg/5 mL syrup 5 ml PO Q6H PRN (Reason: cough) Qty: 180 0RF ibuprofen 800 mg tablet 800 mg PO Q8HP PRN (Reason: Moderate Pain) Qty: 30 0RF methocarbamol 750 mg tablet 750 mg PO Q8H Qty: 20 0RF cephalexin 500 mg capsule 500 mg PO QID Qty: 40 0RF mupirocin 2 % ointment 1 applic topical TID 7 Days Qty: 15 0RF cholecalciferol (vitamin D3) 1,000 UNIT capsule 25 mcg PO DAILY ondansetron 4 MG tablet,disintegrating 4 mg PO BIDP PRN (Reason: Nausea) Qty: 10 0RF cetirizine 10 MG tablet 10 mg PO DAILY clopidogrel 75 MG tablet See Rx Instructions .Route .COMPLEX Rx Instructions: TAKE 1 TABLET BY MOUTH ONCE DAILY FOR BLOOD THINNER buspirone 10 MG tablet See Rx Instructions .Route .COMPLEX Rx Instructions: Take 1 tablet by mouth twice daily ergocalciferol (vitamin D2) 1,250 MCG capsule See Rx Instructions .Route .COMPLEX Rx Instructions: Take 1 capsule by mouth once a week fluticasone propionate 16 GM spray,suspension 1 spray NS QDAY Rx Instructions: administer into each nostril ropinirole 6 MG tablet extended release 24 hr 6 mg PO HS ferrous sulfate 142 MG tablet extended release 142 mg PO DAILY Referrals Follow up/Referrals: Domitila Baldwin PA [Primary Care Provider] - See instructions Clinical Impressions Clinical Impression: Acute exacerbation of chronic obstructive pulmonary disease, Headache Disch
--- NOTE | 2023-01-28 11:52 | XR_ITS ---
FINAL REPORT TECHNIQUE: Single view chest CLINICAL HISTORY: dyspnea COMPARISON: 07/10/2022 FINDINGS: A single view of the chest was obtained. The heart and mediastinum are within normal limits. The lungs are clear. There is no pneumothorax. Osseous structures are unremarkable. IMPRESSION: No acute cardiopulmonary process. Reviewed, Interpreted and Dictated by Andres Max III, MD Transcribed by Leonora Do Authenticated and [facility]
[2023-01-28 12:00] VITALS: BP 168/75; PULSE 84; RESP 22; O2SAT 96
[2023-01-28 12:01] LABS: Basophils # 0.1 K/mm3 (0-0.2); Eosinophils # 0.4 K/mm3 (0.0-0.4); Eosinophils % 4.2 % (0.1-12.0); Hematocrit 43.6 % (37.0-47.0); Hemoglobin 14.4 g/dL (12.2-16.2); Lymphocytes # 2.9 K/mm3 (0.7-4.5); Lymphocytes % 32.8 % (10-50); Mean Corpuscular Volume 90.9 fl (81-99); Mean Platelet Volume 8.1 fl (7.4-10.4); Monocytes # 0.4 K/mm3 (0.1-1.0); Monocytes % 4.1 % (1.7-9.3); Neutrophils # 5.1 K/mm3 (1.8-7.8); Platelet Count 387 K/mm3 (142-424); Red Blood Count 4.79 M/mm3 (4.20-5.40); Red Cell Distribution Width 14.4 % (11.5-17.5); White Blood Count 8.8 K/mm3 (4.8-10.8)
[2023-01-28 12:05] LABS: Chloride 105 mmol/L (98-107); Potassium 4.7 mmoL/L (3.5-5.1); Sodium 138 mmol/L (136-145)
[2023-01-28 12:08] LABS: Alanine Aminotransferase 20 U/L (12-78); Albumin Level 4.5 g/dl (3.5-5.0); Albumin/Globulin Ratio 1.2 (1.1-1.8); Alkaline Phosphatase 114 U/L (38-126); Anion Gap 9.7 mEq/L (5-15); Aspartate Amino Transferase 32 U/L (14-36); Bilirubin,Total 0.6 mg/dl (0.2-1.3); Blood Urea Nitrogen 24 mg/dl (7-17); Carbon Dioxide 28 mmol/L (22.0-30.0); Creatinine Clearance Estimated 46 mL/min (50-200); Estimated Glomerular Filt Rate 72 ml/min (>60); GFR (African American) 87 ML/MIN (>60); Globulin 3.8 g/dL (1.3-3.2); Glucose 100 mg/dl (74-100); Total Protein,Serum 8.3 g/dl (6.3-8.2)
[2023-01-28 12:21] VITALS: BP 180/98; PULSE 89; RESP 20; O2SAT 94
--- NOTE | 2023-01-28 12:28 | ECG_ITS ---
APPROVED REPORT Exam: Resting ECG HR:87 bpm ECG Measurements Heart Rate 87 AXES TX 118 P 37 QRSd 94 QRS 78 QT 344 T 50 QTc 388 Conclusion SINUS RHYTHM WITH SHORT TX INTERVAL ST DEVIATION AND MODERATE T-WAVE ABNORMALITY, CONSIDER INFERIOR ISCHEMIA [-0.1+ mV T-WAVE IN II/aVF] ABNORMAL ECG UNCONFIRMED REPORT Electronically signed by : Gurvinder Gregory MD 01/29/2023 20:31:22
[2023-01-28 12:32] VITALS: BP 202/115; PULSE 87; O2SAT 94
[2023-01-28 13:00] VITALS: BP 156/93; PULSE 87; O2SAT 94
[2023-01-28 13:44] VITALS: BP 166/88; PULSE 91; RESP 18; TEMP 36.8; O2SAT 95
== END 2023-01-28 13:47 | disposition home or self-care (01) ==
PROVIDERS: Emergency Provider Student in an Organized Health Care Education/Training Program; PCP Physician Assistant
DX: J44.1 Chronic obstructive pulmonary disease with (acute) exacerbation (principal); R51.9 Headache, unspecified; M54.41 Lumbago with sciatica, right side; M54.42 Lumbago with sciatica, left side; F32.A Depression, unspecified; E11.40 Type 2 diabetes mellitus with diabetic neuropathy, unspecified; I10 Essential (primary) hypertension; F17.210 Nicotine dependence, cigarettes, uncomplicated
CPT/HCPCS: 71045; 80053; 85025; 93005; 96361; 96374; 96375; 99284; 99285

== ENCOUNTER 2023-03-09 13:57 | Emergency (ER) | payer MEDICARE, MEDICAID, SELFPAY ==
--- NOTE | 2023-03-09 13:57 | ECG_ITS ---
APPROVED REPORT Exam: Resting ECG HR:70 bpm ECG Measurements Heart Rate 70 AXES VA 142 P 41 QRSd 91 QRS 68 QT 362 T 48 QTc 383 Conclusion SINUS RHYTHM NONSPECIFIC ST & T-WAVE ABNORMALITY BORDERLINE ECG UNCONFIRMED REPORT Electronically signed by : Gurvinder Gregory MD 03/10/2023 12:53:05
[2023-03-09 13:59] VITALS: BP 137/85; PULSE 72; RESP 16; O2SAT 98
[2023-03-09 14:00] VITALS: BP 137/85; RESP 20; TEMP 36.7; O2SAT 99; BMI 42.0
--- NOTE | 2023-03-09 14:08 | HMH.EDABDPAI ---
Discharge Plan Disposition Patient Disposition: Home, Self-Care Chief Complaint: Abdominal Pain Prescriptions Prescriptions: No Action furosemide 40 mg tablet 40 mg PO DAILY Label Comments: TAKE 1 TABLET BY MOUTH ONCE DAILY (DME) lancets [FreeStyle Lancets] 28 gauge misc See Rx Instructions .ROUTE .MEDSUPPLY Qty: 100 Rx Instructions: As directed isosorbide mononitrate 60 mg tablet extended release 24 hr 60 mg PO DAILY Label Comments: TAKE 1 TABLET BY MOUTH ONCE DAILY IN THE MORNING metoprolol succinate [Toprol XL] 50 mg tablet extended release 24 hr 50 mg PO DAILY Qty: 30 5RF methocarbamol 750 mg tablet 750 mg PO Q8H (DME) blood-glucose meter [Accu-Chek Guide Glucose Meter] Misc See Rx Instructions .ROUTE .MEDSUPPLY Qty: 1 Label Comments: USE TO CHECK GLUCOSE TWICE DAILY DIRECTED FOR DIABETES Rx Instructions: As directed (DME) lancets [Accu-Chek Softclix Lancets] Misc See Rx Instructions .ROUTE .MEDSUPPLY Qty: 100 Rx Instructions: As directed nitroglycerin 0.4 mg tablet, sublingual 0.8 mg sublingual ONCE [id number] [Fioricet] 50-300-40 mg capsule 1 cap PO Q8H PRN (Reason: headache) Qty: 20 0RF Ubrelvy 100 mg tablet 100 mg PO ONCE Qty: 16 0RF aspirin 325 mg tablet 325 mg PO DAILY Qty: 90 3RF atorvastatin 80 mg tablet 80 mg PO Label Comments: TAKE 1 TABLET BY MOUTH ONCE DAILY trazodone 100 mg tablet 100 mg PO fluoxetine 20 mg capsule 20 mg PO DAILY Qty: 90 3RF metformin 500 mg tablet extended release 24 hr 500 mg PO DAILY Qty: 90 3RF Rx Instructions: Take 1 tablet by mouth once daily (DME) blood-glucose meter Kit See Rx Instructions .Route NEEDED Qty: 1 0RF Rx Instructions: Test sugar twice daily As directed (DME) blood sugar diagnostic Strip See Rx Instructions .Route .MEDSUPPLY Qty: 100 2RF Rx Instructions: PT TO TEST GLUCOSE BID (DME) lancets 30 gauge misc See Rx Instructions .Route .MEDSUPPLY Qty: 100 2RF Rx Instructions: Test sugar twice daily or As directed ipratropium-albuterol 0.5 mg-3 mg(2.5 mg base)/3 mL solution for nebulization 3 ml IH Q6 Qty: 180 0RF meloxicam 7.5 mg tablet See Rx Instructions .ROUTE .COMPLEX Qty: 30 0RF Dose Instruction: TAKE 1 TABLET BY MOUTH ONCE DAILY FOR PAIN Rx Instructions: TAKE 1 TABLET BY MOUTH ONCE DAILY FOR PAIN promethazine-DM 6.25-15 mg/5 mL syrup 5 ml PO Q6H PRN (Reason: cough) Qty: 180 0RF ibuprofen 800 mg tablet 800 mg PO Q8HP PRN (Reason: Moderate Pain) Qty: 30 0RF tramadol 200 mg tablet extended release 24 hr 200 mg PO DAILY Qty: 30 2RF gabapentin 800 mg tablet 800 mg PO TID Qty: 90 2RF albuterol sulfate 90 mcg/actuation HFA aerosol inhaler 4 inh inhalation Q4H PRN (Reason: shortness of breath or wheezing) Qty: 8.5 0RF Rx Instructions: 4 puffs every 4 hours for 48 hours then as needed for shortness of breath or wheezing following cholecalciferol (vitamin D3) 1,000 UNIT capsule 25 mcg PO DAILY ondansetron 4 MG tablet,disintegrating 4 mg PO BIDP PRN (Reason: Nausea) Qty: 10 0RF clopidogrel 75 MG tablet See Rx Instructions .Route .COMPLEX Rx Instructions: TAKE 1 TABLET BY MOUTH ONCE DAILY FOR BLOOD THINNER ergocalciferol (vitamin D2) 1,250 MCG capsule See Rx Instructions .Route .COMPLEX Rx Instructions: Take 1 capsule by mouth once a week fluticasone propionate 16 GM spray,suspension 1 spray NS QDAY Rx Instructions: administer into each nostril ferrous sulfate 142 MG tablet extended release 142 mg PO DAILY ropinirole 6 mg tablet extended release 24 hr 6 mg PO HS buspirone 10 mg tablet 10 mg PO BID Referrals Follow up/Referrals: Provider,Referral, MD [Referring] - See instructions Activity Restrictions/Add. Instructi
[2023-03-09 14:12] LABS: Basophils # 0.1 K/mm3 (0-0.2); Basophils % 1.1 % (0.1-2.0); Chloride 104 mmol/L (98-107); Eosinophils # 0.3 K/mm3 (0.0-0.4); Eosinophils % 3.8 % (0.1-12.0); Hematocrit 45.1 % (37.0-47.0); Hemoglobin 14.7 g/dL (12.2-16.2); Lymphocytes # 3.2 K/mm3 (0.7-4.5); Lymphocytes % 36.9 % (10-50); Mean Corpuscular HGB Conc 32.6 g/dL (31.8-35.4); Mean Corpuscular Hemoglobin 29.7 pg (27.0-31.2); Mean Corpuscular Volume 91.1 fl (81-99); Mean Platelet Volume 7.7 fl (7.4-10.4); Monocytes # 0.4 K/mm3 (0.1-1.0); Monocytes % 4.1 % (1.7-9.3); Neutrophils # 4.7 K/mm3 (1.8-7.8); Platelet Count 294 K/mm3 (142-424); Red Blood Count 4.95 M/mm3 (4.20-5.40); Red Cell Distribution Width 14.7 % (11.5-17.5); Sodium 140 mmol/L (136-145); White Blood Count 8.6 K/mm3 (4.8-10.8)
[2023-03-09 14:13] LABS: Potassium 3.8 mmoL/L (3.5-5.1)
[2023-03-09 14:15] LABS: Alanine Aminotransferase 15 U/L (12-78); Alkaline Phosphatase 122 U/L (38-126); Anion Gap 9.8 mEq/L (5-15); Aspartate Amino Transferase 23 U/L (14-36); Bilirubin,Total 0.4 mg/dl (0.2-1.3); Blood Urea Nitrogen 22 mg/dl (7-17); Carbon Dioxide 30 mmol/L (22.0-30.0); Creatinine Clearance Estimated 46 mL/min (50-200); Estimated Glomerular Filt Rate 56 ml/min (>60); GFR (African American) 67 ML/MIN (>60); Lipase 128 U/L (23-300)
[2023-03-09 14:16] LABS: Albumin Level 4.2 g/dl (3.5-5.0); Albumin/Globulin Ratio 1.1 (1.1-1.8); Calcium 9.3 mg/dl (8.4-10.2); Globulin 3.7 g/dL (1.3-3.2); Glucose 93 mg/dl (74-100); Total Protein,Serum 7.9 g/dl (6.3-8.2)
[2023-03-09 14:29] LABS: Troponin I < 0.01 ng/ml (0.00-0.034)
[2023-03-09 14:30] VITALS: BP 142/73; PULSE 63; RESP 16; O2SAT 96
--- NOTE | 2023-03-09 14:43 | PC.NURSE ---
Minimal improvement with GI cocktail. MD notified.
--- NOTE | 2023-03-09 14:59 | PC.NURSE ---
Patient provided oral fluids per patient's request. approved.
[2023-03-09 15:00] VITALS: BP 125/76; PULSE 67; RESP 16; O2SAT 95
--- NOTE | 2023-03-09 15:24 | PC.NURSE ---
Rounded on patient; call light within reach
[2023-03-09 15:30] VITALS: BP 137/70; PULSE 71; RESP 13; O2SAT 96
[2023-03-09 15:37] VITALS: BP 137/70; PULSE 71; RESP 16; TEMP 36.7; O2SAT 96
== END 2023-03-09 15:39 | disposition home or self-care (01) ==
PROVIDERS: Emergency Provider Emergency Medicine; PCP Physician Assistant
DX: R07.9 Chest pain, unspecified (principal); F17.210 Nicotine dependence, cigarettes, uncomplicated; R10.13 Epigastric pain
CPT/HCPCS: 80053; 83690; 84484; 85025; 93005; 96372; 99285

== ENCOUNTER → 2023-04-12 12:05 | Outpatient (CLI) | payer MEDICARE, MEDICAID, SELFPAY ==
[2023-04-12 13:17] LABS: Basophils # 0.1 K/mm3 (0-0.2); Basophils % 0.8 % (0.1-2.0); Eosinophils # 0.3 K/mm3 (0.0-0.4); Eosinophils % 3.2 % (0.1-12.0); Hematocrit 42.5 % (37.0-47.0); Hemoglobin 14.1 g/dL (12.2-16.2); Lymphocytes # 2.7 K/mm3 (0.7-4.5); Lymphocytes % 32.7 % (10-50); Mean Corpuscular HGB Conc 33.1 g/dL (31.8-35.4); Mean Corpuscular Volume 93.5 fl (81-99); Mean Platelet Volume 7.9 fl (7.4-10.4); Monocytes # 0.3 K/mm3 (0.1-1.0); Monocytes % 4.1 % (1.7-9.3); Neutrophils # 4.9 K/mm3 (1.8-7.8); Neutrophils % 59.2 % (37.0-80.0); Platelet Count 347 K/mm3 (142-424); Red Blood Count 4.55 M/mm3 (4.20-5.40); Red Cell Distribution Width 14.8 % (11.5-17.5); White Blood Count 8.2 K/mm3 (4.8-10.8)
[2023-04-12 14:14] LABS: Alanine Aminotransferase 18 U/L (12-78); Albumin/Globulin Ratio 1.3 (1.1-1.8); Alkaline Phosphatase 130 U/L (38-126); Anion Gap 15.2 mEq/L (5-15); Aspartate Amino Transferase 25 U/L (14-36); Bilirubin,Total 0.3 mg/dl (0.2-1.3); Blood Urea Nitrogen 19 mg/dl (7-17); Carbon Dioxide 28 mmol/L (22.0-30.0); Chloride 103 mmol/L (98-107); Chol/HDL Ratio 3.2 (1-3.5); Cholesterol 198 mg/dl (140-200); Estimated Glomerular Filt Rate 63 ml/min (>60); GFR (African American) 76 ML/MIN (>60); Globulin 3.2 g/dL (1.3-3.2); Glucose 116 mg/dl (74-100); HDL Cholesterol 62 mg/dl (40-60); Potassium 4.2 mmoL/L (3.5-5.1); Sodium 142 mmol/L (136-145); Total Protein,Serum 7.2 g/dl (6.3-8.2); Triglycerides 158 mg/dl (30-150); VLDL Cholesterol 32 mg/dL (0-40)
[2023-04-12 14:30] LABS: 25-OH Vitamin D, Total 33.8 ng/mL (30-100)
[2023-04-12 14:45] LABS: Thyroid Stimulating Hormone 1.15 uIU/mL (0.465-4.68)
[2023-04-12 15:04] LABS: Vitamin B12 306 pg/mL (239-931)
[2023-04-12 15:47] LABS: Hemoglobin A1C 5.9 % (4.0-6.0)
== END ==
PROVIDERS: PCP Physician Assistant; Visit Provider Physician Assistant
DX: E11.40 Type 2 diabetes mellitus with diabetic neuropathy, unspecified (principal); E55.9 Vitamin D deficiency, unspecified; R53.83 Other fatigue; J40 Bronchitis, not specified as acute or chronic; E03.9 Hypothyroidism, unspecified; R79.89 Other specified abnormal findings of blood chemistry; K59.00 Constipation, unspecified; Z79.84 Long term (current) use of oral hypoglycemic drugs
CPT/HCPCS: 36415; 80053; 80061; 82306; 82607; 83036; 84439; 84443; 85025

== ENCOUNTER → 2023-05-22 10:38 | Outpatient (CLI) | payer MEDICARE, MEDICAID, SELFPAY ==
--- NOTE | 2023-05-22 10:38 | CT_ITS ---
FINAL REPORT CLINICAL HISTORY: lung cancer screening, smoker 1 ppd x 30 years copd, family hx of lung cancer COMPARISON: 05/25/2022 FINDINGS: CT CHEST LOW DOSE SCREENING HISTORY: Screening exam for lung cancer. Current smoker, 30 pack year smoking history DOSE: CTDIvol: 2.9 mGy, DLP: 97.95 mGy*cm COMPARISON: 05/25/2022. TECHNIQUE: Axial CT without IV contrast administration using low dose protocol FINDINGS: Severe coronary artery calcifications are identified. There is mild emphysematous change in the lungs bilaterally. Multiple calcified granulomas are identified. Mild scarring is present in the lung bases. No pulmonary lesions are seen suspicious for neoplasm. No pleural or pericardial effusion is seen . There is enlargement of the left adrenal gland, likely adenoma, unchanged since the prior CT of May 2022.. IMPRESSION: Severe coronary artery calcifications. Mild changes of emphysema and scarring in the lung bases. Left adrenal enlargement likely adenoma unchanged since 2021. LUNG RADS CATEGORY 1S RECOMMENDATION: 12 month LDCT follow up Reviewed, Interpreted and Dictated by Andres Max III, MD Transcribed by Nguyen Martinez Authenticated and [facility]
== END ==
PROVIDERS: PCP Physician Assistant; Visit Provider Physician Assistant
DX: Z87.891 Personal history of nicotine dependence (principal); Z12.2 Encounter for screening for malignant neoplasm of respiratory organs
CPT/HCPCS: 71271

== ENCOUNTER 2023-05-28 14:17 | Emergency (ER) | payer MEDICARE, MEDICAID, SELFPAY ==
[2023-05-28] VITALS (8 sets, daily range): BP systolic 114–152; BP diastolic 68–83; PULSE 57–85; RESP 18–20; TEMP 36.8–36.9; O2SAT 90–94; BMI 38.4
--- NOTE | 2023-05-28 14:17 | ECG_ITS ---
APPROVED REPORT Exam: Resting ECG HR:82 bpm ECG Measurements Heart Rate 82 AXES WA 147 P 67 QRSd 96 QRS 78 QT 369 T 26 QTc 408 Conclusion SINUS RHYTHM NONSPECIFIC ST & T-WAVE ABNORMALITY BORDERLINE ECG UNCONFIRMED REPORT Electronically signed by : Gurvinder Gregory MD 05/30/2023 21:39:39
--- NOTE | 2023-05-28 14:33 | XR_ITS ---
FINAL REPORT CLINICAL HISTORY: dyspnea FINDINGS: The heart size is normal. The mediastinum is within normal limits. There is minimal bibasilar atelectasis or scarring. There is no pleural effusion. There is no pneumothorax. The bony thorax is intact. IMPRESSION: No acute cardiopulmonary process. Reviewed, Interpreted and Dictated by Andres Max III, MD Transcribed by Enmanuel Joshi Authenticated and [facility]
--- NOTE | 2023-05-28 14:34 | HMH.EDGENADL ---
Discharge Plan Disposition Patient Disposition: Home, Self-Care Prescriptions Prescriptions: No Action atorvastatin 80 mg tablet 80 mg PO DAILY Patient Comments: TAKE 1 TABLET BY MOUTH ONCE DAILY ipratropium-albuterol 0.5 mg-3 mg(2.5 mg base)/3 mL solution for nebulization 3 ml INHALATION Q4-6H PRN (Reason: Breathing Problems) metoprolol succinate 50 mg tablet extended release 24 hr 50 mg PO DAILY potassium chloride 10 mEq tablet extended release 10 meq PO DAILY Patient Comments: TAKE 1 TABLET BY MOUTH ONCE DAILY clopidogrel 75 mg tablet 75 mg PO DAILY Patient Comments: TAKE 1 TABLET BY MOUTH ONCE DAILY gabapentin 800 mg tablet 800 mg PO BID trazodone 100 mg tablet 100 mg PO HS Patient Comments: TAKE 1 TABLET BY MOUTH ONCE DAILY AT NIGHT aspirin 81 mg Tablet,Chewable 81 mg PO DAILY furosemide 20 mg tablet 20 mg PO DAILY Patient Comments: TAKE 1 TABLET BY MOUTH ONCE DAILY fluoxetine 20 mg capsule 20 mg PO DAILY Patient Comments: TAKE 1 CAPSULE BY MOUTH ONCE DAILY metformin 500 mg tablet extended release 24 hr 500 mg PO DAILY Patient Comments: TAKE 1 TABLET BY MOUTH ONCE DAILY FOR DIABETES tramadol 200 mg tablet extended release 24 hr 200 mg PO DAILY Referrals Follow up/Referrals: Domitila Baldwin PA [Primary Care Provider] - See instructions Activity Restrictions/Add. Instructions Additional Instructions/Restrictions: Follow-up as soon as possible with your stock supervisor as previously instructed. Return with any worsening or ongoing symptoms. Clinical Impressions Clinical Impression: Chest pain Discharge ED Provider: Steven Cole General Adult HPI General Chief complaint: Chest Pain Stated complaint: chest pain Time Seen by Provider: 05/28/23 14:25 Mode of Arrival: Ambulatory Source of Information: Patient Limitations: No Limitations Description of Symptoms (Recalled from ER Triage Doc. by RN): 68 F presents with left sided chest pressure that started this AM after she woke up. Patient reports new dyspnea, different from her normal. She states she has CAD, cardiac stents, and she is supposed to see her cardologist soon. She see's Dr. Tavares in [place] for her cardiology care. Patient denies other ACS symptoms at this time. History of Present Illness HPI narrative: Patient is a 68-year-old female here with chest pain. This has been intermittently ongoing all day today. Sternal in nature nonradiating no associated nausea diaphoresis or exertional components today. She has a known history of coronary artery disease with stents she is followed by stock supervisor in [place]. She recently had a CT scan of her chest to evaluate for lung cancer which noted severe coronary artery calcifications she was also seen in January by our cardiology clinic and they were going to do an outpatient stress test unclear as to whether or not that was performed. She has not followed back up with our stock supervisor here. She has not had a heart cath in several years and denies having recently had a stress test. She states the symptoms today have been intermittent in nature and have lasted at most 10 minutes and have come on randomly without any specific alleviating or aggravating conditions. Related Data Home Medications Medication Instructions Recorded Confirmed aspirin 81 mg chewable tablet 81 mg PO DAILY Heart Disease 05/28/23 05/28/23 atorvastatin 80 mg tablet 80 mg PO DAILY High Cholesterol 05/28/23 05/28/23 clopidogrel 75 mg tablet 75 mg PO DAILY Anti-platelet 05/28/23 05/28/23 fluoxetine 20 mg capsule 20 mg PO DAILY Depression 05/28/23 05/28/23 furosemide 20 mg tablet 20 mg PO DAILY Fluid 05/28/23 05/28/23 gabapentin 800 mg tablet 800 mg PO BID Neuropathy 05/28/23 05/28/23 ipratropium 0.5 mg-albuterol 3 mg 3 ml inhalation Q4-6H PRN 05/28/23 05/28/23 (2.5 mg base)/3 mL nebulization Breathing Problems soln
[2023-05-28 14:45] LABS: Basophils # 0.1 K/mm3 (0-0.2); Basophils % 0.7 % (0.1-2.0); Eosinophils # 0.2 K/mm3 (0.0-0.4); Eosinophils % 2.7 % (0.1-12.0); Hematocrit 45.8 % (37.0-47.0); Hemoglobin 14.2 g/dL (12.2-16.2); Lymphocytes # 3.2 K/mm3 (0.7-4.5); Lymphocytes % 35.5 % (10-50); Mean Corpuscular HGB Conc 31.1 g/dL (31.8-35.4); Mean Corpuscular Hemoglobin 28.9 pg (27.0-31.2); Mean Corpuscular Volume 92.9 fl (81-99); Mean Platelet Volume 7.8 fl (7.4-10.4); Monocytes # 0.3 K/mm3 (0.1-1.0); Monocytes % 3.4 % (1.7-9.3); Neutrophils # 5.1 K/mm3 (1.8-7.8); Neutrophils % 57.6 % (37.0-80.0); Platelet Count 316 K/mm3 (142-424); Red Blood Count 4.93 M/mm3 (4.20-5.40); Red Cell Distribution Width 13.7 % (11.5-17.5); White Blood Count 8.9 K/mm3 (4.8-10.8)
[2023-05-28 15:08] LABS: Chloride 105 mmol/L (98-107)
[2023-05-28 15:09] LABS: Potassium 3.8 mmoL/L (3.5-5.1); Sodium 141 mmol/L (136-145)
[2023-05-28 15:11] LABS: Alanine Aminotransferase 20 U/L (12-78); Albumin/Globulin Ratio 1.1 (1.1-1.8); Alkaline Phosphatase 121 U/L (38-126); Anion Gap 9.8 mEq/L (5-15); Aspartate Amino Transferase 29 U/L (14-36); Bilirubin,Total 0.3 mg/dl (0.2-1.3); Blood Urea Nitrogen 19 mg/dl (7-17); Carbon Dioxide 30 mmol/L (22.0-30.0); Creatinine Clearance Estimated 86 mL/min (50-200); Estimated Glomerular Filt Rate 55 ml/min (>60); GFR (African American) 67 ML/MIN (>60); Globulin 3.8 g/dL (1.3-3.2); Total Protein,Serum 7.8 g/dl (6.3-8.2)
[2023-05-28 15:12] LABS: Calcium 9.1 mg/dl (8.4-10.2); Glucose 121 mg/dl (74-100)
[2023-05-28 15:23] LABS: Troponin I < 0.01 ng/ml (0.00-0.034)
--- NOTE | 2023-05-28 15:50 | PC.NURSE ---
pt requested cup of coffee, okayed per ER MD. Pt sitting up on the side of the bed to drink coffee, call parson in reach, visitor at BS
--- NOTE | 2023-05-28 16:26 | PC.NURSE ---
contacted lab to check on status of d-dimer result, states machine was down, specimen is running now, approx 5 minutes left. updated ER
[2023-05-28 16:37] LABS: D-Dimer 0.99 ug/mL (0.0-0.5)
== END 2023-05-28 17:10 | disposition home or self-care (01) ==
PROVIDERS: Emergency Provider Student in an Organized Health Care Education/Training Program; PCP Physician Assistant
DX: R07.9 Chest pain, unspecified (principal); I25.10 Atherosclerotic heart disease of native coronary artery without angina pectoris; I10 Essential (primary) hypertension; E11.42 Type 2 diabetes mellitus with diabetic polyneuropathy; F32.A Depression, unspecified; F17.210 Nicotine dependence, cigarettes, uncomplicated
CPT/HCPCS: 71045; 80053; 84484; 85025; 85378; 93005; 99285

== ENCOUNTER 2023-07-09 07:29 | Emergency (ER) | payer MEDICARE, MEDICAID, SELFPAY ==
[2023-07-09] VITALS (8 sets, daily range): BP systolic 133–164; BP diastolic 70–99; PULSE 64–79; RESP 20–22; TEMP 36.7–36.8; O2SAT 87–99; BMI 37.5
--- NOTE | 2023-07-09 07:36 | ECG_ITS ---
APPROVED REPORT Exam: Resting ECG HR:73 bpm ECG Measurements Heart Rate 73 AXES CO 144 P 68 QRSd 89 QRS 63 QT 366 T 60 QTc 391 Conclusion SINUS RHYTHM SEPTAL MYOCARDIAL INFARCTION , PROBABLY OLD [40+ ms Q WAVE IN V1/V2] ABNORMAL ECG UNCONFIRMED REPORT Electronically signed by : Gurvinder Gregory MD 07/11/2023 06:50:57
--- NOTE | 2023-07-09 07:52 | PC.NURSE ---
Dr. Cole at BS for pt eval
--- NOTE | 2023-07-09 07:55 | XR_ITS ---
PROCEDURE INFORMATION: Exam: XR Chest Exam date and time: 07/09/2023 8:02 AM Age: 68 years old Clinical indication: Dyspnea TECHNIQUE: Imaging protocol: Radiologic exam of the chest. Views: 1 view. COMPARISON: CR XR CHEST PORTABLE 05/28/2023 2:42 PM FINDINGS: Lungs: Unremarkable. No consolidation. Pleural spaces: Unremarkable. No pleural effusion. No pneumothorax. Heart/Mediastinum: Unremarkable. No cardiomegaly. Bones/joints: Degenerative changes are noted. IMPRESSION: No acute findings.
--- NOTE | 2023-07-09 07:57 | HMH.EDGENADL ---
Discharge Plan Disposition Patient Disposition: Home, Self-Care Prescriptions Prescriptions: New doxycycline hyclate 100 mg capsule 100 mg PO BID 10 Days Qty: 20 0RF benzonatate 100 mg capsule 100 mg PO TID PRN (Reason: cough) 5 Days Qty: 20 0RF albuterol sulfate 90 mcg/actuation HFA aerosol inhaler 4 inh inhalation Q4H PRN (Reason: shortness of breath or wheezing) Qty: 8.5 0RF Rx Instructions: 4 puffs every 4 hours for 48 hours then as needed for shortness of breath or wheezing following No Action (DME) Accu-Chek Guide test strips Strip See Rx Instructions .ROUTE .COMPLEX Qty: 100 0RF Dose Instruction: USE 1 STRIP TWICE DAILY Rx Instructions: USE 1 STRIP TWICE DAILY gabapentin 800 mg tablet 800 mg PO TID Qty: 90 1RF atorvastatin 80 mg tablet 80 mg PO DAILY Patient Comments: TAKE 1 TABLET BY MOUTH ONCE DAILY ipratropium-albuterol 0.5 mg-3 mg(2.5 mg base)/3 mL solution for nebulization 3 ml INHALATION Q4-6H PRN (Reason: Breathing Problems) metoprolol succinate 50 mg tablet extended release 24 hr 50 mg PO DAILY potassium chloride 10 mEq tablet extended release 10 meq PO DAILY Patient Comments: TAKE 1 TABLET BY MOUTH ONCE DAILY clopidogrel 75 mg tablet 75 mg PO DAILY Patient Comments: TAKE 1 TABLET BY MOUTH ONCE DAILY trazodone 100 mg tablet 100 mg PO HS Patient Comments: TAKE 1 TABLET BY MOUTH ONCE DAILY AT NIGHT aspirin 81 mg Tablet,Chewable 81 mg PO DAILY furosemide 20 mg tablet 20 mg PO DAILY Patient Comments: TAKE 1 TABLET BY MOUTH ONCE DAILY fluoxetine 20 mg capsule 20 mg PO DAILY Patient Comments: TAKE 1 CAPSULE BY MOUTH ONCE DAILY tramadol 200 mg tablet extended release 24 hr 200 mg PO DAILY Referrals Follow up/Referrals: Domitila Baldwin PA [Primary Care Provider] - See instructions Activity Restrictions/Add. Instructions Additional Instructions/Restrictions: Return with any significant worsening shortness of breath or any other concerns Clinical Impressions Clinical Impression: Acute exacerbation of chronic obstructive pulmonary disease Discharge ED Provider: Steven Cole General Adult HPI General Chief complaint: Shortness of Breath/Dyspnea Stated complaint: SOA Time Seen by Provider: 07/09/23 07:40 Mode of Arrival: Ambulatory Source of Information: Patient Limitations: No Limitations Description of Symptoms (Recalled from ER Triage Doc. by RN): Patient reports being short of air since this morning. Denies any other symptoms at this time. History of Present Illness HPI narrative: 68-year-old female here with shortness of breath. States she has a history of COPD and over the last week she has had increasing cough wheezing sputum production and woke up this morning with significant dyspnea. Says she had breathing treatments at home with some mild improvement but has been getting worse today. No fevers or chills. No chest pain. She does not have a history of heart failure. She denies any significant lower extremity edema or weight gain orthopnea or PND. Related Data Home Medications Medication Instructions Recorded Confirmed aspirin 81 mg chewable tablet 81 mg PO DAILY Heart Disease 05/28/23 05/28/23 atorvastatin 80 mg tablet 80 mg PO DAILY High Cholesterol 05/28/23 05/28/23 clopidogrel 75 mg tablet 75 mg PO DAILY Anti-platelet 05/28/23 05/28/23 fluoxetine 20 mg capsule 20 mg PO DAILY Depression 05/28/23 05/28/23 furosemide 20 mg tablet 20 mg PO DAILY Fluid 05/28/23 05/28/23 ipratropium 0.5 mg-albuterol 3 mg 3 ml inhalation Q4-6H PRN 05/28/23 05/28/23 (2.5 mg base)/3 mL nebulization Breathing Problems soln metoprolol succinate 50 mg 50 mg PO DAILY High Blood Pressure 05/28/23 05/28/23 tablet,extended release 24 hr potassium chloride 10 mEq 10 meq PO DAILY Supplement 05/28/23 05/28/23 tablet,extended release tramadol 200 mg ta
[2023-07-09 08:08] LABS: Basophils # 0.1 K/mm3 (0-0.2); Basophils % 0.9 % (0.1-2.0); Chloride 107 mmol/L (98-107); Eosinophils # 0.4 K/mm3 (0.0-0.4); Eosinophils % 4.5 % (0.1-12.0); Hematocrit 44.9 % (37.0-47.0); Hemoglobin 14.4 g/dL (12.2-16.2); Lymphocytes # 3.3 K/mm3 (0.7-4.5); Lymphocytes % 40.8 % (10-50); Mean Corpuscular HGB Conc 32.1 g/dL (31.8-35.4); Mean Corpuscular Hemoglobin 30.3 pg (27.0-31.2); Mean Corpuscular Volume 94.4 fl (81-99); Mean Platelet Volume 7.8 fl (7.4-10.4); Monocytes # 0.5 K/mm3 (0.1-1.0); Monocytes % 6.1 % (1.7-9.3); Neutrophils # 3.9 K/mm3 (1.8-7.8); Neutrophils % 47.7 % (37.0-80.0); Platelet Count 315 K/mm3 (142-424); Potassium 4.3 mmoL/L (3.5-5.1); Red Blood Count 4.76 M/mm3 (4.20-5.40); Red Cell Distribution Width 13.7 % (11.5-17.5); Sodium 142 mmol/L (136-145); White Blood Count 8.1 K/mm3 (4.8-10.8)
[2023-07-09 08:11] LABS: Alanine Aminotransferase 16 U/L (12-78); Albumin Level 3.7 g/dl (3.5-5.0); Alkaline Phosphatase 139 U/L (38-126); Anion Gap 12.3 mEq/L (5-15); Aspartate Amino Transferase 23 U/L (14-36); Bilirubin,Total 0.4 mg/dl (0.2-1.3); Blood Urea Nitrogen 25 mg/dl (7-17); Carbon Dioxide 27 mmol/L (22.0-30.0); Creatinine Clearance Estimated 84 mL/min (50-200); Estimated Glomerular Filt Rate 55 ml/min (>60); GFR (African American) 67 ML/MIN (>60); Globulin 3.6 g/dL (1.3-3.2); Total Protein,Serum 7.3 g/dl (6.3-8.2)
[2023-07-09 08:11] LABS: Coronavirus 19, PCR Not Detected (NotDetected); Influenza A, PCR Not Detected (NotDetected); Influenza B, PCR Not Detected (NotDetected)
[2023-07-09 08:12] LABS: Calcium 9.2 mg/dl (8.4-10.2); Glucose 108 mg/dl (74-100)
[2023-07-09 08:20] LABS: NT Pro Brain Natriuretic Pep. 69.9 pg/mL (0-125)
== END 2023-07-09 09:59 | disposition home or self-care (01) ==
PROVIDERS: Emergency Provider Student in an Organized Health Care Education/Training Program; PCP Physician Assistant
DX: J44.1 Chronic obstructive pulmonary disease with (acute) exacerbation (principal); E11.42 Type 2 diabetes mellitus with diabetic polyneuropathy; I10 Essential (primary) hypertension; F32.A Depression, unspecified; F17.210 Nicotine dependence, cigarettes, uncomplicated
CPT/HCPCS: 71045; 80053; 83880; 85025; 87636; 93005; 96361; 96374; 99285; J3475

== ENCOUNTER 2023-07-14 15:08 | Emergency (ER) | payer MEDICARE, MEDICAID, SELFPAY ==
[2023-07-14 15:09] VITALS: BP 131/76; PULSE 85; RESP 19; TEMP 36.9; O2SAT 95; BMI 37.5
[2023-07-14 15:13] VITALS: BP 131/76; PULSE 83
[2023-07-14] MEDS: TET/DIPHTH/PERT-ADULT 0.5ML SYRINGE 0.5 ML IM (15:34)
--- NOTE | 2023-07-14 15:35 | PC.NURSE ---
Dr. Minor at [facility]
--- NOTE | 2023-07-14 15:36 | PC.NURSE ---
DR SEPULVEDA AT BEDSIDE
--- NOTE | 2023-07-14 15:47 | ED_ITS ---
Discharge Plan Disposition Patient Disposition: Home, Self-Care Condition: Good Prescriptions Prescriptions: No Action (DME) Accu-Chek Guide test strips Strip See Rx Instructions .ROUTE .COMPLEX Qty: 100 0RF Dose Instruction: USE 1 STRIP TWICE DAILY Rx Instructions: USE 1 STRIP TWICE DAILY gabapentin 800 mg tablet 800 mg PO TID Qty: 90 1RF atorvastatin 80 mg tablet 80 mg PO DAILY Patient Comments: TAKE 1 TABLET BY MOUTH ONCE DAILY ipratropium-albuterol 0.5 mg-3 mg(2.5 mg base)/3 mL solution for nebulization 3 ml INHALATION Q4-6H PRN (Reason: Breathing Problems) metoprolol succinate 50 mg tablet extended release 24 hr 50 mg PO DAILY potassium chloride 10 mEq tablet extended release 10 meq PO DAILY Patient Comments: TAKE 1 TABLET BY MOUTH ONCE DAILY clopidogrel 75 mg tablet 75 mg PO DAILY Patient Comments: TAKE 1 TABLET BY MOUTH ONCE DAILY trazodone 100 mg tablet 100 mg PO HS Patient Comments: TAKE 1 TABLET BY MOUTH ONCE DAILY AT NIGHT aspirin 81 mg Tablet,Chewable 81 mg PO DAILY furosemide 20 mg tablet 20 mg PO DAILY Patient Comments: TAKE 1 TABLET BY MOUTH ONCE DAILY fluoxetine 20 mg capsule 20 mg PO DAILY Patient Comments: TAKE 1 CAPSULE BY MOUTH ONCE DAILY tramadol 200 mg tablet extended release 24 hr 200 mg PO DAILY doxycycline hyclate 100 mg capsule 100 mg PO BID 10 Days Qty: 20 0RF benzonatate 100 mg capsule 100 mg PO TID PRN (Reason: cough) 5 Days Qty: 20 0RF albuterol sulfate 90 mcg/actuation HFA aerosol inhaler 4 inh inhalation Q4H PRN (Reason: shortness of breath or wheezing) Qty: 8.5 0RF Rx Instructions: 4 puffs every 4 hours for 48 hours then as needed for shortness of breath or wheezing following Referrals Follow up/Referrals: Domitila Baldwin PA [Primary Care Provider] - See instructions Activity Restrictions/Add. Instructions Additional Instructions/Restrictions: You were evaluated in the emergency department today. Please keep your wound clean and dry. Do not submerge under any water. Your stitches will need to be removed in approximately 10 days. Follow-up with your primary care provider. Return to the emergency department for new or worsening symptoms. Clinical Impressions Clinical Impression: Laceration of left leg Qualifiers: Encounter type: initial encounter Qualified Code(s): S81.812A - Laceration without foreign body, left lower leg, initial encounter Instructions Patient Instructions: DI for Laceration Repair Discharge ED Provider: Tonya Minor General Adult HPI General Chief complaint: Wound/Laceration Stated complaint: AO lt leg lac, 1430 Time Seen by Provider: 07/14/23 15:19 Mode of Arrival: Wheelchair Limitations: No Limitations Description of Symptoms (Recalled from ER Triage Doc. by RN): LACERATION TO LEFT LOWER LEG History of Present Illness HPI narrative: This patient is a 68-year-old female with a history of CAD, COPD, type 2 diabetes, and tobacco use disorder presented to the emergency department for evaluation with concern for a wound to her left lower leg. She states that she was walking in the garage with a light off when she hit her leg on a bucket. She is not up-to-date on tetanus. She suffered a laceration to her left lower leg but no other wounds or other concerns at this time. She was well prior to this. Related Data Home Medications Medication Instructions Recorded Confirmed aspirin 81 mg chewable tablet 81 mg PO DAILY Heart Disease 05/28/23 05/28/23 atorvastatin 80 mg tablet 80 mg PO DAILY High Cholesterol 05/28/23 05/28/23 clopidogrel 75 mg tablet 75 mg PO DAILY Anti-platelet 05/28/23 05/28/23 fluoxetine 20 mg capsule 20 mg PO DAILY Depression 05/28/23 05/28/23 furosemide 20 mg tablet 20 mg PO DAILY Fluid 05/28/23 05/28/23 ipratropium 0.5 mg-albuterol 3 mg 3 ml inhalation Q4-6H PRN 05/28/23 05/28/23 (2.5 mg base)/3 mL nebulization Breathing Problems soln metoprolol succinate 50 mg 50 mg PO DAILY High Blood Pressure 05/28/23 05/28/23 tablet,extended release 24 hr potassium chloride 10 mEq 10 meq PO DAILY Supplement 05/28/23 05/28/23 tablet,extended release tramadol 200 mg tablet,extended 200 mg PO DAILY Chronic Pain 05/28/23 05/28/23 release 24 hr trazodone 100 mg tablet 100 mg PO HS Insomnia 05/28/23 05/28/23 Previous Rx's Medication Instructions Recorded blood sugar diagnostic (Accu-Chek #100 ea 06/13/23 Guide test strips) gabapentin 800 mg tablet 800 mg PO TID Neuropathy #90 tabs 07/03/23 albuterol sulfate 90 mcg/actuation 4 inh inhalation Q4H PRN shortness 07/09/23 aerosol inhaler of breath or wheezing #8.5 grams benzonatate 100 mg capsule 100 mg PO TID PRN cough 5 days #20 07/09/23 caps doxycycline hyclate 100 mg capsule 100 mg PO BID 10 days #20 caps 07/09/23 Allergies Allergy/AdvReac Type Severity Reaction Status Date / Time No Known Allergies Allergy Verified 05/09/23 11:13 [facility] Disclaimer: The information contained in this section may have been updated after the patient was seen, as this information can be updated by other users. Medical History Bilateral low back pain with sciatica Depression Diabetes mellitus Hypertension Neuropathy RF Neurontin Pain in both lower legs Restless leg syndrome Tobacco abuse Type 2 diabetes mellitus with diabetic polyneuropathy, without long-term current use of insulin Vitamin D deficiency (~03/11/18) Family History Other No significant family history Social History Smoking Status: Current every day smoker tobacco type: cigarettes packs per day : 1 second hand exposure: No alcohol intake: never substance use type: denies use current occupational status: unemployed Travel in the last 8 weeks: None household members: spouse housing: house marital status: education level: high school current occupational exposures/hazards: No caffeine: Yes special aron needs: No agree to transfusion: No do you feel safe at home: Yes victim of physical abuse: No victim of emotional abuse: No victim of sexual abuse: No would you like helpful sources: No ROS Obtained: Yes All systems reviewed & no additional complaints except as documented Physical Exam General General appearance: alert and in no apparent distress Head Head exam: atraumatic and normocephalic Eye Eye exam: Present normal appearance, PERRL and EOMI ENT ENT exam: Present normal exam, normal oropharynx, mucous membranes moist and normal external ear exam Neck Neck exam: Present normal inspection, full ROM and trachea midline; Absent tenderness Chest Chest inspection: Present normal inspection and symmetric chest wall rise; Absent tenderness Respiratory Respiratory exam: Present normal lung sounds bilaterally; Absent respiratory distress, wheezes, stridor or accessory muscle use Cardiovascular Cardiovascular exam: Present regular rate and normal rhythm Abdominal Exam Abdominal exam: Present soft; Absent distention, tenderness or guarding Extremities Exam Extremities exam: Present normal inspection, full ROM and normal capillary refill; Absent tenderness or edema Back Exam Back exam: Present normal inspection and full ROM; Absent tenderness Neurological Exam Neurological exam: Present alert, oriented X3, CN II-XII intact and normal gait; Absent motor sensory deficit Psychiatric Psychiatric exam: Present normal affect and normal mood Skin Skin exam: Present warm, dry and other (3 cm superficial flap laceration to the anterior left lower leg. No significant surrounding hematoma or swelling. All compartments soft. Neurovascularly intact distally.) Medical Decision Making Medical Records Medical records reviewed: Yes I reviewed the patient's medical records. Robson Inquiry Pt receiving controlled substance: No Vital Signs: 07/14/23 15:13 07/14/23 15:09 Temperature 98.4 F Temperature Source Oral Pulse Rate 83 Pulse Rate [Radial] 85 Respiratory Rate 19 Blood Pressure 131/76 Blood Pressure [Right Arm] 131/76 Blood Pressure Mean 102 Blood Pressure Mean [Right Arm] 94 Blood Pressure Source [Right Arm] Automatic Cuff Blood Pressure Position [Right Arm] Sitting 02 Sat by Pulse Oximetry 95 Oxygen Delivery Method Room Air Lab Data Lab results reviewed: Yes I reviewed the patient's lab results. Orders (Tests/Meds): ED MEDICATIONS Discontinued Medications Generic Name Dose Route Start Last Admin Trade Name Freq PRN Reason Stop Dose Admin Lidocaine HCl 20 ml 07/14/23 15:47 07/14/23 15:50 Lidocaine 1% 20ml Mdv IJ 07/14/23 15:48 5 ml ONCE ONE Administration Tetanus/Reduced Diphtheria/Acell Pertussis 0.5 ml 07/14/23 15:29 07/14/23 15:34 Tet/Diphth/Pert-Adult 0.5ml Syringe IM 07/14/23 15:30 0.5 ml .ONCE ONE Administration Medical Decision Narrative: In summary, this patient is a 88-year-old female presenting to the Emergency Department for evaluation of laceration to the left lower leg. Differential diagnoses considered include but are not limited to strain, abrasion, foreign body, soft tissue injury, contusion, neurovascular injury. Ruling out the most morbid conditions drove assessment. It should be noted patient's history includes CAD, COPD, and type 2 diabetes which may not be at goal therapy. This complicates all aspects of care by increasing patient's risk for morbidity. Patient was given a tetanus booster given that she is not up-to-date. At this time, patient is well-appearing and neurovascularly intact with a very superficial wound to her left lower leg. Given this, I do not feel the labs or imaging are indicated. Patient's wound was numbed with lidocaine, and sutures were placed to repair the wound after thorough cleaning with chlorhexidine solution and saline. Patient tolerated wound repair well. She remains neurovascularly intact. At this time, patient is due to be appropriate for discharge with instructions for wound care and supportive management at home. She was given very strict return precautions and discharged in stable condition with plans for outpatient follow- up for suture removal. Procedures Risk/Benefits of Procedure(s) Were Explained: Yes Laceration Laceration 1: Site: lower extremity Side (If applicable): left Size (cm): 3 Description: flap Depth: simple, single layer Local Anesthetic: lidocaine 1% Amount of anesthesia used (mL): 5 Pre-repair: wound explored, irrigated extensively and deep structures intact Skin layer closed with: nylon Size (cm): 4-0 Number of sutures: 6 Technique: simple, interrupted Critical Care Time Critical Care Time Critical Care Time: No
[2023-07-14] MEDS: LIDOCAINE 1% 20ML MDV 20 ML IJ (15:50)
--- NOTE | 2023-07-14 16:04 | PC.NURSE ---
Dr. Minor at [facility] to suture
[2023-07-14 16:15] VITALS: BP 113/63; PULSE 68; RESP 17; TEMP 36.6; O2SAT 95
== END 2023-07-14 16:15 | disposition home or self-care (01) ==
PROVIDERS: Emergency Provider Emergency Medicine; PCP Physician Assistant
DX: S81.812A Laceration without foreign body, left lower leg, initial encounter (principal); I25.10 Atherosclerotic heart disease of native coronary artery without angina pectoris; J44.9 Chronic obstructive pulmonary disease, unspecified; E11.40 Type 2 diabetes mellitus with diabetic neuropathy, unspecified; I10 Essential (primary) hypertension; F32.A Depression, unspecified; F17.210 Nicotine dependence, cigarettes, uncomplicated; W26.8XXA Contact with other sharp object(s), not elsewhere classified, initial encounter; Z23 Encounter for immunization
CPT/HCPCS: 12002; 90471; 90715; 96372; 99283

== ENCOUNTER 2023-07-19 11:22 | Emergency (ER) | payer MEDICARE, MEDICAID, SELFPAY ==
[2023-07-19 11:45] VITALS: BP 143/87; PULSE 90; RESP 20; TEMP 36.9; O2SAT 96; BMI 37.5
--- NOTE | 2023-07-19 12:33 | EXP.UTC ---
Discharge Plan Disposition Patient Disposition: Home, Self-Care Condition: Good Prescriptions Prescriptions: New amoxicillin-pot clavulanate 875-125 mg Tablet 1 tab PO Q12H 7 Days Qty: 14 0RF No Action (DME) Accu-Chek Guide test strips Strip See Rx Instructions .ROUTE .COMPLEX Qty: 100 0RF Dose Instruction: USE 1 STRIP TWICE DAILY Rx Instructions: USE 1 STRIP TWICE DAILY gabapentin 800 mg tablet 800 mg PO TID Qty: 90 1RF atorvastatin 80 mg tablet 80 mg PO DAILY Patient Comments: TAKE 1 TABLET BY MOUTH ONCE DAILY ipratropium-albuterol 0.5 mg-3 mg(2.5 mg base)/3 mL solution for nebulization 3 ml INHALATION Q4-6H PRN (Reason: Breathing Problems) metoprolol succinate 50 mg tablet extended release 24 hr 50 mg PO DAILY potassium chloride 10 mEq tablet extended release 10 meq PO DAILY Patient Comments: TAKE 1 TABLET BY MOUTH ONCE DAILY clopidogrel 75 mg tablet 75 mg PO DAILY Patient Comments: TAKE 1 TABLET BY MOUTH ONCE DAILY trazodone 100 mg tablet 100 mg PO HS Patient Comments: TAKE 1 TABLET BY MOUTH ONCE DAILY AT NIGHT aspirin 81 mg Tablet,Chewable 81 mg PO DAILY furosemide 20 mg tablet 20 mg PO DAILY Patient Comments: TAKE 1 TABLET BY MOUTH ONCE DAILY fluoxetine 20 mg capsule 20 mg PO DAILY Patient Comments: TAKE 1 CAPSULE BY MOUTH ONCE DAILY tramadol 200 mg tablet extended release 24 hr 200 mg PO DAILY doxycycline hyclate 100 mg capsule 100 mg PO BID 10 Days Qty: 20 0RF benzonatate 100 mg capsule 100 mg PO TID PRN (Reason: cough) 5 Days Qty: 20 0RF albuterol sulfate 90 mcg/actuation HFA aerosol inhaler 4 inh inhalation Q4H PRN (Reason: shortness of breath or wheezing) Qty: 8.5 0RF Rx Instructions: 4 puffs every 4 hours for 48 hours then as needed for shortness of breath or wheezing following Referrals Follow up/Referrals: Domitila Baldwin PA [Primary Care Provider] - See instructions Activity Restrictions/Add. Instructions Additional Instructions/Restrictions: Take medication as prescribed FOllow up with your Family Doctor if no improvement or any worsening of symptoms return if needed Clinical Impressions Clinical Impression: Infected laceration Instructions Patient Instructions: Amoxicillin and Clavulanic Acid Discharge ED Provider: Marissa Calvert [facility] HPI General Stated complaint: red around stitches on Lt leg Mode of Arrival: Ambulatory Source of Information: Patient Limitations: No Limitations Time Seen by Provider: 07/19/23 12:34 Description of Symptoms (Recalled from Triage Doc. by RN): PATIENT STATES SHE WAS SEEN IN ER ON 07/14 FOR A LACERATION TO LEFT LOWER LEG AFTER CUTTING IT ON A METAL WHEELBARROW WHEEL. TODAY SHE C/O PAIN, WARMTH AND REDNESS TO SUTURE SITE HEENT Symptoms (Recalled from RN notes): No Resp Symptoms (Recalled from RN notes): No Skin Symptoms (Recalled from RN notes): Yes MS Symptoms (Recalled from RN notes): No Functional Status (Recalled from RN notes): WNL History of Present Illness Provider Complaint: Patient states that she cut left lower leg earlier in the week on a wheel barral and she was seen in the ED and had sutures States that she thinks it is getting infected it is now red and tender to the touch worried that she may need something for infection Related Data Home Medications Medication Instructions Recorded Confirmed aspirin 81 mg chewable tablet 81 mg PO DAILY Heart Disease 05/28/23 05/28/23 atorvastatin 80 mg tablet 80 mg PO DAILY High Cholesterol 05/28/23 05/28/23 clopidogrel 75 mg tablet 75 mg PO DAILY Anti-platelet 05/28/23 05/28/23 fluoxetine 20 mg capsule 20 mg PO DAILY Depression 05/28/23 05/28/23 furosemide 20 mg tablet 20 mg PO DAILY Fluid 05/28/23 05/28/23 ipratropium 0.5 mg-albuterol 3 mg 3 ml inhalation Q4-6H PRN 05/28/23 05/28/23 (2.5 mg base)/3 mL nebulization Breathing Problems s
[2023-07-19 12:53] VITALS: BP 143/87; PULSE 90; RESP 20; TEMP 36.9; O2SAT 96
== END 2023-07-19 12:58 | disposition home or self-care (01) ==
PROVIDERS: Emergency Provider Nurse Practitioner; PCP Physician Assistant
DX: L08.9 Local infection of the skin and subcutaneous tissue, unspecified (principal); F17.210 Nicotine dependence, cigarettes, uncomplicated; E11.42 Type 2 diabetes mellitus with diabetic polyneuropathy; I10 Essential (primary) hypertension; G25.81 Restless legs syndrome; E55.9 Vitamin D deficiency, unspecified; F32.A Depression, unspecified
CPT/HCPCS: 99212; 99214; G0463

== ENCOUNTER 2023-07-25 10:45 | Emergency (ER) | payer MEDICARE, MEDICAID, SELFPAY ==
[2023-07-25 10:50] VITALS: BP 152/84; PULSE 85; RESP 18; TEMP 37.1; O2SAT 98; BMI 37.5
--- NOTE | 2023-07-25 11:15 | HMH.EDGENADL ---
Discharge Plan Disposition Patient Disposition: Home, Self-Care Condition: Good Prescriptions Prescriptions: New sulfamethoxazole-trimethoprim [Bactrim DS] 800-160 mg tablet 1 tab PO BID 14 Days Qty: 28 0RF No Action (DME) Accu-Chek Guide test strips Strip See Rx Instructions .ROUTE .COMPLEX Qty: 100 0RF Dose Instruction: USE 1 STRIP TWICE DAILY Rx Instructions: USE 1 STRIP TWICE DAILY gabapentin 800 mg tablet 800 mg PO TID Qty: 90 1RF atorvastatin 80 mg tablet 80 mg PO DAILY Patient Comments: TAKE 1 TABLET BY MOUTH ONCE DAILY ipratropium-albuterol 0.5 mg-3 mg(2.5 mg base)/3 mL solution for nebulization 3 ml INHALATION Q4-6H PRN (Reason: Breathing Problems) metoprolol succinate 50 mg tablet extended release 24 hr 50 mg PO DAILY potassium chloride 10 mEq tablet extended release 10 meq PO DAILY Patient Comments: TAKE 1 TABLET BY MOUTH ONCE DAILY clopidogrel 75 mg tablet 75 mg PO DAILY Patient Comments: TAKE 1 TABLET BY MOUTH ONCE DAILY trazodone 100 mg tablet 100 mg PO HS Patient Comments: TAKE 1 TABLET BY MOUTH ONCE DAILY AT NIGHT aspirin 81 mg Tablet,Chewable 81 mg PO DAILY furosemide 20 mg tablet 20 mg PO DAILY Patient Comments: TAKE 1 TABLET BY MOUTH ONCE DAILY fluoxetine 20 mg capsule 20 mg PO DAILY Patient Comments: TAKE 1 CAPSULE BY MOUTH ONCE DAILY tramadol 200 mg tablet extended release 24 hr 200 mg PO DAILY doxycycline hyclate 100 mg capsule 100 mg PO BID 10 Days Qty: 20 0RF benzonatate 100 mg capsule 100 mg PO TID PRN (Reason: cough) 5 Days Qty: 20 0RF albuterol sulfate 90 mcg/actuation HFA aerosol inhaler 4 inh inhalation Q4H PRN (Reason: shortness of breath or wheezing) Qty: 8.5 0RF Rx Instructions: 4 puffs every 4 hours for 48 hours then as needed for shortness of breath or wheezing following amoxicillin-pot clavulanate 875-125 mg Tablet 1 tab PO Q12H 7 Days Qty: 14 0RF Referrals Follow up/Referrals: Domitila Baldwin PA [Primary Care Provider] - See instructions Activity Restrictions/Add. Instructions Additional Instructions/Restrictions: You were evaluated in the emergency department today. Your sutures were removed. Please nut picker your prescription for Bactrim at the pharmacy and take the full course as prescribed. Stop taking your Augmentin. Follow-up with your primary care provider over the next 3 days for reassessment. Your wound is going to take a long time to heal because the skin over top of the wound has failed and it will have to heal from the inside out. Return to the emergency department for new or worsening symptoms, such as fevers, chills, significant increase in redness/warmth, or pus draining from the wound. Clinical Impressions Clinical Impression: Laceration of left lower leg with complication Instructions Patient Instructions: DI for Wound Dehiscence, DI for Wound Infection Discharge ED Provider: Tonya Minor General Adult HPI General Chief complaint: Wound/Laceration Stated complaint: skin around stitches is black, pain Time Seen by Provider: 07/25/23 11:04 Mode of Arrival: Ambulatory Source of Information: Patient Limitations: No Limitations History of Present Illness HPI narrative: This patient is a 68-year-old female with a history of hypertension, hyperlipidemia, CAD, extensive smoking history, type 2 diabetes, and peripheral vascular disease presenting to the emergency department for evaluation with concern for delayed wound healing of a wound to the left anterior ely. Patient was evaluated here on 07/14/2023 by myself, at which point she had a superficial laceration to the left anterior lower leg that was repaired. At that time, the skin flap was thin but had great color and blood supply. Patient's laceration was repaired with nonabsorbable suture and she was given instructions for follow-up fo
[2023-07-25 11:18] VITALS: BP 145/85; PULSE 90; RESP 18; TEMP 36.6; O2SAT 99
== END 2023-07-25 11:33 | disposition home or self-care (01) ==
PROVIDERS: Emergency Provider Emergency Medicine; PCP Physician Assistant
DX: S81.812A Laceration without foreign body, left lower leg, initial encounter (principal); E11.51 Type 2 diabetes mellitus with diabetic peripheral angiopathy without gangrene; E11.40 Type 2 diabetes mellitus with diabetic neuropathy, unspecified; I10 Essential (primary) hypertension; E78.5 Hyperlipidemia, unspecified; I25.10 Atherosclerotic heart disease of native coronary artery without angina pectoris; F32.A Depression, unspecified; F17.210 Nicotine dependence, cigarettes, uncomplicated; X58.XXXA Exposure to other specified factors, initial encounter
CPT/HCPCS: 99283

== ENCOUNTER 2023-09-06 18:32 | Emergency (ER) | payer MEDICARE, MEDICAID, SELFPAY ==
[2023-09-06 18:33] VITALS: BP 141/88; PULSE 81; RESP 18; TEMP 36.8; O2SAT 96; BMI 37.3
--- NOTE | 2023-09-06 18:36 | EXP.UTC ---
Discharge Plan Disposition Patient Disposition: Home, Self-Care Condition: Good Prescriptions Prescriptions: New azithromycin [Zithromax] 250 mg tablet 250 mg PO UD DOSE PK Qty: 6 0RF Rx Instructions: Take two (2) tablets today, then one (1) tablet days #2 thru #5 benzonatate [benzonatate] 100 mg capsule 100 mg PO TIDP PRN (Reason: Cough) Qty: 30 0RF methylprednisolone 4 mg Tablets,Dose Pack 4 mg PO DIRECTED Qty: 21 0RF Paxlovid 300 mg (150 mg x 2)-100 mg tablets,dose pack See Rx Instructions .ROUTE .COMPLEX Qty: 30 0RF Rx Instructions: take TWO 150 mg tablets of nirmatrelvir with ONE 100 mg tablet of ritonavir twice daily for 5 days No Action ipratropium-albuterol 0.5 mg-3 mg(2.5 mg base)/3 mL solution for nebulization 3 ml INHALATION Q4-6H PRN (Reason: Breathing Problems) Qty: 360 5RF fluoxetine 20 mg capsule See Rx Instructions .ROUTE .COMPLEX Qty: 90 0RF Dose Instruction: Take 1 capsule by mouth once daily Rx Instructions: Take 1 capsule by mouth once daily gabapentin 800 mg tablet 800 mg PO TID Qty: 90 1RF (DME) lancets [Accu-Chek Softclix Lancets] Misc See Rx Instructions .ROUTE .COMPLEX Qty: 100 0RF Dose Instruction: USE 1 LANCET TO CHECK GLUCOSE TWICE DAILY DIRECTED FOR DIABETES Rx Instructions: USE 1 LANCET TO CHECK GLUCOSE TWICE DAILY DIRECTED FOR DIABETES atorvastatin 80 mg tablet 80 mg PO DAILY Patient Comments: TAKE 1 TABLET BY MOUTH ONCE DAILY metoprolol succinate 50 mg tablet extended release 24 hr 50 mg PO DAILY potassium chloride 10 mEq tablet extended release 10 meq PO DAILY Patient Comments: TAKE 1 TABLET BY MOUTH ONCE DAILY clopidogrel 75 mg tablet 75 mg PO DAILY Patient Comments: TAKE 1 TABLET BY MOUTH ONCE DAILY trazodone 100 mg tablet 100 mg PO HS Patient Comments: TAKE 1 TABLET BY MOUTH ONCE DAILY AT NIGHT aspirin 81 mg Tablet,Chewable 81 mg PO DAILY furosemide 20 mg tablet 20 mg PO DAILY Patient Comments: TAKE 1 TABLET BY MOUTH ONCE DAILY tramadol 200 mg tablet extended release 24 hr 200 mg PO DAILY doxycycline hyclate 100 mg capsule 100 mg PO BID 10 Days Qty: 20 0RF benzonatate 100 mg capsule 100 mg PO TID PRN (Reason: cough) 5 Days Qty: 20 0RF albuterol sulfate 90 mcg/actuation HFA aerosol inhaler 4 inh inhalation Q4H PRN (Reason: shortness of breath or wheezing) Qty: 8.5 0RF Rx Instructions: 4 puffs every 4 hours for 48 hours then as needed for shortness of breath or wheezing following amoxicillin-pot clavulanate 875-125 mg Tablet 1 tab PO Q12H 7 Days Qty: 14 0RF sulfamethoxazole-trimethoprim [Bactrim DS] 800-160 mg tablet 1 tab PO BID 14 Days Qty: 28 0RF Referrals Follow up/Referrals: Domitila Baldwin PA [Primary Care Provider] - See instructions Activity Restrictions/Add. Instructions Additional Instructions/Restrictions: Drink plenty of fluids. Take tylenol or ibuprofen for pain or fever. Take the medications as directed. Follow up with your regular doctor. GO TO THE ER FOR ANY WORSENING SYMPTOMS DON'T START THE PAXLOVID UNtil YOU TEST POSITIVE FOR COVID-19 Clinical Impressions Clinical Impression: Acute viral syndrome, Exposure to 2019 novel coronavirus Instructions Patient Instructions: Coronavirus Disease 2019, Preventing the Spread of Coronavirus Discharge Instructions Discharge ED Provider: Dandre Noble [facility] HPI General Stated complaint: exposed to covid , cough SOA weak Time Seen by Provider: 09/06/23 18:37 History of Present Illness Provider Complaint: He states that for the past 2 days he has felt bad, had a cough, and ran a low grade fever. His grandson lives with him and he currently has covid-19. Related Data Home Medications Medication Instructions Recorded Confirmed aspirin 81 mg chewable tablet 81 mg PO D
[2023-09-06 19:43] VITALS: BP 141/88; PULSE 81; RESP 18; TEMP 36.8; O2SAT 96
== END 2023-09-06 19:43 | disposition home or self-care (01) ==
PROVIDERS: Emergency Provider Nurse Practitioner Family; PCP Physician Assistant
DX: R05.9 Cough, unspecified (principal); B34.9 Viral infection, unspecified; Z20.822 Contact with and (suspected) exposure to COVID-19; F17.210 Nicotine dependence, cigarettes, uncomplicated; E11.40 Type 2 diabetes mellitus with diabetic neuropathy, unspecified; I10 Essential (primary) hypertension; E55.9 Vitamin D deficiency, unspecified; F32.A Depression, unspecified; G25.81 Restless legs syndrome
CPT/HCPCS: 87635; 99212; 99214; G0463

== ENCOUNTER 2023-09-12 08:12 | Observation (INO) | payer MEDICARE, MEDICAID, SELFPAY ==
[2023-09-12] VITALS (13 sets, daily range): BP systolic 98–128; BP diastolic 51–73; PULSE 57–104; RESP 17–26; TEMP 36.5–37.1; O2SAT 90–98; BMI 37.7; BMI 37.9
--- NOTE | 2023-09-12 08:18 | ECG_ITS ---
APPROVED REPORT Exam: Resting ECG HR:109 bpm ECG Measurements Heart Rate 109 AXES WI 128 P 75 QRSd 93 QRS 73 QT 325 T 16 QTc 389 Conclusion SINUS TACHYCARDIA NONSPECIFIC ST & T-WAVE ABNORMALITY ABNORMAL RHYTHM ECG UNCONFIRMED REPORT Electronically signed by : Gurvinder Gregory MD 09/12/2023 21:26:17
--- NOTE | 2023-09-12 08:47 | XR_ITS ---
FINAL REPORT CLINICAL HISTORY: soa/cough COMPARISON: 07/09/2023 FINDINGS: A single portable view of the chest was obtained. The heart size and pulmonary vascularity are within normal limits. The mediastinum is within normal limits. No acute pulmonary abnormality is identified. Significant degenerative changes present in the right shoulder. IMPRESSION: No active cardiopulmonary disease. Significant degenerative changes present in the right shoulder. Reviewed, Interpreted and Dictated by Andres Max III, MD Transcribed by Nguyen Martinez Authenticated and . [facility]
--- NOTE | 2023-09-12 08:50 | HMH.EDGENADL ---
Discharge Plan Disposition Patient Disposition: Admitted Prescriptions Prescriptions: No Action ipratropium-albuterol 0.5 mg-3 mg(2.5 mg base)/3 mL solution for nebulization 3 ml INHALATION Q4-6H PRN (Reason: Breathing Problems) Qty: 360 5RF fluoxetine 20 mg capsule See Rx Instructions .ROUTE .COMPLEX Qty: 90 0RF Dose Instruction: Take 1 capsule by mouth once daily Rx Instructions: Take 1 capsule by mouth once daily gabapentin 800 mg tablet 800 mg PO TID Qty: 90 1RF (DME) lancets [Accu-Chek Softclix Lancets] Misc See Rx Instructions .ROUTE .COMPLEX Qty: 100 0RF Dose Instruction: USE 1 LANCET TO CHECK GLUCOSE TWICE DAILY DIRECTED FOR DIABETES Rx Instructions: USE 1 LANCET TO CHECK GLUCOSE TWICE DAILY DIRECTED FOR DIABETES atorvastatin 80 mg tablet 80 mg PO DAILY Patient Comments: TAKE 1 TABLET BY MOUTH ONCE DAILY metoprolol succinate 50 mg tablet extended release 24 hr 50 mg PO DAILY potassium chloride 10 mEq tablet extended release 10 meq PO DAILY Patient Comments: TAKE 1 TABLET BY MOUTH ONCE DAILY clopidogrel 75 mg tablet 75 mg PO DAILY Patient Comments: TAKE 1 TABLET BY MOUTH ONCE DAILY trazodone 100 mg tablet 100 mg PO HS Patient Comments: TAKE 1 TABLET BY MOUTH ONCE DAILY AT NIGHT aspirin 81 mg Tablet,Chewable 81 mg PO DAILY furosemide 20 mg tablet 20 mg PO DAILY Patient Comments: TAKE 1 TABLET BY MOUTH ONCE DAILY tramadol 200 mg tablet extended release 24 hr 200 mg PO DAILY doxycycline hyclate 100 mg capsule 100 mg PO BID 10 Days Qty: 20 0RF benzonatate 100 mg capsule 100 mg PO TID PRN (Reason: cough) 5 Days Qty: 20 0RF albuterol sulfate 90 mcg/actuation HFA aerosol inhaler 4 inh inhalation Q4H PRN (Reason: shortness of breath or wheezing) Qty: 8.5 0RF Rx Instructions: 4 puffs every 4 hours for 48 hours then as needed for shortness of breath or wheezing following amoxicillin-pot clavulanate 875-125 mg Tablet 1 tab PO Q12H 7 Days Qty: 14 0RF sulfamethoxazole-trimethoprim [Bactrim DS] 800-160 mg tablet 1 tab PO BID 14 Days Qty: 28 0RF azithromycin [Zithromax] 250 mg tablet 250 mg PO UD DOSE PK Qty: 6 0RF Rx Instructions: Take two (2) tablets today, then one (1) tablet days #2 thru #5 benzonatate [benzonatate] 100 mg capsule 100 mg PO TIDP PRN (Reason: Cough) Qty: 30 0RF methylprednisolone 4 mg Tablets,Dose Pack 4 mg PO DIRECTED Qty: 21 0RF Paxlovid 300 mg (150 mg x 2)-100 mg tablets,dose pack See Rx Instructions .ROUTE .COMPLEX Qty: 30 0RF Rx Instructions: take TWO 150 mg tablets of nirmatrelvir with ONE 100 mg tablet of ritonavir twice daily for 5 days Referrals Follow up/Referrals: Domitila Baldwin PA [Primary Care Provider] - See instructions Clinical Impressions Clinical Impression: Acute exacerbation of chronic obstructive pulmonary disease, Headache, Sepsis Discharge ED Provider: Donald Cervantes General Adult HPI General Chief complaint: Weakness Stated complaint: SOA,cough,weakness Time Seen by Provider: 09/12/23 08:18 Mode of Arrival: Family Vehicle Source of Information: Patient and Spouse Limitations: No Limitations Description of Symptoms (Recalled from ER Triage Doc. by RN): Pt c/o headache, body aches, chest congestion, productive cough, chills, and weakness that began last night. States she had covid exsposure last week and tested negative early this week but her symptoms began last night. She does have a cardiac hx and has 5 cardiac stents. History of Present Illness HPI narrative: Patient is a 68-year-old female with past medical history of coronary artery disease status post stenting, COPD not on nocturnal O2 2 L who presents emergency department for evaluation of multiple complaints. Over the last week she has had cough, myalgias, generalized headache, shortness of breath.
--- NOTE | 2023-09-12 08:50 | PC.NURSE ---
Called respiratory for 3 duonebs per MD.
--- NOTE | 2023-09-12 08:51 | PC.NURSE ---
Respiratory aware of VBG order and blood in lab
--- NOTE | 2023-09-12 08:57 | PC.NURSE ---
RT at BS for breathing treatment
[2023-09-12 08:59] LABS: VBG Base Excess -5.3 mmol/L (-2.4-2.3); VBG HCO3 19.6 mmol/L (23-30); VBG Oxygen Saturation 93.6 % (50-70); VBG PCO2 33.2 mmol/L (35-51); VBG PH 7.39 mmol/L (7.31-7.41); VBG PO2 67.3 mmol/L (28-40); VBG Total CO2 20.7 mmol/L (23-27)
[2023-09-12 09:00] LABS: Coronavirus 19, PCR Not Detected (NotDetected); Influenza A, PCR Not Detected (NotDetected); Influenza B, PCR Not Detected (NotDetected)
[2023-09-12 09:01] LABS: Basophils # 0.1 K/mm3 (0-0.2); Basophils % 0.3 % (0.1-2.0); Chloride 104 mmol/L (98-107); Eosinophils # 0.1 K/mm3 (0.0-0.4); Eosinophils % 0.3 % (0.1-12.0); Hematocrit 41.4 % (37.0-47.0); Hemoglobin 14.5 g/dL (12.2-16.2); Lymphocytes # 1.6 K/mm3 (0.7-4.5); Lymphocytes % 9.5 % (10-50); Mean Corpuscular HGB Conc 34.9 g/dL (31.8-35.4); Mean Corpuscular Hemoglobin 32.1 pg (27.0-31.2); Mean Corpuscular Volume 91.9 fl (81-99); Mean Platelet Volume 8.1 fl (7.4-10.4); Monocytes # 0.5 K/mm3 (0.1-1.0); Monocytes % 3.1 % (1.7-9.3); Neutrophils # 14.5 K/mm3 (1.8-7.8); Neutrophils % 86.8 % (37.0-80.0); Platelet Count 283 K/mm3 (142-424); Potassium 3.6 mmoL/L (3.5-5.1); Red Cell Distribution Width 14.1 % (11.5-17.5); Sodium 136 mmol/L (136-145); White Blood Count 16.7 K/mm3 (4.8-10.8)
[2023-09-12 09:04] LABS: Alanine Aminotransferase 26 U/L (12-78); Albumin Level 4.1 g/dl (3.5-5.0); Alkaline Phosphatase 104 U/L (38-126); Anion Gap 11.6 mEq/L (5-15); Aspartate Amino Transferase 30 U/L (14-36); Bilirubin,Total 0.5 mg/dl (0.2-1.3); Blood Urea Nitrogen 29 mg/dl (7-17); Calcium 8.7 mg/dl (8.4-10.2); Carbon Dioxide 24 mmol/L (22.0-30.0); Creatine Kinase 67 U/L (30-135); Creatinine Clearance Estimated 70 mL/min (50-200); Estimated Glomerular Filt Rate 45 ml/min (>60); GFR (African American) 54 ML/MIN (>60); Glucose 164 mg/dl (74-100)
[2023-09-12 09:05] LABS: Albumin/Globulin Ratio 1.2 (1.1-1.8); Globulin 3.5 g/dL (1.3-3.2); Total Protein,Serum 7.6 g/dl (6.3-8.2)
[2023-09-12 09:14] LABS: MANUAL DIFFERENTIAL MANUAL DIFFERENTIAL (MANUAL DIFF)
[2023-09-12 09:23] LABS: Troponin I < 0.01 ng/ml (0.00-0.034)
--- NOTE | 2023-09-12 09:35 | PC.NURSE ---
applied O2 @2 L per NC r/t pt sleeping at Sa02 88% pt reports wears home O2 when sleeping notified SANDOVAL ALFONSO
--- NOTE | 2023-09-12 09:38 | PC.NURSE ---
RAD at for CXR
[2023-09-12 09:44] LABS: Lymphocytes % 7 % (10-50); Monocytes % 5 % (2-9); Neutrophils % 88 % (42-76); Platelet Estimate Normal; Total Cells Counted 100
[2023-09-12 09:45] LABS: RBC Morphology Normal
--- NOTE | 2023-09-12 09:47 | PC.NURSE ---
Dr. Cervantes at BS to update pt on POC
--- NOTE | 2023-09-12 09:56 | PC.NURSE ---
Dr. Cervantes s/w Dr. Leiva for admission
--- NOTE | 2023-09-12 10:01 | PC.NURSE ---
Called case management for admission
--- NOTE | 2023-09-12 10:11 | HMH.PHAINT1 ---
Pharmacy Intervention Comments: MEDICATION RECONCILIATION COMPLETED ON PATIENT USING EXTERNAL FILL HISTORY FROM PHARMACY AND LIST FROM PCP OFFICE. -FEI JIMENEZ, ROELD
--- NOTE | 2023-09-12 10:26 | PC.NURSE ---
Pt voiced I didn't know I was getting admitted, I feel better and I'd prefer to go home . Dr. Cervantes s/w pt regarding admission again, she has decided to stay now.
--- NOTE | 2023-09-12 10:31 | PC.NURSE ---
report called to radha on second floor
--- NOTE | 2023-09-12 13:20 | EXP.HP ---
History of Present Illness *Admission Date: 09/12/23 *Reason for visit:: short of breath *History of present illness: Ms. blunt is a 68-year-old female with COPD, CAD, hypertension, chronic pain who presented to the ER with increased shortness of breath. Sick contact with family member who had COVID earlier this week. Patient has had some increased congestion and shortness of breath over the past 24 hours. Complains of a mildly productive cough, chills, body aches. Normally wears oxygen 2 to 3 L just at night and uses BiPAP most nights. Currently requiring oxygen continuously. Treated with numerous nebulizers in the ER and started on IV antibiotics. Given patient's clinical status, sepsis criteria being met, and increased oxygen requirement from baseline, ER consulted medicine for admission and further management. Of note, she has a significant cardiac history with 5 stents. On anticoagulation with dual and platelet therapy. Currently afebrile. is also sick with sniffles. COVID and flu swab negative in the ER. On arrival to the floor, patient is fatigued but will open eyes and answer questions. Appears to be breathing somewhat more comfortably than initial arrival to the ER however still requiring 2 L oxygen and significant wheeze bilaterally in lung martines. Denies any chest pain, headache, nausea or vomiting at this time. Is not hungry. [facility] Disclaimer: The information contained in this section may have been updated after the patient was seen, as this information can be updated by other users. Medical History Bilateral low back pain with sciatica Depression Diabetes mellitus Hypertension Neuropathy Pain in both lower legs Restless leg syndrome Tobacco abuse Type 2 diabetes mellitus with diabetic polyneuropathy, without long-term current use of insulin Vitamin D deficiency (~03/11/18) Family History No significant family history Social History Smoking Status: Current every day smoker tobacco type: cigarettes packs per day: 1 second hand exposure: No alcohol intake: never substance use type: denies use current occupational status: unemployed Travel in the last 8 weeks: None household members: spouse housing: house marital status: education level: high school current occupational exposures/hazards: No caffeine: Yes special aron needs: No agree to transfusion: No do you feel safe at home: Yes victim of physical abuse: No victim of emotional abuse: No victim of sexual abuse: No would you like helpful sources: No Review of Systems Review of Systems Review of systems (narrative): 14 point review of systems performed, pertinent positives and negatives as per HPI Meds Home Medications and Allergies Home Medications Medication Instructions Recorded Confirmed Type aspirin 81 mg chewable tablet 81 mg PO DAILY Heart Disease 05/28/23 09/12/23 History atorvastatin 80 mg tablet 80 mg PO DAILY Cholesterol 05/28/23 09/12/23 History clopidogrel 75 mg tablet 75 mg PO DAILY Platelet Inhibitor 05/28/23 09/12/23 History furosemide 20 mg tablet 20 mg PO DAILY Fluid 05/28/23 09/12/23 History metoprolol succinate 50 mg 50 mg PO DAILY High Blood Pressure 05/28/23 09/12/23 History tablet,extended release 24 hr potassium chloride 10 mEq 10 meq PO DAILY Supplement 05/28/23 09/12/23 History tablet,extended release tramadol 200 mg tablet,extended 200 mg PO DAILY Chronic Pain 05/28/23 09/12/23 History release 24 hr trazodone 100 mg tablet 100 mg PO HS Insomnia 05/28/23 09/12/23 History benzonatate 100 mg capsule 100 mg PO TIDP PRN Cough #30 caps 09/06/23 09/12/23 Rx albuterol sulfate 90 mcg/actuation 4 inh inhalation Q4HP PRN 09/12/23 09/12/23 History aerosol inhaler shortness of breath or wheezing azithromycin 250 m
[2023-09-12 13:22] LABS: Troponin I 0.01 ng/ml (0.00-0.034)
[2023-09-12 13:53] LABS: Adenovirus,PCR Not Detected (NotDetected); Coronavirus 19, PCR Not Detected (NotDetected); Coronavirus 229E Not Detected (NotDetected); Coronavirus NL63 Not Detected (NotDetected); Coronavirus OC43 Not Detected (NotDetected); Coronovirus HKU1,PCR Not Detected (NotDetected); Human Metapneumovirus Not Detected (NotDetected); Influenza A, PCR Not Detected (NotDetected); Influenza AH1, 2009 Not Detected (NotDetected); Influenza AH1, PCR Not Detected (NotDetected); Influenza AH3,PCR Not Detected (NotDetected); Influenza B, PCR Not Detected (NotDetected); Parainfluenza 1, PCR Not Detected (NotDetected); Parainfluenza 2, PCR Not Detected (NotDetected); Parainfluenza 3, PCR Not Detected (NotDetected); Parainfluenza 4, PCR Not Detected (NotDetected); Respiratory Syncytial Virus Not Detected (NotDetected); Rhinovirus/Enterovirus Not Detected (NotDetected)
[2023-09-12 14:54] LABS: Thyroid Stimulating Hormone 0.47 uIU/mL (0.465-4.68)
[2023-09-12 15:22] LABS: Hemoglobin A1C 5.8 % (4.0-6.0)
[2023-09-12 15:39] LABS: Troponin I < 0.01 ng/ml (0.00-0.034)
--- NOTE | 2023-09-12 15:41 | PC.NURSE ---
A&OX4. TOLERATING 2LNC WELL. PT HAS SLEPT SINCE ARRIVAL TO FLOOR. AT BEDSIDE. NO NEEDS OR C/O NOTED THUS FAR. VSS.
--- NOTE | 2023-09-12 16:45 | PC.NURSE ---
PT RA SATURATION IS 83% AT REST.
[2023-09-13] VITALS: BP 116/63; PULSE 70; PULSE 80; RESP 18; TEMP 36.6; O2SAT 94
--- NOTE | 2023-09-13 03:32 | PC.NURSE ---
pt is alert and oriented x4, pt is currently on 2L of o2 and is sating at 94%. Pt has complained of pain once this shift which was relieved with pain medication. Pt hyas sleep for the most part of the shift and offers no other complaints.
[2023-09-13 04:00] VITALS: BP 126/76; PULSE 60; PULSE 73; RESP 18; TEMP 36.8; O2SAT 95; BMI 38.1
[2023-09-13 05:10] VITALS: PULSE 75; PULSE 78; O2SAT 92
[2023-09-13 07:23] LABS: Chloride 109 mmol/L (98-107)
[2023-09-13 07:24] LABS: Potassium 3.6 mmoL/L (3.5-5.1); Sodium 139 mmol/L (136-145)
[2023-09-13 07:25] LABS: Basophils % 0.2 % (0.1-2.0); Eosinophils % 0.1 % (0.1-12.0); Hematocrit 38.3 % (37.0-47.0); Lymphocytes # 1.8 K/mm3 (0.7-4.5); Lymphocytes % 9.8 % (10-50); Mean Corpuscular HGB Conc 33.7 g/dL (31.8-35.4); Mean Corpuscular Hemoglobin 31.7 pg (27.0-31.2); Mean Corpuscular Volume 94.1 fl (81-99); Mean Platelet Volume 8.1 fl (7.4-10.4); Monocytes # 0.6 K/mm3 (0.1-1.0); Monocytes % 3.4 % (1.7-9.3); Neutrophils # 15.6 K/mm3 (1.8-7.8); Neutrophils % 86.5 % (37.0-80.0); Platelet Count 251 K/mm3 (142-424); Red Blood Count 4.07 M/mm3 (4.20-5.40); Red Cell Distribution Width 14.2 % (11.5-17.5)
[2023-09-13 07:26] LABS: Alanine Aminotransferase 24 U/L (12-78); Alkaline Phosphatase 101 U/L (38-126); Anion Gap 9.6 mEq/L (5-15); Aspartate Amino Transferase 30 U/L (14-36); Bilirubin,Total 0.2 mg/dl (0.2-1.3); Blood Urea Nitrogen 29 mg/dl (7-17); Carbon Dioxide 24 mmol/L (22.0-30.0); Creatinine Clearance Estimated 85 mL/min (50-200); Estimated Glomerular Filt Rate 72 ml/min (>60); GFR (African American) 87 ML/MIN (>60)
[2023-09-13 07:27] LABS: Albumin Level 3.6 g/dl (3.5-5.0); Albumin/Globulin Ratio 1.1 (1.1-1.8); Calcium 8.3 mg/dl (8.4-10.2); Globulin 3.2 g/dL (1.3-3.2); Glucose 196 mg/dl (74-100); MANUAL DIFFERENTIAL MANUAL DIFFERENTIAL (MANUAL DIFF); Total Protein,Serum 6.8 g/dl (6.3-8.2)
[2023-09-13 08:00] VITALS: BP 111/62; PULSE 77; RESP 20; TEMP 36.8; O2SAT 95; O2SAT 97
[2023-09-13 08:05] LABS: Lymphocytes % 14 % (10-50); Monocytes % 4 % (2-9); Neutrophils % 82 % (42-76); Platelet Estimate Normal; RBC Morphology Normal; Total Cells Counted 100
[2023-09-13 10:00] VITALS: O2SAT 95
--- NOTE | 2023-09-13 10:16 | PC.NURSE ---
95% o2 sat on room air.
--- NOTE | 2023-09-13 11:29 | PC.NURSE ---
courtesy tech note: pt was given coffee and a pitcher of ice upon request. pt is sitting on the side of bed with family at .
[2023-09-13 11:45] VITALS: PULSE 65; PULSE 68
--- NOTE | 2023-09-13 13:02 | EXP.DC.SUM ---
General Admission date:: 09/12/23 Discharge date: 09/13/23 HPI HPI HPI: Ms. blunt is a 68-year-old female with COPD, CAD, hypertension, chronic pain who presented to the ER with increased shortness of breath. Sick contact with family member who had COVID earlier this week. Patient has had some increased congestion and shortness of breath over the past 24 hours. Complains of a mildly productive cough, chills, body aches. Normally wears oxygen 2 to 3 L just at night and uses BiPAP most nights. Currently requiring oxygen continuously. Treated with numerous nebulizers in the ER and started on IV antibiotics. Given patient's clinical status, sepsis criteria being met, and increased oxygen requirement from baseline, ER consulted medicine for admission and further management. Of note, she has a significant cardiac history with 5 stents. On anticoagulation with dual and platelet therapy. Currently afebrile. is also sick with sniffles. COVID and flu swab negative in the ER. On arrival to the floor, patient is fatigued but will open eyes and answer questions. Appears to be breathing somewhat more comfortably than initial arrival to the ER however still requiring 2 L oxygen and significant wheeze bilaterally in lung martines. Denies any chest pain, headache, nausea or vomiting at this time. Is not hungry. Hospital Course Hospital Course Hospital Course: 68-year-old female with history of COPD, tobacco use, hypertension, CAD. On 2 to 3 L nasal cannula oxygen at home only at night. Presents with 24 hours of worsening shortness of breath, cough, dyspnea. Increased oxygen requirement, necessitating continuous oxygen at this time. Discussed case with ER physician, request admission for sepsis (tachycardia, tachypnea, suspected respiratory infection, leukocytosis) with COPD exacerbation. Patient needing breathing treatments and IV antibiotics. Medicine agreed to admit to inpatient service for further management. Improved with steroids and antibiotics. Better by morning. Stable to discharge home. Problems addressed as follows: Sepsis, resolved Acute on chronic hypoxemic respiratory failure with COPD exacerbation Tobacco dependence - On presentation, patient was tachycardic to 104, tachypneic to 26, concern for respiratory infection, white cell count increased at 16.7. Comprehensive respiratory panel obtained that was negative for all analytes. Patient responded well to breathing treatments, antibiotics, and steroids. Improved by morning with O2 sats in the low 90s on room air. Given her improvement, will transition to oral antibiotics to complete 5 days total of antibiotics and steroids. Has oxygen at home already. Counseled on significance of need for smoking cessation. Patient states understanding. We will send nicotine patches to help promote abstinence. Patient ready to try and quit. CAD Hypertension Hyperlipidemia -Continue home medications including aspirin 81 mg daily, atorvastatin 80 mg daily, Plavix 5 mg daily, Lasix 20 mg daily, metoprolol 50 mg daily. Continue home gabapentin, resume home dose at discharge. Resume home tramadol at discharge Continue home Prozac for mood patient is quite fatigued, held trazodone during admission. A1c obtained, 5.8 during admission. Does not appear to have diabetes. TSH controlled at 0.47. Encourage close follow-up with PCP to evaluate for resolution of symptoms. Exam Data for Last 24 hours Vital signs and Labs for Last 24 Hours: Temp Pulse Resp BP Pulse Ox O2 Del Method O2 Flow Rate 98.3 F 65 20 111/62 95 Room Air 3 09/13/23 08:00 09/13/23 11:45 09/13/23 08:00 09/13/23 08:00 09/13/23 10:00 09/13/23 10:00 09/13/23 06:41 FiO2 21 09/12/23 17:48 Laboratory Results - last 24 hr 09/12/23 08:22: TSH 0.47 09/12/23 12:27: Hemoglobin A1c 5.8, Troponin I 0.01 09/12/23 13:35: Chlamy pneumoniae PCR TNP, Adenovirus (PCR) Not detected, B. pertussis DNA (PCR
--- NOTE | 2023-09-13 13:37 | HMH.PHAINT1 ---
Pharmacy Intervention Comments: DISCHARGE MEDICATION COUNSELING PROVIDED. DISCUSSED THE FOLLOWING NEW MEDICATIONS: -AZITHROMYCIN (STOP DOSE PACK FROM BEFORE THE HOSPITAL AND START THIS ONE, DAILY, TAKE WITH FOOD, N/V/D POSSIBLE) -CEFDINIR (ANTIBIOTIC, TWICE DAILY, TAKE WITH FOOD, N/V/D POSSIBLE) -PREDNISONE (DAILY, TAKE WITH FOOD, N/V POSSIBLE, INSOMNIA POSSIBLE) -PATIENT AND ASKED ABOUT NICOTINE PATCHES, CALLED AND SPOKE WITH DR RICHARDS WHO WOULD SEND IN PRESCRIPTION AFTER MEETING. COUNSELED TO REMOVE OLD PATCH BEFORE APPLYING NEW ONE, REMOVE BEFORE IMAGING, ROTATE SKIN APPLICATION SITES TO AVOID SKIN IRRITATION. NO QUESTIONS VERBALIZED AT THIS TIME.
--- NOTE | 2023-09-16 16:55 | CARE MANAGER ---
Contacted patient related to hospital discharge. She states she picked up her medication and is aware of her follow up appointment. She denies any questions or concerns. RIDDHI Sherwood
== END 2023-09-13 13:49 | disposition home or self-care (01) ==
LOC: ER 10:00 → 2ND 12:12
PROVIDERS: Admitting Provider Internal Medicine Adolescent Medicine; Emergency Provider Emergency Medicine; PCP Physician Assistant; Visit Provider Internal Medicine Adolescent Medicine
DX: J96.01 Acute respiratory failure with hypoxia; J44.1 Chronic obstructive pulmonary disease with (acute) exacerbation; E78.5 Hyperlipidemia, unspecified; I25.10 Atherosclerotic heart disease of native coronary artery without angina pectoris; F17.210 Nicotine dependence, cigarettes, uncomplicated; I10 Essential (primary) hypertension; G62.9 Polyneuropathy, unspecified; E55.9 Vitamin D deficiency, unspecified; Z79.01 Long term (current) use of anticoagulants; Z79.02 Long term (current) use of antithrombotics/antiplatelets; Z99.81 Dependence on supplemental oxygen; Z95.5 Presence of coronary angioplasty implant and graft; E11.9 Type 2 diabetes mellitus without complications
CPT/HCPCS: 36415; 71045; 80053; 82550; 82803; 83036; 83605; 83735; 84443; 84484; 85007; 85025; 87040; 87632; 87635; 87636; 93005; 94640; 99285; G0378; J0456; J0696

== ENCOUNTER 2023-09-14 15:17 | Emergency (ER) | payer MEDICARE, MEDICAID, SELFPAY ==
[2023-09-14 15:18] VITALS: BP 126/72; PULSE 78; RESP 15; TEMP 36.9; O2SAT 95; BMI 38.7
--- NOTE | 2023-09-14 15:38 | PC.NURSE ---
Dr. Cole at BS for pt eval
--- NOTE | 2023-09-14 15:47 | HMH.EDGENADL ---
Discharge Plan Disposition Patient Disposition: Home, Self-Care Prescriptions Prescriptions: New doxycycline hyclate 100 mg capsule 100 mg PO BID 10 Days Qty: 20 0RF No Action ipratropium-albuterol 0.5 mg-3 mg(2.5 mg base)/3 mL solution for nebulization 3 ml INHALATION Q4HP PRN (Reason: Breathing Problems) (DME) lancets [Accu-Chek Softclix Lancets] Misc See Rx Instructions .ROUTE .COMPLEX Rx Instructions: USE 1 LANCET TO CHECK GLUCOSE TWICE DAILY DIRECTED FOR DIABETES gabapentin 800 mg tablet 800 mg PO TID albuterol sulfate 90 mcg/actuation HFA aerosol inhaler 4 inh inhalation Q4HP PRN (Reason: shortness of breath or wheezing) Rx Instructions: 4 puffs every 4 hours for 48 hours then as needed for shortness of breath or wheezing following fluoxetine 20 mg capsule 20 mg PO DAILY prednisone 20 mg Tablet 40 mg PO DAILY 3 Days Qty: 6 0RF cefdinir 300 mg capsule 300 mg PO BID 3 Days Qty: 6 0RF azithromycin 250 mg tablet 250 mg PO DAILY 3 Days Qty: 3 0RF nicotine 21 mg/24 hr patch 24 hour 1 patch transdermal DAILY Qty: 28 1RF atorvastatin 80 mg tablet 80 mg PO DAILY Patient Comments: TAKE 1 TABLET BY MOUTH ONCE DAILY metoprolol succinate 50 mg tablet extended release 24 hr 50 mg PO DAILY potassium chloride 10 mEq tablet extended release 10 meq PO DAILY Patient Comments: TAKE 1 TABLET BY MOUTH ONCE DAILY clopidogrel 75 mg tablet 75 mg PO DAILY Patient Comments: TAKE 1 TABLET BY MOUTH ONCE DAILY trazodone 100 mg tablet 100 mg PO HS Patient Comments: TAKE 1 TABLET BY MOUTH ONCE DAILY AT NIGHT aspirin 81 mg Tablet,Chewable 81 mg PO DAILY furosemide 20 mg tablet 20 mg PO DAILY Patient Comments: TAKE 1 TABLET BY MOUTH ONCE DAILY tramadol 200 mg tablet extended release 24 hr 200 mg PO DAILY benzonatate 100 mg capsule 100 mg PO TIDP PRN (Reason: Cough) Qty: 30 0RF Referrals Follow up/Referrals: Domitila Baldwin PA [Primary Care Provider] - See instructions Activity Restrictions/Add. Instructions Additional Instructions/Restrictions: Expect 48 to 72 hours for the antibiotic to start to work on your leg. Return with spreading redness past her knee fevers greater than 100.4, no clinical improvement after the stated time, or other concerns. Clinical Impressions Clinical Impression: Cellulitis of left leg Instructions Patient Instructions: DI for Skin Abscess Discharge ED Provider: Steven Cole General Adult HPI General Chief complaint: Skin/Abscess/Foreign Body Stated complaint: sore on your left leg Time Seen by Provider: 09/14/23 15:36 Mode of Arrival: Ambulatory Source of Information: Patient and Spouse Limitations: No Limitations Description of Symptoms (Recalled from ER Triage Doc. by RN): pt presents with c/o red spot on left lower leg ongoing for 2 months. History of Present Illness HPI narrative: Patient is a 68-year-old female presented today with redness in left lower extremity. States that she had a small wound on the lateral distal aspect of her lower leg which happened several months ago and occurred when a wheelbarrow created a small wound. The wound has not been healing well now she has had some spreading redness on the medial aspect of her lower leg over the last few days. No fevers or chills. No focal area of fluctuance. No purulent drainage from the wound. Related Data Home Medications Medication Instructions Recorded Confirmed aspirin 81 mg chewable tablet 81 mg PO DAILY Heart Disease 05/28/23 09/12/23 atorvastatin 80 mg tablet 80 mg PO DAILY Cholesterol 05/28/23 09/12/23 clopidogrel 75 mg tablet 75 mg PO DAILY Platelet Inhibitor 05/28/23 09/12/23 furosemide 20 mg tablet 20 mg PO DAILY Fluid 05/28/23 09/12/23 metoprolol succinate 50 mg 50 mg PO DAILY High Blood Pressure 05/28/23 09/12/23 tablet,extended release 24 hr
[2023-09-14 15:53] VITALS: BP 130/62; PULSE 73; RESP 16; TEMP 36.7
== END 2023-09-14 15:54 | disposition home or self-care (01) ==
PROVIDERS: Emergency Provider Student in an Organized Health Care Education/Training Program; PCP Physician Assistant
DX: L03.116 Cellulitis of left lower limb (principal); E11.40 Type 2 diabetes mellitus with diabetic neuropathy, unspecified; I10 Essential (primary) hypertension; F17.210 Nicotine dependence, cigarettes, uncomplicated
CPT/HCPCS: 99283

== ENCOUNTER 2023-09-28 16:10 | Emergency (ER) | payer MEDICARE, MEDICAID, SELFPAY ==
--- NOTE | 2023-09-28 16:35 | XR_ITS ---
PROCEDURE INFORMATION: Exam: XR Left Hand Exam date and time: 09/28/2023 4:37 PM Age: 68 years old Clinical indication: Pain; Finger(s); Left; Additional info: Thumb pain and tightness TECHNIQUE: Imaging protocol: Radiologic exam of the left hand. Views: 3 or more views. COMPARISON: No relevant prior studies available. FINDINGS: Bones/joints: No acute fracture or dislocation. Degenerative changes of the IP joints. Degenerative changes of the 1st MCP joint with moderate/severe joint space narrowing and osteophytosis. Soft tissues: Unremarkable. IMPRESSION: Degenerative changes with no acute osseous abnormality.
[2023-09-28 16:40] VITALS: BP 144/80; PULSE 76; RESP 19; TEMP 37.4; O2SAT 97; BMI 37.5
--- NOTE | 2023-09-28 16:55 | EXP.UTC ---
Discharge Plan Disposition Patient Disposition: Home, Self-Care Condition: Good Prescriptions Prescriptions: No Action ipratropium-albuterol 0.5 mg-3 mg(2.5 mg base)/3 mL solution for nebulization 3 ml INHALATION Q4HP PRN (Reason: Breathing Problems) (DME) lancets [Accu-Chek Softclix Lancets] Misc See Rx Instructions .ROUTE .COMPLEX Rx Instructions: USE 1 LANCET TO CHECK GLUCOSE TWICE DAILY DIRECTED FOR DIABETES gabapentin 800 mg tablet 800 mg PO TID albuterol sulfate 90 mcg/actuation HFA aerosol inhaler 4 inh inhalation Q4HP PRN (Reason: shortness of breath or wheezing) Rx Instructions: 4 puffs every 4 hours for 48 hours then as needed for shortness of breath or wheezing following fluoxetine 20 mg capsule 20 mg PO DAILY prednisone 20 mg Tablet 40 mg PO DAILY 3 Days Qty: 6 0RF atorvastatin 80 mg tablet 80 mg PO DAILY Patient Comments: TAKE 1 TABLET BY MOUTH ONCE DAILY metoprolol succinate 50 mg tablet extended release 24 hr 50 mg PO DAILY potassium chloride 10 mEq tablet extended release 10 meq PO DAILY Patient Comments: TAKE 1 TABLET BY MOUTH ONCE DAILY clopidogrel 75 mg tablet 75 mg PO DAILY Patient Comments: TAKE 1 TABLET BY MOUTH ONCE DAILY trazodone 100 mg tablet 100 mg PO HS Patient Comments: TAKE 1 TABLET BY MOUTH ONCE DAILY AT NIGHT aspirin 81 mg Tablet,Chewable 81 mg PO DAILY furosemide 20 mg tablet 20 mg PO DAILY Patient Comments: TAKE 1 TABLET BY MOUTH ONCE DAILY Referrals Follow up/Referrals: Domitila Baldwin PA [Primary Care Provider] - See instructions Activity Restrictions/Add. Instructions Additional Instructions/Restrictions: Take the Ibuprofen you was prescribed as prescribed for the next couple of days to see if it improves Follow up with your Family Doctor if no improvement or immediately if any worsening of symptoms Straight to ER if any signs of infection or life threatening symptoms Return if needed Clinical Impressions Clinical Impression: Pain of left thumb Instructions Patient Instructions: Ibuprofen Discharge ED Provider: Marissa Calvert [facility] General Stated complaint: Painful left thumb, can not bend Mode of Arrival: Ambulatory Source of Information: Patient Limitations: No Limitations Time Seen by Provider: 09/28/23 16:55 Description of Symptoms (Recalled from Triage Doc. by RN): PATIENT C/O LEFT THUMB PAIN SINCE YESTERDAY HEENT Symptoms (Recalled from RN notes): No Resp Symptoms (Recalled from RN notes): No Skin Symptoms (Recalled from RN notes): No MS Symptoms (Recalled from RN notes): Yes Functional Status (Recalled from RN notes): WNL History of Present Illness Provider Complaint: Patient states that she woke up yesterday morning having pain at the base of her left thumb States that she hasnt hit it or did anything to it that she is aware of unless she may have hit it in the middle of the night in her sleep States that today it was still hurting when she would move it so she came in to get it checked Denies fever denies chills Related Data Home Medications Medication Instructions Recorded Confirmed aspirin 81 mg chewable tablet 81 mg PO DAILY Heart Disease 05/28/23 09/20/23 atorvastatin 80 mg tablet 80 mg PO DAILY Cholesterol 05/28/23 09/20/23 clopidogrel 75 mg tablet 75 mg PO DAILY Platelet Inhibitor 05/28/23 09/20/23 furosemide 20 mg tablet 20 mg PO DAILY Fluid 05/28/23 09/20/23 metoprolol succinate 50 mg 50 mg PO DAILY High Blood Pressure 05/28/23 09/20/23 tablet,extended release 24 hr potassium chloride 10 mEq 10 meq PO DAILY Supplement 05/28/23 09/20/23 tablet,extended release trazodone 100 mg tablet 100 mg PO HS Insomnia 05/28/23 09/20/23 albuterol sulfate 90 mcg/actuation 4 inh inhalation Q4HP PRN 09/12/23 09/20/23 aerosol inhaler shortness of breath or wheezing fluoxetine 20 mg capsule 20 mg PO DAILY Mood 09/12/23
[2023-09-28 17:39] LABS: Uric Acid 4.5 mg/dl (2.5-6.2)
[2023-09-28 17:57] VITALS: BP 144/80; PULSE 76; RESP 19; TEMP 37.4; O2SAT 97
== END 2023-09-28 18:02 | disposition home or self-care (01) ==
PROVIDERS: Emergency Provider Nurse Practitioner; PCP Physician Assistant
DX: M79.645 Pain in left finger(s) (principal); F17.210 Nicotine dependence, cigarettes, uncomplicated; E11.40 Type 2 diabetes mellitus with diabetic neuropathy, unspecified; I10 Essential (primary) hypertension
CPT/HCPCS: 73130; 84550; 99212; 99213; G0463

== ENCOUNTER 2023-10-28 11:33 | Observation (INO) | payer MEDICARE, MEDICAID, SELFPAY ==
[2023-10-28] VITALS (9 sets, daily range): BP systolic 121–165; BP diastolic 63–88; PULSE 67–100; RESP 18–20; TEMP 36.6–37.2; O2SAT 91–99; BMI 38.4; BMI 38.9
--- NOTE | 2023-10-28 11:35 | ECG_ITS ---
APPROVED REPORT Exam: Resting ECG HR:94 bpm ECG Measurements Heart Rate 94 AXES WI 133 P 16 QRSd 89 QRS 49 QT 336 T -14 QTc 388 Conclusion SINUS RHYTHM NONSPECIFIC ST & T-WAVE ABNORMALITY ABNORMAL ECG UNCONFIRMED REPORT Electronically signed by : Gurvinder Gregory MD 10/28/2023 19:16:45
--- NOTE | 2023-10-28 11:52 | XR_ITS ---
FINAL REPORT CLINICAL HISTORY: CHEST PAIN COMPARISON: 09/12/2023 FINDINGS: The heart size is normal. The mediastinum is normal. There is no focal infiltrate or edema. Chronic changes are present in the lung bases. There are no pleural effusions. There is no pneumothorax. There is moderate advanced right shoulder osteoarthropathy. IMPRESSION: No acute cardiopulmonary process Chronic changes are present in the lung bases. Reviewed, Interpreted and Dictated by Deyvi Guerra MD Transcribed by Nguyen Martinez Authenticated and [facility]
[2023-10-28 11:53] LABS: MANUAL DIFFERENTIAL MANUAL DIFFERENTIAL (MANUAL DIFF)
[2023-10-28 11:57] LABS: Chloride 101 mmol/L (98-107); Potassium 3.7 mmoL/L (3.5-5.1); Sodium 140 mmol/L (136-145)
[2023-10-28 11:58] LABS: Basophils # 0.1 K/mm3 (0-0.2); Basophils % 0.9 % (0.1-2.0); Eosinophils # 0.2 K/mm3 (0.0-0.4); Eosinophils % 2.5 % (0.1-12.0); Hematocrit 44.3 % (37.0-47.0); Hemoglobin 14.6 g/dL (12.2-16.2); Lymphocytes # 2.4 K/mm3 (0.7-4.5); Lymphocytes % 30.9 % (10-50); Mean Corpuscular Hemoglobin 30.6 pg (27.0-31.2); Mean Corpuscular Volume 92.8 fl (81-99); Mean Platelet Volume 7.7 fl (7.4-10.4); Monocytes # 0.3 K/mm3 (0.1-1.0); Monocytes % 3.9 % (1.7-9.3); Neutrophils # 4.8 K/mm3 (1.8-7.8); Neutrophils % 61.8 % (37.0-80.0); Platelet Count 317 K/mm3 (142-424); Red Blood Count 4.77 M/mm3 (4.20-5.40); Red Cell Distribution Width 13.9 % (11.5-17.5); White Blood Count 7.7 K/mm3 (4.8-10.8)
[2023-10-28 12:00] LABS: Alanine Aminotransferase 23 U/L (12-78); Albumin Level 4.7 g/dl (3.5-5.0); Albumin/Globulin Ratio 1.2 (1.1-1.8); Alkaline Phosphatase 134 U/L (38-126); Anion Gap 11.7 mEq/L (5-15); Aspartate Amino Transferase 30 U/L (14-36); Bilirubin,Total 0.5 mg/dl (0.2-1.3); Blood Urea Nitrogen 21 mg/dl (7-17); Carbon Dioxide 31 mmol/L (22.0-30.0); Creatinine Clearance Estimated 78 mL/min (50-200); Estimated Glomerular Filt Rate 50 ml/min (>60); GFR (African American) 60 ML/MIN (>60); Total Protein,Serum 8.7 g/dl (6.3-8.2)
[2023-10-28 12:01] LABS: Calcium 9.2 mg/dl (8.4-10.2); Glucose 135 mg/dl (74-100)
[2023-10-28 12:10] LABS: NT Pro Brain Natriuretic Pep. 86.8 pg/mL (0-125)
[2023-10-28 12:12] LABS: Troponin I 0.14 ng/ml (0.00-0.034)
[2023-10-28 12:52] LABS: Eosinophils % 2 % (0-3); Lymphocytes % 34 % (10-50); Monocytes % 1 % (2-9); Neutrophils % 63 % (42-76); Platelet Estimate Normal; RBC Morphology Normal; Total Cells Counted 100
--- NOTE | 2023-10-28 13:24 | PC.NURSE ---
CARDIOLOGY NOTIFIED OF CONSULT AT THIS TIME
--- NOTE | 2023-10-28 13:36 | PC.NURSE ---
Dr. Jack and Dmitry Smith at for consult
--- NOTE | 2023-10-28 13:42 | CA_ITS ---
APPROVED REPORT EXAM: Comprehensive 2D, Doppler, and color-flow Echocardiogram Leather Cleaner: Wilma Singer RVT Ht: 5 ft 3 in Wt: 217lbs BSA: 2.00 BP: 164/88 mmHg Indications: CP,CAD,SMOKER,COPD,HTN,DM TDS-OVERLAYING LUNG 2D Dimensions LA Volume 45.40 mL LA Volume Index 22.70 mL/m2 (M/F) 16-34 EF AP4 54.90 % GL Strain -17.0 % M-Mode Dimensions RVDd 1.97 cm (0.9-2.6) LA Diam 4.05 cm (1.9-4.0) LVDd 5.91 cm (3.5-5.7) LVDs 4.14 cm (3.5-5.7) IVSd 0.48 cm (0.6-1.1) PWd 0.72 cm (0.6-1.1) EF (Teich) 56.40% FS 29.90% EDV (Teich) 173.90 mL TAPSE 2.30 (<1.7) ESV (Teich) 75.90 mL LV Diastology E Decel Time 190 (160-240 msec) E/A Ratio 0.8 Aortic Valve CARSON Index 1.47 cm2/m2 AoV Peak Aidan. 179.0 (50-130 cm/s) AO Peak GR. 12.80 mmHg AO Mean GR. 6.30 (<5 mmHg) AO VTI 37.3 (18-25 cm) CARSON (VTI) 3.01 (2.5-4.5 cm2) Mitral Valve MV E Max Aidan. 68.0 (40-130 cm/s) MV A Velocity 88.0 (40-130 cm/s) E/A Ratio 0.78 MV PHT 56.0 ms Pulmonary Valve PV Peak Velocity 91.0 (50-150 cm/s) Tricuspid Valve TR P. Velocity 154.00 cm/s RAP Estimate 10.00 mmHg RVSP 19.50 mmHg Left Ventricle The left ventricle is normal size. The left ventricular systolic function is normal. The left ventricular ejection fraction is within the normal range. There is increased LV wall thickness. Proximal septal thickening is noted. There is normal LV segmental wall motion. Transmitral Doppler flow pattern suggests impaired LV relaxation. LVEF is 60%. Right Ventricle The right ventricle is mildly dilated. The right ventricular systolic function is normal. There is increased RV wall thickness. Atria The left atrium size is normal. The right atrium size is normal. There is no Doppler evidence of interatrial shunt. Aortic Valve The aortic valve is mildly thickened. There is no aortic valvular stenosis. Trace aortic regurgitation. Mitral Valve The mitral valve is normal in structure. No evidence of mitral valve stenosis. Trace mitral regurgitation. Tricuspid Valve The tricuspid valve leaflets are thin and pliable. Trace tricuspid regurgitation. There is insufficient TR jet to estimate RVSP. Pulmonic Valve The pulmonary valve is normal in structure. Trace pulmonic regurgitation. Great Vessels The aortic root is normal in size. The ascending aorta is normal in size. IVC is normal in size and collapses >50% with inspiration. Pericardium There is no pericardial effusion. Other Information Study Quality: Technically Difficult Conclusion Technically difficult study due to poor acoustic windows. Normal biventricular systolic function. Mild RV dilation. No significant valvular stenosis or regurgitation. Electronically signed by : Marcie Hutton MD 10/28/2023 22:21:44
--- NOTE | 2023-10-28 13:45 | PC.NURSE ---
Called CM for bed assignment
--- NOTE | 2023-10-28 14:07 | PC.NURSE ---
REPORT GIVEN TO RIDDHI LUKE
--- NOTE | 2023-10-28 14:12 | PC.NURSE ---
echo at bedside with patient.
--- NOTE | 2023-10-28 14:12 | PC.NURSE ---
vascular at BS for echo
--- NOTE | 2023-10-28 14:23 | EXP.CARD.CON ---
History of Present Illness History of Present Illness Consult date: 10/28/23 Consult reason: chest pain Chief complaint: chest pain, NSTEMI Additional Medical History:: 1. Tobacco use, continued A. COPD 2. History of type II diabetes but no longer taking medications after weight loss A. Chronic diabetic neuropathy 3. Obesity 4. CAD with history of 5 prior coronary stents placed A. Recent cardiac catheterization, 05/2023, [facility] in [place], [place] showing left main and LAD essentially normal. Large but nondominant circumflex with an occluded ramus branch stent. OM1 has proximal 30% plaque. OM 2 is free of disease. Small codominant RCA giving rise to small right PDA and small PLV B. Diffuse 20 to 30% plaque noted. History of present illness: 68-year-old white female presented to the emergency department for complaint of chest pain and shortness of breath at the urging of her . Patient was given sublingual nitroglycerin in the ER with resolution of discomfort. Troponins returned elevated and cardiology was consulted. EKG is sinus rhythm with inferior ST segment depression and evidence of septal AL. This is similar to EKGs dating back to December 2019. Patient currently is pain-free. Discussed recommendation of left heart catheterization, risk, benefits and procedure and patient agrees to proceed. [facility] Disclaimer: The information contained in this section may have been updated after the patient was seen, as this information can be updated by other users. Medical History (Updated 10/28/23 @ 14:43 by Rena De La Fuente RN) Bilateral low back pain with sciatica Depression Diabetes mellitus Diabetes mellitus, type 2 Hypertension Incontinence of urine Migraine Neuropathy Pain in both lower legs Restless leg syndrome Tobacco abuse Type 2 diabetes mellitus with diabetic polyneuropathy, without long-term current use of insulin Vitamin D deficiency (~03/11/18) Surgical History (Updated 09/20/23 @ 10:28 by Carolann Danielson RN) History of heart artery stent Family History No significant family history Social History (Updated 09/20/23 @ 10:23 by Carolann Danielson RN) Smoking Status: Current every day smoker tobacco type: cigarettes packs per day: 1 second hand exposure: No alcohol intake: never substance use type: denies use current occupational status: unemployed Travel in the last 8 weeks: None household members: spouse housing: house marital status: education level: high school current occupational exposures/hazards: No caffeine: Yes special aron needs: No agree to transfusion: No do you feel safe at home: Yes victim of physical abuse: No victim of emotional abuse: No victim of sexual abuse: No would you like helpful sources: No Review of Systems Review of Systems Review of systems:: pertinent systems reviewed and negative unless documented below *Cardiovascular Cardiovascular: Reports chest pain and Reports dyspnea on exertion *Respiratory Respiratory: Reports dyspnea on exertion Exam Data for Last 24 hours Vital signs and Labs for Last 24 Hours: Temp Pulse Resp BP Pulse Ox O2 Del Method 98.4 F 72 19 164/88 H 95 Room Air 10/28/23 11:34 10/28/23 13:30 10/28/23 13:30 10/28/23 13:30 10/28/23 13:30 10/28/23 11:34 Laboratory Results - last 24 hr 10/28/23 11:35: WBC 7.7, RBC 4.77, Hgb 14.6, Hct 44.3, MCV 92.8, MCH 30.6, MCHC 33.0, RDW 13.9, Plt Count 317, MPV 7.7, Neut % (Auto) 61.8, Lymph % (Auto) 30.9, Hartley % (Auto) 3.9, Eos % (Auto) 2.5, Baso % (Auto) 0.9, Neut # (Auto) 4.8, Lymph # (Auto) 2.4, Hartley # (Auto) 0.3, Eos # (Auto) 0.2, Baso # (Auto) 0.1, Total Counted 100, Neutrophils % (Manual) 63, Lymphocytes % (Manual) 34, Monocytes % (Manual) 1 L, Eosinophils % (Manual) 2, Platelet Estimate Normal, RBC Morphology Normal, Sodium 140, Potassium 3.7, Chloride 101, Carbon
--- NOTE | 2023-10-28 14:33 | PC.NURSE ---
vascular finished with echo pt going to med surg bed
--- NOTE | 2023-10-28 15:10 | PC.NURSE ---
arrived to floor by w/c from ED at 14:36
--- NOTE | 2023-10-28 15:30 | HMH.PHAINT1 ---
Pharmacy Intervention Comments: Med reconciliation completed using external fill history and patient interview. Ms Zavaleta and her state that she takes a full strenght aspirin (325 mg) once a day and she is no longer taking low dose aspirin. She states that it is accurate that she has not picked up atorvastatin since Dec and that she only takes it off and on. She states that she has been receiving clopidogrel 75 mg daily despite what fill history shows. She states that she takes her gabapentin 800 mg BID rather than TID as stated on Rx.
[2023-10-28 15:46] LABS: Troponin I 0.17 ng/ml (0.00-0.034)
--- NOTE | 2023-10-28 16:48 | HMH.EDGENADL ---
Discharge Plan Disposition Patient Disposition: Admitted Condition: Fair Clinical Impressions Clinical Impression: NSTEMI (non-ST elevated myocardial infarction) Discharge ED Provider: Eddy Guzmán I General Adult HPI General Chief complaint: Chest Pain Stated complaint: chest pain Time Seen by Provider: 10/28/23 11:37 Mode of Arrival: Ambulatory Source of Information: Patient Limitations: No Limitations Description of Symptoms (Recalled from ER Triage Doc. by RN): PT REPORTS LEFT SIDED CHEST PAIN THAT STARTED AROUND 0830 THIS AM AT REST. LASTED ABOUT 2-3 MINUTES, NO RADIATION. DENIES PAIN AT THIS TIME. DENIES SHORTNESS OF BREATH, NO NEW COUGH, DENIES N/V History of Present Illness HPI narrative: Patient is a 68-year-old female with history of coronary artery disease, stents in place, COPD, hypertension who is presenting to the emergency department with new onset left-sided chest pressure this morning. History was conducted with the patient at bedside. Patient states that she believes that this is likely secondary to stress. She reports that all of her siblings have as well as both of her parents, and she always becomes more depressed, anxious around [place] time. She states that she was sitting down when the pain started in the left side of her chest. It does not seem to be worsened by exertion. She has not had any associated shortness of breath, difficulty breathing, lightheadedness, dizziness, paresthesias, focal weakness. She has not had any nausea, vomiting, abdominal pain, diarrhea. Denies any recent infectious symptoms including cough, congestion, runny nose, fever. Patient has not yet taken any pain medications prior to coming into the emergency department. Related Data Home Medications Medication Instructions Recorded Confirmed clopidogrel 75 mg tablet 75 mg PO DAILY Platelet Inhibitor 05/28/23 10/28/23 metoprolol succinate 50 mg 50 mg PO DAILY High Blood Pressure 05/28/23 10/28/23 tablet,extended release 24 hr potassium chloride 10 mEq 10 meq PO DAILY Supplement 05/28/23 10/28/23 tablet,extended release trazodone 100 mg tablet 100 mg PO HS Insomnia 05/28/23 10/28/23 albuterol sulfate 90 mcg/actuation 4 inh inhalation Q4HP PRN 09/12/23 10/28/23 aerosol inhaler shortness of breath or wheezing fluoxetine 20 mg capsule 20 mg PO DAILY Mood 09/12/23 10/28/23 gabapentin 800 mg tablet 800 mg PO BID Pain 09/12/23 10/28/23 ipratropium 0.5 mg-albuterol 3 mg 3 ml inhalation Q4HP PRN Breathing 09/12/23 10/28/23 (2.5 mg base)/3 mL nebulization Problems soln lancets (Accu-Chek Softclix 09/12/23 10/28/23 Lancets) aspirin 325 mg tablet 325 mg PO DAILY 10/28/23 10/28/23 Allergies Allergy/AdvReac Type Severity Reaction Status Date / Time No Known Allergies Allergy Verified 09/20/23 10:24 [facility] Disclaimer: The information contained in this section may have been updated after the patient was seen, as this information can be updated by other users. Medical History (Updated 10/28/23 @ 14:43 by Rena De La Fuente RN) Bilateral low back pain with sciatica Depression Diabetes mellitus Diabetes mellitus, type 2 Hypertension Incontinence of urine Migraine Neuropathy Pain in both lower legs Restless leg syndrome Tobacco abuse Type 2 diabetes mellitus with diabetic polyneuropathy, without long-term current use of insulin Vitamin D deficiency (~03/11/18) Surgical History (Updated 09/20/23 @ 10:28 by Carolann Danielson RN) History of heart artery stent Family History No significant family history Social History (Updated 10/28/23 @ 15:15 by Isabella Diaz RN) Smoking Status: Current every day smoker tobacco type: cigarettes packs per day: 1 second hand exposure: No alcohol intake: never substance use type: denies use current occupational status: unemployed Travel in the last 8 weeks: None household members: spouse housing:
[2023-10-28 18:38] LABS: Troponin I 0.13 ng/ml (0.00-0.034)
--- NOTE | 2023-10-28 18:57 | EXP.HP ---
History of Present Illness *Admission Date: 10/28/23 *Reason for visit:: chest pain *History of present illness: Patient is a 68-year-old female with past medical history of CAD, COPD, active tobacco use who presents to the hospital due to chest pain at time of my evaluation patient mentions her chest pain has resolved, she also had associated shortness of breath. Patient was brought to the hospital and was given sublingual nitroglycerin with resolution of chest pain. Patient was evaluated by cardiology and they recommended inpatient admission and left heart cath. Patient otherwise denies nausea vomiting diarrhea constipation dysuria fevers chills. [facility] Disclaimer: The information contained in this section may have been updated after the patient was seen, as this information can be updated by other users. Medical History (Updated 10/28/23 @ 14:43 by Rena De La Fuente RN) Bilateral low back pain with sciatica Depression Diabetes mellitus Diabetes mellitus, type 2 Hypertension Incontinence of urine Migraine Neuropathy Pain in both lower legs Restless leg syndrome Tobacco abuse Type 2 diabetes mellitus with diabetic polyneuropathy, without long-term current use of insulin Vitamin D deficiency (~03/11/18) Surgical History (Updated 09/20/23 @ 10:28 by Carolann Danielson RN) History of heart artery stent Family History No significant family history Social History (Updated 10/28/23 @ 15:15 by Isabella Diaz RN) Smoking Status: Current every day smoker tobacco type: cigarettes packs per day: 1 second hand exposure: No alcohol intake: never substance use type: denies use current occupational status: unemployed Travel in the last 8 weeks: None household members: spouse housing: house marital status: education level: high school current occupational exposures/hazards: No caffeine: Yes special aron needs: No agree to transfusion: No do you feel safe at home: Yes victim of physical abuse: No victim of emotional abuse: No victim of sexual abuse: No would you like helpful sources: No Review of Systems Review of Systems Review of systems (narrative): as per [facility] Meds Home Medications and Allergies Home Medications Medication Instructions Recorded Confirmed Type clopidogrel 75 mg tablet 75 mg PO DAILY Platelet Inhibitor 05/28/23 10/28/23 History metoprolol succinate 50 mg 50 mg PO DAILY High Blood Pressure 05/28/23 10/28/23 History tablet,extended release 24 hr potassium chloride 10 mEq 10 meq PO DAILY Supplement 05/28/23 10/28/23 History tablet,extended release trazodone 100 mg tablet 100 mg PO HS Insomnia 05/28/23 10/28/23 History albuterol sulfate 90 mcg/actuation 4 inh inhalation Q4HP PRN 09/12/23 10/28/23 History aerosol inhaler shortness of breath or wheezing fluoxetine 20 mg capsule 20 mg PO DAILY Mood 09/12/23 10/28/23 History gabapentin 800 mg tablet 800 mg PO BID Pain 09/12/23 10/28/23 History ipratropium 0.5 mg-albuterol 3 mg 3 ml inhalation Q4HP PRN Breathing 09/12/23 10/28/23 History (2.5 mg base)/3 mL nebulization Problems soln lancets (Accu-Chek Softclix 09/12/23 10/28/23 History Lancets) aspirin 325 mg tablet 325 mg PO DAILY 10/28/23 10/28/23 History New Prescriptions to Start Prescriptions: Allergies Allergy/AdvReac Type Severity Reaction Status Date / Time No Known Allergies Allergy Verified 09/20/23 10:24 Exam Data for Last 24 hours Vital signs and Labs for Last 24 Hours: Temp Pulse Resp BP Pulse Ox O2 Del Method 98.2 F 88 18 131/65 96 Room Air 10/28/23 16:00 10/28/23 16:00 10/28/23 16:00 10/28/23 16:00 10/28/23 16:00 10/28/23 18:31 Laboratory Results - last 24 hr 10/28/23 11:35: WBC 7.7, RBC 4.77, Hgb 14.6, Hct 44.3, MCV 92.8, MCH 30.6, MCHC 33.0, RDW 13.9, Plt Count 317, MPV 7.7, Neut % (Auto) 61.8, Lymph % (Auto) 30.9, Owen % (A
[2023-10-28 20:22] LABS: Troponin I 0.12 ng/ml (0.00-0.034)
[2023-10-28 20:52] LABS: POC Glucose,Bedside 88 (70-110)
[2023-10-29] VITALS (19 sets, daily range): BP systolic 96–136; BP diastolic 46–78; PULSE 57–78; RESP 17–20; TEMP 36.4–36.9; O2SAT 90–98; BMI 39.5
--- NOTE | 2023-10-29 05:21 | PC.NURSE ---
Patient has had a good shift. Early in the shift the patient complained of pain in bilateral legs. LOFTER was notified, see MAR. after medication patient did not complain any further. Patient was on RA when I arrived on shift and wore her 2L Nc that she normally wears to sleep when she was ready for bed. Patient has not complained of chest pain or being SOA. No other issues noted. Patient has been NPO since midnight
[2023-10-29 05:50] LABS: POC Glucose,Bedside 103 (70-110)
[2023-10-29 06:20] LABS: Basophils # 0.1 K/mm3 (0-0.2); Basophils % 0.7 % (0.1-2.0); Eosinophils # 0.4 K/mm3 (0.0-0.4); Eosinophils % 5.4 % (0.1-12.0); Hemoglobin 13.2 g/dL (12.2-16.2); Lymphocytes # 3.6 K/mm3 (0.7-4.5); Lymphocytes % 49.1 % (10-50); Mean Corpuscular Hemoglobin 30.2 pg (27.0-31.2); Mean Corpuscular Volume 91.5 fl (81-99); Mean Platelet Volume 7.7 fl (7.4-10.4); Monocytes # 0.4 K/mm3 (0.1-1.0); Neutrophils # 2.9 K/mm3 (1.8-7.8); Neutrophils % 39.8 % (37.0-80.0); Platelet Count 317 K/mm3 (142-424); Red Blood Count 4.38 M/mm3 (4.20-5.40); Red Cell Distribution Width 14.1 % (11.5-17.5); White Blood Count 7.4 K/mm3 (4.8-10.8)
[2023-10-29 06:26] LABS: Chloride 105 mmol/L (98-107); Potassium 4.2 mmoL/L (3.5-5.1); Sodium 138 mmol/L (136-145)
[2023-10-29 06:29] LABS: Anion Gap 8.2 mEq/L (5-15); Blood Urea Nitrogen 25 mg/dl (7-17); Carbon Dioxide 29 mmol/L (22.0-30.0); Creatinine Clearance Estimated 80 mL/min (50-200); Estimated Glomerular Filt Rate 50 ml/min (>60); GFR (African American) 60 ML/MIN (>60)
[2023-10-29 06:30] LABS: Calcium 8.5 mg/dl (8.4-10.2); Glucose 107 mg/dl (74-100)
--- NOTE | 2023-10-29 07:14 | IR_ITS ---
APPROVED REPORT Patient Location: Inpatient Service Desk Specialist: SELWYN Kapoor RT (R) PROCEDURES Left heart catheterization Left ventriculogram Selective coronary angiogram INDICATION Acute on this elevation myocardial infarction Informed consent was obtained prior to the procedure. COMPLICATIONS NONE Estimated Blood Loss: LESS THAN 10 ML TECHNIQUE One percent lidocaine used to anesthetize the right anterior aspect of the wrist. The right radial artery was accessed via the Seldinger technique. A 6 [place] sheath was placed in the right radial artery. 2.5 mg of Verapamil, 800 mcg of nitroglycerin, 1mg Lidocaine and 5000 U Heparin were given through the arterial sheath. The papa catheter was also used to perform left heart catheterization, left ventriculogram and selective coronary angiogram. At the end of the procedure the sheath was removed good hemostasis was achieved using Traclet band, patient was transferred to the postop holding area in stable condition. ANGIOGRAPHIC RESULTS The left main artery Normal The left anterior descending artery Has proximal and mid vessel diffuse 20 to 30% stenoses The circumflex artery Is a large dominant vessel and gives rise to a ramus which has a stent in the ostial proximal segment and is bluntly occluded with the left main artery. There is no retrograde or collateral filling to the ramus intermedius. The remaining circumflex artery is dominant and has diffuse 20 to 30% stenoses The right coronary artery Small nondominant has proximal 30 to 40% stenosis with the distal 70% stenosis followed by an additional 70 to 80% stenosis The FLANAGAN ventriculogram reveals Normal at 65% The left ventricular end-diastolic pressure 30 mmHg IMPRESSION Ostially occluded ramus intermedius stent which has no distal collateralization Mild to moderate disease throughout the LAD and dominant circumflex artery Moderate to severe disease in a small nondominant right coronary artery which is best managed medically Normal ejection fraction Moderate to severely elevated LVEDP PLAN 1. Medical management for coronary disease 2. Risk factor modification 3. Treatment of HFpEF Electronically signed by : Gaudencio Ibarra MD 10/29/2023 13:41:06
--- NOTE | 2023-10-29 07:43 | EXP.CARD.PN ---
Subjective Subjective Date: 10/29/23 Time: 07:43 Principal diagnosis: Non-STEMI Interval history: 68-year-old white female in bed in no acute distress. at bedside. Patient rested well overnight with no complaints. Recommendation for left heart catheterization reviewed with the patient. Risk, benefits and procedure explained to the patient and her agree to proceed. Echocardiogram yesterday technically difficult study but normal biventricular systolic function with mild RV dilatation. No significant valve disease. Exam Data for Last 24 hours Vital signs and Labs for Last 24 Hours: Temp Pulse Resp BP Pulse Ox O2 Del Method O2 Flow Rate 98.4 F 64 18 102/62 L 91 L Room Air 2 10/29/23 04:00 10/29/23 04:00 10/29/23 04:00 10/29/23 04:00 10/29/23 04:00 10/29/23 06:54 10/29/23 05:00 Laboratory Results - last 24 hr 10/28/23 11:35: WBC 7.7, RBC 4.77, Hgb 14.6, Hct 44.3, MCV 92.8, MCH 30.6, MCHC 33.0, RDW 13.9, Plt Count 317, MPV 7.7, Neut % (Auto) 61.8, Lymph % (Auto) 30.9, Moca % (Auto) 3.9, Eos % (Auto) 2.5, Baso % (Auto) 0.9, Neut # (Auto) 4.8, Lymph # (Auto) 2.4, Moca # (Auto) 0.3, Eos # (Auto) 0.2, Baso # (Auto) 0.1, Total Counted 100, Neutrophils % (Manual) 63, Lymphocytes % (Manual) 34, Monocytes % (Manual) 1 L, Eosinophils % (Manual) 2, Platelet Estimate Normal, RBC Morphology Normal, Sodium 140, Potassium 3.7, Chloride 101, Carbon Dioxide 31 H, Anion Gap 11.7, BUN 21 H, Creatinine 1.10 H, Estimated Creat Clear 78, Estimated GFR 50 L, Est GFR ( Amer) 60, Glucose 135 H, Calcium 9.2, Total Bilirubin 0.5, AST 30, ALT 23, Alkaline Phosphatase 134 H, Troponin I 0.14 H, NT-Pro-B Natriuret Pep 86.8, Total Protein 8.7 H D, Albumin 4.7, Globulin 4.0 H, Albumin/Globulin Ratio 1.2 10/28/23 15:10: Troponin I 0.17 H 10/28/23 18:10: Troponin I 0.13 H 10/28/23 19:30: Troponin I 0.12 H 10/28/23 20:42: POC Glucose 88 10/29/23 05:43: POC Glucose 103 10/29/23 05:44: WBC 7.4, RBC 4.38, Hgb 13.2, Hct 40.0, MCV 91.5, MCH 30.2, MCHC 33.0, RDW 14.1, Plt Count 317, MPV 7.7, Neut % (Auto) 39.8, Lymph % (Auto) 49.1, Moca % (Auto) 5.0, Eos % (Auto) 5.4, Baso % (Auto) 0.7, Neut # (Auto) 2.9, Lymph # (Auto) 3.6, Moca # (Auto) 0.4, Eos # (Auto) 0.4, Baso # (Auto) 0.1, Sodium 138, Potassium 4.2, Chloride 105, Carbon Dioxide 29, Anion Gap 8.2, BUN 25 H, Creatinine 1.10 H, Estimated Creat Clear 80, Estimated GFR 50 L, Est GFR ( Amer) 60, Glucose 107 H D, Calcium 8.5 I & O for Last 24 hours: Intake & Output 10/26/23 10/27/23 10/28/23 10/29/23 11:59 11:59 11:59 11:59 Intake Total 990 / 990 Output Total 400 / 400 Balance 590 / 590 Weight 217 lb 223 lb Constitutional Constitutional: no acute distress *Routine Respiratory Exam Respiratory: Present decreased breath sounds and rhonchi *Routine Cardiovascular Exam Cardiovascular: Present RRR *Routine Extremities Exam Extremities: Present edema *Routine Neurological Exam Neurological: Present alert, oriented X3 and CN II-XII intact Progress Note: A&P Assessment and plan (1) COPD (chronic obstructive pulmonary disease): Status: Chronic (2) CAD (coronary artery disease): Status: Acute (3) Tobacco use disorder: Status: Acute (4) NSTEMI (non-ST elevated myocardial infarction): Status: Acute (5) Type 2 diabetes mellitus with diabetic neuropathy: Status: Chronic Assessment and Plan Assessment and Plan for All Diagnoses:: 1. Non-STEMI, currently pain-free -Left heart catheterization today -Continue aspirin, Plavix, statin and metoprolol 2. Diabetes mellitus -defer to PCP 3. Tobacco use, cessation recommended -Nicotine patch if needed 4. Hypertension -continue metoprolol 5. Hyperlipidemia -Continue statin therapy -LDL 107 on 04/12/2020 -Repeat labs this admission 6. CKD, stage II with creatinine 1.1 and GFR 50 Further recommendations after cardiac catheterization today. [facility] results: ANGIOGRAPHIC RESULTS T
[2023-10-29 08:11] LABS: Chol/HDL Ratio 4.1 (1-3.5); Cholesterol 191 mg/dl (140-200); HDL Cholesterol 47 mg/dl (40-60); Triglycerides 109 mg/dl (30-150); VLDL Cholesterol 22 mg/dL (0-40)
--- NOTE | 2023-10-29 08:17 | PC.NURSE ---
COURTESY NOTE: morning round completed on pt. pt denies needing assistance at this time. call blank within reach. Sofy SRNA
[2023-10-29 08:22] LABS: Direct LDL Cholesterol 110.32 mg/dL (100-129)
--- NOTE | 2023-10-29 11:45 | PC.NURSE ---
COURTESY NOTE: afternoon round completed on pt. pt denies needing assistance at this time. call blank within reach. Chastity SRNA
--- NOTE | 2023-10-29 14:12 | EXP.DC.SUM ---
General Admission date:: 10/28/23 Discharge date: 10/29/23 HPI HPI HPI: Patient is a 68-year-old female with past medical history of CAD, COPD, active tobacco use who presents to the hospital due to chest pain at time of my evaluation patient mentions her chest pain has resolved, she also had associated shortness of breath. Patient was brought to the hospital and was given sublingual nitroglycerin with resolution of chest pain. Patient was evaluated by cardiology and they recommended inpatient admission and left heart cath. Patient otherwise denies nausea vomiting diarrhea constipation dysuria fevers chills. Hospital Course Hospital Course Hospital Course: Patient is a 68-year-old female with past medical history of CAD, COPD, active tobacco use who presents to the hospital due to chest pain at time of my evaluation patient mentions her chest pain has resolved, she also had associated shortness of breath. Patient was brought to the hospital and was given sublingual nitroglycerin with resolution of chest pain. Patient was evaluated by cardiology and they recommended inpatient admission and left heart cath. Patient went left heart cath with stable things. Stable for discharge home. Problems addressed during hospitalization as follows: NSTEMI CAD Hypertension -Admitted and monitored on telemetry. Cardiology was consulted. Taken for left heart cath 10/29/2023 with the following findings: IMPRESSION Ostially occluded ramus intermedius stent which has no distal collateralization; Mild to moderate disease throughout the LAD and dominant circumflex artery Moderate to severe disease in a small nondominant right coronary artery which is best managed medically; Normal ejection fraction; Moderate to severely elevated LVEDP Coronary artery disease appears stable at this time compared to heart cath earlier this year. Cardiology recommends continuing aspirin 81 mg daily, Plavix 75 mg daily, metoprolol succinate 50 mg daily. Will add Aldactone 25 mg daily for elevated end-diastolic pressures and add pantoprazole 40 daily for GERD component complicating her chest discomfort. Patient stable to discharge home with plan to follow-up with cardiology in 1 week. Diabetes: Stable during admission. Resume home regimen at discharge. Tobacco use disorder: Counseled on benefits of smoking cessation. Cardiology strongly recommends risk modification Hyperlipidemia: Continue Lipitor. Goal LDL less than 55. CKD stable with creatinine 1.1. COPD: Continue inhalers as needed Stable for discharge home. Patient seen multiple times during the day both before and after her heart cath. Spent 30 minutes in discharge counseling, documentation, discussion of cath results with patient, discussion with subspecialists, and direct care with patient. Exam Data for Last 24 hours Vital signs and Labs for Last 24 Hours: Temp Pulse Resp BP Pulse Ox O2 Del Method O2 Flow Rate 97.8 F 58 L 18 129/75 93 L Room Air 2 10/29/23 12:00 10/29/23 13:55 10/29/23 13:55 10/29/23 13:55 10/29/23 13:55 10/29/23 14:00 10/29/23 07:57 Laboratory Results - last 24 hr 10/28/23 15:10: Troponin I 0.17 H 10/28/23 18:10: Troponin I 0.13 H 10/28/23 19:30: Troponin I 0.12 H 10/28/23 20:42: POC Glucose 88 10/29/23 05:43: POC Glucose 103 10/29/23 05:44: WBC 7.4, RBC 4.38, Hgb 13.2, Hct 40.0, MCV 91.5, MCH 30.2, MCHC 33.0, RDW 14.1, Plt Count 317, MPV 7.7, Neut % (Auto) 39.8, Lymph % (Auto) 49.1, [place] % (Auto) 5.0, Eos % (Auto) 5.4, Baso % (Auto) 0.7, Neut # (Auto) 2.9, Lymph # (Auto) 3.6, [place] # (Auto) 0.4, Eos # (Auto) 0.4, Baso # (Auto) 0.1, Sodium 138, Potassium 4.2, Chloride 105, Carbon Dioxide 29, Anion Gap 8.2, BUN 25 H, Creatinine 1.10 H, Estimated Creat Clear 80, Estimated GFR 50 L, Est GFR ( Amer) 60, Glucose 107 H D, Calcium 8.5, Triglycerides 109, Cholesterol 191, LDL Cholesterol Direct 110.32, VLDL Cholesterol 22, HDL Cholesterol 47, Cholesterol/HDL Ratio 4.1 H I
--- NOTE | 2023-10-29 15:10 | PC.NURSE ---
Rounded on patient. No needs or concerns at this time, at bedside.
--- NOTE | 2023-10-29 16:57 | PC.NURSE ---
right radial band removed, no hematoma noted, dressing placed c/d/i.
[2023-10-30 11:24] LABS: POC Glucose,Bedside 98 (70-110)
[2023-10-30 11:24] LABS: POC Glucose,Bedside 89 (70-110)
--- NOTE | 2023-10-30 15:57 | CARE MANAGER ---
Called and spoke with patient regarding recent discharge. Patient stated that she is doing ok, just tired. She has started new medication and discontinued the K+ as ordered at discharge. She had no questions or concerns at time of call.
== END 2023-10-29 17:42 | disposition home or self-care (01) ==
LOC: ER 12:03 → 2ND 14:04
PROVIDERS: Internal Medicine; Physician Assistant; Admitting Provider Internal Medicine; Emergency Provider Emergency Medicine; PCP Physician Assistant; Visit Provider Internal Medicine
DX: I21.4 Non-ST elevation (NSTEMI) myocardial infarction (principal); J44.1 Chronic obstructive pulmonary disease with (acute) exacerbation; I25.10 Atherosclerotic heart disease of native coronary artery without angina pectoris; F17.200 Nicotine dependence, unspecified, uncomplicated; E11.40 Type 2 diabetes mellitus with diabetic neuropathy, unspecified; E11.42 Type 2 diabetes mellitus with diabetic polyneuropathy; Z95.5 Presence of coronary angioplasty implant and graft; G25.81 Restless legs syndrome; F32.A Depression, unspecified; I12.9 Hypertensive chronic kidney disease with stage 1 through stage 4 chronic kidney disease, or unspecified chronic kidney disease; N18.9 Chronic kidney disease, unspecified
CPT/HCPCS: 36415; 71045; 80048; 80053; 80061; 82962; 83880; 84484; 85007; 85014; 85018; 85025; 85048; 85049; 93005; 93306; 93458; 99152; 99285; C1725; C1769; G0378; J1644; Q9967

== ENCOUNTER 2023-12-12 10:42 | Emergency (ER) | payer MEDICARE, MEDICAID, SELFPAY ==
[2023-12-12 11:20] VITALS: BP 130/71; PULSE 78; RESP 18; TEMP 36.8; O2SAT 96; BMI 37.8
[2023-12-12 11:32] LABS: Adenovirus,PCR Not Detected (NotDetected); Coronavirus 19, PCR Not Detected (NotDetected); Coronavirus 229E Not Detected (NotDetected); Coronavirus NL63 Not Detected (NotDetected); Coronavirus OC43 Not Detected (NotDetected); Coronovirus HKU1,PCR Not Detected (NotDetected); Human Metapneumovirus Not Detected (NotDetected); Influenza A, PCR Not Detected (NotDetected); Influenza AH1, 2009 Not Detected (NotDetected); Influenza AH1, PCR Not Detected (NotDetected); Influenza AH3,PCR Not Detected (NotDetected); Influenza B, PCR Not Detected (NotDetected); Parainfluenza 1, PCR Not Detected (NotDetected); Parainfluenza 2, PCR Not Detected (NotDetected); Parainfluenza 3, PCR Not Detected (NotDetected); Parainfluenza 4, PCR Not Detected (NotDetected); Respiratory Syncytial Virus Not Detected (NotDetected); Rhinovirus/Enterovirus Not Detected (NotDetected)
--- NOTE | 2023-12-12 11:40 | ED_ITS ---
Discharge Plan Disposition Patient Disposition: Home, Self-Care Condition: Good Prescriptions Prescriptions: No Action gabapentin 800 mg tablet 800 mg PO BID 30 Days Qty: 60 0RF fluoxetine 20 mg capsule See Rx Instructions .ROUTE .COMPLEX Qty: 90 0RF Dose Instruction: Take 1 capsule by mouth once daily Rx Instructions: Take 1 capsule by mouth once daily ipratropium-albuterol 0.5 mg-3 mg(2.5 mg base)/3 mL solution for nebulization 3 ml INHALATION Q4HP PRN (Reason: Breathing Problems) (DME) lancets [Accu-Chek Softclix Lancets] Misc See Rx Instructions .ROUTE .COMPLEX Rx Instructions: USE 1 LANCET TO CHECK GLUCOSE TWICE DAILY DIRECTED FOR DIABETES albuterol sulfate 90 mcg/actuation HFA aerosol inhaler 4 inh inhalation Q4HP PRN (Reason: shortness of breath or wheezing) Rx Instructions: 4 puffs every 4 hours for 48 hours then as needed for shortness of breath or wheezing following aspirin 325 mg Tablet 325 mg PO DAILY spironolactone 25 mg Tablet 25 mg PO DAILY 30 Days Qty: 30 0RF pantoprazole 40 mg Tablet,Delayed Release (Dr/Ec) 40 mg PO HS 30 Days Qty: 30 0RF metoprolol succinate 50 mg tablet extended release 24 hr 50 mg PO DAILY clopidogrel 75 mg tablet 75 mg PO DAILY Patient Comments: TAKE 1 TABLET BY MOUTH ONCE DAILY trazodone 100 mg tablet 100 mg PO HS Patient Comments: TAKE 1 TABLET BY MOUTH ONCE DAILY AT NIGHT Referrals Follow up/Referrals: Domitila Baldwin PA [Primary Care Provider] - See instructions Activity Restrictions/Add. Instructions Additional Instructions/Restrictions: *Monitor Temp, Over the counter Motrin or Tylenol as directed/as needed Tylenol every 4 hours and Motrin every 6 hours (as long as your family doctor has told you that you can take it) for fever or pain. and straight to ER if unable to lower temp less than 101.0 after medication given *Warm salt water gargles may help to soothe the throat *Throat Lozenges? *Warm fluids like tea with honey may help to soothe the throat? *Sleep elevated *Humidifier/Vaporizer Follow up IMMEDIATELY for new or worsening symptoms or no Noticeable improvement over the next 48-72 hours. 911 for difficulty breathing or swallowing You were tested for today for Upper Respiratory Panel with COVID19 your test result should be back in the next 24-48 hours, you check your results on the [facility] My Health Portal if your COVID test is positive you must Quarantine for 5 days Clinical Impressions Clinical Impression: Exposure to influenza Instructions Patient Instructions: DI for Viral Syndrome, DI for Respiratory Syncytial Virus -- Adults, DI for Influenza -- Adult Discharge ED Provider: Marissa Calvert [facility] [place] HPI General Stated complaint: cough ba RSV exposure Mode of Arrival: Ambulatory Source of Information: Patient Limitations: No Limitations Time Seen by Provider: 12/12/23 11:41 Description of Symptoms (Recalled from Triage Doc. by RN): PATIENT C/O COUGH, BODY ACHES AND CHILLS. RECENTLY EXPOSED TO FLU AND RSV HEENT Symptoms (Recalled from RN notes): No Resp Symptoms (Recalled from RN notes): Yes Skin Symptoms (Recalled from RN notes): No MS Symptoms (Recalled from RN notes): No Functional Status (Recalled from RN notes): WNL History of Present Illness Provider Complaint: Patient states that she was recently around family that has since tested positive for flu and RSV and now she has started with cough, body aches and chills so she came in today wanting to get tested Related Data Home Medications Medication Instructions Recorded Confirmed clopidogrel 75 mg tablet 75 mg PO DAILY Platelet Inhibitor 05/28/23 10/28/23 metoprolol succinate 50 mg 50 mg PO DAILY High Blood Pressure 05/28/23 10/28/23 tablet,extended release 24 hr trazodone 100 mg tablet 100 mg PO HS Insomnia 05/28/23 10/28/23 albuterol sulfate 90 mcg/actuation 4 inh inhalation Q4HP PRN 09/12/23 10/28/23 aerosol inhaler shortness of breath or wheezing ipratropium 0.5 mg-albuterol 3 mg 3 ml inhalation Q4HP PRN Breathing 09/12/23 10/28/23 (2.5 mg base)/3 mL nebulization Problems soln lancets (Accu-Chek Softclix 09/12/23 10/28/23 Lancets) aspirin 325 mg tablet 325 mg PO DAILY 10/28/23 10/28/23 Previous Rx's Medication Instructions Recorded pantoprazole 40 mg tablet,delayed 40 mg PO HS 30 days #30 tabs 10/29/23 release spironolactone 25 mg tablet 25 mg PO DAILY 30 days #30 tabs 10/29/23 gabapentin 800 mg tablet 800 mg PO BID Pain 30 days #60 tabs 11/14/23 fluoxetine 20 mg capsule See Rx Instructions .Route 12/02/23 .COMPLEX #90 caps Allergies Allergy/AdvReac Type Severity Reaction Status Date / Time No Known Allergies Allergy Verified 09/20/23 10:24 Worker's Comp Is this a Worker's Comp case?: [facility] Disclaimer: The information contained in this section may have been updated after the patient was seen, as this information can be updated by other users. Medical History (Updated 12/12/23 @ 11:44 by Marissa Calvert APRN) Bilateral low back pain with sciatica CAD (coronary artery disease) Depression Diabetes mellitus Diabetes mellitus, type 2 Hypertension Incontinence of urine Migraine Neuropathy Pain in both lower legs Restless leg syndrome Tobacco abuse Type 2 diabetes mellitus with diabetic polyneuropathy, without long-term current use of insulin Vitamin D deficiency (~03/11/18) Surgical History (Updated 09/20/23 @ 10:28 by Carolann Danielson RN) History of heart artery stent Family History No significant family history Social History (Updated 10/28/23 @ 15:15 by Isabella Diaz RN) Smoking Status: Current every day smoker tobacco type: cigarettes packs per day: 1 second hand exposure: No alcohol intake: never substance use type: denies use current occupational status: unemployed Travel in the last 8 weeks: None household members: spouse housing: house marital status: education level: high school current occupational exposures/hazards: No caffeine: Yes special aron needs: No agree to transfusion: No do you feel safe at home: Yes victim of physical abuse: No victim of emotional abuse: No victim of sexual abuse: No would you like helpful sources: No ROS Obtained: Yes All systems reviewed & no additional complaints except as documented and Yes Systems reviewed as appropriate & no additional complaints except as documented Constitutional Constitutional: Reports system reviewed and no additional complaints, except as documented, Reports body ache and Reports chills ENT Ears, Nose, Mouth, and Throat: Reports system reviewed and no additional co mplaints, except as documented and Reports as per HPI Cardiovascular Cardiovascular: Reports system reviewed and no additional complaints, except as documented and Reports as per HPI Respiratory Respiratory: Reports system reviewed and no additional complaints, except as documented, Reports as per HPI, Denies shortness of breath, Denies chest congestion, Reports cough and Denies wheezing Gastrointestinal Gastrointestingal: Reports system reviewed and no additional complaints, except as documented and as per HPI Allergic/Immunologic Allergic/Immunologic: Denies wheezing Physical Exam General General appearance: alert and in no apparent distress ENT ENT exam: Present mucous membranes moist Respiratory Respiratory exam: Present normal lung sounds bilaterally; Absent respiratory distress or wheezes Cardiovascular Cardiovascular exam: Present regular rate, normal rhythm and normal heart sounds Neurological Exam Neurological exam: Present alert, oriented X3 and normal gait Medical Decision Making Robson Inquiry Pt receiving controlled substance: No Robson was queried for this patient: No Vital Signs: 12/12/23 11:20 Temperature 98.2 F Temperature Source Oral Pulse Rate [Right Brachial] 78 Respiratory Rate 18 Blood Pressure [Right Arm] 130/71 Blood Pressure Mean [Right Arm] 90 Blood Pressure Source [Right Arm] Automatic Cuff Blood Pressure Position [Right Arm] Sitting 02 Sat by Pulse Oximetry 96 Oxygen Delivery Method Room Air Orders (Tests/Meds): ORDERS Category Date Time Status Full Resp Panel w/COVID ([facility]) Routine Lab 12/12/23 11:10 Received
[2023-12-12 11:42] VITALS: BP 130/71; PULSE 78; RESP 18; TEMP 36.8; O2SAT 96
== END 2023-12-12 11:50 | disposition home or self-care (01) ==
PROVIDERS: Emergency Provider Nurse Practitioner; PCP Physician Assistant
DX: R05.9 Cough, unspecified (principal); R68.83 Chills (without fever); I25.10 Atherosclerotic heart disease of native coronary artery without angina pectoris; E11.40 Type 2 diabetes mellitus with diabetic neuropathy, unspecified; I10 Essential (primary) hypertension; F17.210 Nicotine dependence, cigarettes, uncomplicated
CPT/HCPCS: 87632; 87635; 99212; 99213; 99214; G0463

== ENCOUNTER 2023-12-15 15:44 | Emergency (ER) | payer MEDICARE, MEDICAID, SELFPAY ==
[2023-12-15 15:50] VITALS: BP 137/79; PULSE 95; RESP 20; TEMP 37.3; O2SAT 95; BMI 38.9
--- NOTE | 2023-12-15 16:08 | EXP.UTC ---
Discharge Plan Disposition Patient Disposition: Home, Self-Care Condition: Good Prescriptions Prescriptions: New prednisone 10 mg tablet 10 mg PO DIRECTED 9 Days Qty: 21 0RF Rx Instructions: Take 4 tablets daily for 3 days, then take 2 tablets daily for 3 days, then take 1 tablet daily for 3 days, then stop. guaifenesin [Mucinex] 600 mg tablet extended release 12hr 600 - 1,200 mg PO BIDP PRN (Reason: Congestion) Qty: 30 0RF amoxicillin-pot clavulanate 875-125 mg Tablet 1 tab PO Q12H Qty: 20 0RF No Action gabapentin 800 mg tablet 800 mg PO BID 30 Days Qty: 60 0RF fluoxetine 20 mg capsule See Rx Instructions .ROUTE .COMPLEX Qty: 90 0RF Dose Instruction: Take 1 capsule by mouth once daily Rx Instructions: Take 1 capsule by mouth once daily benzonatate 100 mg capsule 100 mg PO TID Qty: 30 0RF ipratropium-albuterol 0.5 mg-3 mg(2.5 mg base)/3 mL solution for nebulization 3 ml INHALATION Q4HP PRN (Reason: Breathing Problems) (DME) lancets [Accu-Chek Softclix Lancets] Misc See Rx Instructions .ROUTE .COMPLEX Rx Instructions: USE 1 LANCET TO CHECK GLUCOSE TWICE DAILY DIRECTED FOR DIABETES albuterol sulfate 90 mcg/actuation HFA aerosol inhaler 4 inh inhalation Q4HP PRN (Reason: shortness of breath or wheezing) Rx Instructions: 4 puffs every 4 hours for 48 hours then as needed for shortness of breath or wheezing following aspirin 325 mg Tablet 325 mg PO DAILY spironolactone 25 mg Tablet 25 mg PO DAILY 30 Days Qty: 30 0RF pantoprazole 40 mg Tablet,Delayed Release (Dr/Ec) 40 mg PO HS 30 Days Qty: 30 0RF metoprolol succinate 50 mg tablet extended release 24 hr 50 mg PO DAILY clopidogrel 75 mg tablet 75 mg PO DAILY Patient Comments: TAKE 1 TABLET BY MOUTH ONCE DAILY trazodone 100 mg tablet 100 mg PO HS Patient Comments: TAKE 1 TABLET BY MOUTH ONCE DAILY AT NIGHT Referrals Follow up/Referrals: Domitila Baldwin PA [Primary Care Provider] - See instructions Activity Restrictions/Add. Instructions Additional Instructions/Restrictions: Drink plenty of fluids. Take tylenol or ibuprofen for pain or fever. Take the medications as directed. Follow up with your regular doctor. GO TO THE ER FOR ANY WORSENING SYMPTOMS Don't start the oral steroids until tomorrow, since you had the shot here today. Clinical Impressions Clinical Impression: COPD exacerbation, Exposure to respiratory syncytial virus Instructions Patient Instructions: DI for Chronic Obstructive Pulmonary Disease, DI for Respiratory Syncytial Virus -- Adults, Ceftriaxone Injection, Dexamethasone Injection Discharge ED Provider: Dandre Noble [facility] [place] HPI General Stated complaint: soa, sore throat Time Seen by Provider: 12/15/23 16:07 History of Present Illness Provider Complaint: She states that for the past 1 week she has had worsening chest and sinus congestion. Her was recently diagnosed with RSV. Related Data Home Medications Medication Instructions Recorded Confirmed clopidogrel 75 mg tablet 75 mg PO DAILY Platelet Inhibitor 05/28/23 10/28/23 metoprolol succinate 50 mg 50 mg PO DAILY High Blood Pressure 05/28/23 10/28/23 tablet,extended release 24 hr trazodone 100 mg tablet 100 mg PO HS Insomnia 05/28/23 10/28/23 albuterol sulfate 90 mcg/actuation 4 inh inhalation Q4HP PRN 09/12/23 10/28/23 aerosol inhaler shortness of breath or wheezing ipratropium 0.5 mg-albuterol 3 mg 3 ml inhalation Q4HP PRN Breathing 09/12/23 10/28/23 (2.5 mg base)/3 mL nebulization Problems soln lancets (Accu-Chek Softclix 09/12/23 10/28/23 Lancets) aspirin 325 mg tablet 325 mg PO DAILY 10/28/23 10/28/23 Previous Rx's Medication Instructions Recorded pantoprazole 40 mg tablet,delayed 40 mg PO HS 30 days #30 tabs 10/29/23 release spironolactone 25 mg tablet 25 mg PO DAILY 30 days #30 tabs 10/29/23 gabapentin 800 mg tablet 800 mg PO BID Pain 30 days #60 tabs 11/14/23 fluoxetine 20 mg capsule See Rx Instructions .Route 12/02/23 .COMPLEX #90 caps benzonatate 100 mg capsule 100 mg PO TID cough #30 caps 12/13/23 amoxicillin 875 mg-potassium 1 tab PO Q12H #20 tabs 12/15/23 clavulanate 125 mg tablet guaifenesin 600 mg tablet, 600 - 1,200 mg PO BIDP PRN 12/15/23 extended release 12 hr (Mucinex) Congestion #30 tabs prednisone 10 mg tablet 10 mg PO DIRECTED 9 days #21 12/15/23 tabs Allergies Allergy/AdvReac Type Severity Reaction Status Date / Time No Known Allergies Allergy Verified 12/15/23 16:10 [facility] Disclaimer: The information contained in this section may have been updated after the patient was seen, as this information can be updated by other users. Medical History (Updated 12/15/23 @ 17:03 by aDndre Noble APRN) Bilateral low back pain with sciatica CAD (coronary artery disease) Depression Diabetes mellitus Diabetes mellitus, type 2 Hypertension Incontinence of urine Migraine Neuropathy Pain in both lower legs Restless leg syndrome Tobacco abuse Type 2 diabetes mellitus with diabetic polyneuropathy, without long-term current use of insulin Vitamin D deficiency (~03/11/18) Surgical History History of heart artery stent Family History No significant family history Social History Smoking Status: Current every day smoker tobacco type: cigarettes packs per day: 1 second hand exposure: No alcohol intake: never substance use type: denies use current occupational status: unemployed Travel in the last 8 weeks: None household members: spouse housing: house marital status: education level: high school current occupational exposures/hazards: No caffeine: Yes special aron needs: No agree to transfusion: No do you feel safe at home: Yes victim of physical abuse: No victim of emotional abuse: No victim of sexual abuse: No would you like helpful sources: No ROS Obtained: Yes All systems reviewed & no additional complaints except as documented Constitutional Constitutional: Reports poor appetite Eyes Eyes: Reports system reviewed and no additional complaints, except as documented ENT Ears, Nose, Mouth, and Throat: Reports as per HPI Cardiovascular Cardiovascular: Reports system reviewed and no additional complaints, except as documented and Denies chest pain Respiratory Respiratory: Denies shortness of breath, Reports chest congestion, Reports cough, Denies stridor and Denies wheezing Gastrointestinal Gastrointestingal: Reports system reviewed and no additional complaints, except as documented; Denies abdominal pain, diarrhea or vomiting Musculoskeletal Musculoskeletal: Reports system reviewed and no additional complaints, except as documented and Denies arthralgias Integumentary/Breasts Skin/Breast: Reports system reviewed and no additional complaints, except as documented and Denies rash Neurologic Neurologic: Denies paresthesias Allergic/Immunologic Allergic/Immunologic: Denies wheezing Physical Exam General General appearance: alert and in no apparent distress Eye Eye exam: Present normal appearance, PERRL and EOMI ENT ENT exam: Present mucous membranes moist and normal external ear exam Expanded ENT Exam External ear exam: Present normal external inspection TM/Canal exam: Bilateral TM: erythema and bulging Nose exam: Absent sinus tenderness Nasal speculum exam: Bilateral: normal Mouth exam: Present normal external inspection; Absent drooling Teeth exam: Present normal inspection Throat exam: Present tonsillar erythema and tonsillomegaly Neck Neck exam: Present normal inspection, full ROM and trachea midline; Absent tenderness, lymphadenopathy or thyromegaly Chest Chest inspection: Present normal inspection and symmetric chest wall rise; Absent tenderness or rash Respiratory Respiratory exam: Present normal lung sounds bilaterally; Absent respiratory distress, wheezes, stridor or accessory muscle use Cardiovascular Cardiovascular exam: Present regular rate, normal rhythm and normal heart sounds Abdominal Exam Abdominal exam: Present soft; Absent distention, tenderness, guarding, rebound or rigidity Extremities Exam Extremities exam: Present normal inspection, full ROM and normal capillary refill; Absent tenderness or calf tenderness Back Exam Back exam: Present normal inspection and full ROM; Absent tenderness Neurological Exam Neurological exam: Present alert and oriented X3 Psychiatric Psychiatric exam: Present normal affect and normal mood Skin Skin exam: Present warm, dry, intact and normal color Lymphatic Lymphatic Findings: no adenopathy Medical Decision Making Medical Records Medical records reviewed: No I reviewed the patient's medical records. Robson Inquiry Pt receiving controlled substance: No
[2023-12-15 16:21] LABS: UTC Influenza A Antigen Negative (Negative); UTC Influenza B Antigen Negative (Negative)
[2023-12-15] MEDS: DEXAMETHASONE 4MG/ML 1ML VIAL 8 MG IM (16:49)
[2023-12-15] MEDS: LIDOCAINE 1% 5ML PF VIAL IM (16:49)
[2023-12-15] MEDS: cefTRIAXone 1GM VIAL 1 GM IM (16:49)
[2023-12-15 17:21] VITALS: BP 137/79; PULSE 95; RESP 20; TEMP 37.3; O2SAT 95
[2023-12-15 17:22] LABS: Adenovirus,PCR Not Detected (NotDetected); Coronavirus 19, PCR Not Detected (NotDetected); Coronavirus 229E Not Detected (NotDetected); Coronavirus NL63 Not Detected (NotDetected); Coronavirus OC43 Not Detected (NotDetected); Coronovirus HKU1,PCR Not Detected (NotDetected); Human Metapneumovirus Not Detected (NotDetected); Influenza A, PCR Not Detected (NotDetected); Influenza AH1, 2009 Not Detected (NotDetected); Influenza AH1, PCR Not Detected (NotDetected); Influenza AH3,PCR Not Detected (NotDetected); Influenza B, PCR Not Detected (NotDetected); Parainfluenza 1, PCR Not Detected (NotDetected); Parainfluenza 2, PCR Not Detected (NotDetected); Parainfluenza 3, PCR Not Detected (NotDetected); Parainfluenza 4, PCR Not Detected (NotDetected); Rhinovirus/Enterovirus Not Detected (NotDetected)
[2023-12-15 18:59] LABS: Respiratory Syncytial Virus Detected (NotDetected)
== END 2023-12-15 17:21 | disposition home or self-care (01) ==
PROVIDERS: Emergency Provider Nurse Practitioner Family; PCP Physician Assistant
DX: J44.1 Chronic obstructive pulmonary disease with (acute) exacerbation (principal); B97.4 Respiratory syncytial virus as the cause of diseases classified elsewhere; F17.210 Nicotine dependence, cigarettes, uncomplicated; R09.81 Nasal congestion; R09.89 Other specified symptoms and signs involving the circulatory and respiratory systems; E11.40 Type 2 diabetes mellitus with diabetic neuropathy, unspecified; I11.9 Hypertensive heart disease without heart failure; I25.10 Atherosclerotic heart disease of native coronary artery without angina pectoris
CPT/HCPCS: 87632; 87635; 87804; 96372; 99212; 99214; G0463; J0696

== ENCOUNTER 2024-01-07 17:15 | Emergency (ER) | payer MEDICARE, MEDICAID, SELFPAY ==
[2024-01-07 18:25] VITALS: BP 159/76; PULSE 91; RESP 12; TEMP 37; O2SAT 94; BMI 37.5
--- NOTE | 2024-01-07 18:32 | ED_ITS ---
Discharge Plan Disposition Patient Disposition: Home, Self-Care Condition: Good Prescriptions Prescriptions: New urea 40 % cream 1 applic topical BID 14 Days Qty: 28.35 2RF betamethasone dipropionate 0.05 % cream 1 applic topical BID 10 Days Qty: 45 0RF cephalexin 500 mg capsule 500 mg PO QID Qty: 40 0RF No Action gabapentin 800 mg tablet 800 mg PO BID 30 Days Qty: 60 0RF fluoxetine 20 mg capsule See Rx Instructions .ROUTE .COMPLEX Qty: 90 0RF Dose Instruction: Take 1 capsule by mouth once daily Rx Instructions: Take 1 capsule by mouth once daily trazodone 100 mg tablet 100 mg PO HS Qty: 90 0RF ipratropium-albuterol 0.5 mg-3 mg(2.5 mg base)/3 mL solution for nebulization 3 ml INHALATION Q4HP PRN (Reason: Breathing Problems) (DME) lancets [Accu-Chek Softclix Lancets] Misc See Rx Instructions .ROUTE .COMPLEX Rx Instructions: USE 1 LANCET TO CHECK GLUCOSE TWICE DAILY DIRECTED FOR DIABETES albuterol sulfate 90 mcg/actuation HFA aerosol inhaler 4 inh inhalation Q4HP PRN (Reason: shortness of breath or wheezing) Rx Instructions: 4 puffs every 4 hours for 48 hours then as needed for shortness of breath or wheezing following aspirin 325 mg Tablet 325 mg PO DAILY spironolactone 25 mg Tablet 25 mg PO DAILY 30 Days Qty: 30 0RF pantoprazole 40 mg Tablet,Delayed Release (Dr/Ec) 40 mg PO HS 30 Days Qty: 30 0RF metoprolol succinate 50 mg tablet extended release 24 hr 50 mg PO DAILY clopidogrel 75 mg tablet 75 mg PO DAILY Patient Comments: TAKE 1 TABLET BY MOUTH ONCE DAILY Referrals Follow up/Referrals: Domitila Baldwin PA [Primary Care Provider] - See instructions Activity Restrictions/Add. Instructions Additional Instructions/Restrictions: Use the medications as directed. Follow up with Domitila as discussed. GO TO THE ER FOR ANY WORSENING SYMPTOMS OR CONCERNS Clinical Impressions Clinical Impression: Chronic eczema of hand, Cracking skin Instructions Patient Instructions: Cephalexin, Betamethasone Topical Discharge ED Provider: Dandre Noble [facility] General Stated complaint: right hand split on finger Time Seen by Provider: 01/07/24 18:32 History of Present Illness Provider Complaint: She states that she has extremely dry skin on both her hands. She has a large deep crack on the dorsal aspect of her right ring finger. Related Data Home Medications Medication Instructions Recorded Confirmed clopidogrel 75 mg tablet 75 mg PO DAILY Platelet Inhibitor 05/28/23 10/28/23 metoprolol succinate 50 mg 50 mg PO DAILY High Blood Pressure 05/28/23 10/28/23 tablet,extended release 24 hr albuterol sulfate 90 mcg/actuation 4 inh inhalation Q4HP PRN 09/12/23 10/28/23 aerosol inhaler shortness of breath or wheezing ipratropium 0.5 mg-albuterol 3 mg 3 ml inhalation Q4HP PRN Breathing 09/12/23 10/28/23 (2.5 mg base)/3 mL nebulization Problems soln lancets (Accu-Chek Softclix 09/12/23 10/28/23 Lancets) aspirin 325 mg tablet 325 mg PO DAILY 10/28/23 10/28/23 Previous Rx's Medication Instructions Recorded pantoprazole 40 mg tablet,delayed 40 mg PO HS 30 days #30 tabs 10/29/23 release spironolactone 25 mg tablet 25 mg PO DAILY 30 days #30 tabs 10/29/23 gabapentin 800 mg tablet 800 mg PO BID Pain 30 days #60 tabs 11/14/23 fluoxetine 20 mg capsule See Rx Instructions .Route 12/02/23 .COMPLEX #90 caps trazodone 100 mg tablet 100 mg PO HS Insomnia #90 tabs 12/31/23 betamethasone dipropionate 0.05 % 1 applic topical BID skin 01/07/24 topical cream irritation 10 days #45 grams cephalexin 500 mg capsule 500 mg PO QID #40 caps 01/07/24 urea 40 % topical cream 1 applic topical BID 14 days 01/07/24 #28.35 grams Allergies Allergy/AdvReac Type Severity Reaction Status Date / Time No Known Allergies Allergy Verified 01/07/24 18:36 [facility] Disclaimer: The information contained in this section may have been updated after the patient was seen, as this information can be updated by other users. Medical History (Updated 01/07/24 @ 18:57 by Dandre Noble APRN) Bilateral low back pain with sciatica CAD (coronary artery disease) Depression Diabetes mellitus Diabetes mellitus, type 2 Hypertension Incontinence of urine Migraine Neuropathy Pain in both lower legs Restless leg syndrome Tobacco abuse Type 2 diabetes mellitus with diabetic polyneuropathy, without long-term current use of insulin Vitamin D deficiency (~03/11/18) Surgical History History of heart artery stent Family History No significant family history Social History Smoking Status: Current every day smoker tobacco type: cigarettes packs per day: 1 second hand exposure: No alcohol intake: never substance use type: denies use current occupational status: unemployed Travel in the last 8 weeks: None household members: spouse housing: house marital status: education level: high school current occupational exposures/hazards: No caffeine: Yes special aron needs: No agree to transfusion: No do you feel safe at home: Yes victim of physical abuse: No victim of emotional abuse: No victim of sexual abuse: No would you like helpful sources: No ROS Obtained: Yes All systems reviewed & no additional complaints except as documented Constitutional Constitutional: Denies chills and Denies fever(s) Eyes Eyes: Denies eye discharge ENT Ears, Nose, Mouth, and Throat: Denies dizziness, Denies otalgia and Denies sore throat Cardiovascular Cardiovascular: Denies chest pain Respiratory Respiratory: Denies shortness of breath, Denies chest congestion, Denies cough, Denies stridor and Denies wheezing Gastrointestinal Gastrointestingal: Denies nausea or vomiting Musculoskeletal Musculoskeletal: Reports system reviewed and no additional complaints, except as documented and Denies arthralgias Integumentary/Breasts Skin/Breast: Reports as per HPI, Reports dry skin, Reports redness and Reports rash Neurologic Neurologic: Denies dizziness and Denies paresthesias Allergic/Immunologic Allergic/Immunologic: Denies wheezing Physical Exam General General appearance: alert and in no apparent distress Head Head exam: atraumatic, normocephalic and normal inspection Eye Eye exam: Present normal appearance, PERRL and EOMI ENT ENT exam: Present normal exam, normal oropharynx, mucous membranes moist, TM's normal bilaterally and normal external ear exam Neck Neck exam: Present normal inspection, full ROM and trachea midline; Absent meningismus or lymphadenopathy Chest Chest inspection: Present normal inspection and symmetric chest wall rise; Absen t tenderness Respiratory Respiratory exam: Present normal lung sounds bilaterally; Absent respiratory distress Cardiovascular Cardiovascular exam: Present regular rate and normal rhythm; Absent JVD Abdominal Exam Abdominal exam: Present soft and normal bowel sounds; Absent distention, tenderness or guarding Extremities Exam Extremities exam: Present normal inspection, full ROM and normal capillary ref ill; Absent calf tenderness Back Exam Back exam: Present normal inspection; Absent tenderness Neurological Exam Neurological exam: Present alert and oriented X3 Psychiatric Psychiatric exam: Present normal affect and normal mood Skin Skin exam: Present other (there is dry skin with multiple deep cracks on both her hands. ) Lymphatic Lymphatic Findings: no adenopathy Medical Decision Making Medical Records Medical records reviewed: No I reviewed the patient's medical records. Robson Inquiry Pt receiving controlled substance: No
[2024-01-07 19:06] VITALS: BP 159/76; PULSE 91; RESP 12; TEMP 37; O2SAT 94
== END 2024-01-07 19:06 | disposition home or self-care (01) ==
PROVIDERS: Emergency Provider Nurse Practitioner Family; PCP Physician Assistant
DX: L30.9 Dermatitis, unspecified (principal); L98.9 Disorder of the skin and subcutaneous tissue, unspecified; F17.210 Nicotine dependence, cigarettes, uncomplicated; I11.9 Hypertensive heart disease without heart failure; I25.10 Atherosclerotic heart disease of native coronary artery without angina pectoris; E11.40 Type 2 diabetes mellitus with diabetic neuropathy, unspecified; Z95.5 Presence of coronary angioplasty implant and graft
CPT/HCPCS: 99212; 99214; G0463

== ENCOUNTER 2024-01-15 18:13 | Outpatient (CLI) | payer MEDICARE, MEDICAID, SELFPAY ==
[2024-01-15 18:18] LABS: Basophils # 0.1 K/mm3 (0-0.2); Basophils % 0.9 % (0.1-2.0); Eosinophils # 0.2 K/mm3 (0.0-0.4); Eosinophils % 2.7 % (0.1-12.0); Hematocrit 42.1 % (37.0-47.0); Hemoglobin 13.3 g/dL (12.2-16.2); Lymphocytes # 2.1 K/mm3 (0.7-4.5); Lymphocytes % 30.2 % (10-50); Mean Corpuscular HGB Conc 31.7 g/dL (31.8-35.4); Mean Corpuscular Hemoglobin 30.8 pg (27.0-31.2); Mean Corpuscular Volume 97.2 fl (81-99); Mean Platelet Volume 8.8 fl (7.4-10.4); Monocytes # 0.5 K/mm3 (0.1-1.0); Monocytes % 6.8 % (1.7-9.3); Neutrophils # 4.1 K/mm3 (1.8-7.8); Neutrophils % 59.5 % (37.0-80.0); Platelet Count 354 K/mm3 (142-424); Red Blood Count 4.33 M/mm3 (4.20-5.40); Red Cell Distribution Width 14.3 % (11.5-17.5); White Blood Count 6.8 K/mm3 (4.8-10.8)
[2024-01-15 18:35] LABS: Alanine Aminotransferase 15 U/L (12-78); Albumin/Globulin Ratio 1.2 (1.1-1.8); Alkaline Phosphatase 124 U/L (38-126); Anion Gap 12.5 mEq/L (5-15); Aspartate Amino Transferase 25 U/L (14-36); Bilirubin,Total 0.6 mg/dl (0.2-1.3); Blood Urea Nitrogen 18 mg/dl (7-17); Calcium 9.3 mg/dl (8.4-10.2); Carbon Dioxide 27 mmol/L (22.0-30.0); Chloride 105 mmol/L (98-107); Chol/HDL Ratio 3.6 (1-3.5); Cholesterol 207 mg/dl (140-200); Estimated Glomerular Filt Rate 63 ml/min (>60); GFR (African American) 76 ML/MIN (>60); Globulin 3.3 g/dL (1.3-3.2); Glucose 98 mg/dl (74-100); HDL Cholesterol 57 mg/dl (40-60); Potassium 4.5 mmoL/L (3.5-5.1); Sodium 140 mmol/L (136-145); Total Protein,Serum 7.3 g/dl (6.3-8.2); Triglycerides 107 mg/dl (30-150); VLDL Cholesterol 21 mg/dL (0-40)
[2024-01-15 18:47] LABS: Direct LDL Cholesterol 101.81 mg/dL (100-129)
[2024-01-15 19:11] LABS: Thyroid Stimulating Hormone 1.17 uIU/mL (0.465-4.68)
[2024-01-15 19:48] LABS: Hemoglobin A1C 5.8 % (4.0-6.0)
== END 2024-01-15 23:59 ==
LOC: LAB.DROPOF 18:13
PROVIDERS: PCP Physician Assistant; Visit Provider Physician Assistant
DX: E11.40 Type 2 diabetes mellitus with diabetic neuropathy, unspecified (principal); E78.5 Hyperlipidemia, unspecified; Z79.899 Other long term (current) drug therapy
CPT/HCPCS: 80053; 80061; 83036; 84443; 85025

== ENCOUNTER 2024-01-30 11:34 | Emergency (ER) | payer MEDICARE, MEDICAID, SELFPAY ==
[2024-01-30 11:45] VITALS: BP 123/72; PULSE 95; RESP 23; TEMP 36.7; O2SAT 95; BMI 38.0
--- NOTE | 2024-01-30 11:51 | EXP.UTC ---
Discharge Plan Disposition Patient Disposition: Home, Self-Care Condition: Good Prescriptions Prescriptions: New methylprednisolone 4 mg Tablets,Dose Pack 4 mg PO DIRECTED 6 Days Qty: 21 0RF Rx Instructions: Take 1 pack as directed for 6 days No Action Arexvy (PF) 120 mcg/0.5 mL suspension for reconstitution 120 mcg IM ONCE Qty: 1 0RF gabapentin 800 mg tablet 800 mg PO BID 30 Days Qty: 60 2RF tramadol 50 mg tablet 50 mg PO Q8H PRN (Reason: pain) Qty: 90 2RF fluoxetine 20 mg capsule See Rx Instructions .ROUTE .COMPLEX Qty: 90 0RF Dose Instruction: Take 1 capsule by mouth once daily Rx Instructions: Take 1 capsule by mouth once daily trazodone 100 mg tablet 100 mg PO HS Qty: 90 0RF ipratropium-albuterol 0.5 mg-3 mg(2.5 mg base)/3 mL solution for nebulization 3 ml INHALATION Q4HP PRN (Reason: Breathing Problems) (DME) lancets [Accu-Chek Softclix Lancets] Misc See Rx Instructions .ROUTE .COMPLEX Rx Instructions: USE 1 LANCET TO CHECK GLUCOSE TWICE DAILY DIRECTED FOR DIABETES albuterol sulfate 90 mcg/actuation HFA aerosol inhaler 4 inh inhalation Q4HP PRN (Reason: shortness of breath or wheezing) Rx Instructions: 4 puffs every 4 hours for 48 hours then as needed for shortness of breath or wheezing following aspirin 325 mg Tablet 325 mg PO DAILY spironolactone 25 mg Tablet 25 mg PO DAILY 30 Days Qty: 30 0RF urea 40 % cream 1 applic topical BID 14 Days Qty: 28.35 2RF betamethasone dipropionate 0.05 % cream 1 applic topical BID 10 Days Qty: 45 0RF metoprolol succinate 50 mg tablet extended release 24 hr 50 mg PO DAILY clopidogrel 75 mg tablet 75 mg PO DAILY Patient Comments: TAKE 1 TABLET BY MOUTH ONCE DAILY Referrals Follow up/Referrals: Domitila Baldwin PA [Primary Care Provider] - See instructions Reji Dumont DO [Staff Physician] - See instructions Activity Restrictions/Add. Instructions Additional Instructions/Restrictions: Rest the extremities, Elevate the extremities as tolerated while you are resting. Take the medication as directed. Follow up with Dr. Dumont (orthopedics). I put in a referral but you need to call his office and schedule an appointment. His office phone number will be on this paperwork. Follow up with your regular doctor. GO TO THE ER FOR ANY WORSENING SYMPTOMS Clinical Impressions Clinical Impression: Synovial cyst of popliteal space [Nolasco], right knee, Bilateral leg pain, Synovial cyst of popliteal space [Nolasco], left knee Instructions Patient Instructions: Nolasco Cyst, DI for Nolasco Cyst, Methylprednisolone Discharge ED Provider: Dandre Noble [facility] [place] HPI General Stated complaint: both legs swollen and aching Time Seen by Provider: 01/30/24 11:51 History of Present Illness Provider Complaint: She states that for the past several days she has had worsening pain and swelling of both her lower legs. She states that the worst part of her pain is located in the backs of her calves. She denies any abnormal shortness of breath, chest pain and hemoptysis. She denies any personal or family history of blood clots. Related Data Home Medications Medication Instructions Recorded Confirmed clopidogrel 75 mg tablet 75 mg PO DAILY Platelet Inhibitor 05/28/23 01/15/24 metoprolol succinate 50 mg 50 mg PO DAILY High Blood Pressure 05/28/23 01/15/24 tablet,extended release 24 hr albuterol sulfate 90 mcg/actuation 4 inh inhalation Q4HP PRN 09/12/23 01/15/24 aerosol inhaler shortness of breath or wheezing ipratropium 0.5 mg-albuterol 3 mg 3 ml inhalation Q4HP PRN Breathing 09/12/23 01/15/24 (2.5 mg base)/3 mL nebulization Problems soln lancets (Accu-Chek Softclix 09/12/23 01/15/24 Lancets) aspirin 325 mg tablet 325 mg PO DAILY 10/28/23 01/15/24 Previous Rx's Medication Instructions Recorded spironolactone 25 mg tablet 25 mg PO DAILY 30 days #30 tabs 10/29/23 fluoxetine 20 mg capsule See Rx Instructions .Route 12/02/23 .COMPLEX #90 caps trazodone 100 mg tablet 100 mg PO HS Insomnia #90 tabs 12/31/23 betamethasone dipropionate 0.05 % 1 applic topical BID skin 01/07/24 topical cream irritation 10 days #45 grams urea 40 % topical cream 1 applic topical BID 14 days 01/07/24 #28.35 grams [id number] antigen-AS01E 120 mcg IM ONCE #1 ea 01/15/24 adjuvant(PF) 120 mcg/0.5 mL IM suspension, kit (Arexvy (PF)) gabapentin 800 mg tablet 800 mg PO BID Pain 30 days #60 tabs 01/15/24 tramadol 50 mg tablet 50 mg PO Q8H PRN pain #90 tabs 01/15/24 methylprednisolone 4 mg tablets in 4 mg PO DIRECTED 6 days #21 tabs 01/30/24 a dose pack Allergies Allergy/AdvReac Type Severity Reaction Status Date / Time No Known Allergies Allergy Verified 01/15/24 11:08 [facility] Disclaimer: The information contained in this section may have been updated after the patient was seen, as this information can be updated by other users. Medical History Incontinence of urine Migraine Diabetes mellitus, type 2 Pain in both lower legs Type 2 diabetes mellitus with diabetic polyneuropathy, without long-term current use of insulin Diabetes mellitus Hypertension CAD (coronary artery disease) Tobacco abuse Restless leg syndrome Vitamin D deficiency (~03/11/18) Depression Bilateral low back pain with sciatica Neuropathy Surgical History History of heart artery stent Family History Other No significant family history Social History Smoking Status: Current every day smoker tobacco type: cigarettes packs per day: 1 second hand exposure: No alcohol intake: never substance use type: denies use current occupational status: unemployed Travel in the last 8 weeks: None household members: spouse housing: house marital status: education level: high school current occupational exposures/hazards: No caffeine: Yes special aron needs: No agree to transfusion: No do you feel safe at home: Yes victim of physical abuse: No victim of emotional abuse: No victim of sexual abuse: No would you like helpful sources: No ROS Obtained: Yes All systems reviewed & no additional complaints except as documented Constitutional Constitutional: Denies chills and Denies fever(s) Eyes Eyes: Denies eye discharge ENT Ears, Nose, Mouth, and Throat: Denies dizziness, Denies otalgia and Denies sore throat Cardiovascular Cardiovascular: Denies chest pain Respiratory Respiratory: Denies shortness of breath, Denies chest congestion, Denies cough, Denies stridor and Denies wheezing Gastrointestinal Gastrointestingal: Denies nausea or vomiting Musculoskeletal Musculoskeletal: Reports as per HPI Integumentary/Breasts Skin/Breast: Denies redness, Denies rash and Denies wounds Neurologic Neurologic: Denies dizziness and Denies paresthesias Allergic/Immunologic Allergic/Immunologic: Denies wheezing Physical Exam General General appearance: alert and in no apparent distress Head Head exam: atraumatic, normocephalic and normal inspection Eye Eye exam: Present normal appearance, PERRL and EOMI ENT ENT exam: Present normal exam, normal oropharynx, mucous membranes moist, TM's normal bilaterally and normal external ear exam Neck Neck exam: Present normal inspection, full ROM and trachea midline; Absent meningismus or lymphadenopathy Chest Chest inspection: Present normal inspection and symmetric chest wall rise; Absent tenderness Respiratory Respiratory exam: Present normal lung sounds bilaterally; Absent respiratory distress Cardiovascular Cardiovascular exam: Present regular rate and normal rhythm; Absent JVD Abdominal Exam Abdominal exam: Present soft and normal bowel sounds; Absent distention, tenderness or guarding Extremities Exam Extremities exam: Present normal capillary refill; Absent calf tenderness Expanded Lower Extremity Exam Left: Hip/Pelvis exam: Present normal inspection and full ROM; Absent tenderness Upper leg exam: Present normal inspection and full ROM; Absent tenderness Knee exam: Present normal inspection, full ROM and knee extension intact; Absent tenderness, swelling, abrasion, laceration, ecchymosis, deformity, crepitus, dislocation, erythema, effusion, anterior drawer sign, posterior draw sign, pain with valgus, laxity with valgus, pain with varus or laxity with varus Lower leg exam: Present normal inspection, full ROM, swelling, Homans' sign and Achilles tendon intact; Absent tenderness, abrasion, laceration, ecchymosis, deformity, crepitus, dislocation, erythema or palpable cord Ankle exam: Present normal inspection and full ROM; Absent tenderness, tenderness over talofibular lig or anterior draw sign Foot/toe exam: Present normal inspection and full ROM; Absent tenderness Neurovascular/Tendon exam: Present normal capillary refill, normal 2-point discrimination and normal fine/light touch; Absent pulse deficit, motor deficit, sensory deficit, tendon deficit, extremity cold to touch or pallor Gait: observed and limited by pain Right: Hip/Pelvis exam: Present normal inspection and full ROM; Absent tenderness Upper leg exam: Present normal inspection and full ROM; Absent tenderness Knee exam: Present tenderness, swelling and knee extension intact; Absent full ROM, abrasion, laceration, ecchymosis, deformity, crepitus, dislocation, erythema, effusion, anterior drawer sign, posterior draw sign, pain with valgus, laxity with valgus, pain with varus or laxity with varus Lower leg exam: Present tenderness, swelling and Homans' sign; Absent full ROM, abrasion, laceration, ecchymosis, deformity, crepitus, dislocation, erythema, palpable cord or Achilles tendon intact Foot/toe exam: Present normal inspection and full ROM; Absent tenderness Neurovascular/Tendon exam: Present normal capillary refill and normal 2-point discrimination; Absent pulse deficit, motor deficit, sensory deficit, tendon deficit, extremity cold to touch or pallor Gait: observed and limited by pain Back Exam Back exam: Present normal inspection; Absent tenderness Neurological Exam Neurological exam: Present alert and oriented X3 Psychiatric Psychiatric exam: Present normal affect and normal mood Skin Skin exam: Present warm, dry, intact and normal color Lymphatic Lymphatic Findings: no adenopathy Medical Decision Making Medical Records Medical records reviewed: No I reviewed the patient's medical records. Robson Inquiry Pt receiving controlled substance: No Lab Data Lab results reviewed: Yes I reviewed the patient's lab results. CT Data ED CT Reviewed: Yes I have reviewed the patient's CT results and I have viewed the radiologist's interpretation US Data US Images: Lower Extremity ED US Reviewed: Yes I have reviewed the patient's US results and I have viewed radiologist's interpretation Findings Narrative: no dvt bilaterally. She does have bilateral Nolasco's cyst though.
--- NOTE | 2024-01-30 12:48 | CA_ITS ---
FINAL REPORT CLINICAL HISTORY: Bilateral lower extremity pain and edema, hypertension COMPARISON: None FINDINGS: Color Doppler, duplex Doppler and compression sonography of the bilateral lower extremities was performed. There is no evidence of deep venous thrombosis from the level of the groin to the calf. The deep veins are patent and compressible. Bilateral popliteal cysts are noted. IMPRESSION: No evidence of deep venous thrombosis bilateral lower extremities. Bilateral popliteal cysts. Reviewed, Interpreted and Dictated by Andres Max III, MD Transcribed by Carolann Lucio Authenticated and [facility]
[2024-01-30 13:54] VITALS: BP 123/72; PULSE 95; RESP 23; TEMP 36.7; O2SAT 95
== END 2024-01-30 13:57 | disposition home or self-care (01) ==
PROVIDERS: Emergency Provider Nurse Practitioner Family; PCP Physician Assistant
DX: M71.21 Synovial cyst of popliteal space [Baker], right knee (principal); M71.22 Synovial cyst of popliteal space [Baker], left knee; M79.661 Pain in right lower leg; M79.662 Pain in left lower leg; E11.40 Type 2 diabetes mellitus with diabetic neuropathy, unspecified; I25.10 Atherosclerotic heart disease of native coronary artery without angina pectoris; I10 Essential (primary) hypertension; M54.40 Lumbago with sciatica, unspecified side; F17.210 Nicotine dependence, cigarettes, uncomplicated
CPT/HCPCS: 93970; 99212; 99214; G0463

== ENCOUNTER 2024-02-11 12:34 | Outpatient (CLI) | payer MEDICARE, MEDICAID, SELFPAY ==
--- NOTE | 2024-02-11 12:38 | XR_ITS ---
FINAL REPORT CLINICAL HISTORY: Rt Knee Pain COMPARISON: 03/21/2022 FINDINGS: Right knee Three views were obtained. There is no acute fracture or dislocation. There is moderate narrowing of the medial compartment joint space. Moderate osteophytes are seen in the medial joint margin. There are small osteophytes along the undersurface of the patella. No soft tissue abnormality is identified. IMPRESSION: Degenerative changes as detailed above, may be slightly progressed. Reviewed, Interpreted and Dictated by Deyvi Guerra MD Transcribed by Lauren Turpin Authenticated and . [facility]
--- NOTE | 2024-02-11 12:38 | XR_ITS ---
FINAL REPORT CLINICAL HISTORY: lt knee pain FINDINGS: Left knee Three views were obtained. There is no acute fracture or dislocation. There is moderate narrowing of the medial compartment joint space. Moderate osteophytes are seen in the medial joint margin. There are small osteophytes along the undersurface of the patella. No soft tissue abnormality is identified. IMPRESSION: Degenerative changes as detailed above. Reviewed, Interpreted and Dictated by Deyvi Guerra MD Transcribed by Lauren Turpin Authenticated and [facility]
== END 2024-02-11 23:59 ==
LOC: RAD 12:35
PROVIDERS: PCP Physician Assistant; Visit Provider Orthopaedic Surgery
DX: M25.562 Pain in left knee; M25.561 Pain in right knee
CPT/HCPCS: 73562

== ENCOUNTER 2024-02-29 13:38 | Emergency (ER) | payer MEDICARE, MEDICAID, SELFPAY ==
[2024-02-29 13:50] VITALS: BP 150/92; PULSE 77; RESP 18; TEMP 36.8; O2SAT 96; BMI 38.4
--- NOTE | 2024-02-29 14:03 | CT_ITS ---
PROCEDURE INFORMATION: Exam: CT Abdomen And Pelvis With Contrast Exam date and time: 02/29/2024 2:50 PM Age: 68 years old Clinical indication: Abdominal pain; Flank; Right lower quadrant (rlq); Additional info: Abd pain ruq to groin TECHNIQUE: Imaging protocol: Computed tomography of the abdomen and pelvis with contrast. Radiation optimization: All CT scans at this facility use at least one of these dose optimization techniques: automated exposure control; mA and/or kV adjustment per patient size (includes targeted exams where dose is matched to clinical indication); or iterative reconstruction. Contrast material: ISOVUE; Contrast volume: 75 ml; Contrast route: IV; COMPARISON: CT ANGIO ABDOMEN/FEMORAL 12/12/2020 1:27 PM FINDINGS: Heart: There is calcification of the aortic valve annulus. Coronary arteries: Coronary artery calcifications may indicate coronary artery disease. Liver: Normal. No mass. Gallbladder and bile ducts: Gallbladder is normal Pancreas: Normal. No ductal dilation. Spleen: Normal. No splenomegaly. Adrenal glands: Normal. No mass. Kidneys and ureters: There is no evidence of renal or ureteral calcifications.. Stomach and bowel: Constipation Appendix: Normal appendix. Intraperitoneal space: Unremarkable. No free air. No significant fluid collection. Vasculature: Unremarkable. No abdominal aortic aneurysm. Lymph nodes: Unremarkable. No enlarged lymph nodes. Urinary bladder: Unremarkable as visualized. Reproductive: Unremarkable as visualized. Bones/joints: Unremarkable. No acute fracture. Soft tissues: Umbilical hernia contains fat IMPRESSION: 1. There is no evidence of renal or ureteral calcifications.. 2. Normal appendix.
[2024-02-29 14:12] LABS: Microscopic, Urine URINE MICROSCOPIC (MICROSCOPIC)
[2024-02-29 14:16] LABS: Appearance,Urine CLEAR (Clear); Bilirubin,Urine Negative (Negative); Blood, Urine Negative (Negative); Color,Urine YELLOW (Yellow); Glucose,Urine (UA) Negative (Negative); Ketones,Urine TRACE (Negative); Leukocyte Esterase,Urine Negative (Negative); Nitrate,Urine Negative (Negative); Protein,Urine Negative (Negative); Specific Gravity, Urine >= 1.030 (1.005-1.030)
--- NOTE | 2024-02-29 14:17 | ED_ITS ---
Discharge Plan Disposition Patient Disposition: Home, Self-Care Prescriptions Prescriptions: New ondansetron 4 mg tablet,disintegrating 4 mg PO Q8H PRN (Reason: nausea and vomiting) 4 Days Qty: 12 0RF No Action Arexvy (PF) 120 mcg/0.5 mL suspension for reconstitution 120 mcg IM ONCE Qty: 1 0RF gabapentin 800 mg tablet 800 mg PO BID 30 Days Qty: 60 2RF tramadol 50 mg tablet 50 mg PO Q8H PRN (Reason: pain) Qty: 90 2RF fluoxetine 20 mg capsule See Rx Instructions .ROUTE .COMPLEX Qty: 90 0RF Dose Instruction: Take 1 capsule by mouth once daily Rx Instructions: Take 1 capsule by mouth once daily trazodone 100 mg tablet 100 mg PO HS Qty: 90 0RF ipratropium-albuterol 0.5 mg-3 mg(2.5 mg base)/3 mL solution for nebulization 3 ml INHALATION Q4HP PRN (Reason: Breathing Problems) (DME) lancets [Accu-Chek Softclix Lancets] Misc See Rx Instructions .ROUTE .COMPLEX Rx Instructions: USE 1 LANCET TO CHECK GLUCOSE TWICE DAILY DIRECTED FOR DIABETES albuterol sulfate 90 mcg/actuation HFA aerosol inhaler 4 inh inhalation Q4HP PRN (Reason: shortness of breath or wheezing) Rx Instructions: 4 puffs every 4 hours for 48 hours then as needed for shortness of breath or wheezing following aspirin 325 mg Tablet 325 mg PO DAILY spironolactone 25 mg Tablet 25 mg PO DAILY 30 Days Qty: 30 0RF urea 40 % cream 1 applic topical BID 14 Days Qty: 28.35 2RF betamethasone dipropionate 0.05 % cream 1 applic topical BID 10 Days Qty: 45 0RF metoprolol succinate 50 mg tablet extended release 24 hr 50 mg PO DAILY clopidogrel 75 mg tablet 75 mg PO DAILY Patient Comments: TAKE 1 TABLET BY MOUTH ONCE DAILY Referrals Follow up/Referrals: Domitila Baldwin PA [Primary Care Provider] - See instructions Activity Restrictions/Add. Instructions Additional Instructions/Restrictions: At this time it was felt you are safe to be discharged home. If new or worsening symptoms please do not hesitate to return the emergency department. If symptoms persist please follow-up with your family doctor as you are able. Clinical Impressions Clinical Impression: Abdominal pain, Nausea Instructions Patient Instructions: DI for Acute Abdominal Pain Discharge ED Provider: Donald Cervantes General Adult HPI <Daron Palumbo MD - Last Filed: 02/29/24 15:20> General Chief complaint: Abdominal Pain Stated complaint: pain in right abd, can't walk Time Seen by Provider: 02/29/24 13:41 Mode of Arrival: Wheelchair Source of Information: Patient Limitations: No Limitations Description of Symptoms (Recalled from ER Triage Doc. by RN): r sided back pain radiating to the front History of Present Illness HPI narrative: 68-year-old female history of hysterectomy, hypertension, hyperlipidemia, CAD, VT with stenting, PAD COPD, diabetes presenting with right upper quadrant Emilio pain. Started 2 days prior to this visit. Radiates from right side of abdomen into right flank and right groin. Made worse with application of pressure. Associated nausea without vomiting, it is moderate to severe, not associated with hematuria, dysuria,, vaginal discharge or bleeding, constipation, diarrhea, or any other concerns. Has not noticed anything that makes it better, has tried tramadol without effect. Please note that above description of symptoms, in this electronic medical record under categorization of recalled from ER triage doctor by RN are reflective of an initial nursing assessment, however, is not reflective of my full history and physical exam that was personally taken and clarified. Consequentially, this preceding description of symptoms, which may include the patient's categorized chief complaint in the EMR, do not reflect my personal clinical impression, and the ultimate description of history of present illness and patient stated complaints should be deferred to this section of the note. Unless stated otherwise or congruent with this section of the note, additional signs, symptoms, or incongruence should be interpreted as inaccurate with my clinical impression. Related Data Home Medications Medication Instructions Recorded Confirmed clopidogrel 75 mg tablet 75 mg PO DAILY Platelet Inhibitor 05/28/23 02/12/24 metoprolol succinate 50 mg 50 mg PO DAILY High Blood Pressure 05/28/23 02/12/24 tablet,extended release 24 hr albuterol sulfate 90 mcg/actuation 4 inh inhalation Q4HP PRN 09/12/23 02/12/24 aerosol inhaler shortness of breath or wheezing ipratropium 0.5 mg-albuterol 3 mg 3 ml inhalation Q4HP PRN Breathing 09/12/23 02/12/24 (2.5 mg base)/3 mL nebulization Problems soln lancets (Accu-Chek Softclix 09/12/23 02/12/24 Lancets) aspirin 325 mg tablet 325 mg PO DAILY 10/28/23 02/12/24 Previous Rx's Medication Instructions Recorded spironolactone 25 mg tablet 25 mg PO DAILY 30 days #30 tabs 10/29/23 fluoxetine 20 mg capsule See Rx Instructions .Route 12/02/23 .COMPLEX #90 caps trazodone 100 mg tablet 100 mg PO HS Insomnia #90 tabs 12/31/23 betamethasone dipropionate 0.05 % 1 applic topical BID skin 01/07/24 topical cream irritation 10 days #45 grams urea 40 % topical cream 1 applic topical BID 14 days 01/07/24 #28.35 grams [id number] antigen-AS01E 120 mcg IM ONCE #1 ea 01/15/24 adjuvant(PF) 120 mcg/0.5 mL IM suspension, kit (Arexvy (PF)) gabapentin 800 mg tablet 800 mg PO BID Pain 30 days #60 tabs 01/15/24 tramadol 50 mg tablet 50 mg PO Q8H PRN pain #90 tabs 01/15/24 ondansetron 4 mg disintegrating 4 mg PO Q8H PRN nausea and 02/29/24 tablet vomiting 4 days #12 tabs Allergies Allergy/AdvReac Type Severity Reaction Status Date / Time No Known Allergies Allergy Verified 02/12/24 10:37 [facility] <Daron Palumbo MD - Last Filed: 02/29/24 15:20> PFS Disclaimer: The information contained in this section may have been updated after the patient was seen, as this information can be updated by other users. Medical History Incontinence of urine Migraine Diabetes mellitus, type 2 Pain in both lower legs Type 2 diabetes mellitus with diabetic polyneuropathy, without long-term current use of insulin Diabetes mellitus Hypertension CAD (coronary artery disease) Tobacco abuse Restless leg syndrome Vitamin D deficiency (~03/11/18) Depression Bilateral low back pain with sciatica Neuropathy RF Neurontin Surgical History History of heart artery stent Family History Other No significant family history Social History Smoking Status: Current every day smoker tobacco type: cigarettes packs per day: 1 second hand exposure: No alcohol intake: never substance use type: denies use current occupational status: unemployed Travel in the last 8 weeks: None household members: spouse housing: house marital status: education level: high school current occupational exposures/hazards: No caffeine: Yes special aron needs: No agree to transfusion: No do you feel safe at home: Yes victim of physical abuse: No victim of emotional abuse: No victim of sexual abuse: No would you like helpful sources: No <Daron Palumbo MD - Last Filed: 02/29/24 15:20> ROS Obtained: Yes All systems reviewed & no additional complaints except as documented Physical Exam <Daron Palumbo MD - Last Filed: 02/29/24 15:20> General General appearance: alert, in no apparent distress, in distress and obese Head Head exam: atraumatic and normocephalic Eye Eye exam: Present normal appearance, PERRL and EOMI ENT ENT exam: Present mucous membranes moist Neck Neck exam: Present normal inspection, full ROM and trachea midline Respiratory Respiratory exam: Absent respiratory distress, wheezes, stridor, accessory muscle use or prolonged expiratory phase Cardiovascular Cardiovascular exam: Present normal rhythm Abdominal Exam Abdominal exam: Present soft, tenderness and guarding; Absent distention, rebound or rigidity Abdominal tenderness: Present RUQ, RLQ and moderate Extremities Exam Extremities exam: Absent edema Neurological Exam Neurological exam: Present alert, oriented X3, CN II-XII intact and normal gait; Absent motor sensory deficit Skin Skin exam: Present warm and dry; Absent diaphoresis or erythema Medical Decision Making <Daron Palumbo MD - Last Filed: 02/29/24 15:20> Medical Records Medical records reviewed: Yes I reviewed the patient's medical records. Robson Inquiry Pt receiving controlled substance: No Robson was queried for this patient: No Vital Signs: 02/29/24 13:50 02/29/24 15:01 02/29/24 15:30 Temperature 98.3 F Temperature Source Oral Pulse Rate 82 72 Pulse Rate [Right] 77 Respiratory Rate 18 Blood Pressure 161/82 H 150/86 H Blood Pressure [Right Arm] 150/92 H Blood Pressure Mean [Right Arm] 111 02 Sat by Pulse Oximetry 96 91 L 93 L Oxygen Delivery Method Room Air Room Air Lab Data Lab Results 02/29/24 13:48: Urine Color Yellow, Urine Appearance Clear, Urine pH 6.0, Ur Specific [place] >= 1.030, Urine Protein Negative, Urine Glucose (UA) Negative, Urine Ketones Trace, Urine Blood Negative, Urine Nitrate Negative, Urine Bilirubin Negative, Urine Urobilinogen 1.0, Ur Leukocyte Esterase Negative, Urine RBC 3-5, Urine WBC Occasional, Ur Squamous Epith Cells 5-10, Urine Bacteria Trace, Urine Mucus Trace 02/29/24 14:02: WBC 9.7, RBC 4.66, Hgb 14.1, Hct 44.3, MCV 95.0, MCH 30.2, MCHC 31.8, RDW 14.2, Plt Count 339, MPV 7.9, Neut % (Auto) 69.4, Lymph % (Auto) 20.9, [place] % (Auto) 2.8, Eos % (Auto) 5.4, Baso % (Auto) 1.4, Neut # (Auto) 6.7, Lymph # (Auto) 2.0, [place] # (Auto) 0.3, Eos # (Auto) 0.5 H, Baso # (Auto) 0.1, Sodium 138, Potassium 3.8, Chloride 105, Carbon Dioxide 29, Anion Gap 7.8, BUN 21 H, Creatinine 1.00, Estimated Creat Clear 86, Estimated GFR 55 L, Est GFR ( Amer) 67, Glucose 141 H, Lactate 1.0, Calcium 9.5, Total Bilirubin 0.7, AST 28, ALT 19, Alkaline Phosphatase 131 H, Troponin I < 0.01, Total Protein 7.9, Albumin 4.3, Globulin 3.6 H, Albumin/Globulin Ratio 1.2, Lipase 59 02/29/24 14:02 02/29/24 14:02 Orders (Tests/Meds): ED MEDICATIONS Discontinued Medications Generic Name Dose Route Start Last Admin Trade Name Freq PRN Reason Stop Dose Admin Acetaminophen 1,000 mg 02/29/24 14:04 02/29/24 14:21 Acetaminophen 1,000mg/100ml Vial IV 02/29/24 14:05 1,000 mg ONCE ONE Administration Iopamidol 75 ml 02/29/24 14:50 02/29/24 14:52 Iopamidol-370 (76%);100ml Bottle IV 02/29/24 14:51 75 ml ONCE ONE Administration Ketorolac Tromethamine 15 mg 02/29/24 14:04 02/29/24 14:21 Ketorolac 30mg/Ml Vial IV 02/29/24 14:05 15 mg ONCE ONE Administration Sodium Chloride 10 ml 02/29/24 14:50 02/29/24 14:52 Sodium Chloride 0.9% 10ml Syr (Rad Only) IV 02/29/24 14:51 10 ml ONCE ONE Administration ORDERS Category Date Time Status CT abdomen pelvis w con Stat Cat Scan 02/29/24 14:03 Completed POCUS Point of Care (ER Only) Stat Exams 02/29/24 14:03 Completed CBC w/Auto Diff [Complete Blood Count Auto Diff] Stat Lab 02/29/24 14:02 Completed CMP [Comprehensive Metabolic Panel] Stat Lab 02/29/24 14:02 Completed Lactic Acid Stat Lab 02/29/24 14:02 Completed Lipase Stat Lab 02/29/24 14:02 Completed Trop I [Troponin I] Stat Lab 02/29/24 14:02 Completed Troponin I Q3H Lab 02/29/24 17:30 Ordered Troponin I Q3H Lab 02/29/24 20:30 Ordered UA [Urinalysis and Microscopic] Stat Lab 02/29/24 13:48 Completed Medical Decision Narrative: 68-year-old female history of hysterectomy, hypertension, hyperlipidemia, CAD, VT with stenting, PAD COPD, diabetes presenting with right upper quadrant Emilio pain. Started 2 days prior to this visit. Radiates from right side of abdomen into right flank and right groin. Made worse with application of pressure. Associated nausea without vomiting, it is moderate to severe, not associated with hematuria, dysuria,, vaginal discharge or bleeding, constipation, diarrhea, or any other concerns. Has not noticed anything that makes it better, has tried tramadol without effect. History obtained with patient. On arrival, patient hemodynamically stable, alert, oriented, appropriate. Abdomen is soft, but tender in right upper quadrant, right lower quadrant, involuntary guarding. No overlying skin changes. No flank tenderness. Differential includes PUD, gastritis, enteritis, gastroenteritis, pancreatitis, SBO, colitis, diverticulitis, nephrolithiasis, UTI, cholecystitis, choledocholithiasis, appendicitis, hepatitis, among others. Patient given Toradol and acetaminophen IV as well as Zofran. Workup independently interpreted and significant for nonactionable CBC or chemistry. Initial troponin negative, lipase negative, urinalysis without concern for UTI. LFTs nonactionable. No evidence of hematuria. Bedside right upper quadrant ultrasound demonstrated normal right upper quadrant findings. CT scan independently interpreted, no obvious intra-abdominal pathology, but final read pending at time of handoff to oncoming physician. <Donald Cervantes MD - Last Filed: 02/29/24 16:05> Vital Signs: 02/29/24 13:50 02/29/24 15:01 02/29/24 15:30 Temperature 98.3 F Temperature Source Oral Pulse Rate 82 72 Pulse Rate [Right] 77 Respiratory Rate 18 Blood Pressure 161/82 H 150/86 H Blood Pressure [Right Arm] 150/92 H Blood Pressure Mean [Right Arm] 111 02 Sat by Pulse Oximetry 96 91 L 93 L Oxygen Delivery Method Room Air Room Air Lab Data Lab Results 02/29/24 13:48: Urine Color Yellow, Urine Appearance Clear, Urine pH 6.0, Ur Specific [place] >= 1.030, Urine Protein Negative, Urine Glucose (UA) Negative, Urine Ketones Trace, Urine Blood Negative, Urine Nitrate Negative, Urine Bilirubin Negative, Urine Urobilinogen 1.0, Ur Leukocyte Esterase Negative, Urine RBC 3-5, Urine WBC Occasional, Ur Squamous Epith Cells 5-10, Urine Bacteria Trace, Urine Mucus Trace 02/29/24 14:02: WBC 9.7, RBC 4.66, Hgb 14.1, Hct 44.3, MCV 95.0, MCH 30.2, MCHC 31.8, RDW 14.2, Plt Count 339, MPV 7.9, Neut % (Auto) 69.4, Lymph % (Auto) 20.9, [place] % (Auto) 2.8, Eos % (Auto) 5.4, Baso % (Auto) 1.4, Neut # (Auto) 6.7, Lymph # (Auto) 2.0, [place] # (Auto) 0.3, Eos # (Auto) 0.5 H, Baso # (Auto) 0.1, Sodium 138, Potassium 3.8, Chloride 105, Carbon Dioxide 29, Anion Gap 7.8, BUN 21 H, Creatinine 1.00, Estimated Creat Clear 86, Estimated GFR 55 L, Est GFR ( Amer) 67, Glucose 141 H, Lactate 1.0, Calcium 9.5, Total Bilirubin 0.7, AST 28, ALT 19, Alkaline Phosphatase 131 H, Troponin I < 0.01, Total Protein 7.9, Albumin 4.3, Globulin 3.6 H, Albumin/Globulin Ratio 1.2, Lipase 59 Orders (Tests/Meds): ED MEDICATIONS Discontinued Medications Generic Name Dose Route Start Last Admin Trade Name Freq PRN Reason Stop Dose Admin Acetaminophen 1,000 mg 02/29/24 14:04 02/29/24 14:21 Acetaminophen 1,000mg/100ml Vial IV 02/29/24 14:05 1,000 mg ONCE ONE Administration Iopamidol 75 ml 02/29/24 14:50 02/29/24 14:52 Iopamidol-370 (76%);100ml Bottle IV 02/29/24 14:51 75 ml ONCE ONE Administration Ketorolac Tromethamine 15 mg 02/29/24 14:04 02/29/24 14:21 Ketorolac 30mg/Ml Vial IV 02/29/24 14:05 15 mg ONCE ONE Administration Sodium Chloride 10 ml 02/29/24 14:50 02/29/24 14:52 Sodium Chloride 0.9% 10ml Syr (Rad Only) IV 02/29/24 14:51 10 ml ONCE ONE Administration ORDERS Category Date Time Status CT abdomen pelvis w con Stat Cat Scan 02/29/24 14:03 Completed POCUS Point of Care (ER Only) Stat Exams 02/29/24 14:03 Completed CBC w/Auto Diff [Complete Blood Count Auto Diff] Stat Lab 02/29/24 14:02 Completed CMP [Comprehensive Metabolic Panel] Stat Lab 02/29/24 14:02 Completed Lactic Acid Stat Lab 02/29/24 14:02 Completed Lipase Stat Lab 02/29/24 14:02 Completed Trop I [Troponin I] Stat Lab 02/29/24 14:02 Completed Troponin I Q3H Lab 02/29/24 17:30 Ordered Troponin I Q3H Lab 02/29/24 20:30 Ordered UA [Urinalysis and Microscopic] Stat Lab 02/29/24 13:48 Completed Medical Decision Narrative: 68-year-old female history of hysterectomy, hypertension, hyperlipidemia, CAD, VT with stenting, PAD COPD, diabetes presenting with right upper quadrant Emilio pain. Started 2 days prior to this visit. Radiates from right side of abdomen into right flank and right groin. Made worse with application of pressure. Associated nausea without vomiting, it is moderate to severe, not associated with hematuria, dysuria,, vaginal discharge or bleeding, constipation, diarrhea, or any other concerns. Has not noticed anything that makes it better, has tried tramadol without effect. History obtained with patient. On arrival, patient hemodynamically stable, alert, oriented, appropriate. Abdomen is soft, but tender in right upper quadrant, right lower quadrant, involuntary guarding. No overlying skin changes. No flank tenderness. Differential includes PUD, gastritis, enteritis, gastroenteritis, pancreatitis, SBO, colitis, diverticulitis, nephrolithiasis, UTI, cholecystitis, choledocholithiasis, appendicitis, hepatitis, among others. Patient given Toradol and acetaminophen IV as well as Zofran. Workup independently interpreted and significant for nonactionable CBC or chemistry. Initial troponin negative, lipase negative, urinalysis without concern for UTI. LFTs nonactionable. No evidence of hematuria. Bedside right upper quadrant ultrasound demonstrated normal right upper quadrant findings. CT scan independently interpreted, no obvious intra-abdominal pathology, but final read pending at time of handoff to oncoming physician. Donald Cervantes: Upon assumption of care patient is hemodynamically stable. Workup reviewed by me, hematologic labs are nonactionable, no leukocytosis or anemia, no HECTOR or critical electrolyte abnormality, initial troponin undetectably low. Urinalysis interpreted by me and not consistent with infection, microscopic hematuria which is a normal variant. CT abdomen pelvis shows no acute pathology. Upon repeat evaluation patient was tolerating p.o. and although the exact etiology of her pain is not determined it was felt that all emergent conditions are ruled out patient is appropriate for outpatient management at this time was given return precautions and verbalized understanding. Procedures <Daron Palumbo MD - Last Filed: 02/29/24 15:20> Limited Ultrasound Indication:: Limited RUQ ultrasound Indication: Right-sided abdominal pain Identified structures: -Gallbladder -Gallbladder wall -Common bile duct -Liver Findings: Sonographic Jimenez sign: Absent Gallstones: Absent Sludge: Absent Pericholecystic fluid: Absent Maximal GB wall thickness (mm) (normal is </= 3mm): Normal Common bile duct width (mm) (normal is </= 6mm): Normal Gallbladder width (cm) (normal is < 4cm): Normal Gallbladder length (cm) (normal is < 10cm): Normal Impression: Normal right upper quadrant ultrasound Images were saved to permanent archive The study were saved technically adequate CPT 57865-88 This study was performed by me, and I personally interpreted all images/videos. Based on my clinical judgement, these images were adequate and did not necessitate further imaging. Critical Care <Daron Palumbo MD - Last Filed: 02/29/24 15:20> Critical Care Time Critical Care Time: No
[2024-02-29] MEDS: ACETAMINOPHEN 1,000MG/100ML VIAL 1000 MG IV (14:21)
[2024-02-29] MEDS: KETOROLAC 30MG/ML VIAL 15 MG IV (14:21)
[2024-02-29 14:24] LABS: Chloride 105 mmol/L (98-107); Potassium 3.8 mmoL/L (3.5-5.1); Sodium 138 mmol/L (136-145)
[2024-02-29 14:26] LABS: Alanine Aminotransferase 19 U/L (12-78); Aspartate Amino Transferase 28 U/L (14-36); Bilirubin,Total 0.7 mg/dl (0.2-1.3); Blood Urea Nitrogen 21 mg/dl (7-17); Creatinine Clearance Estimated 86 mL/min (50-200); Estimated Glomerular Filt Rate 55 ml/min (>60); GFR (African American) 67 ML/MIN (>60)
[2024-02-29 14:27] LABS: Albumin Level 4.3 g/dl (3.5-5.0); Albumin/Globulin Ratio 1.2 (1.1-1.8); Alkaline Phosphatase 131 U/L (38-126); Anion Gap 7.8 mEq/L (5-15); Calcium 9.5 mg/dl (8.4-10.2); Carbon Dioxide 29 mmol/L (22.0-30.0); Globulin 3.6 g/dL (1.3-3.2); Glucose 141 mg/dl (74-100); Lipase 59 U/L (23-300); Total Protein,Serum 7.9 g/dl (6.3-8.2)
[2024-02-29 14:30] LABS: Bacteria,Urine Trace /lpf; Mucus,Urine Trace /lpf; WBC,Urine Occasional #/hpf (0-3)
[2024-02-29 14:33] LABS: Basophils # 0.1 K/mm3 (0-0.2); Basophils % 1.4 % (0.1-2.0); Eosinophils # 0.5 K/mm3 (0.0-0.4); Eosinophils % 5.4 % (0.1-12.0); Hematocrit 44.3 % (37.0-47.0); Hemoglobin 14.1 g/dL (12.2-16.2); Lymphocytes % 20.9 % (10-50); Mean Corpuscular HGB Conc 31.8 g/dL (31.8-35.4); Mean Corpuscular Hemoglobin 30.2 pg (27.0-31.2); Mean Platelet Volume 7.9 fl (7.4-10.4); Monocytes # 0.3 K/mm3 (0.1-1.0); Monocytes % 2.8 % (1.7-9.3); Neutrophils # 6.7 K/mm3 (1.8-7.8); Neutrophils % 69.4 % (37.0-80.0); Platelet Count 339 K/mm3 (142-424); Red Blood Count 4.66 M/mm3 (4.20-5.40); Red Cell Distribution Width 14.2 % (11.5-17.5); White Blood Count 9.7 K/mm3 (4.8-10.8)
[2024-02-29 14:40] LABS: Troponin I < 0.01 ng/ml (0.00-0.034)
[2024-02-29] MEDS: SODIUM CHLORIDE 0.9% 10ML SYR (RAD ONLY) 10 ML IV (14:52)
[2024-02-29] MEDS: IOPAMIDOL-370 (76%);100ML BOTTLE 75 ML IV (14:52)
[2024-02-29 15:01] VITALS: BP 161/82; PULSE 82; O2SAT 91
[2024-02-29 15:30] VITALS: BP 150/86; PULSE 72; O2SAT 93
[2024-02-29 16:11] VITALS: BP 150/86; PULSE 75; RESP 12; TEMP 36.7
== END 2024-02-29 16:11 | disposition home or self-care (01) ==
PROVIDERS: Emergency Medicine; Emergency Provider Emergency Medicine; PCP Physician Assistant
DX: R10.11 Right upper quadrant pain (principal); R11.0 Nausea; F17.210 Nicotine dependence, cigarettes, uncomplicated; J44.9 Chronic obstructive pulmonary disease, unspecified; I11.9 Hypertensive heart disease without heart failure; I25.10 Atherosclerotic heart disease of native coronary artery without angina pectoris; E78.5 Hyperlipidemia, unspecified; E11.40 Type 2 diabetes mellitus with diabetic neuropathy, unspecified; I73.9 Peripheral vascular disease, unspecified; Z95.5 Presence of coronary angioplasty implant and graft
CPT/HCPCS: 74177; 80053; 81001; 83605; 83690; 84484; 85025; 96374; 96375; 99284; J0131; Q9967

== ENCOUNTER 2024-03-01 17:45 | Emergency (ER) | payer MEDICARE, MEDICAID, SELFPAY ==
[2024-03-01] VITALS (11 sets, daily range): BP systolic 130–175; BP diastolic 80–107; PULSE 78–99; RESP 15–20; TEMP 37.1; O2SAT 93–97; BMI 38.4
--- NOTE | 2024-03-01 17:54 | CT_ITS ---
PROCEDURE INFORMATION: Exam: CT Abdomen And Pelvis With Contrast Exam date and time: 03/01/2024 6:38 PM Age: 68 years old Clinical indication: Abdominal pain; Flank; Right upper quadrant (ruq); Additional info: Severe ruq pain and flank pain TECHNIQUE: Imaging protocol: Computed tomography of the abdomen and pelvis with contrast. 3D rendering (Not supervised by radiologist): MIP and/or 3D reconstructed images were created by the technologist. Radiation optimization: All CT scans at this facility use at least one of these dose optimization techniques: automated exposure control; mA and/or kV adjustment per patient size (includes targeted exams where dose is matched to clinical indication); or iterative reconstruction. Contrast material: ISOVUE; Contrast volume: 70 ml; Contrast route: IV; COMPARISON: CT ABDOMEN PELVIS W CON 02/29/2024 2:50 PM FINDINGS: Liver: Decreased density throughout the liver compatible with hepatic steatosis. Gallbladder and bile ducts: Gallbladder unremarkable Pancreas: Pancreas unremarkable Spleen: The spleen is unremarkable. Adrenal glands: Thickened left adrenal gland unchanged Kidneys and ureters: No hydronephrosis. Stomach and bowel: Moderate stool burden. Appendix: Appendix unremarkable Intraperitoneal space: Unremarkable. No free air. No significant fluid collection. Vasculature: Scattered regions of atherosclerotic vascular calcification within the abdominal aorta and common iliac arteries. Mild aneurysmal dilatation of the infrarenal abdominal aorta measuring up to 3.1 cm. Findings unchanged. Lymph nodes: Unremarkable. No enlarged lymph nodes. Urinary bladder: Unremarkable as visualized. Reproductive: Unremarkable as visualized. Bones/joints: Lumbar spondylosis with multilevel disc degeneration. Soft tissues: Fat filled umbilical hernia . IMPRESSION: 1. No evidence of acute abnormality. 2. Mild aneurysmal dilatation of the infrarenal abdominal aorta measuring up to 3.1 cm. Findings unchanged.
--- NOTE | 2024-03-01 17:54 | CT_ITS ---
PROCEDURE INFORMATION: Exam: CTA Chest With Contrast Exam date and time: 03/01/2024 6:38 PM Age: 68 years old Clinical indication: Chest wall pain and other: RT inerior thoracic cage pain; Additional info: Severe R inforior thoracic cage pain TECHNIQUE: Imaging protocol: Computed tomographic angiography of the chest with contrast. Exam focused on the arteries. 3D rendering (Not supervised by radiologist): MIP and/or 3D reconstructed images were created by the technologist. Radiation optimization: All CT scans at this facility use at least one of these dose optimization techniques: automated exposure control; mA and/or kV adjustment per patient size (includes targeted exams where dose is matched to clinical indication); or iterative reconstruction. Contrast material: ISOVUE; Contrast volume: 70 ml; Contrast route: INTRAVENOUS (IV); COMPARISON: CT ANGIO CHEST PE PROTOCOL 05/25/2022 9:34 AM FINDINGS: Pulmonary arteries: There is suboptimal opacification of pulmonary arteries due to contrast bolus timing. Aorta: Regions of atherosclerotic vascular calcification involving the aortic arch. Lungs: Unremarkable. No consolidation. No masses. Pleural spaces: Unremarkable. No pneumothorax. No pleural effusion. Heart: Unremarkable. No cardiomegaly. No pericardial effusion. Coronary arteries: Coronary artery calcification Lymph nodes: Calcified hilar lymph nodes Bones/joints: Thoracic spondylosis with multilevel disc degeneration. Soft tissues: Unremarkable. Other findings: Evidence of prior granulomatous disease IMPRESSION: 1. No evidence of acute intrathoracic abnormality. 2. No large or central pulmonary embolus. Evaluation of the peripheral pulmonary arteries is limited.
--- NOTE | 2024-03-01 17:57 | HMH.EDGENADL ---
Discharge Plan Disposition Patient Disposition: Home, Self-Care Prescriptions Prescriptions: New methocarbamol 500 mg tablet 1,000 mg PO Q8H PRN (Reason: muscle spasm) Qty: 24 0RF No Action Arexvy (PF) 120 mcg/0.5 mL suspension for reconstitution 120 mcg IM ONCE Qty: 1 0RF gabapentin 800 mg tablet 800 mg PO BID 30 Days Qty: 60 2RF tramadol 50 mg tablet 50 mg PO Q8H PRN (Reason: pain) Qty: 90 2RF fluoxetine 20 mg capsule See Rx Instructions .ROUTE .COMPLEX Qty: 90 0RF Dose Instruction: Take 1 capsule by mouth once daily Rx Instructions: Take 1 capsule by mouth once daily trazodone 100 mg tablet 100 mg PO HS Qty: 90 0RF ipratropium-albuterol 0.5 mg-3 mg(2.5 mg base)/3 mL solution for nebulization 3 ml INHALATION Q4HP PRN (Reason: Breathing Problems) (DME) lancets [Accu-Chek Softclix Lancets] Misc See Rx Instructions .ROUTE .COMPLEX Rx Instructions: USE 1 LANCET TO CHECK GLUCOSE TWICE DAILY DIRECTED FOR DIABETES albuterol sulfate 90 mcg/actuation HFA aerosol inhaler 4 inh inhalation Q4HP PRN (Reason: shortness of breath or wheezing) Rx Instructions: 4 puffs every 4 hours for 48 hours then as needed for shortness of breath or wheezing following aspirin 325 mg Tablet 325 mg PO DAILY spironolactone 25 mg Tablet 25 mg PO DAILY 30 Days Qty: 30 0RF urea 40 % cream 1 applic topical BID 14 Days Qty: 28.35 2RF betamethasone dipropionate 0.05 % cream 1 applic topical BID 10 Days Qty: 45 0RF metoprolol succinate 50 mg tablet extended release 24 hr 50 mg PO DAILY clopidogrel 75 mg tablet 75 mg PO DAILY Patient Comments: TAKE 1 TABLET BY MOUTH ONCE DAILY ondansetron 4 mg tablet,disintegrating 4 mg PO Q8H PRN (Reason: nausea and vomiting) 4 Days Qty: 12 0RF Referrals Follow up/Referrals: Domitila Baldwin PA [Primary Care Provider] - See instructions Activity Restrictions/Add. Instructions Additional Instructions/Restrictions: At this time it was felt you are safe to be discharged home. If new or worsening symptoms please do not hesitate to return the emergency department. If symptoms persist please follow-up with your family doctor as you are able. Please take your medications as prescribed. Clinical Impressions Clinical Impression: Acute flank pain Discharge ED Provider: Donald Cervantes General Adult HPI General Chief complaint: PAIN Stated complaint: Lower back pain radiating to front Time Seen by Provider: 03/01/24 17:49 Mode of Arrival: Wheelchair Source of Information: Patient Limitations: No Limitations Description of Symptoms (Recalled from ER Triage Doc. by RN): pt presents to ED with c/o right sided flank pain radiating into back. pt was seen in ED yesterday, pt reports pain worse today. History of Present Illness HPI narrative: Patient is a 68-year-old female with past medical history of COPD, coronary artery disease, [id number] diabetes who presents emergency department for repeat evaluation of right flank and right hemiabdominal pain. Onset was acute, over the last 48 hours. This patient was evaluated by both Dr. Palumbo and myself yesterday. Workup yesterday reviewed by me, hematologic labs were nonactionable, no leukocytosis, no HECTOR or critical electrolyte abnormality, initial troponin undetectably low, urinalysis microscopic hematuria. CT abdomen pelvis shows normal appendix, no acute pathology or evidence of ureterolithiasis. Patient was deemed appropriate for discharge. Since then pain has waxed and waned, no rashes, ultimately due to it being severe she presented here for repeat evaluation. Related Data Home Medications Medication Instructions Recorded Confirmed clopidogrel 75 mg tablet 75 mg PO DAILY Platelet Inhibitor 05/28/23 02/12/24 metoprolol succinate 50 mg 50 mg PO DAILY High Blood Pressure 05/28/23 02/12/24 tablet,extended release 24 hr albuterol sulfate 90 mcg/actuation 4 inh inhalation Q4HP PRN 09/12/23 02/12/24 aerosol inhaler shortness of breath or wheezing ipratropium 0.5 mg-albuterol 3 mg 3 ml inhalation Q4HP PRN Breathing 09/12/23 02/12/24 (2.5 mg base)/3 mL nebulization Problems soln lancets (Accu-Chek Softclix 09/12/23 02/12/24 Lancets) aspirin 325 mg tablet 325 mg PO DAILY 10/28/23 02/12/24 Previous Rx's Medication Instructions Recorded spironolactone 25 mg tablet 25 mg PO DAILY 30 days #30 tabs 10/29/23 fluoxetine 20 mg capsule See Rx Instructions .Route 12/02/23 .COMPLEX #90 caps trazodone 100 mg tablet 100 mg PO HS Insomnia #90 tabs 12/31/23 betamethasone dipropionate 0.05 % 1 applic topical BID skin 01/07/24 topical cream irritation 10 days #45 grams urea 40 % topical cream 1 applic topical BID 14 days 01/07/24 #28.35 grams RSVPreF3 antigen-AS01E 120 mcg IM ONCE #1 ea 01/15/24 adjuvant(PF) 120 mcg/0.5 mL IM suspension, kit (Arexvy (PF)) gabapentin 800 mg tablet 800 mg PO BID Pain 30 days #60 tabs 01/15/24 tramadol 50 mg tablet 50 mg PO Q8H PRN pain #90 tabs 01/15/24 ondansetron 4 mg disintegrating 4 mg PO Q8H PRN nausea and 02/29/24 tablet vomiting 4 days #12 tabs methocarbamol 500 mg tablet 1,000 mg (2 x 500 mg) PO Q8H PRN 03/01/24 muscle spasm #24 tabs Allergies Allergy/AdvReac Type Severity Reaction Status Date / Time No Known Allergies Allergy Verified 02/12/24 10:37 [facility] Disclaimer: The information contained in this section may have been updated after the patient was seen, as this information can be updated by other users. Medical History Incontinence of urine Migraine Diabetes mellitus, type 2 Pain in both lower legs Type 2 diabetes mellitus with diabetic polyneuropathy, without long-term current use of insulin Diabetes mellitus Hypertension CAD (coronary artery disease) Tobacco abuse Restless leg syndrome Vitamin D deficiency (~03/11/18) Depression Bilateral low back pain with sciatica Neuropathy RF Neurontin Surgical History History of heart artery stent Family History Other No significant family history Social History Smoking Status: Current every day smoker tobacco type: cigarettes packs per day: 1 second hand exposure: No alcohol intake: never substance use type: denies use current occupational status: unemployed Travel in the last 8 weeks: None household members: spouse housing: house marital status: education level: high school current occupational exposures/hazards: No caffeine: Yes special aron needs: No agree to transfusion: No do you feel safe at home: Yes victim of physical abuse: No victim of emotional abuse: No victim of sexual abuse: No would you like helpful sources: No ROS Obtained: Yes Systems reviewed as appropriate & no additional complaints except as documented Physical Exam General General appearance: alert and other (Appearing in pain in bed) Head Head exam: atraumatic and normocephalic Eye Eye exam: Present PERRL ENT ENT exam: Present mucous membranes moist Neck Neck exam: Present normal inspection Chest Chest inspection: Present normal inspection and symmetric chest wall rise Respiratory Respiratory exam: Present normal lung sounds bilaterally; Absent respiratory distress Cardiovascular Cardiovascular exam: Present regular rate and normal rhythm Abdominal Exam Abdominal exam: Present soft and tenderness (Right upper quadrant, right lower quadrant) Extremities Exam Extremities exam: Present normal inspection Neurological Exam Neurological exam: Present alert Psychiatric Psychiatric exam: Present normal affect Skin Skin exam: Present warm and dry Medical Decision Making Robson Inquiry Pt receiving controlled substance: No Vital Signs: 03/01/24 17:47 03/01/24 18:03 03/01/24 18:17 Temperature 98.8 F Temperature Source Oral Pulse Rate 85 92 H Pulse Rate [Left Radial] 99 H Respiratory Rate 15 Blood Pressure 163/88 H Blood Pressure [Right Arm] 175/107 H Blood Pressure Mean Blood Pressure Mean [Right Arm] 129 02 Sat by Pulse Oximetry 96 95 97 Oxygen Delivery Method Room Air 03/01/24 18:30 03/01/24 19:00 03/01/24 19:31 Temperature Temperature Source Pulse Rate 92 H 81 84 Pulse Rate [Left Radial] Respiratory Rate 18 18 Blood Pressure 130/85 156/85 H 160/80 H Blood Pressure [Right Arm] Blood Pressure Mean 101 100 Blood Pressure Mean [Right Arm] 02 Sat by Pulse Oximetry 93 L 95 95 Oxygen Delivery Method Room Air Room Air 03/01/24 19:44 03/01/24 20:00 03/01/24 20:30 Temperature Temperature Source Pulse Rate 86 80 78 Pulse Rate [Left Radial] Respiratory Rate 20 18 Blood Pressure 150/87 H 147/88 H 132/86 Blood Pressure [Right Arm] Blood Pressure Mean 108 99 105 Blood Pressure Mean [Right Arm] 02 Sat by Pulse Oximetry 96 96 95 Oxygen Delivery Method Room Air Room Air Room Air 03/01/24 21:00 Temperature Temperature Source Pulse Rate 78 Pulse Rate [Left Radial] Respiratory Rate Blood Pressure 151/89 H Blood Pressure [Right Arm] Blood Pressure Mean 115 Blood Pressure Mean [Right Arm] 02 Sat by Pulse Oximetry 95 Oxygen Delivery Method Room Air Lab Data Lab Results 03/01/24 18:08: WBC 9.5, RBC 4.39, Hgb 13.3, Hct 41.4, MCV 94.4, MCH 30.3, MCHC 32.1, RDW 14.3, Plt Count 319, MPV 7.7, Neut % (Auto) 63.0, Lymph % (Auto) 26.3, [place] % (Auto) 3.2, Eos % (Auto) 6.2, Baso % (Auto) 1.3, Neut # (Auto) 6.0, Lymph # (Auto) 2.5, [place] # (Auto) 0.3, Eos # (Auto) 0.6 H, Baso # (Auto) 0.1, Sodium 140, Potassium 4.0, Chloride 108 H, Carbon Dioxide 28, Anion Gap 8.0, BUN 19 H, Creatinine 1.00, Estimated Creat Clear 86, Estimated GFR 55 L, Est GFR ( Amer) 67, Glucose 130 H, Calcium 9.2, Total Bilirubin 0.5, AST 27, ALT 21, Alkaline Phosphatase 113, Troponin I < 0.01, Total Protein 7.3, Albumin 3.8 D, Globulin 3.5 H, Albumin/Globulin Ratio 1.1, Lipase 54 03/01/24 19:44: Urine Color Yellow, Urine Appearance Clear, Urine pH 6.0, Ur Specific [place] 1.015, Urine Protein Negative, Urine Glucose (UA) Negative, Urine Ketones Negative, Urine Blood Negative, Urine Nitrate Negative, Urine Bilirubin Negative, Urine Urobilinogen 1.0, Ur Leukocyte Esterase Negative, Urine RBC Occasional, Urine WBC Occasional, Ur Squamous Epith Cells Occasional, Urine Bacteria Trace 03/01/24 20:55: Troponin I < 0.01 03/01/24 18:08 03/01/24 18:08 Orders (Tests/Meds): ED MEDICATIONS Discontinued Medications Generic Name Dose Route Start Last Admin Trade Name Freq PRN Reason Stop Dose Admin Acetaminophen 1,000 mg 03/01/24 17:54 03/01/24 18:22 Acetaminophen 1,000mg/100ml Vial IV 03/01/24 17:55 1,000 mg ONCE ONE Administration Lactated Ringer's 1,000 mls @ 999 mls/hr 03/01/24 17:54 03/01/24 18:22 Lactated Ringer's 1000 Ml Bag IV 03/01/24 18:54 999 mls/hr .Q1H1M ONE Administration Iopamidol 70 ml 03/01/24 18:37 03/01/24 18:39 Iopamidol-370 (76%);100ml Bottle IV 03/01/24 18:38 70 ml ONCE ONE Administration Ketorolac Tromethamine 30 mg 03/01/24 17:54 03/01/24 18:21 Ketorolac 30mg/Ml Vial IV 03/01/24 17:55 30 mg ONCE ONE Administration Morphine Sulfate 4 mg 03/01/24 17:54 03/01/24 18:22 Morphine 4mg/Ml Syringe IV 03/01/24 17:55 4 mg ONCE ONE Administration Sodium Chloride 40 ml 03/01/24 18:34 03/01/24 18:38 0.9 % Sodium Chloride 50 Ml Vial IV 03/01/24 18:35 40 ml ONCE ONE Administration Sodium Chloride 10 ml 03/01/24 18:37 03/01/24 18:38 Sodium Chloride 0.9% 10ml Syr (Rad Only) IV 03/01/24 18:38 10 ml ONCE ONE Administration ORDERS Category Date Time Status CT abdomen pelvis w con Stat Cat Scan 03/01/24 17:[address] angio chest PE protocol Stat Cat Scan 03/01/24 17:54 Completed CBC w/Auto Diff [Complete Blood Count Auto Diff] Stat Lab 03/01/24 18:08 Completed CMP [Comprehensive Metabolic Panel] Stat Lab 03/01/24 18:08 Completed Lipase Stat Lab 03/01/24 18:08 Completed Trop I [Troponin I] Stat Lab 03/01/24 18:08 Completed Troponin I Q3H Lab 03/01/24 20:55 Completed Troponin I Q3H Lab 03/02/24 00:00 Ordered UA [Urinalysis and Microscopic] Stat Lab 03/01/24 19:44 Completed EKG Request [ECG Request] Stat Y 03/01/24 17:54 Ordered ECG Data Tracing #1: Independently interpreted by me, rate is 91, rhythm is regular, axis is normal, no ST elevation in anatomical contiguous leads, QTc 384. Medical Decision Narrative: In summary patient is a 68-year-old female with past medical history described above who presents emergency department for evaluation of abdominal pain. Patient is hemodynamically stable and nontoxic-appearing upon arrival, afebrile, appearing in pain. Patient is tender in the right upper and right lower quadrant, no overlying skin changes. Workup yesterday was nonactionable however will be repeated and broadened to include CTA of the chest as well. Initial interventions include multimodal pain control, crystalloid bolus. Initial workup reviewed by me, hematologic labs are nonactionable, no HECTOR or critical electrolyte abnormality, no significant leukocytosis. Serial troponins are negative, urinalysis interpreted by me and not consistent with infection. CT imaging of the abdomen pelvis shows no acute pathology, mild dilatation of the infrarenal abdominal aorta 3.1 cm, unchanged from prior, no acute abnormality in the abdomen. CTA chest shows no acute intrathoracic abnormality. Upon repeat evaluation patient was well-appearing. It could be that she is having radiculopathy radiating through her thoracic cage from her spine or muscle spasms versus early herpes zoster which has yet to declare itself. All these findings were relayed to patient at bedside and patient will be discharged with outpatient follow-up and a course of Robaxin to see if it helps improve her symptoms as it was felt that all emergent conditions have been ruled out at this time. Critical Care Critical Care Time Critical Care Time: No
--- NOTE | 2024-03-01 18:16 | ECG_ITS ---
APPROVED REPORT Exam: Resting ECG HR:91 bpm ECG Measurements Heart Rate 91 AXES IN 146 P 61 QRSd 91 QRS 60 QT 336 T 55 QTc 384 Conclusion SINUS RHYTHM NONSPECIFIC ST & T-WAVE ABNORMALITY BORDERLINE ECG UNCONFIRMED REPORT Electronically signed by : FADI DAVIS, 03/04/2024 06:54:41
[2024-03-01 18:18] LABS: Basophils # 0.1 K/mm3 (0-0.2); Basophils % 1.3 % (0.1-2.0); Eosinophils # 0.6 K/mm3 (0.0-0.4); Eosinophils % 6.2 % (0.1-12.0); Hematocrit 41.4 % (37.0-47.0); Hemoglobin 13.3 g/dL (12.2-16.2); Lymphocytes # 2.5 K/mm3 (0.7-4.5); Lymphocytes % 26.3 % (10-50); Mean Corpuscular HGB Conc 32.1 g/dL (31.8-35.4); Mean Corpuscular Hemoglobin 30.3 pg (27.0-31.2); Mean Corpuscular Volume 94.4 fl (81-99); Mean Platelet Volume 7.7 fl (7.4-10.4); Monocytes # 0.3 K/mm3 (0.1-1.0); Monocytes % 3.2 % (1.7-9.3); Platelet Count 319 K/mm3 (142-424); Red Blood Count 4.39 M/mm3 (4.20-5.40); Red Cell Distribution Width 14.3 % (11.5-17.5); White Blood Count 9.5 K/mm3 (4.8-10.8)
[2024-03-01 18:20] LABS: Chloride 108 mmol/L (98-107); Sodium 140 mmol/L (136-145)
[2024-03-01] MEDS: KETOROLAC 30MG/ML VIAL 30 MG IV (18:21)
[2024-03-01 18:22] LABS: Alanine Aminotransferase 21 U/L (12-78); Alkaline Phosphatase 113 U/L (38-126); Aspartate Amino Transferase 27 U/L (14-36); Bilirubin,Total 0.5 mg/dl (0.2-1.3); Blood Urea Nitrogen 19 mg/dl (7-17); Creatinine Clearance Estimated 86 mL/min (50-200); Estimated Glomerular Filt Rate 55 ml/min (>60); GFR (African American) 67 ML/MIN (>60)
[2024-03-01] MEDS: LACTATED RINGERS 1000ML 1,000 ML 999 ML IV (18:22)
[2024-03-01] MEDS: MORPHINE 4MG/ML SYRINGE 4 MG IV (18:22)
[2024-03-01] MEDS: ACETAMINOPHEN 1,000MG/100ML VIAL 1000 MG IV (18:22)
[2024-03-01 18:23] LABS: Albumin Level 3.8 g/dl (3.5-5.0); Albumin/Globulin Ratio 1.1 (1.1-1.8); Calcium 9.2 mg/dl (8.4-10.2); Carbon Dioxide 28 mmol/L (22.0-30.0); Globulin 3.5 g/dL (1.3-3.2); Glucose 130 mg/dl (74-100); Lipase 54 U/L (23-300); Total Protein,Serum 7.3 g/dl (6.3-8.2)
--- NOTE | 2024-03-01 18:32 | PC.NURSE ---
patient gone to CT at this time.
[2024-03-01 18:35] LABS: Troponin I < 0.01 ng/ml (0.00-0.034)
[2024-03-01] MEDS: 0.9 % SODIUM CHLORIDE 50 ML VIAL 40 ML IV (18:38)
[2024-03-01] MEDS: SODIUM CHLORIDE 0.9% 10ML SYR (RAD ONLY) 10 ML IV (18:38)
[2024-03-01] MEDS: IOPAMIDOL-370 (76%);100ML BOTTLE 70 ML IV (18:39)
[2024-03-01 19:50] LABS: Microscopic, Urine URINE MICROSCOPIC (MICROSCOPIC)
[2024-03-01 19:55] LABS: Appearance,Urine CLEAR (Clear); Bilirubin,Urine Negative (Negative); Blood, Urine Negative (Negative); Color,Urine YELLOW (Yellow); Glucose,Urine (UA) Negative (Negative); Ketones,Urine Negative (Negative); Leukocyte Esterase,Urine Negative (Negative); Nitrate,Urine Negative (Negative); Protein,Urine Negative (Negative); Specific Gravity, Urine 1.015 (1.005-1.030)
[2024-03-01 20:35] LABS: Bacteria,Urine Trace /lpf; RBC,Urine Occasional #/hpf (0-3); Squamous Epithelial Cell,Urine Occasional #/hpf (0-5); WBC,Urine Occasional #/hpf (0-3)
[2024-03-01 21:48] LABS: Troponin I < 0.01 ng/ml (0.00-0.034)
== END 2024-03-01 22:13 | disposition home or self-care (01) ==
PROVIDERS: Emergency Provider Emergency Medicine; PCP Physician Assistant
DX: R10.31 Right lower quadrant pain (principal); M54.59 Other low back pain; F17.210 Nicotine dependence, cigarettes, uncomplicated; I11.9 Hypertensive heart disease without heart failure; I25.10 Atherosclerotic heart disease of native coronary artery without angina pectoris; E11.40 Type 2 diabetes mellitus with diabetic neuropathy, unspecified; Z95.5 Presence of coronary angioplasty implant and graft
CPT/HCPCS: 36415; 71275; 74177; 80053; 81001; 83690; 84484; 85025; 93005; 96361; 96374; 96375; 99285; J0131; Q9967

== ENCOUNTER 2024-05-26 22:10 | Emergency (ER) | payer MEDICARE, MEDICAID, SELFPAY ==
[2024-05-26 22:12] VITALS: BP 130/75; PULSE 81; RESP 18; TEMP 36.8; O2SAT 94; BMI 38.4
--- NOTE | 2024-05-26 22:55 | XR_ITS ---
PROCEDURE INFORMATION: Exam: XR Right Ankle Exam date and time: 05/26/2024 11:09 PM Age: 69 years old Clinical indication: Pain; Ankle; Right; Additional info: Pain, swellling, no trauma TECHNIQUE: Imaging protocol: Radiologic exam of the right ankle. Views: 3 or more views. COMPARISON: CR XR ANKLE WT BEARING RT MIN 3V 11/05/2022 7:51 AM FINDINGS: Bones/joints: The ankle mortise is intact and symmetric. The talar dome is normal. No acute fracture. Enthesophyte formation is noted at the Achilles insertion. Moderate broad-based inferior calcaneal spurring noted. Soft tissues: Diffuse significant soft tissue swelling. IMPRESSION: Diffuse soft tissue swelling. No acute osseous finding.
--- NOTE | 2024-05-26 22:58 | ED_ITS ---
Discharge Plan Disposition Patient Disposition: Home, Self-Care Condition: Good Prescriptions Prescriptions: No Action Arexvy (PF) 120 mcg/0.5 mL suspension for reconstitution 120 mcg IM ONCE Qty: 1 0RF gabapentin 800 mg tablet 800 mg PO BID 30 Days Qty: 60 2RF tramadol 50 mg tablet 50 mg PO Q8H PRN (Reason: pain) Qty: 90 2RF fluoxetine 20 mg capsule See Rx Instructions .ROUTE .COMPLEX Qty: 90 0RF Dose Instruction: Take 1 capsule by mouth once daily Rx Instructions: Take 1 capsule by mouth once daily varenicline [Chantix Starting Month Box] 0.5 mg (11)- 1 mg (42) tablets,dose pack See Rx Instructions PO PER PKG DIR Qty: 53 0RF Rx Instructions: PO PER PKG DIR trazodone 100 mg tablet See Rx Instructions .ROUTE .COMPLEX Qty: 90 3RF Dose Instruction: TAKE 1 TABLET BY MOUTH AT BEDTIME NIGHTLY FOR INSOMNIA Rx Instructions: TAKE 1 TABLET BY MOUTH AT BEDTIME NIGHTLY FOR INSOMNIA ipratropium-albuterol 0.5 mg-3 mg(2.5 mg base)/3 mL solution for nebulization See Rx Instructions .ROUTE .COMPLEX Qty: 1080 0RF Dose Instruction: INHALE 1 VIAL(3ML) VIA NEBULIZER EVERY 4 TO 6 HOURS NEEDED FOR BREATHING Rx Instructions: INHALE 1 VIAL(3ML) VIA NEBULIZER EVERY 4 TO 6 HOURS NEEDED FOR BREATHING (DME) lancets [Accu-Chek Softclix Lancets] Misc See Rx Instructions .ROUTE .COMPLEX Rx Instructions: USE 1 LANCET TO CHECK GLUCOSE TWICE DAILY DIRECTED FOR DIABETES albuterol sulfate 90 mcg/actuation HFA aerosol inhaler 4 inh inhalation Q4HP PRN (Reason: shortness of breath or wheezing) Rx Instructions: 4 puffs every 4 hours for 48 hours then as needed for shortness of breath or wheezing following aspirin 325 mg Tablet 325 mg PO DAILY spironolactone 25 mg Tablet 25 mg PO DAILY 30 Days Qty: 30 0RF urea 40 % cream 1 applic topical BID 14 Days Qty: 28.35 2RF betamethasone dipropionate 0.05 % cream 1 applic topical BID 10 Days Qty: 45 0RF methocarbamol 500 mg tablet 1,000 mg PO Q8H PRN (Reason: muscle spasm) Qty: 24 0RF metoprolol succinate 50 mg tablet extended release 24 hr 50 mg PO DAILY clopidogrel 75 mg tablet 75 mg PO DAILY Patient Comments: TAKE 1 TABLET BY MOUTH ONCE DAILY ondansetron 4 mg tablet,disintegrating 4 mg PO Q8H PRN (Reason: nausea and vomiting) 4 Days Qty: 12 0RF Referrals Follow up/Referrals: Domitila Baldwin PA [Primary Care Provider] - See instructions Activity Restrictions/Add. Instructions Additional Instructions/Restrictions: You were evaluated in the ER. You are appropriate for discharge at this time. Continue taking home medications as previously prescribed. Wear compression stockings daily to reduce swelling. Make an appointment with your primary care physician for reevaluation in 2 to 3 days. Return to the ER with new, worsening, or otherwise concerning symptoms Clinical Impressions Clinical Impression: Pain and swelling of right ankle Discharge ED Provider: Donald Cervantes General Adult HPI <Donald Cervantes MD - Last Filed: 05/26/24 23:03> General Chief complaint: Extremity Injury, Lower Stated complaint: RT leg, RT ankle swollen, no injury Time Seen by Provider: 05/26/24 22:51 Mode of Arrival: Ambulatory Source of Information: Patient Limitations: No Limitations Description of Symptoms (Recalled from ER Triage Doc. by RN): Pt presents with right leg edema since yesterday. Denies any CP or SOA. History of Present Illness HPI narrative: Patient is a 69-year-old female with past medical history of osteoarthritis, chronic bilateral leg pain, COPD not on home oxygen, diabetes, hypertension, hyperlipidemia who presents emergency department for evaluation of atraumatic right foot pain. Over the last few days she has had swelling of her right ankle with pain. It has happened before, is worse as the day goes on and then resolves with elevation. No trauma. She follows pain management for this which has been unsuccessful. No proximal leg swelling, no shortness of breath, no chest pain, no other acute complaints at this time. Related Data Home Medications Medication Instructions Recorded Confirmed clopidogrel 75 mg tablet 75 mg PO DAILY Platelet Inhibitor 05/28/23 02/12/24 metoprolol succinate 50 mg 50 mg PO DAILY High Blood Pressure 05/28/23 02/12/24 tablet,extended release 24 hr albuterol sulfate 90 mcg/actuation 4 inh inhalation Q4HP PRN 09/12/23 02/12/24 aerosol inhaler shortness of breath or wheezing lancets (Accu-Chek Softclix 09/12/23 02/12/24 Lancets) aspirin 325 mg tablet 325 mg PO DAILY 10/28/23 02/12/24 Previous Rx's Medication Instructions Recorded spironolactone 25 mg tablet 25 mg PO DAILY 30 days #30 tabs 10/29/23 fluoxetine 20 mg capsule See Rx Instructions .Route 12/02/23 .COMPLEX #90 caps betamethasone dipropionate 0.05 % 1 applic topical BID skin 01/07/24 topical cream irritation 10 days #45 grams urea 40 % topical cream 1 applic topical BID 14 days 01/07/24 #28.35 grams [id number] antigen-AS01E 120 mcg IM ONCE #1 ea 01/15/24 adjuvant(PF) 120 mcg/0.5 mL IM suspension, kit (Arexvy (PF)) gabapentin 800 mg tablet 800 mg PO BID Pain 30 days #60 tabs 01/15/24 tramadol 50 mg tablet 50 mg PO Q8H PRN pain #90 tabs 01/15/24 ondansetron 4 mg disintegrating 4 mg PO Q8H PRN nausea and 02/29/24 tablet vomiting 4 days #12 tabs methocarbamol 500 mg tablet 1,000 mg (2 x 500 mg) PO Q8H PRN 03/01/24 muscle spasm #24 tabs varenicline 0.5 mg (11)-1 mg (42) See Rx Instructions PO PER PKG DIR 03/16/24 tablets in a dose pack (Chantix #53 tabs Starting Month Box) trazodone 100 mg tablet See Rx Instructions .Route 04/06/24 .COMPLEX #90 tabs ipratropium 0.5 mg-albuterol 3 mg See Rx Instructions .Route 05/06/24 (2.5 mg base)/3 mL nebulization .COMPLEX #1,080 mL soln Allergies Allergy/AdvReac Type Severity Reaction Status Date / Time No Known Allergies Allergy Verified 02/12/24 10:37 PFS <Donald Cervantes MD - Last Filed: 05/26/24 23:03> PFS Disclaimer: The information contained in this section may have been updated after the patient was seen, as this information can be updated by other users. Medical History Incontinence of urine Migraine Diabetes mellitus, type 2 Pain in both lower legs Type 2 diabetes mellitus with diabetic polyneuropathy, without long-term current use of insulin Diabetes mellitus Hypertension CAD (coronary artery disease) Tobacco abuse Restless leg syndrome Vitamin D deficiency (~03/11/18) Depression Bilateral low back pain with sciatica Neuropathy RF Neurontin Surgical History History of heart artery stent Family History Other No significant family history Social History Smoking Status: Current every day smoker tobacco type: cigarettes packs per day: 1 second hand exposure: No alcohol intake: never substance use type: denies use current occupational status: unemployed Travel in the last 8 weeks: None household members: spouse housing: house marital status: education level: high school current occupational exposures/hazards: No caffeine: Yes special aron needs: No agree to transfusion: No do you feel safe at home: Yes victim of physical abuse: No victim of emotional abuse: No victim of sexual abuse: No would you like helpful sources: No <Donald Cervantes MD - Last Filed: 05/26/24 23:03> ROS Obtained: Yes Systems reviewed as appropriate & no additional complaints except as documented Physical Exam <Donald Cervantes MD - Last Filed: 05/26/24 23:03> General General appearance: alert and in no apparent distress Head Head exam: atraumatic and normocephalic Eye Eye exam: Present PERRL ENT ENT exam: Present mucous membranes moist Neck Neck exam: Present normal inspection Chest Chest inspection: Present normal inspection and symmetric chest wall rise Respiratory Respiratory exam: Absent respiratory distress Cardiovascular Cardiovascular exam: Present regular rate and normal rhythm Abdominal Exam Abdominal exam: Present soft; Absent tenderness Extremities Exam Extremities exam: Present other (Swollen tender right ankle however has preserved range of motion, no erythema, no warmth, palpable dorsal pedal pulse, no proximal leg swelling.) Neurological Exam Neurological exam: Present alert Psychiatric Psychiatric exam: Present normal affect Skin Skin exam: Present warm and dry Medical Decision Making <Donald Cervantes MD - Last Filed: 05/26/24 23:03> Robson Inquiry Pt receiving controlled substance: No Vital Signs: 05/26/24 22:12 05/27/24 01:10 Temperature 98.2 F 98.2 F Temperature Source Oral Oral Pulse Rate 71 Pulse Rate [Left] 81 Respiratory Rate 18 18 Blood Pressure 146/82 H Blood Pressure [Right Arm] 130/75 Blood Pressure Mean [Right Arm] 93 Blood Pressure Source Automatic Cuff Blood Pressure Source [Right Arm] Automatic Cuff Blood Pressure Position Sitting Blood Pressure Position [Right Arm] Sitting 02 Sat by Pulse Oximetry 94 L Oxygen Delivery Method Room Air Room Air Lab Data Lab Results 05/26/24 23:07: WBC 9.3, RBC 4.44, Hgb 13.7, Hct 41.7, MCV 93.8, MCH 30.9, MCHC 33.0, RDW 14.9, Plt Count 285, MPV 7.9, Neut % (Auto) 56.2, Lymph % (Auto) 34.6, Dolores % (Auto) 3.8, Eos % (Auto) 4.5, Baso % (Auto) 0.9, Neut # (Auto) 5.2, Lymph # (Auto) 3.2, Dolores # (Auto) 0.4, Eos # (Auto) 0.4, Baso # (Auto) 0.1, ESR 13, Sodium 138, Potassium 3.9, Chloride 107, Carbon Dioxide 26, Anion Gap 8.9, BUN 28 H, Creatinine 1.30 H, Estimated Creat Clear 65, Estimated GFR 41 L, Est GFR ( Amer) 49 L, Glucose 105 H, Calcium 9.3 05/26/24 23:07 05/26/24 23:07 Orders (Tests/Meds): ED MEDICATIONS Discontinued Medications Generic Name Dose Route Start Last Admin Trade Name Freq PRN Reason Stop Dose Admin Acetaminophen 1,000 mg 05/26/24 22:56 05/26/24 23:08 Acetaminophen 1,000mg/100ml Vial IV 05/26/24 22:57 1,000 mg ONCE ONE Administration Ketorolac Tromethamine 30 mg 05/26/24 22:56 05/26/24 23:08 Ketorolac 30mg/Ml Vial IV 05/26/24 22:57 30 mg ONCE ONE Administration Methylprednisolone Sodium Succinate 125 mg 05/26/24 22:56 05/26/24 23:08 Methylprednisolone Sod Succ 125mg Vial IV 05/26/24 22:57 125 mg ONCE ONE Administration ORDERS Category Date Time Status XR ankle RT min 3V Stat Exams 05/26/24 22:55 Completed BMP [Basic Metabolic Panel] Stat Lab 05/26/24 23:07 Completed CBC w/Auto Diff [Complete Blood Count Auto Diff] Stat Lab 05/26/24 23:07 Completed ESR [Erythrocyte Sedimentation Rate] Stat Lab 05/26/24 23:07 Completed Medical Decision Narrative: In summary patient is 69-year-old female past medical history described above who presents emergency department for evaluation of atraumatic foot swelling that is recurrent. Patient is hemodynamically stable nontoxic-appearing upon arrival, afebrile. Differential diagnosis includes osteoarthritis, venous stasis, among others. No concern for DVT as no proximal leg swelling and this is recurrent. Inflammatory arthritis symptoms and consider, workup will be conducted with hematologic labs, plain film of the foot. Initial inventions include Tylenol, Toradol, steroids. Workup was largely pending at time of transfer of care to the oncoming physician, Dr. Dean. <Karo Dean MD - Last Filed: 05/27/24 01:15> Vital Signs: 05/26/24 22:12 05/27/24 01:10 Temperature 98.2 F 98.2 F Temperature Source Oral Oral Pulse Rate 71 Pulse Rate [Left] 81 Respiratory Rate 18 18 Blood Pressure 146/82 H Blood Pressure [Right Arm] 130/75 Blood Pressure Mean [Right Arm] 93 Blood Pressure Source Automatic Cuff Blood Pressure Source [Right Arm] Automatic Cuff Blood Pressure Position Sitting Blood Pressure Position [Right Arm] Sitting 02 Sat by Pulse Oximetry 94 L Oxygen Delivery Method Room Air Room Air Lab Data Lab Results 05/26/24 23:07: WBC 9.3, RBC 4.44, Hgb 13.7, Hct 41.7, MCV 93.8, MCH 30.9, MCHC 33.0, RDW 14.9, Plt Count 285, MPV 7.9, Neut % (Auto) 56.2, Lymph % (Auto) 34.6, Dolores % (Auto) 3.8, Eos % (Auto) 4.5, Baso % (Auto) 0.9, Neut # (Auto) 5.2, Lymph # (Auto) 3.2, Dolores # (Auto) 0.4, Eos # (Auto) 0.4, Baso # (Auto) 0.1, ESR 13, Sodium 138, Potassium 3.9, Chloride 107, Carbon Dioxide 26, Anion Gap 8.9, BUN 28 H, Creatinine 1.30 H, Estimated Creat Clear 65, Estimated GFR 41 L, Est GFR ( Amer) 49 L, Glucose 105 H, Calcium 9.3 Orders (Tests/Meds): ED MEDICATIONS Discontinued Medications Generic Name Dose Route Start Last Admin Trade Name Aroldo PRN Reason Stop Dose Admin Acetaminophen 1,000 mg 05/26/24 22:56 05/26/24 23:08 Acetaminophen 1,000mg/100ml Vial IV 05/26/24 22:57 1,000 mg ONCE ONE Administration Ketorolac Tromethamine 30 mg 05/26/24 22:56 05/26/24 23:08 Ketorolac 30mg/Ml Vial IV 05/26/24 22:57 30 mg ONCE ONE Administration Methylprednisolone Sodium Succinate 125 mg 05/26/24 22:56 05/26/24 23:08 Methylprednisolone Sod Succ 125mg Vial IV 05/26/24 22:57 125 mg ONCE ONE Administration ORDERS Category Date Time Status XR ankle RT min 3V Stat Exams 05/26/24 22:55 Completed BMP [Basic Metabolic Panel] Stat Lab 05/26/24 23:07 Completed CBC w/Auto Diff [Complete Blood Count Auto Diff] Stat Lab 05/26/24 23:07 Completed ESR [Erythrocyte Sedimentation Rate] Stat Lab 05/26/24 23:07 Completed Medical Decision Narrative: In summary patient is 69-year-old female past medical history described above who presents emergency department for evaluation of atraumatic foot swelling that is recurrent. Patient is hemodynamically stable nontoxic-appearing upon arrival, afebrile. Differential diagnosis includes osteoarthritis, venous stasis, among others. No concern for DVT as no proximal leg swelling and this is recurrent. Inflammatory arthritis symptoms and consider, workup will be conducted with hematologic labs, plain film of the foot. Initial inventions include Tylenol, Toradol, steroids. Workup was largely pending at time of transfer of care to the oncoming physician, Dr. Dean. Jermaine: Upon my assumption of care patient is stable and resting comfortably. Imaging and labs were pending at time of my assumption of care. I reviewed labs which demonstrate no acute actionable abnormalities, patient does have slight increase in her creatinine, however she is tolerating oral intake and this does not appear to represent acute kidney injury based on my review of prior labs. Patient does not have any findings of acute inflammatory condition. I am very reassured against the possibility of a septic joint at this time. I believe her symptoms are likely related to osteoarthritis. X-ray personally interpreted does not demonstrate any acute acute osseous injury. See radiology read for final interpretation. Patient is appropriate for discharge at this time. She was encouraged to wear compressive stockings and follow-up with her primary care physician. Patient was given instructions on continued symptomatic management, follow-up instructions, and strict return precautions for the ER. She indicated understanding and was discharged in stable condition. Critical Care <Donald Cervantes MD - Last Filed: 05/26/24 23:03> Critical Care Time Critical Care Time: No
[2024-05-26] MEDS: KETOROLAC 30MG/ML VIAL 30 MG IV (23:08)
[2024-05-26] MEDS: METHYLPREDNISOLONE SOD SUCC 125MG VIAL 125 MG IV (23:08)
[2024-05-26] MEDS: ACETAMINOPHEN 1,000MG/100ML VIAL 1000 MG IV (23:08)
[2024-05-26 23:15] LABS: Basophils # 0.1 K/mm3 (0-0.2); Basophils % 0.9 % (0.1-2.0); Eosinophils # 0.4 K/mm3 (0.0-0.4); Eosinophils % 4.5 % (0.1-12.0); Hematocrit 41.7 % (37.0-47.0); Hemoglobin 13.7 g/dL (12.2-16.2); Lymphocytes # 3.2 K/mm3 (0.7-4.5); Lymphocytes % 34.6 % (10-50); Mean Corpuscular Hemoglobin 30.9 pg (27.0-31.2); Mean Corpuscular Volume 93.8 fl (81-99); Mean Platelet Volume 7.9 fl (7.4-10.4); Monocytes # 0.4 K/mm3 (0.1-1.0); Monocytes % 3.8 % (1.7-9.3); Neutrophils # 5.2 K/mm3 (1.8-7.8); Neutrophils % 56.2 % (37.0-80.0); Platelet Count 285 K/mm3 (142-424); Red Blood Count 4.44 M/mm3 (4.20-5.40); Red Cell Distribution Width 14.9 % (11.5-17.5); White Blood Count 9.3 K/mm3 (4.8-10.8)
[2024-05-26 23:26] LABS: Chloride 107 mmol/L (98-107); Sodium 138 mmol/L (136-145)
[2024-05-26 23:27] LABS: Potassium 3.9 mmoL/L (3.5-5.1)
[2024-05-26 23:30] LABS: Anion Gap 8.9 mEq/L (5-15); Blood Urea Nitrogen 28 mg/dl (7-17); Calcium 9.3 mg/dl (8.4-10.2); Carbon Dioxide 26 mmol/L (22.0-30.0); Creatinine Clearance Estimated 65 mL/min (50-200); Estimated Glomerular Filt Rate 41 ml/min (>60); GFR (African American) 49 ML/MIN (>60); Glucose 105 mg/dl (74-100)
--- NOTE | 2024-05-27 00:08 | PC.NURSE ---
rounded on patient, patient given blanket and pepsi
[2024-05-27 01:00] LABS: Erythrocyte Sedimentation Rate 13 mm/hr (0-30)
[2024-05-27 01:10] VITALS: BP 146/82; PULSE 71; RESP 18; TEMP 36.8; O2SAT 95
== END 2024-05-27 01:12 | disposition home or self-care (01) ==
PROVIDERS: Emergency Provider Emergency Medicine; PCP Physician Assistant
DX: M25.571 Pain in right ankle and joints of right foot (principal); R22.41 Localized swelling, mass and lump, right lower limb; E11.9 Type 2 diabetes mellitus without complications; F17.210 Nicotine dependence, cigarettes, uncomplicated; J44.9 Chronic obstructive pulmonary disease, unspecified; I11.9 Hypertensive heart disease without heart failure; I25.10 Atherosclerotic heart disease of native coronary artery without angina pectoris; E78.5 Hyperlipidemia, unspecified; Z95.5 Presence of coronary angioplasty implant and graft
CPT/HCPCS: 73610; 80048; 85025; 85651; 96374; 96375; 99284; J0131; J1885; J2919

== ENCOUNTER 2024-07-07 09:18 | Outpatient (CLI) | payer MEDICARE, MEDICAID, SELFPAY ==
--- NOTE | 2024-07-07 09:18 | CT_ITS ---
FINAL REPORT CLINICAL HISTORY: bilat leg pain and stenosis COMPARISON: 12/12/2020 FINDINGS: Post contrast axial imaging of the aorta and bilateral lower extremity was obtained and reviewed.This study was performed with techniques to keep radiation doses as low as reasonably achievable (ALARA). Individualized dose reduction techniques using automated exposure control or adjustment of mA and/or kV according to the patient's size were employed. The celiac axis and SMA are adequately patent. Patent single renal arteries are noted. There is ectasia of the infrarenal abdominal aorta measuring up to 3.2 cm. There is a small saccular component posterior laterally eccentric to the right. Moderate vascular calcifications are noted. The common iliac arteries demonstrate no significant stenosis. Right: The right common femoral artery, deep femoral artery and superficial femoral artery are all patent, without stenosis. There is no stenosis of the popliteal artery. The anterior and posterior tibial and peroneal arteries are patent to the lower leg. The anterior and posterior tibial arteries are patent to the foot. Left: The left common femoral artery, deep femoral artery and superficial femoral artery are all patent, without stenosis. There is no stenosis of the popliteal artery. The anterior and posterior tibial and peroneal arteries are patent to the lower leg. The anterior and posterior tibial arteries are patent to the foot. Review of the remaining abdomen and pelvis demonstrates the lung bases are clear. The liver has an unremarkable appearance. The gallbladder is present. The spleen and pancreas are unremarkable. There is lobular enlargement of the left adrenal gland which is stable and probably due to adrenal hyperplasia. The kidneys are unremarkable. The urinary bladder is normal in size and configuration. IMPRESSION: Infrarenal abdominal aorta ectasia up to 3.2 cm with a small saccular component. Stable left adrenal gland enlargement, probable adrenal hyperplasia. Reviewed, Interpreted and Dictated by Deyvi Guerra MD Transcribed by Carolann Lucio Authenticated and [facility]
[2024-07-07 10:08] LABS: Blood Urea Nitrogen 25 mg/dl (7-17); Estimated Glomerular Filt Rate 45 ml/min (>60); GFR (African American) 54 ML/MIN (>60)
[2024-07-07] MEDS: 0.9 % SODIUM CHLORIDE 50 ML VIAL 100 ML IV (10:40)
[2024-07-07] MEDS: IOPAMIDOL-370 (76%);100ML BOTTLE 120 ML IV (10:40)
[2024-07-07] MEDS: SODIUM CHLORIDE 0.9% 10ML SYR (RAD ONLY) 10 ML IV (10:40)
== END 2024-07-07 23:59 | disposition home or self-care (01) ==
LOC: RAD 09:18
PROVIDERS: PCP Physician Assistant; Visit Provider Physician Assistant
DX: I77.811 Abdominal aortic ectasia (principal); M79.604 Pain in right leg; M79.605 Pain in left leg; I70.203 Unspecified atherosclerosis of native arteries of extremities, bilateral legs; F17.210 Nicotine dependence, cigarettes, uncomplicated
CPT/HCPCS: 36415; 75635; 82565; 84520; Q9967

== ENCOUNTER 2024-07-13 17:29 | Emergency (ER) | payer MEDICARE, MEDICAID, SELFPAY ==
[2024-07-13 17:30] VITALS: BP 120/80; PULSE 82; RESP 18; TEMP 37.4; O2SAT 95; BMI 38.4
--- NOTE | 2024-07-13 17:33 | HMH.EDGENADL ---
Discharge Plan Disposition Patient Disposition: Home, Self-Care Condition: Good Prescriptions Prescriptions: No Action Jardiance 10 mg tablet 10 mg PO DAILY Qty: 30 5RF ranolazine 500 mg tablet extended release 12 hr 500 mg PO BID Qty: 60 2RF gabapentin 800 mg tablet 800 mg PO BID 30 Days Qty: 60 2RF tramadol 50 mg tablet 50 mg PO Q8H PRN (Reason: pain) Qty: 90 2RF fluoxetine 20 mg capsule See Rx Instructions .ROUTE .COMPLEX Qty: 90 0RF Dose Instruction: Take 1 capsule by mouth once daily Rx Instructions: Take 1 capsule by mouth once daily trazodone 100 mg tablet See Rx Instructions .ROUTE .COMPLEX Qty: 90 3RF Dose Instruction: TAKE 1 TABLET BY MOUTH AT BEDTIME NIGHTLY FOR INSOMNIA Rx Instructions: TAKE 1 TABLET BY MOUTH AT BEDTIME NIGHTLY FOR INSOMNIA ipratropium-albuterol 0.5 mg-3 mg(2.5 mg base)/3 mL solution for nebulization See Rx Instructions .ROUTE .COMPLEX Qty: 1080 0RF Dose Instruction: INHALE 1 VIAL(3ML) VIA NEBULIZER EVERY 4 TO 6 HOURS NEEDED FOR BREATHING Rx Instructions: INHALE 1 VIAL(3ML) VIA NEBULIZER EVERY 4 TO 6 HOURS NEEDED FOR BREATHING methocarbamol 500 mg tablet 1,000 mg PO Q8H PRN (Reason: muscle spasm) Qty: 180 2RF (DME) lancets [Accu-Chek Softclix Lancets] Misc See Rx Instructions .ROUTE .COMPLEX Rx Instructions: USE 1 LANCET TO CHECK GLUCOSE TWICE DAILY DIRECTED FOR DIABETES albuterol sulfate 90 mcg/actuation HFA aerosol inhaler 4 inh inhalation Q4HP PRN (Reason: shortness of breath or wheezing) Rx Instructions: 4 puffs every 4 hours for 48 hours then as needed for shortness of breath or wheezing following aspirin 325 mg Tablet 325 mg PO DAILY metoprolol succinate 50 mg tablet extended release 24 hr 50 mg PO DAILY clopidogrel 75 mg tablet 75 mg PO DAILY Patient Comments: TAKE 1 TABLET BY MOUTH ONCE DAILY ondansetron 4 mg tablet,disintegrating 4 mg PO Q8H PRN (Reason: nausea and vomiting) 4 Days Qty: 12 0RF Referrals Follow up/Referrals: Domitila Baldwin PA [Primary Care Provider] - See instructions Activity Restrictions/Add. Instructions Additional Instructions/Restrictions: Follow-up with Dr. Gonzalez as scheduled tomorrow. Follow-up with your PCP for any worsening signs or symptoms as needed. Clinical Impressions Clinical Impression: Arthralgia of knee, right Instructions Patient Instructions: DI for Chronic Pain -- Adult Print Language Print Language: Chinese Discharge ED Provider: Tonya Minor General Adult HPI General Chief complaint: PAIN Stated complaint: bilateral leg pain Time Seen by Provider: 07/13/24 17:32 History of Present Illness HPI narrative: Patient presents for evaluation of right knee pain. Patient has a history of chronic right knee pain secondary to osteoarthritis and currently follows with Dr. Dumont for this problem. She actually has a follow-up appointment tomorrow but she came to the ER because she cannot take it anymore and I need something to help me sleep at night. She denies any new complaints any new trauma fever chills hemoptysis hematochezia melena nausea vomiting diarrhea. She has not lost ability to walk. She continues to ambulate with a walker. She was referred to pain management however patient declined to go because they were just going to inject my knee and I did want to do that . Related Data Home Medications ?Medication ?Instructions ?Recorded ?Confirmed clopidogrel 75 mg tablet 75 mg PO DAILY Platelet Inhibitor 05/28/23 07/02/24 metoprolol succinate 50 mg 50 mg PO DAILY High Blood Pressure 05/28/23 07/02/24 tablet,extended release 24 hr albuterol sulfate 90 mcg/actuation 4 inh inhalation Q4HP PRN 09/12/23 07/02/24 aerosol inhaler shortness of breath or wheezing lancets (Accu-Chek Softclix 09/12/23 07/02/24 Lancets) aspirin 325 mg tablet 325 mg PO DAILY 10/28/23 07/02/24
[2024-07-13 18:00] VITALS: BP 127/73; PULSE 76; O2SAT 96
[2024-07-13 18:22] VITALS: BP 118/77; PULSE 80; RESP 18; TEMP 37.2; O2SAT 95
== END 2024-07-13 18:23 | disposition home or self-care (01) ==
PROVIDERS: Emergency Provider Emergency Medicine; PCP Physician Assistant
DX: M25.561 Pain in right knee (principal); M17.0 Bilateral primary osteoarthritis of knee
CPT/HCPCS: 96372; 99283; J1885

== ENCOUNTER 2024-07-14 13:02 | Outpatient (CLI) | payer MEDICARE, MEDICAID, SELFPAY ==
--- NOTE | 2024-07-14 13:08 | XR_ITS ---
FINAL REPORT CLINICAL HISTORY: rt shoulder pain FINDINGS: RIGHT SHOULDER Three views demonstrate no acute fracture or dislocation. There is advanced glenohumeral joint space narrowing. There is subchondral sclerosis and osteophyte formation of the glenohumeral joint. The acromioclavicular joint is intact. The soft tissues are unremarkable. IMPRESSION: Advanced osteoarthritis of the glenohumeral joint. Reviewed, Interpreted and Dictated by Dyevi Guerra MD Transcribed by Cyn Gu Authenticated and [facility]
--- NOTE | 2024-07-14 13:08 | XR_ITS ---
FINAL REPORT CLINICAL HISTORY: Rt Knee Pain FINDINGS: RIGHT KNEE Three views demonstrate no acute fracture or dislocation. There is mild medial compartment joint space narrowing. There are hypertrophic changes of osteoarthritis in the medial and lateral joint margins. No acute soft tissue abnormality is seen. IMPRESSION: Degenerative changes with no acute bony abnormality. Reviewed, Interpreted and Dictated by Deyvi Guerra MD Transcribed by Cyn Gu Authenticated and [facility]
--- NOTE | 2024-07-14 13:08 | XR_ITS ---
FINAL REPORT CLINICAL HISTORY: lt knee pain FINDINGS: LEFT KNEE Three views demonstrate no acute fracture or dislocation. There is moderately advanced medial compartment joint space narrowing. There is subchondral sclerosis and small osteophytes at the medial joint margin. No acute soft tissue abnormality is seen. IMPRESSION: Degenerative changes with no acute bony abnormality. Reviewed, Interpreted and Dictated by Deyvi Guerra MD Transcribed by Cyn Gu Authenticated and [facility]
== END 2024-07-14 23:59 | disposition home or self-care (01) ==
LOC: RAD 13:05
PROVIDERS: PCP Physician Assistant; Visit Provider Orthopaedic Surgery
DX: M25.511 Pain in right shoulder (principal); M17.11 Unilateral primary osteoarthritis, right knee; M25.562 Pain in left knee
CPT/HCPCS: 73030; 73562

== ENCOUNTER 2024-09-10 16:13 | Emergency (ER) | payer MEDICARE, MEDICAID, SELFPAY ==
[2024-09-10 16:14] VITALS: BP 140/88; PULSE 89; RESP 20; TEMP 36.7; O2SAT 97; BMI 37.0
--- NOTE | 2024-09-10 16:16 | HMH.EDGENADL ---
Discharge Plan Disposition Patient Disposition: Home, Self-Care Condition: Good Prescriptions Prescriptions: New doxycycline hyclate 100 mg capsule 100 mg PO BID 5 Days Qty: 10 0RF guaifenesin 200 mg tablet 200 mg PO TID PRN (Reason: cough) 5 Days Qty: 14 0RF prednisone 50 mg tablet 50 mg PO DAILY 5 Days Qty: 5 0RF No Action Jardiance 10 mg tablet 10 mg PO DAILY Qty: 30 5RF ranolazine 500 mg tablet extended release 12 hr 500 mg PO BID Qty: 60 2RF gabapentin 800 mg tablet 800 mg PO BID 30 Days Qty: 60 2RF tramadol 50 mg tablet 50 mg PO Q8H PRN (Reason: pain) Qty: 90 2RF fluoxetine 20 mg capsule See Rx Instructions .ROUTE .COMPLEX Qty: 90 0RF Dose Instruction: Take 1 capsule by mouth once daily Rx Instructions: Take 1 capsule by mouth once daily trazodone 100 mg tablet See Rx Instructions .ROUTE .COMPLEX Qty: 90 3RF Dose Instruction: TAKE 1 TABLET BY MOUTH AT BEDTIME NIGHTLY FOR INSOMNIA Rx Instructions: TAKE 1 TABLET BY MOUTH AT BEDTIME NIGHTLY FOR INSOMNIA methocarbamol 500 mg tablet 1,000 mg PO Q8H PRN (Reason: muscle spasm) Qty: 180 2RF ipratropium-albuterol 0.5 mg-3 mg(2.5 mg base)/3 mL solution for nebulization See Rx Instructions .ROUTE .COMPLEX Qty: 1080 0RF Dose Instruction: INHALE 1 VIAL(3ML) VIA NEBULIZER EVERY 4 TO 6 HOURS NEEDED FOR BREATHING Rx Instructions: INHALE 1 VIAL(3ML) VIA NEBULIZER EVERY 4 TO 6 HOURS NEEDED FOR BREATHING (DME) lancets [Accu-Chek Softclix Lancets] Misc See Rx Instructions .ROUTE .COMPLEX Rx Instructions: USE 1 LANCET TO CHECK GLUCOSE TWICE DAILY DIRECTED FOR DIABETES albuterol sulfate 90 mcg/actuation HFA aerosol inhaler 4 inh inhalation Q4HP PRN (Reason: shortness of breath or wheezing) Rx Instructions: 4 puffs every 4 hours for 48 hours then as needed for shortness of breath or wheezing following aspirin 325 mg Tablet 325 mg PO DAILY metoprolol succinate 50 mg tablet extended release 24 hr 50 mg PO DAILY clopidogrel 75 mg tablet 75 mg PO DAILY Patient Comments: TAKE 1 TABLET BY MOUTH ONCE DAILY ondansetron 4 mg tablet,disintegrating 4 mg PO Q8H PRN (Reason: nausea and vomiting) 4 Days Qty: 12 0RF Referrals Follow up/Referrals: Domitila Baldwin PA [Primary Care Provider] - See instructions Activity Restrictions/Add. Instructions Additional Instructions/Restrictions: I have prescribed a course of antibiotics and steroids as well as a cough medication. For your pain in your sides, please take your Toradol and medication called Robaxin which is a muscle relaxer that you have been prescribed. Please use your nebulizer machine as prescribed by your PCP. Please return with any new or worsening symptoms. Clinical Impressions Clinical Impression: COPD with acute exacerbation Print Language Print Language: Japanese Discharge ED Provider: Enoc Harrell General Adult HPI General Chief complaint: PAIN Stated complaint: Pain in bilateral rib cage Time Seen by Provider: 09/10/24 16:16 History of Present Illness HPI narrative: The patient presents with a chief complaint of pain in the chest, specifically on the side, which started this morning. The pain is exacerbated by breathing, walking, and other movements. She reports that the pain began while sitting at the kitchen table, not upon waking up. She has a history of coughing and is currently coughing up mucus. There has been no change in the color of the mucus, and she reports this is not a new symptom. The pain is localized to the sides of the chest, with no pain reported in the center of the chest or abdomen. Upon palpation, the pain is not reproduced, and she describes it as deeper than the surface. Her medical history includes COPD and a history of using tramadol for leg pain. She has used nebulizer treatments at home for COPD, but neither these treatments nor the tramadol have provided significant relief for the current symptoms. She reports feeling wheezy and short of breath in addition to the chest pain. No information is provided about the onset of symptoms being linked to any specific incident or injury. Please note that above description of symptoms, in this electronic medical record under categorization of recalled from ER triage doctor by RN are reflective of an initial nursing assessment, however, is not reflective of my full history and physical exam that was personally taken and clarified. Consequentially, this preceding description of symptoms, which may include the patient's categorized chief complaint in the EMR, do not reflect my personal clinical impression, and the ultimate description of history of present illness and patient stated complaints should be deferred to this section of the note. Unless stated otherwise or congruent with this section of the note, additional signs, symptoms, or incongruence should be interpreted as inaccurate with my clinical impression. Related Data Home Medications ?Medication ?Instructions ?Recorded ?Confirmed clopidogrel 75 mg tablet 75 mg PO DAILY Platelet Inhibitor 05/28/23 07/23/24 metoprolol succinate 50 mg 50 mg PO DAILY High Blood Pressure 05/28/23 07/23/24 tablet,extended release 24 hr albuterol sulfate 90 mcg/actuation 4 inh inhalation Q4HP PRN 09/12/23 07/23/24 aerosol inhaler shortness of breath or wheezing lancets (Accu-Chek Softclix 09/12/23 07/23/24 Lancets) aspirin 325 mg tablet 325 mg PO DAILY 10/28/23 07/23/24 Previous Rx's ?Medication ?Instructions ?Recorded fluoxetine 20 mg capsule See Rx Instructions .Route 12/02/23 .COMPLEX #90 caps ondansetron 4 mg disintegrating 4 mg PO Q8H PRN nausea and 02/29/24 tablet vomiting 4 days #12 tabs trazodone 100 mg tablet See Rx Instructions .Route 04/06/24 .COMPLEX #90 tabs empagliflozin 10 mg tablet 10 mg PO DAILY #30 tabs 06/11/24 (Jardiance) ranolazine 500 mg tablet,extended 500 mg PO BID #60 tabs 06/11/24 release,12 hr gabapentin 800 mg tablet 800 mg PO BID Pain 30 days #60 tabs 06/16/24 tramadol 50 mg tablet 50 mg PO Q8H PRN pain #90 tabs 06/16/24 methocarbamol 500 mg tablet 1,000 mg (2 x 500 mg) PO Q8H PRN 06/30/24 muscle spasm #180 tabs ipratropium 0.5 mg-albuterol 3 mg See Rx Instructions .Route 08/06/24 (2.5 mg base)/3 mL nebulization .COMPLEX #1,080 mL soln doxycycline hyclate 100 mg capsule 100 mg PO BID 5 days #10 caps 09/10/24 guaifenesin 200 mg tablet 200 mg PO TID PRN cough 5 days #14 09/10/24 tabs prednisone 50 mg tablet 50 mg PO DAILY 5 days #5 tabs 10/24/24 Allergies Allergy/AdvReac Type Severity Reaction Status Date / Time No Known Allergies Allergy Verified 07/23/24 13:18 [facility] Disclaimer: The information contained in this section may have been updated after the patient was seen, as this information can be updated by other users. Medical History Lymphedema Venous insufficiency of both lower extremities Incontinence of urine Migraine Diabetes mellitus, type 2 Pain in both lower legs Type 2 diabetes mellitus with diabetic polyneuropathy, without long-term current use of insulin Diabetes mellitus Hypertension CAD (coronary artery disease) Tobacco abuse Restless leg syndrome Vitamin D deficiency (~03/11/18) Depression Bilateral low back pain with sciatica Neuropathy RF Neurontin Surgical History History of heart artery stent Family History Other No significant family history Social History Smoking Status: Current every day smoker tobacco type: cigarettes packs per day: 1 second hand exposure: No alcohol intake: never substance use type: denies use current occupational status: unemployed Travel in the last 8 weeks: None household members: spouse housing: house marital status: education level: high school current occupational exposures/hazards: No caffeine: Yes special aron needs: No agree to transfusion: No do you feel safe at home: Yes victim of physical abuse: No victim of emotional abuse: No victim of sexual abuse: No would you like helpful sources: No Other Medical History Have you received the Flu Vaccine for this season: No Have you received the Pneumonia Vaccine: Yes ROS Obtained: Yes other As per HPI Physical Exam General General appearance: alert and in no apparent distress Head Head exam: atraumatic and normocephalic Eye Eye exam: Present normal appearance Neck Neck exam: Present normal inspection Chest Chest inspection: Present normal inspection and symmetric chest wall rise Respiratory Respiratory exam: Present wheezes and prolonged expiratory phase; Absent respiratory distress Cardiovascular Cardiovascular exam: Present regular rate and normal rhythm Abdominal Exam Abdominal exam: Present soft Neurological Exam Neurological exam: Present alert and oriented X3 Psychiatric Psychiatric exam: Present normal affect and normal mood Skin Skin exam: Present warm and dry Medical Decision Making Medical Records Medical records reviewed: Yes I reviewed the patient's medical records. Screening: Per USPSTF and CDC recommendations, given the prevalence of disease in our region, it is our hospital?s policy to screen for HIV and viral Hepatitis for all patients aged 18 and over and those with ongoing risk factors. Robson Inquiry Pt receiving controlled substance: No Vital Signs: 09/10/24 16:14 09/10/24 16:53 09/10/24 17:00 Temperature 98.1 F Temperature Source Oral Pulse Rate 68 71 Pulse Rate [Right] 89 Respiratory Rate 20 18 17 Blood Pressure 154/82 H 143/82 H Blood Pressure [Right Arm] 140/88 Blood Pressure Mean 106 109 Blood Pressure Mean [Right Arm] 105 Blood Pressure Source Blood Pressure Position 02 Sat by Pulse Oximetry 97 99 95 Oxygen Delivery Method Room Air Room Air Room Air 09/10/24 17:30 09/10/24 18:34 Temperature 98.0 F Temperature Source Oral Pulse Rate 74 74 Pulse Rate [Right] Respiratory Rate 19 16 Blood Pressure 135/75 146/85 H Blood Pressure [Right Arm] Blood Pressure Mean 104 Blood Pressure Mean [Right Arm] Blood Pressure Source Automatic Cuff Blood Pressure Position Sitting 02 Sat by Pulse Oximetry 95 Oxygen Delivery Method Room Air Room Air Orders (Tests/Meds): ED MEDICATIONS Discontinued Medications Generic Name Dose Route Start Last Admin Trade Name Freq PRN Reason Stop Dose Admin Albuterol/Ipratropium 3 ml 09/10/24 16:30 09/10/24 16:43 Ipratropium/Albuterol 3 Ml Neb IH 09/10/24 16:31 3 ml ONCE ONE Administration Ketorolac Tromethamine 15 mg 09/10/24 16:30 09/10/24 16:43 Ketorolac 30mg/Ml Vial IM 09/10/24 16:31 15 mg ONCE ONE Administration Methocarbamol 1,000 mg 09/10/24 16:30 09/10/24 16:43 Methocarbamol 500mg Tablet PO 09/10/24 16:31 1,000 mg ONCE STA Administration Prednisone 40 mg 09/10/24 16:30 09/10/24 16:43 Prednisone 20mg Tab PO 09/10/24 16:31 40 mg ONCE ONE Administration ORDERS Category Date Time Status XR chest 2V Stat Exams 09/10/24 16:30 Completed Medical Decision Narrative: Patient with history and exam per above presenting for evaluation of chest wall pain, shortness of breath Diagnoses considered include COPD exacerbation, pneumonia, bronchitis, no reported anginal symptoms and insufficient clinical evidence to warrant further workup beyond history and physical examination for entities such as PE, ACS ED workup and treatment included: ED MEDICATIONS Discontinued Medications Generic Name Dose Route Start Last Admin Trade Name Freq PRN Reason Stop Dose Admin Albuterol/Ipratropium 3 ml 09/10/24 16:30 09/10/24 16:43 Ipratropium/Albuterol 3 Ml Neb IH 09/10/24 16:31 3 ml ONCE ONE Administration Ketorolac Tromethamine 15 mg 09/10/24 16:30 09/10/24 16:43 Ketorolac 30mg/Ml Vial IM 09/10/24 16:31 15 mg ONCE ONE Administration Methocarbamol 1,000 mg 09/10/24 16:30 09/10/24 16:43 Methocarbamol 500mg Tablet PO 09/10/24 16:31 1,000 mg ONCE STA Administration Prednisone 40 mg 09/10/24 16:30 09/10/24 16:43 Prednisone 20mg Tab PO 09/10/24 16:31 40 mg ONCE ONE Administration ORDERS Category Date Time Status XR chest 2V Stat Exams 09/10/24 16:30 Completed Imaging was independently visualized and interpreted by me, significant for no acute consolidative process Please refer to radiology report for full details. My clinical impression at this time is most consistent with COPD exacerbation I discussed my clinical impression with patient and answered all questions. At this time, the evidence for any other entities in the differential is insufficient to warrant any further testing or ED observation. This was explained to the patient. The patient was advised that persistent or worsening symptoms require further evaluation. Critical Care Critical Care Time Critical Care Time: No
--- NOTE | 2024-09-10 16:23 | ECG_ITS ---
APPROVED REPORT Exam: Resting ECG HR:80 bpm ECG Measurements Heart Rate 80 AXES WA 137 P 70 QRSd 94 QRS 68 QT 372 T 63 QTc 407 Conclusion SINUS RHYTHM NONSPECIFIC ST & T-WAVE ABNORMALITY Electronically signed by : TARA ROSS, 09/10/2024 22:56:59
--- NOTE | 2024-09-10 16:30 | XR_ITS ---
PROCEDURE INFORMATION: Exam: XR Chest Exam date and time: 09/10/2024 4:29 PM Age: 69 years old Clinical indication: Cough; Additional info: Cough, bilateral rib pain TECHNIQUE: Imaging protocol: Radiologic exam of the chest. Views: 2 views. COMPARISON: 1. CT ANGIO CHEST PE PROTOCOL 03/01/2024 6:38 PM 2. CR XR CHEST PORTABLE 10/28/2023 12:19 PM FINDINGS: Lungs: Mild blunting/haziness of the left costophrenic angle. Lungs are otherwise clear. Pleural spaces: No pneumothorax. Heart/Mediastinum: Cardiomediastinal silhouette is normal. Bones/joints: No acute abnormality. IMPRESSION: Mild blunting/haziness of the left costophrenic angle, nonspecific, could be secondary to atelectasis, infectious/inflammatory process, and/or mild pleural fluid. Lungs are otherwise clear.
[2024-09-10] MEDS: METHOCARBAMOL 500MG TABLET 1000 MG PO (16:43)
[2024-09-10] MEDS: KETOROLAC 30MG/ML VIAL 15 MG IM (16:43)
[2024-09-10] MEDS: predniSONE 20MG TAB 40 MG PO (16:43)
[2024-09-10] MEDS: IPRATROPIUM/ALBUTEROL 3 ML NEB IH (16:43)
[2024-09-10 16:53] VITALS: BP 154/82; PULSE 68; RESP 18; O2SAT 99
[2024-09-10 17:00] VITALS: BP 143/82; PULSE 71; RESP 17; O2SAT 95
--- NOTE | 2024-09-10 17:04 | PC.NURSE ---
Rounded on patient. Patient voiced that she does not need anything at this time. Call light is in reach of the patient.
[2024-09-10 17:30] VITALS: BP 135/75; PULSE 74; RESP 19; O2SAT 95
[2024-09-10 18:34] VITALS: BP 146/85; PULSE 74; RESP 16; TEMP 36.7; O2SAT 92
--- NOTE | 2024-09-11 17:30 | PC.NURSE ---
pt called to check on d/c meds. She states marcelina said the only one they received was for prednisone. I retransmitted them.
== END 2024-09-10 18:35 | disposition home or self-care (01) ==
PROVIDERS: Emergency Provider Emergency Medicine; PCP Physician Assistant
DX: J44.1 Chronic obstructive pulmonary disease with (acute) exacerbation (principal); R07.1 Chest pain on breathing; R05.9 Cough, unspecified
CPT/HCPCS: 71046; 93005; 96372; 99283; J1885; J7620

== ENCOUNTER 2024-10-14 11:31 | Emergency (ER) | payer MEDICARE, MEDICAID, SELFPAY ==
[2024-10-14 11:50] VITALS: BP 148/75; PULSE 75; RESP 18; TEMP 36.8; O2SAT 96; BMI 37.2
[2024-10-14 12:09] LABS: UTC Influenza A Antigen Negative (Negative); UTC Strep Screen (Rapid) Negative (Negative)
[2024-10-14 12:10] LABS: UTC Influenza B Antigen Negative (Negative)
--- NOTE | 2024-10-14 12:19 | ED_ITS ---
Discharge Plan Disposition Patient Disposition: Home, Self-Care Condition: Good Prescriptions Prescriptions: New azithromycin [Zithromax Z-Zion] 250 mg tablet See Rx Instructions .ROUTE .COMPLEX 5 Days Qty: 6 0RF Rx Instructions: For 250 mg dose pack: take 500 mg today (day 1), then 250 mg for 4 days (days 2-5) prednisone 20 mg tablet 20 mg PO BID 5 Days Qty: 10 0RF benzonatate 100 mg capsule 100 mg PO TID PRN (Reason: cough) Qty: 30 0RF guaifenesin [Mucinex] 600 mg tablet extended release 12hr 1,200 mg PO BID PRN (Reason: cough) Qty: 20 0RF No Action (DME) lancets [Accu-Chek Softclix Lancets] Misc See Rx Instructions .ROUTE .COMPLEX Rx Instructions: USE 1 LANCET TO CHECK GLUCOSE TWICE DAILY DIRECTED FOR DIABETES ipratropium-albuterol 0.5 mg-3 mg(2.5 mg base)/3 mL solution for nebulization 3 ml inhalation Q6HP PRN (Reason: SOA) tramadol 50 mg tablet 50 mg PO Q8HP PRN (Reason: Pain) Patient Comments: TAKE 1 TABLET BY MOUTH EVERY 8 HOURS NEEDED FOR PAIN gabapentin 800 mg tablet 800 mg PO BID Patient Comments: TAKE 1 TABLET BY MOUTH TWICE DAILY FOR PAIN trazodone 100 mg tablet 100 mg PO DAILY Patient Comments: TAKE 1 TABLET BY MOUTH AT BEDTIME NIGHTLY FOR INSOMNIA Jardiance 10 mg tablet 10 mg PO DAILY Patient Comments: TAKE 1 TABLET BY MOUTH ONCE DAILY Referrals Follow up/Referrals: Cherrie Kelley APRN [Primary Care Provider] - See instructions Activity Restrictions/Add. Instructions Additional Instructions/Restrictions: *Monitor Temp, Over the counter Motrin or Tylenol as directed/as needed Tylenol every 4 hours and Motrin every 6 hours (as long as your family doctor has told you that you can take it) for fever or pain. and straight to ER if unable to lower temp less than 101.0 after medication given *Warm salt water gargles may help to soothe the throat *Throat Lozenges? *Warm fluids like tea with honey may help to soothe the throat? *Sleep elevated *Humidifier/Vaporizer Your throat swab was sent for culture. Those results are typically sent to your primary care. Be sure to follow up in 2-3 days with your family doctor/primary care physician if no improvement so they can review those result and treat if necessary. If you don?t have a primary care doctor, I recommend you get one but in the mean time, you will have to return to a walk in clinic Follow up IMMEDIATELY for new or worsening symptoms or no Noticeable improvement over the next 48-72 hours. 911 for difficulty breathing or swallowing Clinical Impressions Clinical Impression: Sinusitis Instructions Patient Instructions: DI for Sinusitis, Acute Bronchitis, Chronic Obstructive Pulmonary Disease (Alternative Therapy) Print Language Print Language: Occitan Discharge ED Provider: Marissa Calvert [facility] [place] Stated complaint: cough, headache, sore throat Mode of Arrival: Ambulatory Source of Information: Patient Limitations: No Limitations Time Seen by Provider: 10/14/24 12:19 Description of Symptoms (Recalled from Triage Doc. by RN): PATIENT C/O HEADACHE, SORE THROAT, BODY ACHES AND COUGH SINCE YESTERDAY HEENT Symptoms (Recalled from RN notes): Yes Resp Symptoms (Recalled from RN notes): Yes Skin Symptoms (Recalled from RN notes): No MS Symptoms (Recalled from RN notes): No Functional Status (Recalled from RN notes): WNL History of Present Illness Provider Complaint: Pt states that she has been having sinus congestion and drainage for several days States that since yesterday her throat was hurting, sinus pressure is worse, and feels like it is trying to move into her chest and having pressure behind her eyes and headache so today she came in to get checked Related Data Home Medications ?Medication ?Instructions ?Recorded ?Confirmed lancets (Accu-Chek Softclix 09/12/23 10/14/24 Lancets) empagliflozin 10 mg tablet 10 mg PO DAILY 10/14/24 10/14/24 (Jardiance) gabapentin 800 mg tablet 800 mg PO BID 10/14/24 10/14/24 ipratropium 0.5 mg-albuterol 3 mg 3 ml inhalation Q6HP PRN SOA 10/14/24 10/14/24 (2.5 mg base)/3 mL nebulization soln tramadol 50 mg tablet 50 mg PO Q8HP PRN Pain 10/14/24 10/14/24 trazodone 100 mg tablet 100 mg PO DAILY 10/14/24 10/14/24 Previous Rx's ?Medication ?Instructions ?Recorded azithromycin 250 mg tablet See Rx Instructions PO .COMPLEX 5 10/14/24 (Zithromax Z-Zion) days #6 tabs benzonatate 100 mg capsule 100 mg PO TID PRN cough #30 caps 10/14/24 guaifenesin 600 mg tablet, 1,200 mg (2 x 600 mg) PO BID PRN 10/14/24 extended release 12 hr (Mucinex) cough #20 tabs prednisone 20 mg tablet 20 mg PO BID 5 days #10 tabs 10/14/24 Allergies Allergy/AdvReac Type Severity Reaction Status Date / Time No Known Allergies Allergy Verified 07/23/24 13:18 Worker's Comp Is this a Worker's Comp case?: No [facility] Disclaimer: The information contained in this section may have been updated after the patient was seen, as this information can be updated by other users. Medical History Lymphedema Venous insufficiency of both lower extremities Incontinence of urine Migraine Diabetes mellitus, type 2 Pain in both lower legs Type 2 diabetes mellitus with diabetic polyneuropathy, without long-term current use of insulin Diabetes mellitus Hypertension CAD (coronary artery disease) Tobacco abuse Restless leg syndrome Vitamin D deficiency (~03/11/18) Depression Bilateral low back pain with sciatica Neuropathy RF Neurontin Surgical History History of heart artery stent Family History Other No significant family history Social History Smoking Status: Current every day smoker tobacco type: cigarettes packs per day: 1 second hand exposure: No alcohol intake: never substance use type: denies use current occupational status: unemployed household members: spouse housing: house marital status: education level: high school current occupational exposures/hazards: No caffeine: Yes special aron needs: No agree to transfusion: No do you feel safe at home: Yes victim of physical abuse: No victim of emotional abuse: No victim of sexual abuse: No would you like helpful sources: No ROS Obtained: Yes All systems reviewed & no additional complaints except as documented and Yes Systems reviewed as appropriate & no additional complaints except as documented Constitutional Constitutional: Reports system reviewed and no additional complaints, except as documented and Reports as per HPI ENT Ears, Nose, Mouth, and Throat: Reports system reviewed and no additional complaints, except as documented, Reports as per HPI, Reports sinus pain, Reports sinus pressure and Reports sore throat Cardiovascular Cardiovascular: Reports system reviewed and no additional complaints, except as documented and Reports as per HPI Respiratory Respiratory: Reports system reviewed and no additional complaints, except as documented, Reports as per HPI, Reports chest congestion and Reports cough Gastrointestinal Gastrointestingal: Reports system reviewed and no additional complaints, except as documented and as per HPI Physical Exam General General appearance: alert and in no apparent distress ENT ENT exam: Present mucous membranes moist Expanded ENT Exam Nose exam: Present sinus tenderness Throat exam: Present other (Pharyngeal erythema noted with PND) Respiratory Respiratory exam: Present normal lung sounds bilaterally; Absent respiratory distress or wheezes Cardiovascular Cardiovascular exam: Present regular rate, normal rhythm and normal heart sounds Abdominal Exam Abdominal exam: Present soft and normal bowel sounds; Absent distention or tenderness Neurological Exam Neurological exam: Present alert, oriented X3 and normal gait Medical Decision Making Medical Records Screening: Per USPSTF and CDC recommendations, given the prevalence of disease in our [facility], it is our hospital?s policy to screen for HIV and viral Hepatitis for all patients aged 18 and over and those with ongoing risk factors. Robson Inquiry Pt receiving controlled substance: No Robson was queried for this patient: No Vital Signs: 10/14/24 11:50 Temperature 98.3 F Temperature Source Oral Pulse Rate [Left Brachial] 75 Respiratory Rate 18 Blood Pressure [Left Arm] 148/75 H Blood Pressure Mean [Left Arm] 99 Blood Pressure Source [Left Arm] Automatic Cuff Blood Pressure Position [Left Arm] Sitting 02 Sat by Pulse Oximetry 96 Oxygen Delivery Method Room Air Lab Data Lab results reviewed: Yes I reviewed the patient's lab results. Lab Results 10/14/24 11:52: Influenza Type A Ag Negative, Influenza Type B Ag Negative, Strep Scn Rapid Clinic Negative Orders (Tests/Meds): ORDERS Category Date Time Status Strep Screen Confirmation Stat Micro 10/14/24 11:52 Received
[2024-10-14 12:30] VITALS: BP 148/75; PULSE 75; RESP 18; TEMP 36.8; O2SAT 96
== END 2024-10-14 12:33 | disposition home or self-care (01) ==
PROVIDERS: Emergency Provider Nurse Practitioner; PCP Nurse Practitioner
DX: J01.90 Acute sinusitis, unspecified (principal); R05.9 Cough, unspecified; R09.81 Nasal congestion; R07.0 Pain in throat
CPT/HCPCS: 87635; 87804; 87880; 99212; G0381

== ENCOUNTER 2024-10-19 08:54 | Outpatient (CLI) | payer MEDICARE, MEDICAID, SELFPAY ==
[2024-10-19 19:05] LABS: Albumin Level 3.9 g/dl (3.5-5.0); Chloride 107 mmol/L (98-107); Potassium 4.3 mmoL/L (3.5-5.1); Sodium 140 mmol/L (136-145)
[2024-10-19 19:08] LABS: Alanine Aminotransferase 15 U/L (12-78); Albumin/Globulin Ratio 1.3 (1.1-1.8); Alkaline Phosphatase 123 U/L (38-126); Anion Gap 11.3 mEq/L (5-15); Aspartate Amino Transferase 22 U/L (14-36); Bilirubin,Total 0.4 mg/dl (0.2-1.3); Blood Urea Nitrogen 32 mg/dl (7-17); Calcium 9.2 mg/dl (8.4-10.2); Carbon Dioxide 26 mmol/L (22.0-30.0); Estimated Glomerular Filt Rate 55 ml/min (>60); GFR (African American) 67 ML/MIN (>60); Globulin 2.9 g/dL (1.3-3.2); Glucose 98 mg/dl (74-100); Total Protein,Serum 6.8 g/dl (6.3-8.2)
[2024-10-19 20:03] LABS: Vitamin B12 386 pg/mL (239-931)
== END 2024-10-19 23:59 | disposition home or self-care (01) ==
LOC: LAB.DROPOF 10-20 14:46
PROVIDERS: PCP Family Medicine; Visit Provider Family Medicine
DX: J44.1 Chronic obstructive pulmonary disease with (acute) exacerbation (principal)
CPT/HCPCS: 80053; 82607

== ENCOUNTER 2024-11-02 14:12 | Outpatient (CLI) | payer MEDICARE, MEDICAID, SELFPAY ==
--- NOTE | 2024-11-02 14:15 | XR_ITS ---
FINAL REPORT CLINICAL HISTORY: foot pain COMPARISON: None FINDINGS: RIGHT FOOT Two views of the right foot were obtained. There is no acute fracture or dislocation. There are mild degenerative changes of the first metatarsophalangeal joint. There is a moderate hallux valgus deformity. Moderate calcaneal spurring is noted. There is no acute soft tissue abnormality. IMPRESSION: Degenerative changes without acute abnormality identified. Reviewed, Interpreted and Dictated by Dave Lincoln MD Transcribed by Sahara Navarro Authenticated and [facility]
--- NOTE | 2024-11-02 14:15 | XR_ITS ---
FINAL REPORT CLINICAL HISTORY: ankle pain COMPARISON: None FINDINGS: RIGHT ANKLE Two views of the right ankle were obtained. There is no acute fracture or dislocation. The joint spaces are well-preserved. There is no acute soft tissue abnormality. IMPRESSION: No acute abnormality identified. Reviewed, Interpreted and Dictated by Dave Lincoln MD Transcribed by Sahara Navarro Authenticated and [facility]
== END 2024-11-02 23:59 | disposition home or self-care (01) ==
LOC: LAB 14:13 → RAD 14:14
PROVIDERS: PCP Family Medicine; Visit Provider Family Medicine
DX: M79.671 Pain in right foot (principal); M25.571 Pain in right ankle and joints of right foot
CPT/HCPCS: 73600; 73620

== ENCOUNTER 2024-11-15 06:06 | Emergency (ER) | payer MEDICARE, MEDICAID, SELFPAY ==
[2024-11-15] VITALS (8 sets, daily range): BP systolic 118–139; BP diastolic 62–71; PULSE 66–92; RESP 12–21; TEMP 36.7–36.8; O2SAT 85–98; BMI 38.4
--- NOTE | 2024-11-15 06:02 | ECG_ITS ---
APPROVED REPORT Exam: Resting ECG HR:76 bpm ECG Measurements Heart Rate 76 AXES GA 133 P 40 QRSd 89 QRS 51 QT 364 T 51 QTc 395 Conclusion SINUS RHYTHM WITH OCCASIONAL SUPRAVENTRICULAR PREMATURE COMPLEXES NONSPECIFIC ST & T-WAVE ABNORMALITY Inferior lead ST depression consistent with prior Electronically signed by : MERI HSIEH, 11/16/2024 02:51:22
--- NOTE | 2024-11-15 06:09 | XR_ITS ---
PROCEDURE INFORMATION: Exam: XR Chest Exam date and time: 11/15/2024 6:10 AM Age: 69 years old Clinical indication: Pain; Wheezing; Additional info: Cp wheezing TECHNIQUE: Imaging protocol: Radiologic exam of the chest. Views: 2 views. COMPARISON: CR XR CHEST 2V 09/10/2024 4:29 PM FINDINGS: Lungs: Mild interstitial and vascular prominence. Pleural spaces: No pneumothorax . Trace left pleural effusion is not excluded. Mild obscuration of the left costophrenic sulcus may be due to positioning. Small opacity versus tiny effusion not excluded. May be infectious or inflammatory. Heart/Mediastinum: Cardiomediastinal silhouette is unremarkable. Bones/joints: Unremarkable. IMPRESSION: Mild obscuration of the left costophrenic sulcus may be due to positioning. Small opacity versus tiny effusion not excluded. May be infectious or inflammatory. According to clinical discretion, consider CT. Lungs are otherwise clear.
--- NOTE | 2024-11-15 06:11 | [facility].EDCP ---
Discharge Plan Disposition Patient Disposition: Home, Self-Care Prescriptions Prescriptions: No Action promethazine-DM 6.25-15 mg/5 mL syrup 5 ml PO Q6H PRN (Reason: cough) Qty: 600 0RF gabapentin 800 mg tablet 800 mg PO BID Qty: 60 2RF tramadol 50 mg tablet 50 mg PO Q8HP PRN (Reason: Pain) Qty: 90 2RF Trelegy Ellipta 100-62.5-25 mcg blister with device 1 inh inhalation DAILY Qty: 60 2RF albuterol sulfate 90 mcg/actuation HFA aerosol inhaler 1 inh inhalation Q6H PRN (Reason: shortness of breath or wheezing) Qty: 8.5 0RF fluoxetine 20 mg capsule See Rx Instructions .ROUTE .COMPLEX Qty: 90 1RF Dose Instruction: Take 1 capsule by mouth once daily Rx Instructions: Take 1 capsule by mouth once daily Jardiance 10 mg tablet 10 mg PO DAILY Qty: 30 5RF (DME) lancets [Accu-Chek Softclix Lancets] Misc See Rx Instructions .ROUTE .COMPLEX Rx Instructions: USE 1 LANCET TO CHECK GLUCOSE TWICE DAILY DIRECTED FOR DIABETES ipratropium-albuterol 0.5 mg-3 mg(2.5 mg base)/3 mL solution for nebulization 3 ml inhalation Q6HP PRN (Reason: SOA) trazodone 100 mg tablet 100 mg PO DAILY Patient Comments: TAKE 1 TABLET BY MOUTH AT BEDTIME NIGHTLY FOR INSOMNIA Referrals Follow up/Referrals: Domitila Baldwin PA [Primary Care Provider] - See instructions Activity Restrictions/Add. Instructions Additional Instructions/Restrictions: No evidence of an emergent medical condition identified today please follow-up closely with your cooler room worker and return with any significant worsening of your symptoms. Clinical Impressions Clinical Impression: Chest pain Print Language Print Language: Austrian Discharge ED Provider: Karo Dean HPI <Karo Dean MD - Last Filed: 11/15/24 07:02> General Chief Complaint: Chest Pain Stated Complaint: Chest Pain Time Seen by Provider: 11/15/24 06:08 History of Present Illness HPI narrative: 69-year-old female with history of COPD, 7 stents, previous DE, HFpEF presents to the ER for concerns of midsternal chest pain that started 3 hours prior to arrival. She describes as nonradiating pressure. She states approximately 45 minutes prior to arrival she took a nitro and seemed to have some improvement of her symptoms. She states she still has mild pressure but it is improved compared to when it started. She is not having dizziness, nausea, vomiting, numbness, tingling, weakness, or radiation of the pain. She states she had an upper respiratory infection approximately 2 weeks ago but feels completely recovered from that. She reports wearing 2 L nasal cannula at night for COPD, but states she does not otherwise wear oxygen. She is not denying any shortness of breath at this time. She states she has not felt like she had fevers, chills, and she denies cough and congestion. Related Data Home Medications ?Medication ?Instructions ?Recorded ?Confirmed lancets (Accu-Chek Softclix 09/12/23 11/02/24 Lancets) ipratropium 0.5 mg-albuterol 3 mg 3 ml inhalation Q6HP PRN SOA 10/14/24 11/02/24 (2.5 mg base)/3 mL nebulization soln trazodone 100 mg tablet 100 mg PO DAILY 10/14/24 11/02/24 Previous Rx's ?Medication ?Instructions ?Recorded promethazine-DM 6.25 mg-15 mg/5 mL 5 ml PO Q6H PRN cough #600 mL 10/19/24 oral syrup empagliflozin 10 mg tablet 10 mg PO DAILY #30 tabs 10/21/24 (Jardiance) albuterol sulfate 90 mcg/actuation 1 inh inhalation Q6H PRN shortness 11/02/24 aerosol inhaler of breath or wheezing #8.5 grams fluoxetine 20 mg capsule See Rx Instructions .Route 11/02/24 .COMPLEX #90 caps fluticasone fur. 100 mcg-umeclid 1 inh inhalation DAILY #60 ea 11/02/24 62.5 mcg-vilant 25 mcg inhalat.powder (Trelegy Ellipta) gabapentin 800 mg tablet 800 mg PO BID #60 tabs 11/02/24 tramadol 50 mg tablet 50 mg PO Q8HP PRN Pain #90 tabs 11/02/24 Allergies Allergy/AdvReac Type Severity Reaction Status Date / Time No Known Allergies Allergy Verified 11/02/24 13:40 [facility] <Karo Dean MD - Last Filed: 11/15/24 07:02> [facility] Disclaimer: The information contained in this section may have been updated after the patient was seen, as this information can be updated by other users. Medical History (Updated 11/15/24 @ 07:01 by Karo Dean MD) Sinusitis URI (upper respiratory infection) Colon cancer screening Lymphedema Venous insufficiency of both lower extremities Incontinence of urine Migraine Pain in both lower legs Hypertension CAD (coronary artery disease) Tobacco abuse Restless leg syndrome Vitamin D deficiency (~03/11/18) Depression Bilateral low back pain with sciatica Neuropathy Surgical History History of heart artery stent Family History Other No significant family history Social History Smoking Status: Current every day smoker tobacco type: cigarettes packs per day: 1 second hand exposure: No alcohol intake: never substance use type: denies use current occupational status: unemployed Travel in the last 8 weeks: None household members: spouse housing: house marital status: education level: high school current occupational exposures/hazards: No caffeine: Yes special aron needs: No agree to transfusion: No do you feel safe at home: Yes victim of physical abuse: No victim of emotional abuse: No victim of sexual abuse: No would you like helpful sources: No Have you lived/traveled outside US in past 30 days?: No Contact w/someone who lives/traveled outside US past 30 days?: No Exposure to someone with infectious disease in past 14 days?: No Do you have a fever (greater than 100.4 F or 38 C)?: No Have you tested positive for COVID-19: No Exposed to someone with COVID-19 in past 14 days?: No Do you have a sore throat?: No Do you have a cough?: No Do you have any weakness?: No Do you have any diarrhea?: No Are you experiencing any unusual bleeding?: No Do you have any muscle aches/pain?: No Do you have any abdominal pain?: No Are you experiencing loss of taste or smell?: No Other Medical History Have you received the Flu Vaccine for this season: No Have you received the Pneumonia Vaccine: Yes <Karo Dean MD - Last Filed: 11/15/24 07:02> ROS Obtained: Yes Systems reviewed as appropriate & no additional complaints except as documented Per HPI Physical Exam <Karo Dean MD - Last Filed: 11/15/24 07:02> General General appearance: alert, in no apparent distress and obese Head Head exam: atraumatic and normocephalic Eye Eye exam: Present PERRL and EOMI ENT ENT exam: Present mucous membranes moist Neck Neck exam: Present normal inspection and full ROM Chest Chest inspection: Present symmetric chest wall rise; Absent tenderness Respiratory Respiratory exam: Present wheezes (Expiratory wheezes in all lung martines but good air movement); Absent respiratory distress or stridor Cardiovascular Cardiovascular exam: Present regular rate and normal rhythm Abdominal Exam Abdominal exam: Present soft; Absent distention or tenderness Extremities Exam Extremities exam: Present full ROM; Absent edema Neurological Exam Neurological exam: Present alert and oriented X3; Absent motor sensory deficit Psychiatric Psychiatric exam: Present normal affect and normal mood Skin Skin exam: Present warm and dry HEART Score <Karo Dean MD - Last Filed: 11/15/24 07:02> HEART Score HEART Score assessment performed?: Yes History (anamnesis): Slightly suspicious ECG: Non-specific disturbance Age: >65 years Risk factors: Atherosclerosis history Troponin: </= normal limit HEART Score: 5 <Steven Cole MD - Last Filed: 11/15/24 09:11> HEART Score HEART Score: 5 Critical Care <Karo Dean MD - Last Filed: 11/15/24 07:02> Critical Care Time Critical Care Time: No Medical Decision Making <Karo Dean MD - Last Filed: 11/15/24 07:02> Medical Records Medical records reviewed: Yes I reviewed the patient's medical records. MR Comment: Reviewed previous ECG from August, patient had ST depressions in the inferior leads at that time as well. Robson Inquiry Pt receiving controlled substance: No Vital Signs Vital Signs: 11/15/24 06:07 11/15/24 06:14 11/15/24 06:30 Temperature 98.1 F Temperature Source Oral Pulse Rate 81 66 Pulse Rate [Right] 81 Respiratory Rate 12 16 Blood Pressure 124/71 Blood Pressure [Right Arm] 139/70 Blood Pressure Mean [Right Arm] 93 02 Sat by Pulse Oximetry 94 L 98 Oxygen Delivery Method Room Air Room Air 11/15/24 06:40 11/15/24 06:40 11/15/24 06:40 Temperature Temperature Source Pulse Rate 69 69 Pulse Rate [Right] Respiratory Rate Blood Pressure Blood Pressure [Right Arm] Blood Pressure Mean [Right Arm] 02 Sat by Pulse Oximetry 98 Oxygen Delivery Method Room Air 11/15/24 07:00 11/15/24 07:30 11/15/24 07:30 Temperature Temperature Source Pulse Rate 83 90 92 H Pulse Rate [Right] Respiratory Rate 20 21 Blood Pressure 133/63 123/62 123/62 Blood Pressure [Right Arm] Blood Pressure Mean [Right Arm] 02 Sat by Pulse Oximetry 95 85 L 91 L Oxygen Delivery Method Room Air Room Air Lab Data Labs: Lab Results 11/15/24 06:05: WBC 8.6, RBC 4.19 L, Hgb 13.0, Hct 38.7, MCV 92.4, MCH 31.0, MCHC 33.6, RDW 14.1, Plt Count 311, MPV 9.2, Neut % (Auto) 46.0, Lymph % (Auto) 43.7, [place] % (Auto) 6.3, Eos % (Auto) 2.6, Baso % (Auto) 0.9, Neut # (Auto) 3.9, Lymph # (Auto) 3.7, [place] # (Auto) 0.5, Eos # (Auto) 0.2, Baso # (Auto) 0.1, PT 9.8 L, INR 0.86 L, Sodium 136, Potassium 3.8, Chloride 105, Carbon Dioxide 27, Anion Gap 7.8, BUN 29 H, Creatinine 1.10 H, Estimated Creat Clear 77, Estimated GFR 50 L, Est GFR ( Amer) 60, Glucose 124 H, Calcium 9.3, Total Bilirubin 0.4, AST 25, ALT 15, Alkaline Phosphatase 113, Troponin I < 0.01, NT-Pro-B Natriuret Pep 77.8, Total Protein 6.9, Albumin 4.0, Globulin 2.9, Albumin/Globulin Ratio 1.4, HIV Ag/Ab Combo Qual Negative 11/15/24 06:14: VBG pH 7.35, VBG pCO2 41.6, VBG pO2 40.9 H, VBG HCO3 22.3 L, VBG Total CO2 23.6, VBG O2 Saturation 78.4 H, VBG Base Excess -3.4 L, VBG Lactic Acid 1.1 11/15/24 08:30: Troponin I < 0.01 11/15/24 06:05 11/15/24 06:05 Response Orders (Tests/Meds): ED MEDICATIONS Generic Name Dose Route Start Last Admin Trade Name Freq PRN Reason Stop Dose Admin Nitroglycerin 0.4 mg 11/15/24 06:08 11/15/24 06:16 Nitroglycerin 0.4mg Sl Tablet SL 11/16/24 06:09 0.4 mg Q5MINP PRN Administration Chest Pain Discontinued Medications Generic Name Dose Route Start Last Admin Trade Name Freq PRN Reason Stop Dose Admin Albuterol/Ipratropium 3 ml 11/15/24 06:13 11/15/24 06:40 Ipratropium/Albuterol 3 Ml Neb IH 11/15/24 06:14 3 ml ONCE ONE Administration Aspirin 324 mg 11/15/24 06:08 11/15/24 06:17 Aspirin 81mg Chewable Tablet PO 11/15/24 06:09 324 mg ONCE ONE Administration ORDERS Category Date Time Status XR chest 2V Stat Exams 11/15/24 06:09 Completed Complete Blood Count Auto Diff Stat Lab 11/15/24 06:05 Completed Comprehensive Metabolic Panel Stat Lab 11/15/24 06:05 Completed HIV Combo Routine Lab 11/15/24 06:05 Completed Hep C Ab with Reflex to RNA Stat Lab 11/15/24 06:05 Received NT Pro Brain Natriuretic Pep. Stat Lab 11/15/24 06:05 Completed Prothrombin Time INR Stat Lab 11/15/24 06:05 Completed Troponin I Q3H Lab 11/15/24 08:30 Completed Troponin I Q3H Lab 11/15/24 12:15 Ordered Troponin I Stat Lab 11/15/24 06:05 Completed Venous Blood Gas Stat RT 11/15/24 06:14 Completed MDM Narrative Medical Decision Narrative: In summary, this 69-year-old female with comorbidities described in the HPI presents to the emergency department today with midsternal chest pain, nonradiating for the last 3 hours. On initial evaluation patient is hemodynamically stable, afebrile, she states pain is improved at this time since she took a nitro, exam notable for expiratory wheezes throughout the lung martines with good air movement, saturating 97% on room air, no peripheral edema, cardiac exam reassuring. Differential diagnosis includes but is not limited to ACS, pneumothorax, pneumonia, arrhythmia, esophageal spasm, COPD exacerbation, among others. Based on these concerns, I ordered serum labs, cardiac workup. ECG personally interpreted demonstrates sinus rhythm with occasional PAC, rate 76, SC and QTc normal, patient has depressions in leads II, 3, aVF however these are stable compared to prior, no STEMI. Patient received aspirin, sublingual nitro, DuoNeb initially for treatment. Labs personally reviewed demonstrate no leukocytosis or anemia, platelets normal, PT/INR nonactionable, VBG with normal pH at 7.35, no hypercarbia, VBG lactic normal at 1.1, CMP with mild prerenal changes, patient is tolerating oral intake and her changes do not demonstrate HECTOR. CMP is otherwise nonactionable. Initial troponin undetectably low at less than 0.01. XR personally interpreted demonstrates chest x-ray personally interpreted does not demonstrate any lobar infiltrate, no pneumothorax, no mediastinal widening, x-ray appears similar to CXR performed at the end of August. See radiology read for final interpretation.. On reassessment patient states that she received nitroglycerin in the ER her pain is completely gone. She is resting comfortably and saturating well on room air. Respiratory exam unchanged since receiving DuoNeb. Patient placed in ED observation at 0700 for serial troponins to rule out evolving DE and preclude unnecessary admission. Patient handed off to Dr. Cole in stable condition for further management and disposition <Steven Cole MD - Last Filed: 11/15/24 09:11> Vital Signs Vital Signs: 11/15/24 06:07 11/15/24 06:14 11/15/24 06:30 Temperature 98.1 F Temperature Source Oral Pulse Rate 81 66 Pulse Rate [Right] 81 Respiratory Rate 12 16 Blood Pressure 124/71 Blood Pressure [Right Arm] 139/70 Blood Pressure Mean [Right Arm] 93 02 Sat by Pulse Oximetry 94 L 98 Oxygen Delivery Method Room Air Room Air 11/15/24 06:40 11/15/24 06:40 11/15/24 06:40 Temperature Temperature Source Pulse Rate 69 69 Pulse Rate [Right] Respiratory Rate Blood Pressure Blood Pressure [Right Arm] Blood Pressure Mean [Right Arm] 02 Sat by Pulse Oximetry 98 Oxygen Delivery Method Room Air 11/15/24 07:00 11/15/24 07:30 11/15/24 07:30 Temperature Temperature Source Pulse Rate 83 90 92 H Pulse Rate [Right] Respiratory Rate 20 21 Blood Pressure 133/63 123/62 123/62 Blood Pressure [Right Arm] Blood Pressure Mean [Right Arm] 02 Sat by Pulse Oximetry 95 85 L 91 L Oxygen Delivery Method Room Air Room Air Lab Data Lab results reviewed: Yes I reviewed the patient's lab results. Labs: Lab Results 11/15/24 06:05: WBC 8.6, RBC 4.19 L, Hgb 13.0, Hct 38.7, MCV 92.4, MCH 31.0, MCHC 33.6, RDW 14.1, Plt Count 311, MPV 9.2, Neut % (Auto) 46.0, Lymph % (Auto) 43.7, [place] % (Auto) 6.3, Eos % (Auto) 2.6, Baso % (Auto) 0.9, Neut # (Auto) 3.9, Lymph # (Auto) 3.7, [place] # (Auto) 0.5, Eos # (Auto) 0.2, Baso # (Auto) 0.1, PT 9.8 L, INR 0.86 L, Sodium 136, Potassium 3.8, Chloride 105, Carbon Dioxide 27, Anion Gap 7.8, BUN 29 H, Creatinine 1.10 H, Estimated Creat Clear 77, Estimated GFR 50 L, Est GFR ( Amer) 60, Glucose 124 H, Calcium 9.3, Total Bilirubin 0.4, AST 25, ALT 15, Alkaline Phosphatase 113, Troponin I < 0.01, NT-Pro-B Natriuret Pep 77.8, Total Protein 6.9, Albumin 4.0, Globulin 2.9, Albumin/Globulin Ratio 1.4, HIV Ag/Ab Combo Qual Negative 11/15/24 06:14: VBG pH 7.35, VBG pCO2 41.6, VBG pO2 40.9 H, VBG HCO3 22.3 L, VBG Total CO2 23.6, VBG O2 Saturation 78.4 H, VBG Base Excess -3.4 L, VBG Lactic Acid 1.1 11/15/24 08:30: Troponin I < 0.01 Response Orders (Tests/Meds): ED MEDICATIONS Generic Name Dose Route Start Last Admin Trade Name Freq PRN Reason Stop Dose Admin Nitroglycerin 0.4 mg 11/15/24 06:08 11/15/24 06:16 Nitroglycerin 0.4mg Sl Tablet SL 11/16/24 06:09 0.4 mg Q5MINP PRN Administration Chest Pain Discontinued Medications Generic Name Dose Route Start Last Admin Trade Name Freq PRN Reason Stop Dose Admin Albuterol/Ipratropium 3 ml 11/15/24 06:13 11/15/24 06:40 Ipratropium/Albuterol 3 Ml Neb IH 11/15/24 06:14 3 ml ONCE ONE Administration Aspirin 324 mg 11/15/24 06:08 11/15/24 06:17 Aspirin 81mg Chewable Tablet PO 11/15/24 06:09 324 mg ONCE ONE Administration ORDERS Category Date Time Status XR chest 2V Stat Exams 11/15/24 06:09 Completed Complete Blood Count Auto Diff Stat Lab 11/15/24 06:05 Completed Comprehensive Metabolic Panel Stat Lab 11/15/24 06:05 Completed HIV Combo Routine Lab 11/15/24 06:05 Completed Hep C Ab with Reflex to RNA Stat Lab 11/15/24 06:05 Received NT Pro Brain Natriuretic Pep. Stat Lab 11/15/24 06:05 Completed Prothrombin Time INR Stat Lab 11/15/24 06:05 Completed Troponin I Q3H Lab 11/15/24 08:30 Completed Troponin I Q3H Lab 11/15/24 12:15 Ordered Troponin I Stat Lab 11/15/24 06:05 Completed Venous Blood Gas Stat RT 11/15/24 06:14 Completed MDM Narrative Medical Decision Narrative: In summary, this 69-year-old female with comorbidities described in the HPI presents to the emergency department today with midsternal chest pain, nonradiating for the last 3 hours. On initial evaluation patient is hemodynamically stable, afebrile, she states pain is improved at this time since she took a nitro, exam notable for expiratory wheezes throughout the lung martines with good air movement, saturating 97% on room air, no peripheral edema, cardiac exam reassuring. Differential diagnosis includes but is not limited to ACS, pneumothorax, pneumonia, arrhythmia, esophageal spasm, COPD exacerbation, among others. Based on these concerns, I ordered serum labs, cardiac workup. ECG personally interpreted demonstrates sinus rhythm with occasional PAC, rate 76, SC and QTc normal, patient has depressions in leads II, 3, aVF however these are stable compared to prior, no STEMI. Patient received aspirin, sublingual nitro, DuoNeb initially for treatment. Labs personally reviewed demonstrate no leukocytosis or anemia, platelets normal, PT/INR nonactionable, VBG with normal pH at 7.35, no hypercarbia, VBG lactic normal at 1.1, CMP with mild prerenal changes, patient is tolerating oral intake and her changes do not demonstrate HECTOR. CMP is otherwise nonactionable. Initial troponin undetectably low at less than 0.01. XR personally interpreted demonstrates chest x-ray personally interpreted does not demonstrate any lobar infiltrate, no pneumothorax, no mediastinal widening, x-ray appears similar to CXR performed at the end of August. See radiology read for final interpretation.. On reassessment patient states that she received nitroglycerin in the ER her pain is completely gone. She is resting comfortably and saturating well on room air. Respiratory exam unchanged since receiving DuoNeb. Patient placed in ED observation at 0700 for serial troponins to rule out evolving DE and preclude unnecessary admission. Patient handed off to Dr. Cole in stable condition for further management and disposition Reassessment 9:[address] Cole I evaluated the patient and looked at her clinically she is asymptomatic feels much better. I reviewed her chart she has a history of microvascular disease was cath in October this past year no intervention was done and she was medically managed. Serial troponins today are negative she is asymptomatic. EKG is unchanged from the past this is likely a manifestation of her chronic microvascular disease and she has close outpatient follow-up with cardiology. I do not believe that she would benefit from inpatient hospitalization or further intervention at this point. She has been made aware of all this was discharged in improved and stable condition.
[2024-11-15] MEDS: NITROGLYCERIN 0.4MG SL TABLET 0.4 MG SL (06:16)
[2024-11-15 06:17] LABS: Basophils # 0.1 K/mm3 (0-0.2); Basophils % 0.9 % (0.1-2.0); Eosinophils # 0.2 K/mm3 (0.0-0.4); Eosinophils % 2.6 % (0.1-12.0); Hematocrit 38.7 % (37.0-47.0); Lymphocytes # 3.7 K/mm3 (0.7-4.5); Lymphocytes % 43.7 % (10-50); Mean Corpuscular HGB Conc 33.6 g/dL (31.8-35.4); Mean Corpuscular Volume 92.4 fl (81-99); Mean Platelet Volume 9.2 fl (7.4-10.4); Monocytes # 0.5 K/mm3 (0.1-1.0); Monocytes % 6.3 % (1.7-9.3); Neutrophils # 3.9 K/mm3 (1.8-7.8); Platelet Count 311 K/mm3 (142-424); Red Blood Count 4.19 M/mm3 (4.20-5.40); Red Cell Distribution Width 14.1 % (11.5-17.5); White Blood Count 8.6 K/mm3 (4.8-10.8)
[2024-11-15] MEDS: ASPIRIN 81MG CHEWABLE TABLET 324 MG PO (06:17)
--- NOTE | 2024-11-15 06:20 | PC.NURSE ---
Pt to xray via wheelchair
[2024-11-15 06:27] LABS: Chloride 105 mmol/L (98-107); INR 0.86 (0.9-1.1); Prothrombin Time 9.8 seconds (10.1-12.5)
[2024-11-15 06:28] LABS: Potassium 3.8 mmoL/L (3.5-5.1); Sodium 136 mmol/L (136-145)
[2024-11-15 06:30] LABS: Blood Urea Nitrogen 29 mg/dl (7-17); Creatinine Clearance Estimated 77 mL/min (50-200); Estimated Glomerular Filt Rate 50 ml/min (>60); GFR (African American) 60 ML/MIN (>60)
[2024-11-15 06:31] LABS: Alanine Aminotransferase 15 U/L (12-78); Albumin/Globulin Ratio 1.4 (1.1-1.8); Alkaline Phosphatase 113 U/L (38-126); Anion Gap 7.8 mEq/L (5-15); Aspartate Amino Transferase 25 U/L (14-36); Bilirubin,Total 0.4 mg/dl (0.2-1.3); Calcium 9.3 mg/dl (8.4-10.2); Carbon Dioxide 27 mmol/L (22.0-30.0); Globulin 2.9 g/dL (1.3-3.2); Glucose 124 mg/dl (74-100); Total Protein,Serum 6.9 g/dl (6.3-8.2)
[2024-11-15 06:33] LABS: Lactate Venous 1.1 mmol/L (0.4-2.0); VBG Base Excess -3.4 mmol/L (-2.4-2.3); VBG HCO3 22.3 mmol/L (23-30); VBG Oxygen Saturation 78.4 % (50-70); VBG PCO2 41.6 mmol/L (35-51); VBG PH 7.35 mmol/L (7.31-7.41); VBG PO2 40.9 mmol/L (28-40); VBG Total CO2 23.6 mmol/L (23-27)
[2024-11-15 06:40] LABS: NT Pro Brain Natriuretic Pep. 77.8 pg/mL (0-125)
[2024-11-15] MEDS: IPRATROPIUM/ALBUTEROL 3 ML NEB IH (06:40)
[2024-11-15 06:44] LABS: Troponin I < 0.01 ng/ml (0.00-0.034)
--- NOTE | 2024-11-15 07:01 | ECG_ITS ---
APPROVED REPORT Exam: Resting ECG HR:80 bpm ECG Measurements Heart Rate 80 AXES DE 139 P 53 QRSd 94 QRS 62 QT 392 T 2 QTc 427 Conclusion SINUS RHYTHM NONSPECIFIC ST & T-WAVE ABNORMALITY ST depressions in inferior leads, no dynamic changes, similar to prior Electronically signed by : MERI HSIEH, 11/16/2024 02:52:19
[2024-11-15 07:41] LABS: HIV Combo NEGATIVE (Negative)
[2024-11-15 09:04] LABS: Troponin I < 0.01 ng/ml (0.00-0.034)
[2024-11-16 11:08] LABS: HCV Ab Non Reactive (Non Reactive)
== END 2024-11-15 09:15 | disposition home or self-care (01) ==
PROVIDERS: Emergency Provider Emergency Medicine; PCP Physician Assistant
DX: R07.9 Chest pain, unspecified (principal)
CPT/HCPCS: 71046; 80053; 82803; 83880; 84484; 85025; 85610; 86803; 87389; 93005; 99284; J7620

== ENCOUNTER 2025-03-16 09:38 | Outpatient (CLI) | payer MEDICARE, MEDICAID, SELFPAY ==
[2025-03-16 10:19] LABS: Basophils # 0.1 K/mm3 (0-0.2); Basophils % 0.6 % (0.1-2.0); Eosinophils # 0.2 Kmm3 (0.0-0.4); Eosinophils % 2.4 % (0.1-12.0); Hematocrit 40.4 % (37.0-47.0); Hemoglobin 13.5 g/dL (12.2-16.2); Lymphocytes # 2.5 K/mm3 (0.7-4.5); Mean Corpuscular HGB Conc 33.4 g/dL (31.8-35.4); Mean Corpuscular Hemoglobin 30.6 pg (27.0-31.2); Mean Corpuscular Volume 91.6 fl (81-99); Mean Platelet Volume 9.5 fl (7.4-10.4); Monocytes # 0.5 K/mm3 (0.1-1.0); Neutrophils # 4.5 K/mm3 (1.8-7.8); Neutrophils % 57.5 % (37.0-80.0); Nucleated Red Blood Cells # 0 10^3/uL; Nucleated Red Blood Cells % 0 %; Platelet Count 297 K/mm3 (142-424); Red Blood Count 4.41 M/mm3 (4.20-5.40); Red Cell Distribution Width 13.3 % (11.5-17.5); Red Cell Distribution Width-SD 45.2 fL; White Blood Count 7.8 K/mm3 (4.8-10.8)
[2025-03-16 10:49] LABS: Alanine Aminotransferase 16 U/L (12-78); Albumin Level 3.9 g/dl (3.5-5.0); Alkaline Phosphatase 102 U/L (38-126); Anion Gap 9.2 mEq/L (5-15); Aspartate Amino Transferase 22 U/L (14-36); Bilirubin,Direct 0.3 mg/dl (0.0-0.4); Bilirubin,Indirect 0.2 mg/dL (0.0-0.9); Bilirubin,Total 0.5 mg/dl (0.2-1.3); Bilirubin,Unconjugated 0.3 mg/dL (0.0-1.1); Blood Urea Nitrogen 21 mg/dl (7-17); Calcium 9.6 mg/dl (8.4-10.2); Carbon Dioxide 26 mmol/L (22.0-30.0); Chloride 109 mmol/L (98-107); Chol/HDL Ratio 3.4 (1-3.5); Cholesterol 217 mg/dl (140-200); Estimated Glomerular Filt Rate 62 ml/min (>60); GFR (African American) 76 ML/MIN (>60); Glucose 100 mg/dl (74-100); HDL Cholesterol 64 mg/dl (40-60); Potassium 4.2 mmoL/L (3.5-5.1); Sodium 140 mmol/L (136-145); Triglycerides 92 mg/dl (30-150); VLDL Cholesterol 18 mg/dL (0-40)
[2025-03-16 11:00] LABS: Direct LDL Cholesterol 105.42 mg/dL (100-129)
[2025-03-16 11:09] LABS: Free T4 (Free Thyroxine) 1.19 ng/dl (0.78-2.19)
[2025-03-16 11:19] LABS: Thyroid Stimulating Hormone 1.99 uIU/mL (0.465-4.68)
[2025-03-16 11:25] LABS: Hemoglobin A1C 5.6 % (4.0-6.0)
== END 2025-03-16 23:59 | disposition home or self-care (01) ==
LOC: LAB 09:38
PROVIDERS: PCP Family Medicine; Visit Provider Physician Assistant
DX: I50.30 Unspecified diastolic (congestive) heart failure (principal); I11.0 Hypertensive heart disease with heart failure; I25.10 Atherosclerotic heart disease of native coronary artery without angina pectoris; E78.5 Hyperlipidemia, unspecified; E11.9 Type 2 diabetes mellitus without complications
CPT/HCPCS: 36415; 80048; 80061; 80076; 83036; 84439; 84443; 85025

== ENCOUNTER 2025-03-23 10:27 | Outpatient (CLI) | payer MEDICARE, MEDICAID, SELFPAY ==
--- NOTE | 2025-03-23 10:36 | XR_ITS ---
FINAL REPORT CLINICAL HISTORY: Right shoulder pain COMPARISON: 07/14/2024 FINDINGS: 3 views of the right shoulder were obtained. There is advanced degenerative joint disease without acute fracture or dislocation. There is no acute soft tissue abnormality. IMPRESSION: Advanced degenerative joint disease without acute osseous abnormality of the right shoulder. Reviewed, Interpreted and Dictated by Prachi Kenney MD Transcribed by Sahara Navarro Authenticated and [facility]
--- NOTE | 2025-03-23 10:36 | XR_ITS ---
FINAL REPORT CLINICAL HISTORY: Left shoulder pain COMPARISON: None FINDINGS: 3 views of the left shoulder were obtained. There is no acute fracture or dislocation. There is moderate degenerative disease of the glenohumeral and acromioclavicular joints. There is no acute soft tissue abnormality. IMPRESSION: Degenerative changes without acute osseous abnormality of the left shoulder. Reviewed, Interpreted and Dictated by Prachi Kenney MD Transcribed by Sahara Navarro Authenticated and [facility]
== END 2025-03-23 23:59 | disposition home or self-care (01) ==
LOC: RAD 10:29
PROVIDERS: PCP Family Medicine; Visit Provider Orthopaedic Surgery
DX: M25.561 Pain in right knee (principal); M25.562 Pain in left knee
CPT/HCPCS: 73030

== ENCOUNTER 2025-08-25 18:50 | Emergency (ER) | payer MEDICARE, MEDICAID, SELFPAY ==
[2025-08-25 19:19] VITALS: BP 155/82; PULSE 78; RESP 18; TEMP 36.8; O2SAT 99; BMI 38.9
--- NOTE | 2025-08-25 19:23 | XR_ITS ---
PROCEDURE INFORMATION: Exam: XR Complete Acute Abdomen Series Including Chest Exam date and time: 08/25/2025 7:28 PM Age: 70 years old Clinical indication: Abdominal tenderness and nausea; Abdominal pain TECHNIQUE: Imaging protocol: Radiologic exam. Complete acute abdomen series, including 2 or more views of the abdomen and a single view chest. COMPARISON: CT ANGIO ABDOMEN/FEMORAL 07/07/2024 10:18 AM FINDINGS: Lungs: Normal. No consolidation. Pleural spaces: Normal. No pleural effusions. No pneumothorax. Heart/Mediastinum: Normal. No cardiomegaly. Gastrointestinal tract: Normal. No bowel dilation. Intraperitoneal space: Normal. No free air. Bones/joints: Postsurgical changes compatible with right shoulder arthroplasty. Soft tissues: Normal. IMPRESSION: No acute findings.
[2025-08-25 19:46] LABS: Microscopic, Urine URINE MICROSCOPIC (MICROSCOPIC)
[2025-08-25 19:47] LABS: Bilirubin,Urine Negative (Negative); Color,Urine YELLOW (Yellow); Glucose,Urine (UA) 2+ (Negative); Ketones,Urine Negative (Negative); Leukocyte Esterase,Urine TRACE (Negative); PH,Urine 5.5 (5.0-8.5); Protein,Urine TRACE (Negative); Specific Gravity, Urine 1.025 (1.005-1.030); Urobilinogen,Urine 0.2 EU/dl (0.2)
--- NOTE | 2025-08-25 20:35 | ED_ITS ---
Discharge Plan Disposition Patient Disposition: Home, Self-Care Condition: Good Prescriptions Prescriptions: New cefdinir 300 mg capsule 300 mg PO BID 7 Days Qty: 14 0RF No Action ondansetron 8 mg tablet,disintegrating 8 mg PO Q12H PRN (Reason: nausea and vomiting) Qty: 14 0RF dicyclomine 20 mg tablet 20 mg PO TID PRN (Reason: abdominal pain) Qty: 60 0RF fluoxetine 20 mg capsule See Rx Instructions .ROUTE .COMPLEX Qty: 90 1RF Dose Instruction: Take 1 capsule by mouth once daily Rx Instructions: Take 1 capsule by mouth once daily aspirin [Adult Low Dose Aspirin] 81 mg tablet,delayed release (DR/EC) 81 mg PO DAILY losartan 50 mg tablet 50 mg PO DAILY Qty: 90 3RF ranolazine 500 mg tablet extended release 12 hr 500 mg PO BID 30 Days Qty: 60 11RF trazodone 100 mg tablet 100 mg PO DAILY Qty: 30 6RF atorvastatin 80 mg tablet 80 mg PO DAILY Qty: 90 3RF Jardiance 10 mg tablet 10 mg PO DAILY Qty: 30 5RF gabapentin 800 mg tablet 800 mg PO BID Qty: 60 2RF albuterol sulfate 90 mcg/actuation HFA aerosol inhaler See Rx Instructions .ROUTE .COMPLEX Qty: 9 3RF Dose Instruction: INHALE 1 PUFF BY MOUTH EVERY 6 HOURS NEEDED FOR SHORTNESS OF BREATH OR WHEEZING Rx Instructions: INHALE 1 PUFF BY MOUTH EVERY 6 HOURS NEEDED FOR SHORTNESS OF BREATH OR WHEEZING Trelegy Ellipta 100-62.5-25 mcg blister with device See Rx Instructions .ROUTE .COMPLEX Qty: 60 3RF Dose Instruction: Inhale 1 puff by mouth once daily Rx Instructions: Inhale 1 puff by mouth once daily hydrocodone-acetaminophen 5-325 mg tablet 1 tab PO BID PRN (Reason: pain) Qty: 60 0RF (DME) lancets [Accu-Chek Softclix Lancets] Misc See Rx Instructions .ROUTE .COMPLEX Rx Instructions: USE 1 LANCET TO CHECK GLUCOSE TWICE DAILY DIRECTED FOR DIABETES ipratropium-albuterol 0.5 mg-3 mg(2.5 mg base)/3 mL solution for nebulization 3 ml inhalation Q6HP PRN (Reason: SOA) Referrals Follow up/Referrals: Gurvinder Maradiaga MD [Primary Care Provider, Family Practice] - See instructions Activity Restrictions/Add. Instructions Additional Instructions/Restrictions: I want you to take 300 mg of cefdinir twice daily for the next 7 days for urinary tract infection and kidney infection. If you experience fevers that do not respond to Tylenol and Motrin, excessive blood in your urine, or symptoms that are refractory to treatment with antibiotics please return to the emergency department. Clinical Impressions Clinical Impression: Acute pyelonephritis Instructions Patient Instructions: DI for Acute Abdominal Pain Print Language Print Language: Greenlandic Discharge ED Provider: Blayne Palencia General Adult HPI <CIRO Costa - Last Filed: 08/25/25 22:16> General Chief complaint: Abdominal Pain Stated complaint: abdominal pain, back pain Time Seen by Provider: 08/25/25 20:31 Mode of Arrival: Ambulatory Source of Information: Patient Description of Symptoms (Recalled from ER Triage Doc. by RN): Pt presents for generalized abd pain x 2-3 days. Pt denies any n/v/d/constipation. Pt endorses frequent urination. History of Present Illness HPI narrative: 70-year-old female presents to the emergency department with abdominal pain that is located mid epigastric, diffusely, as well as some radiation into her back/left flank, for 2 to 3 days, patient denies any fever chills cough congestion, does state that she had a recent cold , denies any chest pain, denies any shortness of breath, denies any nausea vomiting constipation diarrhea, does endorse increased urinary frequency, states that she has had to wear a pad ever since I had a hysterectomy . She states this was years ago , denies any hematuria melena hematochezia hematemesis or hemoptysis, denies any dysuria, patient is a current everyday smoker, denies any alcohol or drug use, other past medical history is consistent with osteoarthritis, COPD, HFpEF, lymphedema, eczema, CAD status post 7 stent placements, hyperlipidemia, YOSEPH/MDD, neuropathy. Initial triage vitals are unremarkable. Please note that above description of symptoms, in this electronic medical record under categorization of recalled from ER triage doctor by RN are reflective of an initial nursing assessment, however, is not reflective of my full history and physical exam that was personally taken and clarified. Consequentially, this preceding description of symptoms, which may include the patient's categorized chief complaint in the EMR, do not reflect my personal clinical impression, and the ultimate description of history of present illness and patient stated complaints should be deferred to this section of the note. Unless stated otherwise or congruent with this section of the note, additional signs, symptoms, or incongruence should be interpreted as inaccurate with my clinical impression. Onset (ago): day(s) Related Data Home Medications ?Medication ?Instructions ?Recorded ?Confirmed lancets (Accu-Chek Softclix 09/12/23 05/18/25 Lancets) ipratropium 0.5 mg-albuterol 3 mg 3 ml inhalation Q6HP PRN SOA 10/14/24 05/18/25 (2.5 mg base)/3 mL nebulization soln aspirin 81 mg tablet,delayed 81 mg PO DAILY 12/15/24 0 05/18/25 release (Adult Low Dose Aspirin) Previous Rx's ?Medication ?Instructions ?Recorded fluoxetine 20 mg capsule See Rx Instructions .Route 1 01/03/24 .COMPLEX #90 caps ranolazine 500 mg tablet,extended 500 mg PO BID 30 day s #60 tabs 02/22/25 release,12 hr losartan 50 mg tablet 50 mg PO DAILY #90 tabs 02/17 08/12 trazodone 100 mg tablet 100 mg PO DAILY #30 tabs atorvastatin 80 mg tablet 80 mg PO DAILY Cholesterol # 90 tabs 04/29/25 empagliflozin 10 mg tablet 10 mg PO DAILY #30 tabs (Jardiance) dicyclomine 20 mg tablet 20 mg PO TID PRN abdominal p ain 05/18/25 #60 tabs ondansetron 8 mg disintegrating 8 mg PO Q12H PRN nause a and 05/18/25 tablet vomiting #14 tabs gabapentin 800 mg tablet 800 mg PO BID #60 tabs 06/14 albuterol sulfate 90 mcg/actuation See Rx Instructions .Route 07/02/25 aerosol inhaler .COMPLEX #9 grams fluticasone fur. 100 mcg-umeclid See Rx Instructions . Route 07/27/25 62.5 mcg-vilant 25 mcg .COMPLEX #60 ea inhalat.powder (Trelegy Ellipta) hydrocodone 5 mg-acetaminophen 325 1 tab PO BID PRN pa in #60 tabs 08/16/25 mg tablet cefdinir 300 mg capsule 300 mg PO BID 7 days #14 cap s 08/25/25 Allergies Allergy/AdvReac Type Severity Reaction Status Date / Time No Known Allergies Allergy Verified 05/18/25 16:01 [facility] <CIRO Costa - Last Filed: 08/25/25 22:16> [facility] Disclaimer: The information contained in this section may have been updated after the patient was seen, as this information can be updated by other users. Medical History Hearing loss Breast cancer screening by mammogram Osteoarthritis, shoulder Sinusitis URI (upper respiratory infection) Colon cancer screening Lymphedema Venous insufficiency of both lower extremities Incontinence of urine Migraine Pain in both lower legs Hypertension CAD (coronary artery disease) Tobacco abuse Restless leg syndrome Vitamin D deficiency (~03/11/18) Depression Bilateral low back pain with sciatica Neuropathy RF Neurontin Surgical History History of heart artery stent Family History Other No significant family history Social History Smoking Status: Current every day smoker tobacco type: cigarettes packs per day: 1 second hand exposure: No alcohol intake: never substance use type: denies use current occupational status: unemployed Travel in the last 8 weeks?: None household members: spouse housing: house marital status: education level: high school current occupational exposures/hazards: No caffeine: Yes special aron needs: No agree to transfusion: No do you feel safe at home: Yes victim of physical abuse: No victim of emotional abuse: No victim of sexual abuse: No would you like helpful sources: No Have you lived/traveled outside [place] in past 30 days?: No Contact w/someone who lives/traveled outside US past 30 days?: No Exposure to someone with infectious disease in past 14 days?: No Do you have a fever (greater than 100.4 F or 38 C)?: No Have you tested positive for COVID-19?: No Exposed to someone with COVID-19 in past 14 days?: No Do you have a sore throat?: No Do you have a cough?: No Do you have any weakness?: No Do you have any diarrhea?: No Are you experiencing any unusual bleeding?: No Do you have any muscle aches/pain?: Yes Do you have any abdominal pain?: Yes Are you experiencing loss of taste or smell?: No Other Medical History Have you received the Flu Vaccine for this season: No Have you received the Pneumonia Vaccine: Yes <CIRO Costa - Last Filed: 08/25/25 22:16> ROS Obtained: Yes All systems reviewed & no additional complaints except as documented Physical Exam <CIRO Costa - Last Filed: 08/25/25 22:16> General General appearance: alert and in no apparent distress Head Head exam: atraumatic and normocephalic Eye Eye exam: Present PERRL and EOMI ENT ENT exam: Present mucous membranes moist Neck Neck exam: Present normal inspection Chest Chest inspection: Present normal inspection and symmetric chest wall rise Respiratory Respiratory exam: Present normal lung sounds bilaterally; Absent respiratory distress Cardiovascular Cardiovascular exam: Present regular rate and normal rhythm Abdominal Exam Abdominal exam: Present soft, tenderness and guarding; Absent rebound or rigidity Abdominal tenderness: Present epigastrium, diffuse and mild Comment: Mild voluntary guarding Extremities Exam Extremities exam: Present normal inspection Back Exam Back exam: Present CVA tenderness (L); Absent CVA tenderness (R), paraspinal tenderness or vertebral tenderness Neurological Exam Neurological exam: Present alert, oriented X3 and other (5 out of 5 strength in the bilateral lower extremities, no gross sensation deficit, negative straight leg test bilaterally) Psychiatric Psychiatric exam: Present normal affect Skin Skin exam: Present warm and dry Medical Decision Making <CIRO Costa - Last Filed: 08/25/25 22:16> Medical Records Medical records reviewed: Yes I reviewed the patient's medical records. Screening: Per USPSTF and CDC recommendations, given the prevalence of disease in our region, it is our hospital?s policy to screen for HIV and viral Hepatitis for all patients aged 18 and over and those with ongoing risk factors. Robson Inquiry Pt receiving controlled substance: Yes Robson was queried for this patient: No Reason not queried -: Emergent pt cond-no time Risks and benefits of using a controlled substance: were discussed with pt by me Vital Signs: 08/25/25 19:19 08/25/25 21:31 08/25/25 22:00 Temperature 98.3 F Temperature Source Temporal Artery Scan Pulse Rate 70 68 Pulse Rate [Right] 78 Respiratory Rate 18 Blood Pressure 172/61 H 157/87 H Blood Pressure [Right Arm] 155/82 H Blood Pressure Mean [Right Arm] 106 Blood Pressure Source [Right Arm] Automatic Cuff Blood Pressure Position [Right Arm] Sitting 02 Sat by Pulse Oximetry 99 96 95 Oxygen Delivery Method Room Air 08/25/25 22:30 Temperature Temperature Source Pulse Rate 66 Pulse Rate [Right] Respiratory Rate Blood Pressure 145/81 H Blood Pressure [Right Arm] Blood Pressure Mean [Right Arm] Blood Pressure Source [Right Arm] Blood Pressure Position [Right Arm] 02 Sat by Pulse Oximetry 95 Oxygen Delivery Method Lab Data Lab results reviewed: Yes I reviewed the patient's lab results. Lab Results 08/25/25 19:34: Urine Color Yellow, Urine Appearance Clear, Urine pH 5.5, Ur Specific [place] 1.025, Urine Protein Trace, Urine Glucose (UA) 2+, Urine Ketones Negative, Urine Blood Trace-i, Urine Nitrate Positive A, Urine Bilirubin Negative, Urine Urobilinogen 0.2, Ur Leukocyte Esterase Trace, Urine RBC None, Urine WBC 20-50, Ur Squamous Epith Cells 5-10, Urine Bacteria 3+ 08/25/25 21:56: WBC 10.6, RBC 4.03 L, Hgb 12.5, Hct 37.9, MCV 94.0, MCH 31.0, MCHC 33.0, RDW 14.0, Plt Count 286, MPV 9.0, Neut % (Auto) 55.1, Lymph % (Auto) 35.8, [place] % (Auto) 6.0, Eos % (Auto) 1.8, Baso % (Auto) 0.8, Neut # (Auto) 5.9, Lymph # (Auto) 3.8, [place] # (Auto) 0.6, Eos # (Auto) 0.2, Baso # (Auto) 0.1, Sodium 138, Potassium 3.8, Chloride 102, Carbon Dioxide 28, Anion Gap 11.8, BUN 29 H, Creatinine 1.10 H, Estimated Creat Clear 77, Estimated GFR 49 L, Est GFR ( Amer) 60, Glucose 90, Calcium 9.3, Total Bilirubin 0.6, AST 21, ALT 14, Alkaline Phosphatase 122, Troponin I < 0.01, NT-Pro-B Natriuret Pep 145 H, Total Protein 7.0, Albumin 4.0, Globulin 3.0, Albumin/Globulin Ratio 1.3, Lipase 84 08/25/25 21:56 08/25/25 21:56 Orders (Tests/Meds): ED MEDICATIONS Generic Name Dose Route Start Last Admin Trade Name Aroldo PRN Reason Stop Dose Admin Sodium Chloride 10 ml 08/25/25 22:44 08/25/25 22:45 Sodium Chloride 0.9% 10ml Syr (Rad Only) IV 09/24/25 22:43 10 ml NEEDED PRN Administration Maintain IV Site Discontinued Medications Generic Name Dose Route Start Last Admin Trade Name Aroldo PRN Reason Stop Dose Admin Ceftriaxone Sodium 1 gm/ 50 mls @ 100 mls/hr 08/25/25 20:51 08/25/25 23:49 Sodium Chloride IV 08/25/25 21:20 Infused ONCE ONE Infusion Iopamidol 75 ml 08/25/25 22:44 08/25/25 22:45 Iopamidol-370 (76%);100ml Bottle IV 08/25/25 22:45 75 ml ONCE ONE Administration Morphine Sulfate 4 mg 08/25/25 20:42 08/25/25 22:09 Morphine 4mg/Ml Syringe IV 08/25/25 20:43 4 mg ONCE ONE Administration Ondansetron HCl 4 mg 08/25/25 20:42 08/25/25 22:09 Ondansetron 4mg/2ml Vial IV 08/25/25 20:43 4 mg ONCE ONE Administration ORDERS Category Date Time Status CT abdomen pelvis w con Stat Cat Scan 08/25/25 20:43 Completed XR acute abdomen series Stat Exams 08/25/25 19:23 Completed Complete Blood Count Auto Diff Stat Lab 08/25/25 21:56 Completed Comprehensive Metabolic Panel Stat Lab 08/25/25 21:56 Completed Lactic Acid Stat Lab 08/25/25 20:41 Ordered Lipase Stat Lab 08/25/25 21:56 Completed NT Pro Brain Natriuretic Pep. Stat Lab 08/25/25 21:56 Completed Troponin I Q3H Lab 08/25/25 23:45 Ordered Troponin I Q3H Lab 08/26/25 02:45 Ordered Troponin I Stat Lab 08/25/25 21:56 Completed Urinalysis and Microscopic Stat Lab 08/25/25 19:34 Completed Blood Culture Stat Micro 08/25/25 21:56 Received Urine Culture Stat Micro 08/25/25 19:34 Received Medical Decision Narrative: 70-year-old female presents the emergency department with abdominal pain for the last 2 to 3 days, and urinary frequency, differential diagnose include but not limited to, acute UTI, acute pyonephritis, nephrolithiasis, ureterolithiasis, bowel obstruction, colitis, ileitis, gastritis, diverticulitis, pancreatitis, pneumonia, cardiac arrhythmia, electrolyte disturbance among others. Will obtain basic laboratory studies, EKG, CXR, CT abdomen pelvis with contrast, UA, lipase lactic acid level, proBNP, troponin, of note, x-ray acute abdomen/chest series was obtained via nursing triage, will give 4 mg IV Zofran for nausea and 4 mg morphine for pain. UA is notable for trace hematuria, positive nitrites, trace leukocyte esterase, 20-50 WBCs, 5-10 squamous epithelial cells and 3+ bacteria. Will give 1 g IV ceftriaxone for urinary tract infection. I reviewed the patient's chest x-ray and abdomen x-ray series along the corresponding radiologic report no acute findings. CBC unremarkable I discussed this patient's case with attending physician Dr. Palencia at shift change, he will be assuming the patient's care/workup, disposition is pending remainder of laboratory studies, as well as CT imaging. <Blayne Palencia, DO - Last Filed: 08/26/25 00:05> Vital Signs: 08/25/25 19:19 08/25/25 21:31 08/25/25 22:00 Temperature 98.3 F Temperature Source Temporal Artery Scan Pulse Rate 70 68 Pulse Rate [Right] 78 Respiratory Rate 18 Blood Pressure 172/61 H 157/87 H Blood Pressure [Right Arm] 155/82 H Blood Pressure Mean [Right Arm] 106 Blood Pressure Source [Right Arm] Automatic Cuff Blood Pressure Position [Right Arm] Sitting 02 Sat by Pulse Oximetry 99 96 95 Oxygen Delivery Method Room Air 08/25/25 22:30 Temperature Temperature Source Pulse Rate 66 Pulse Rate [Right] Respiratory Rate Blood Pressure 145/81 H Blood Pressure [Right Arm] Blood Pressure Mean [Right Arm] Blood Pressure Source [Right Arm] Blood Pressure Position [Right Arm] 02 Sat by Pulse Oximetry 95 Oxygen Delivery Method Lab Data Lab Results 08/25/25 19:34: Urine Color Yellow, Urine Appearance Clear, Urine pH 5.5, Ur Specific [place] 1.025, Urine Protein Trace, Urine Glucose (UA) 2+, Urine Ketones Negative, Urine Blood Trace-i, Urine Nitrate Positive A, Urine Bilirubin Negative, Urine Urobilinogen 0.2, Ur Leukocyte Esterase Trace, Urine RBC None, Urine WBC 20-50, Ur Squamous Epith Cells 5-10, Urine Bacteria 3+ 08/25/25 21:56: WBC 10.6, RBC 4.03 L, Hgb 12.5, Hct 37.9, MCV 94.0, MCH 31.0, MCHC 33.0, RDW 14.0, Plt Count 286, MPV 9.0, Neut % (Auto) 55.1, Lymph % (Auto) 35.8, [place] % (Auto) 6.0, Eos % (Auto) 1.8, Baso % (Auto) 0.8, Neut # (Auto) 5.9, Lymph # (Auto) 3.8, [place] # (Auto) 0.6, Eos # (Auto) 0.2, Baso # (Auto) 0.1, Sodium 138, Potassium 3.8, Chloride 102, Carbon Dioxide 28, Anion Gap 11.8, BUN 29 H, Creatinine 1.10 H, Estimated Creat Clear 77, Estimated GFR 49 L, Est GFR ( Amer) 60, Glucose 90, Calcium 9.3, Total Bilirubin 0.6, AST 21, ALT 14, Alkaline Phosphatase 122, Troponin I < 0.01, NT-Pro-B Natriuret Pep 145 H, Total Protein 7.0, Albumin 4.0, Globulin 3.0, Albumin/Globulin Ratio 1.3, Lipase 84 Orders (Tests/Meds): ED MEDICATIONS Generic Name Dose Route Start Last Admin Trade Name Freq PRN Reason Stop Dose Admin Sodium Chloride 10 ml 08/25/25 22:44 08/25/25 22:45 Sodium Chloride 0.9% 10ml Syr (Rad Only) IV 09/24/25 22:43 10 ml NEEDED PRN Administration Maintain IV Site Discontinued Medications Generic Name Dose Route Start Last Admin Trade Name Freq PRN Reason Stop Dose Admin Ceftriaxone Sodium 1 gm/ 50 mls @ 100 mls/hr 08/25/25 20:51 08/25/25 23:49 Sodium Chloride IV 08/25/25 21:20 Infused ONCE ONE Infusion Iopamidol 75 ml 08/25/25 22:44 08/25/25 22:45 Iopamidol-370 (76%);100ml Bottle IV 08/25/25 22:45 75 ml ONCE ONE Administration Morphine Sulfate 4 mg 08/25/25 20:42 08/25/25 22:09 Morphine 4mg/Ml Syringe IV 08/25/25 20:43 4 mg ONCE ONE Administration Ondansetron HCl 4 mg 08/25/25 20:42 08/25/25 22:09 Ondansetron 4mg/2ml Vial IV 08/25/25 20:43 4 mg ONCE ONE Administration ORDERS Category Date Time Status CT abdomen pelvis w con Stat Cat Scan 08/25/25 20:43 Completed XR acute abdomen series Stat Exams 08/25/25 19:23 Completed Complete Blood Count Auto Diff Stat Lab 08/25/25 21:56 Completed Comprehensive Metabolic Panel Stat Lab 08/25/25 21:56 Completed Lactic Acid Stat Lab 08/25/25 20:41 Ordered Lipase Stat Lab 08/25/25 21:56 Completed NT Pro Brain Natriuretic Pep. Stat Lab 08/25/25 21:56 Completed Troponin I Q3H Lab 08/25/25 23:45 Ordered Troponin I Q3H Lab 08/26/25 02:45 Ordered Troponin I Stat Lab 08/25/25 21:56 Completed Urinalysis and Microscopic Stat Lab 08/25/25 19:34 Completed Blood Culture Stat Micro 08/25/25 21:56 Received Urine Culture Stat Micro 08/25/25 19:34 Received Medical Decision Narrative: 70-year-old female presents the emergency department with abdominal pain for the last 2 to 3 days, and urinary frequency, differential diagnose include but not limited to, acute UTI, acute pyonephritis, nephrolithiasis, ureterolithiasis, bowel obstruction, colitis, ileitis, gastritis, diverticulitis, pancreatitis, pneumonia, cardiac arrhythmia, electrolyte disturbance among others. Will obtain basic laboratory studies, EKG, CXR, CT abdomen pelvis with contrast, UA, lipase lactic acid level, proBNP, troponin, of note, x-ray acute abdomen/chest series was obtained via nursing triage, will give 4 mg IV Zofran for nausea and 4 mg morphine for pain. UA is notable for trace hematuria, positive nitrites, trace leukocyte esterase, 20-50 WBCs, 5-10 squamous epithelial cells and 3+ bacteria. Will give 1 g IV ceftriaxone for urinary tract infection. I reviewed the patient's chest x-ray and abdomen x-ray series along the corresponding radiologic report no acute findings. CBC unremarkable I discussed this patient's case with attending physician Dr. Palencia at shift change, he will be assuming the patient's care/workup, disposition is pending remainder of laboratory studies, as well as CT imaging. The transfer of care Dr. Palencia I agree with SYDNIE assessment and plan above. I have independently evaluated this patient and obtained collateral history. Patient tells me that she has had urinary frequency and dysuria over the last 2 to 3 days at home. She tells me that today she began experiencing left flank pain. On my physical examination the patient does have left-sided abdominal tenderness as well as left CVA tenderness. At the time of shift changes patient's urinalysis had resulted showing 20-50 white blood cells, 3+ bacteria, and positive nitrates. This was consistent with urinary tract infection and she was treated with 1 g of Rocephin IV. Remainder of labs were personally interpreted by me and demonstrated no evidence of leukocytosis or transfusional anemia. There was no significant electrolyte derangements or evidence of acute kidney injury. Troponin was less than 0.01 and her pain has been going on for 3 days and is not consistent with traditional chest pain so I did not feel that she necessitated a second troponin. CT scan was pending, but did result it was personally interpreted by me and demonstrated no evidence of urolithiasis. Official radiology read is in agreement states that there is left perinephric stranding consistent with pyelonephritis. On repeat assessment of the patient her symptoms are controlled. She has completed the Rocephin. She remains hemodynamically stable with no evidence of tachycardia, hypotension, or evidence of sepsis. We will discharge her home with a prescription for cefdinir. I have given return precautions in the event that she has symptoms refractory antibiotics, development of fevers, or any other new or worsening symptoms. At this time all questions have and answered and all parties are agreeable with the decision to discharge home Critical Care <CIRO Costa - Last Filed: 08/25/25 22:16> Critical Care Time Critical Care Time: No
--- NOTE | 2025-08-25 20:43 | CT_ITS ---
PROCEDURE INFORMATION: Exam: CT Abdomen And Pelvis With Contrast Exam date and time: 08/25/2025 10:38 PM Age: 70 years old Clinical indication: Abdominal pain; Additional info: Midepigastric pain, left flank pain TECHNIQUE: Imaging protocol: Computed tomography of the abdomen and pelvis with contrast. Radiation optimization: All CT scans at this facility use at least one of these dose optimization techniques: automated exposure control; mA and/or kV adjustment per patient size (includes targeted exams where dose is matched to clinical indication); or iterative reconstruction. Contrast material: ISOVUE; Contrast volume: 75 ml; Contrast route: IV; COMPARISON: CT ANGIO ABDOMEN/FEMORAL 07/07/2024 10:18 AM FINDINGS: Liver: Normal. No mass. Gallbladder and biliary ducts: Normal. No calcified stones. No ductal dilation. Pancreas: Normal. No ductal dilation. Spleen: Normal. No splenomegaly. Adrenal glands: Stable left adrenal gland hypertrophy. Right adrenal gland appears normal. Kidneys and ureters: Mild left perinephric fatty stranding. No evidence of urolithiasis or hydronephrosis. Moderate degenerative changes of the pubic symphysis. Stomach and bowel: Unremarkable. No obstruction. No mucosal thickening. Appendix: The appendix is visualized and appears normal. Intraperitoneal space: Unremarkable. No free air. No significant fluid collection. Vasculature: Moderate atherosclerotic calcification throughout the abdominal aorta and iliac arteries. Fusiform dilation of the infrarenal abdominal aorta measuring maximum diameter of 3.5 cm. Lymph nodes: Unremarkable. No enlarged lymph nodes. Urinary bladder: Unremarkable as visualized. Reproductive: Uterus is absent. No adnexal abnormality. Bones/joints: Moderate to severe degenerative disc changes and facet arthropathy throughout the lower spine. Slight retrolisthesis of L1. No vertebral body compression. No acute fracture. Soft tissues: Unremarkable. IMPRESSION: 1. Mild nonspecific left perinephric fatty stranding. In the absence of evidence of urolithiasis, this raises concern for pyelonephritis. Alternatively, this may represent a recently passed left ureteral stone without residual hydronephrosis. 2. Otherwise incidental chronic appearing findings as noted, including 3.5 cm abdominal aortic aneurysm
[2025-08-25 20:49] LABS: Bacteria,Urine 3+ /lpf; WBC,Urine 20-50 #/hpf (0-3)
--- NOTE | 2025-08-25 21:05 | ECG_ITS ---
APPROVED REPORT Exam: Resting ECG HR:75 bpm ECG Measurements Heart Rate 75 AXES SC 148 P 29 QRSd 97 QRS 53 QT 381 T 22 QTc 410 Conclusion SINUS RHYTHM NORMAL ECG UNCONFIRMED REPORT Electronically signed by : FADI DAVIS, 08/26/2025 00:32:55
[2025-08-25 21:31] VITALS: BP 172/61; PULSE 70; O2SAT 96
[2025-08-25 22:00] VITALS: BP 157/87; PULSE 68; O2SAT 95
[2025-08-25 22:05] LABS: Hematocrit 37.9 % (37.0-47.0); Hemoglobin 12.5 g/dL (12.2-16.2); Immature Granulocytes % 0.5 %; Mean Corpuscular HGB Conc 33.0 g/dL (31.8-35.4); Mean Corpuscular Hemoglobin 31.0 pg (27.0-31.2); Mean Corpuscular Volume 94.0 fl (81-99); Nucleated Red Blood Cells % 0 %; Platelet Count 286 K/mm3 (142-424); Red Blood Count 4.03 M/mm3 (4.20-5.40); Red Cell Distribution Width-SD 48.2 fL; White Blood Count 10.6 K/mm3 (4.8-10.8)
[2025-08-25] MEDS: ONDANSETRON 4MG/2ML VIAL 4 MG IV (22:09)
[2025-08-25] MEDS: MORPHINE 4MG/ML SYRINGE 4 MG IV (22:09)
[2025-08-25 22:25] LABS: Alanine Aminotransferase 14 U/L (12-78); Albumin Level 4.0 g/dl (3.5-5.0); Albumin/Globulin Ratio 1.3 (1.1-1.8); Alkaline Phosphatase 122 U/L (38-126); Anion Gap 11.8 mEq/L (5-15); Aspartate Amino Transferase 21 U/L (14-36); Bilirubin,Total 0.6 mg/dl (0.2-1.3); Blood Urea Nitrogen 29 mg/dl (7-17); Calcium 9.3 mg/dl (8.4-10.2); Carbon Dioxide 28 mmol/L (22.0-30.0); Chloride 102 mmol/L (98-107); Creatinine Clearance Estimated 77 mL/min (50-200); Creatinine,Serum 1.10 mg/dl (0.52-1.04); Estimated Glomerular Filt Rate 49 ml/min (>60); GFR (African American) 60 ML/MIN (>60); Globulin 3.0 g/dL (1.3-3.2); Glucose 90 mg/dl (74-100); Lipase 84 U/L (23-300); Potassium 3.8 mmoL/L (3.5-5.1); Sodium 138 mmol/L (136-145); Total Protein,Serum 7.0 g/dl (6.3-8.2)
[2025-08-25 22:30] VITALS: BP 145/81; PULSE 66; O2SAT 95
[2025-08-25 22:33] LABS: NT Pro Brain Natriuretic Pep. 145 pg/mL (0-125)
[2025-08-25 22:39] LABS: Troponin I < 0.01 ng/ml (0.00-0.034)
[2025-08-25] MEDS: IOPAMIDOL-370 (76%);100ML BOTTLE 75 ML IV (22:45)
[2025-08-25] MEDS: SODIUM CHLORIDE 0.9% 10ML SYR (RAD ONLY) 10 ML IV (22:45)
[2025-08-26 00:07] VITALS: BP 133/60; PULSE 74; RESP 16; TEMP 37.2; O2SAT 100
--- NOTE | 2025-08-28 09:30 | PC.NURSE ---
Final urine culture discussed with . No change needed to pts treatment.
== END 2025-08-26 00:08 | disposition home or self-care (01) ==
PROVIDERS: Physician Assistant; Emergency Provider Student in an Organized Health Care Education/Training Program; PCP Family Medicine
DX: N10 Acute pyelonephritis (principal); R10.84 Generalized abdominal pain; R10.A2 Flank pain, left side; B96.20 Unspecified Escherichia coli [E. coli] as the cause of diseases classified elsewhere; R35.0 Frequency of micturition; R30.0 Dysuria; F17.210 Nicotine dependence, cigarettes, uncomplicated
CPT/HCPCS: 74021; 74177; 80053; 81001; 83690; 83880; 84484; 85025; 87040; 87086; 87088; 87186; 93005; 96365; 96375; 99285; J0696; J2270; J2405; Q9967

== ENCOUNTER 2025-09-25 09:48 | Emergency (ER) | payer MEDICARE, MEDICAID, SELFPAY ==
[2025-09-25] VITALS (7 sets, daily range): BP systolic 110–139; BP diastolic 59–93; PULSE 65–81; RESP 16–20; TEMP 36.7–36.9; O2SAT 93–100; BMI 35.9
[2025-09-25 10:05] LABS: Coronavirus 19, PCR Not Detected (NotDetected); Influenza A, PCR Not Detected (NotDetected); Influenza B, PCR Not Detected (NotDetected)
--- NOTE | 2025-09-25 10:10 | XR_ITS ---
PROCEDURE INFORMATION: Exam: XR Chest Exam date and time: 09/25/2025 11:24 AM Age: 70 years old Clinical indication: Cough; Additional info: Cough SOB copd TECHNIQUE: Imaging protocol: Radiologic exam of the chest. Views: 2 views. COMPARISON: CR Acute Abdomen 08/25/2025 7:28 PM FINDINGS: Lungs: Punctate calcified granuloma peripheral right mid lung. The lungs are clear. Pleural spaces: Unremarkable. No pleural effusion. No pneumothorax. Heart/Mediastinum: Unremarkable. No cardiomegaly. Bones/joints: Partially seen right shoulder arthroplasty without distinct evidence of hardware complication. IMPRESSION: The lungs are clear.
--- OUTSIDE RECORDS SUMMARY | 2025-09-25 10:10 | XMS_ITS | Clinical Summary ---
Author Organization [facility] Address [address] [place] [address] Care Team Providers Care [employer] Worker Name Role Phone Neftali Turner MD Primary Care Provider [phone] Allergies No known active allergies Medications FLUoxetine (PROzac) 20 MG capsule Take 1 capsule by mouth Every Morning. Active aspirin 81 MG EC tablet Take 1 tablet by mouth Daily. Active cholecalciferol (VITAMIN D3) 1000 units tablet Take 1 tablet by mouth Daily. Active nitroglycerin (NITROSTAT) 0.[address] 1 tablet under the tongue Every 5 (Five) Minutes As Needed for Chest Pain. Take no more than 3 doses in 15 minutes. Active atorvastatin (LIPITOR) 80 MG tablet Take 1 tablet by mouth once daily 90 tablet 12/24/2022 Active gabapentin (NEURONTIN) 800 MG tablet Take 1 tablet by mouth 2 (Two) Times a Day. 03/22/2023 Active Accu-Chek Guide test strip USE 1 STRIP TWICE DAILY 02/04/2023 Active ipratropium-alb uterol (DUO-NEB) 0.5-2.5 mg/3 ml nebulizer 3 mL 4 (Four) Times a Day. 03/21/2023 Active Accu-Chek Softclix Lancets lancets USE TO CHECK GLUCOSE TWICE DAILY DIRECTED FOR DIABETES 02/04/2023 Active traMADol ER (ULTRAM-ER) 200 MG 24 hr tablet Take 1 tablet by mouth Daily. 05/22/2023 Active metoprolol succinate XL (TOPROL-XL) 50 MG 24 hr tablet Take 1 tablet by mouth Daily. 05/22/2023 Active potassium chloride 10 MEQ CR tabletIndicatio ns:Bilateral leg edema Take 1 tablet by mouth once daily 90 tablet 09/04/2023 Active traZODone (DESYREL) 100 MG tablet TAKE 1 TABLET BY MOUTH ONCE DAILY AT NIGHT 90 tablet 09/04/2023 Active clopidogrel (PLAVIX) 75 MG tablet Take 1 tablet by mouth once daily 90 tablet 11/07/2023 Active Active Problems Problem Noted Date Diagnosed Date Chest pain due to coronary artery disease 2022 Assessment & Plan (05/29/2023 4:34 PM EDT): CAD s/p previous stenting [facility] 09/2010 in-stent restenosis of ramus BMS-received GRIS in-stent; [facility] 10/2011 GRIS Promus to OM. [facility] 04/2017 ramus stent occluded with 2-3+ collaterals. [facility] 06/2018- Chronically occluded ramus ISR. 2+ collaterals. -We will proceed with left heart cath due to recurrent chest pressure and abnormal nuclear stress test. - Continue aspirin, Plavix, atorvastatin, Zetia, metoprolol, isosorbide, Ranexa and nitro Shortness of breath 05/29/2023 Assessment & Plan (05/29/2023 4:36 PM EDT): Likely multifactorial, patient has known CAD and COPD. - Echocardiogram for further evaluation Precordial chest pain 05/29/2023 Bilateral leg edema 03/26/2023 Chest pain, atypical 03/26/2023 Abnormal nuclear stress test 06/25/2018 Overview (06/25/2018): Added automatically from request for surgery [id number] Assessment & Plan (05/29/2023 4:35 PM EDT): Nuclear stress test 02/23/2022-minimal inferior ischemia. Anxiety COPD (chronic obstructive pulmonary disease) Coronary artery disease Depression GERD (gastroesophageal reflux disease) Hyperlipidemia Hypertension Obesity On home O2 Overview (03/26/2023): 3L at night KIRSTIN (obstructive sleep apnea) Assessment & Plan (05/29/2023 4:38 PM EDT): Doing well on PAP therapy with good control and compliance. Download reviewed and interpreted today. Compliance is 100%, AHI is 2.1. We will continue PAP therapy at current settings. RLS (restless legs syndrome) Tobacco abuse CSA (central sleep apnea) Assessment & Plan (03/26/2023 1:36 PM EDT): Benefiting from therapy. Plan to continue. Bring chip next visit. Family History Medical History Relation Name Comments Heart disease Neg Hx Heart failure Neg Hx Social History Tobacco Use Types Packs/Day Years Used Date Smoking Tobacco: Every Day Cigarettes Smokeless Tobacco: Never Alcohol Use Standard Drinks/Week Comments No 0 (1 standard drink = 0.6 oz pur e alcohol) AUDIT-C Answer Date Recorded Q1: How often do you have a drink containing alcohol? Never 06/11/2023 Q2: How many drinks containi ng alcohol do you have on a typical day when you are drinking? Patient does not drink Q3: How often do you have si x or more drinks on one occasion? Never 06/11/2023 Abuse Screen Answer Date Recorded Unsafe at Home or Work/School Not on file Feels Threatened by Someone? Not on file Does Anyone Keep You from Co ntacting Others or Doint Things Outside the Home? Not on file 06/11/2024 Physical Sign of Abuse Present Not on file 0 06/11/2024 Housing Stability Answer Date Recorded Current Living Arrangements Not on file 05/19 Potentially Unsafe Housing Conditions Not on gera e 06/11/2024 Family and Community Support Answer Car e Recorded Help with Day-to-Day Activities Not on file 08/26/2023 Lonely or Isolated Not on file 08/26/2023 Employment Answer Date Recorded Do you want help finding or keeping work or a zheng b? Not on file 08/26/2023 Disabilities Answer Date Recorded Concentrating, Remembering, or Making Decisions Difficulty Not on file 06/11/2024 Doing Errands Independently Difficulty Not on fi le 06/11/2024 Education Answer Date Recorded Help with school or training? Not on file Preferred Language Not on file 08/26/2023 Comments Unknown Sex and Gender Information Value Date Recorded Sex Assigned at Not on file Legal Sex Female 10:46 AM EDT Gender Identity Not on file Sexual Orientation Not on file Last Filed Vital Signs Vital Sign Reading Time Taken Comments Blood Pressure 126/71 06/11/2023 2:45 PM EDT Pulse 69 06/11/2023 2:45 PM EDT Temperature 36.4 C (97.6 F) 06/11/2023 9:14 AM EDT Respiratory Rate 18 06/11/2023 12:00 PM EDT Oxygen Saturation 94% 06/11/2023 2:45 PM EDT Inhaled Oxygen Concentration - - Weight 96.2 kg (212 lb) 06/11/2023 9:14 AM EDT Height 160 cm (5' 3 ) 06/11/2023 9:14 AM EDT Body Mass Index 37.55 06/11/2023 9:14 AM EDT Plan of Treatment Scheduled Procedures Name Priority Associated Diagnoses Date/Ti me LEFT HEART CATH w/cors Angina pectoris Health Maintenance Due Date Last Done Comments DXA SCAN 1957 Pneumococcal Vaccine 50+ (1 of 2 - PCV) 1976 MAMMOGRAM 1997 COLOGUARD 2002 COLON CANCER SCREENING 5 YEA R SIGMOIDOSCOPY 2002 COLONOSCOPY 2002 [address] CANCER SCREENING 2002 CT COLONOGRAPHY 2002 FECAL OCCULT BLOOD TEST 2002 FIT Testing (1 year) 2002 ZOSTER VACCINE (1 of 2) 2007 ANNUAL WELLNESS VISIT 05/10/2017 HEPATITIS C SCREENING 05/10/2017 COVID-19 Vaccine (2 - Jansse n risk series) 03/23/2021 02/23/2021 LIPID PANEL 06/11/2024 06/11/2023, 08/0 07/2018, 05/10/2017 INFLUENZA VACCINE 06/18/2025 10/17/2022, , 09/13/2020, Additional history exists TDAP/TD VACCINES (3 - Td or Tdap) 01/17/2033 01/17/2023, 08/11/2019, 06/02/2015 Procedures Procedure Name Priority Date/Time Associated Diagnosis Comments LIPID PANEL STAT 06/11/2023 9:52 AM EDT from Last 3 Months or Most Recently Relevant to Health Maintenance Results * (ABNORMAL) Lipid Panel (06/11/2023 9:52 AM EDT) Total Cholesterol 179 0 - 200 mg/dL 06/11/2023 10:36 AM EDT [facility] Triglycerides 118 0 - 150 mg/dL 06/11/2023 10:36 AM EDT [facility] HDL Cholesterol 49 40 - 60 mg/dL 06/11/2023 10:36 AM EDT [facility] LDL Cholesterol 109(H) 0 - 100 mg/dL 06/11/2023 10:36 AM EDT [facility] VLDL Cholesterol 21 5 - 40 mg/dL 06/11/2023 10:36 AM EDT [facility] LDL/HDL Ratio 2.17 06/11/2023 10:36 AM EDT [facility] Blood Line / Unknown 06/11/2023 9: 52 AM EDT 06/11/2023 10:08 AM EDT Narrative [facility] - 06/11/2023 10:36 AM EDT Cholesterol Reference Ranges (U.S. Department of Health and Human Services ATP III Classifications) Desirable <200 mg/dL Borderline High 200-239 mg/dL High Risk >240 mg/dL Triglyceride Reference Ranges (U.S. Department of Health and Human Services ATP III Classifications) Normal <150 mg/dL Borderline High 150-199 mg/dL High 200-499 mg/dL Very High >500 mg/dL HDL Reference Ranges (U.S. Department of Health and Human Services ATP III Classifications) Low <40 mg/dl (major risk factor for CHD) High >60 mg/dl ('negative' risk factor for CHD) LDL Reference Ranges (U.S. Department of Health and Human Services ATP III Classifications) Optimal <100 mg/dL Near Optimal 100-129 mg/dL Borderline High 130-159 mg/dL High 160-189 mg/dL Very High >189 mg/dL Ute Crawford APRN LAB BLOOD ORDERABLES Final Result [facility]
[address] [place] [address], from Last 3 Months or Most Recently Relevant to Health Maintenance Insurance [facility] MEDICAID [id number] MEDICARE REPLACE Care Teams [employer] Worker Relationship Specialty Start Date End Date Neftali Turner MD PCP - General Emergency Medicine 05/10/17
--- OUTSIDE RECORDS SUMMARY | 2025-09-25 10:10 | XMS_ITS | Clinical Summary ---
Author Organization [facility] [place] [address] Care Team Providers Care [employer] Consultant Name Role Phone Unavailable Primary Care Provider Unavailabl e Social History Tobacco Use Types Packs/Day Years Used Date Smoking Tobacco: Never Assessed Comments Unknown Sex and Gender Information Value Date Recorded Sex Assigned at Not on file Legal Sex Female 2:50 PM EDT Gender Identity Not on file Sexual Orientation Not on file Plan of Treatment Health Maintenance Due Date Last Done Comments Annual Wellness Exam 1960 Hepatitis C Screening 1975 DTaP/TDaP/Td (1 - Tdap) 1976 Cologuard 2002 Colon Cancer Screening 2002 Colonoscopy 2002 FIT 2002 Sigmoidoscopy 2002 Virtual Colonography 2002 Pneumococcal Vaccine 50+ (1 of 1 - PCV) 2007 Zoster (1 of 2) 2007 Bone Density Screening 2022 COVID-19 Vaccine (2024-2 6 season) 2025 Influenza Vaccine (#1) 2025 Hepatitis B Vaccine Aged Out No longe r eligible based on patient's age to complete this topic Meningococcal B Vaccine Aged Out No l onger eligible based on patient's age to complete this topic
--- OUTSIDE RECORDS SUMMARY | 2025-09-25 10:10 | XMS_ITS | Clinical Summary ---
Author Organization Healthcare Address [facility] [place] [address] Care Team Providers Care Nursing Scheduler Name Role Phone Pcp, No Primary Care Provider Unavailabl e Family History Medical History Relation Name Comments Other cancer Father Other cancer Mother Cardiac disorder Other 1 Diabetes Other 2 Conversions - Other Other 3 High blo od cholesterol Relation Name Status Comments Father Mother Other 1 Other 2 Other 3 Social History Tobacco Use Types Packs/Day Years Used Date Smoking Tobacco: Every Day Alcohol Use Standard Drinks/Week Comments Yes 0 (1 standard drink = 0.6 oz pur e alcohol) Comments Unknown Sex and Gender Information Value Date Recorded Sex Assigned at Not on file Legal Sex Female 8:27 PM EDT Gender Identity Not on file Sexual Orientation Not on file Last Filed Vital Signs Vital Sign Reading Time Taken Comments Blood Pressure - - Pulse - - Temperature - - Respiratory Rate - - Oxygen Saturation - - Inhaled Oxygen Concentration - - Weight 54.9 kg (121 lb 0.2 oz) 02/22/2014 10:20 AM EDT Height 160 cm (5' 3 ) 02/22/2014 10:20 AM EDT Body Mass Index 21.44 02/22/2014 10:20 AM EDT Plan of Treatment Health Maintenance Due Date Last Done Comments [facility]-Bone Density Scan 1957 [facility]-Depression Screening 1957 [facility]-Infant/Child/Adol SDOH Screenings 1957 [facility]- SDOH Screenings 1975 [facility]-Adult SDOH Screenings 1975 CT Colonography 2002 Colonoscopy 2002 FIT-DNA 2002 FIT 2002 FOBT 2002 Sigmoidoscopy 2002 [facility]-Colorectal Cancer Screening 2002 [facility]-Pneumococcal Vaccine: 50 + Years (1 of 1 - PCV) 2007 [facility]-Zoster Vaccines (1 of 2) 2007 [id number] Vaccine (2 - season) 2025 02/23/2021 [facility]-Influenza Vaccine (#1) 07/19/202509/13, 08/17/2016, 02/14/2014 [facility]-DTaP,Tdap,and Td Vaccine s (2 - Td or Tdap) 08/11/2029 08/11/2019, 06/02/2015 [facility]-RSV Vaccine: 60+ Years o r (1 - 1-dose 75+ series) 2032 HPV Vaccines Aged Out No longer eligi ble based on patient's age to complete this topic [facility]-HIB Vaccines Aged Out No longer e ligible based on patient's age to complete this topic [facility]-Hepatitis A Vaccines Aged Out No longer eligible based on patient's age to complete this topic [facility]-IPV Vaccines Aged Out No longer e ligible based on patient's age to complete this topic [facility]-Rotavirus Vaccines Aged Out No lo nger eligible based on patient's age to complete this topic Insurance [employer]ICA[employer] [facility] MEDICARE Care Teams Nursing Scheduler Relationship Specialty Start Date End Date Pcp, [place] [address] PCP - General Family Medicine 05/18/25
--- OUTSIDE RECORDS SUMMARY | 2025-09-25 10:10 | XMS_ITS | Encounter Summary ---
Author Organization Healthcare Address [address] [place] [address] Care Team Providers Care Director Of Services Name Role Phone Pcp, No Primary Care Provider Unavailabl e Encounter Details Date Type Department Care Team (Late st Contact Info) Description 06/06/2021 [facility] [address] [place] [address] Domitila Baldwin, PA [address] [place] [address] Elevated rheumatoid factor (Primary Dx); CRP elevated Social History Tobacco Use Types Packs/Day Years Used Date Smoking Tobacco: Every Day Alcohol Use Standard Drinks/Week Comments Yes 0 (1 standard drink = 0.6 oz pur e alcohol) Comments Unknown Sex and Gender Information Value Date Recorded Sex Assigned at Not on file Legal Sex Female 8:27 PM EDT Gender Identity Not on file Sexual Orientation Not on file documented as of this encounter Plan of Treatment Not on file documented as of this encounter Visit Diagnoses Diagnosis Elevated rheumatoid factor- Primary Other and unspecified nonspecific immunological findings CRP elevated Elevated C-reactive protein (CRP) documented in this encounter Care Teams Director Of Services Relationship Specialty Start Date End Date Pcp, No [address] [place] [address] PCP - General Family Medicine 05/18/25 documented as of this encounter
--- NOTE | 2025-09-25 10:17 | HMH.EDGENADL ---
Discharge Plan Disposition Patient Disposition: Home, Self-Care Prescriptions Prescriptions: New azithromycin 500 mg tablet See Rx Instructions .ROUTE .COMPLEX Qty: 3 0RF Rx Instructions: For 250 mg dose pack: take 500 mg today (day 1), then 250 mg for 4 days (days 2-5) prednisone 50 mg tablet 50 mg PO DAILY 3 Days Qty: 3 0RF No Action ondansetron 8 mg tablet,disintegrating 8 mg PO Q12H PRN (Reason: nausea and vomiting) Qty: 14 0RF dicyclomine 20 mg tablet 20 mg PO TID PRN (Reason: abdominal pain) Qty: 60 0RF fluoxetine 20 mg capsule See Rx Instructions .ROUTE .COMPLEX Qty: 90 1RF Dose Instruction: Take 1 capsule by mouth once daily Rx Instructions: Take 1 capsule by mouth once daily aspirin [Adult Low Dose Aspirin] 81 mg tablet,delayed release (DR/EC) 81 mg PO DAILY losartan 50 mg tablet 50 mg PO DAILY Qty: 90 3RF ranolazine 500 mg tablet extended release 12 hr 500 mg PO BID 30 Days Qty: 60 11RF trazodone 100 mg tablet 100 mg PO DAILY Qty: 30 6RF atorvastatin 80 mg tablet 80 mg PO DAILY Qty: 90 3RF Jardiance 10 mg tablet 10 mg PO DAILY Qty: 30 5RF gabapentin 800 mg tablet 800 mg PO BID Qty: 60 2RF albuterol sulfate 90 mcg/actuation HFA aerosol inhaler See Rx Instructions .ROUTE .COMPLEX Qty: 9 3RF Dose Instruction: INHALE 1 PUFF BY MOUTH EVERY 6 HOURS NEEDED FOR SHORTNESS OF BREATH OR WHEEZING Rx Instructions: INHALE 1 PUFF BY MOUTH EVERY 6 HOURS NEEDED FOR SHORTNESS OF BREATH OR WHEEZING Trelegy Ellipta 100-62.5-25 mcg blister with device See Rx Instructions .ROUTE .COMPLEX Qty: 60 3RF Dose Instruction: Inhale 1 puff by mouth once daily Rx Instructions: Inhale 1 puff by mouth once daily hydrocodone-acetaminophen 5-325 mg tablet 1 tab PO BID PRN (Reason: pain) Qty: 60 0RF (DME) lancets [Accu-Chek Softclix Lancets] Misc See Rx Instructions .ROUTE .COMPLEX Rx Instructions: USE 1 LANCET TO CHECK GLUCOSE TWICE DAILY DIRECTED FOR DIABETES ipratropium-albuterol 0.5 mg-3 mg(2.5 mg base)/3 mL solution for nebulization 3 ml inhalation Q6HP PRN (Reason: SOA) cefdinir 300 mg capsule 300 mg PO BID 7 Days Qty: 14 0RF Referrals Follow up/Referrals: Gurvinder Maradiaga MD [Primary Care Provider, Family Practice] - See instructions Activity Restrictions/Add. Instructions Additional Instructions/Restrictions: At this time it was felt you are safe to be discharged home. If new or worsening symptoms please do not hesitate to return the emergency department. Please take your medications as prescribed and follow-up with your family doctor early this coming week to make sure things are headed in the right direction. Clinical Impressions Clinical Impression: Acute exacerbation of chronic obstructive pulmonary disease Print Language Print Language: Palauan Discharge ED Provider: Donald Cervantes General Adult HPI General Chief complaint: Upper Respiratory Infection Stated complaint: Cough, runny nose and headache Time Seen by Provider: 09/25/25 09:53 Mode of Arrival: Ambulatory Source of Information: Patient Description of Symptoms (Recalled from ER Triage Doc. by RN): pt has been exposed to the flu. body aches,congestion,cough. for 3 days. History of Present Illness HPI narrative: Patient is 70-year-old female past medical history of COPD on nocturnal oxygen on chronic control therapy who presents emergency department for evaluation of shortness of breath and cough. Onset was acute over the last 72 hours. Worsening cough in the setting of exposure to flu. No chest pain. No abdominal pain. There is associated diffuse body aches. No other acute complaints at this time. Due to persistent symptoms refractory to her nebulizer at home she presents here for continued evaluation. Please note that above description of symptoms, in this electronic medical record under categorization of recalled from ER triage doctor by RN are reflective of an initial nursing assessment, however, is not reflective of my full history and physical exam that was personally taken and clarified. Consequentially, this preceding description of symptoms, which may include the patient's categorized chief complaint in the EMR, do not reflect my personal clinical impression, and the ultimate description of history of present illness and patient stated complaints should be deferred to this section of the note. Unless stated otherwise or congruent with this section of the note, additional signs, symptoms, or incongruence should be interpreted as inaccurate with my clinical impression. Related Data Home Medications ?Medication ?Instructions ?Recorded ?Confirmed lancets (Accu-Chek Softclix 09/12/23 05/18/25 Lancets) ipratropium 0.5 mg-albuterol 3 mg 3 ml inhalation Q6HP PRN SOA 10/14/24 05/18/25 (2.5 mg base)/3 mL nebulization soln aspirin 81 mg tablet,delayed 81 mg PO DAILY 12/15/24 05/18/25 release (Adult Low Dose Aspirin) Previous Rx's ?Medication ?Instructions ?Recorded fluoxetine 20 mg capsule See Rx Instructions .Route 11/02/24 .COMPLEX #90 caps ranolazine 500 mg tablet,extended 500 mg PO BID 30 days #60 tabs 02/22/25 release,12 hr losartan 50 mg tablet 50 mg PO DAILY #90 tabs 03/16/25 trazodone 100 mg tablet 100 mg PO DAILY #30 tabs 04/16/25 atorvastatin 80 mg tablet 80 mg PO DAILY Cholesterol #90 tabs 04/29/25 empagliflozin 10 mg tablet 10 mg PO DAILY #30 tabs 05/05/25 (Jardiance) dicyclomine 20 mg tablet 20 mg PO TID PRN abdominal pain 05/18/25 #60 tabs ondansetron 8 mg disintegrating 8 mg PO Q12H PRN nausea and 05/18/25 tablet vomiting #14 tabs gabapentin 800 mg tablet 800 mg PO BID #60 tabs 06/14/25 albuterol sulfate 90 mcg/actuation See Rx Instructions .Route 07/02/25 aerosol inhaler .COMPLEX #9 grams fluticasone fur. 100 mcg-umeclid See Rx Instructions .Route 07/27/25 62.5 mcg-vilant 25 mcg .COMPLEX #60 ea inhalat.powder (Trelegy Ellipta) cefdinir 300 mg capsule 300 mg PO BID 7 days #14 caps 08/25/25 hydrocodone 5 mg-acetaminophen 325 1 tab PO BID PRN pain #60 tabs 09/20/25 mg tablet azithromycin 500 mg tablet See Rx Instructions PO .COMPLEX #3 09/25/25 tabs prednisone 50 mg tablet 50 mg PO DAILY COPD Exacerbation 3 09/25/25 days #3 tabs Allergies Allergy/AdvReac Type Severity Reaction Status Date / Time No Known Allergies Allergy Verified 05/18/25 16:01 [facility] Disclaimer: The information contained in this section may have been updated after the patient was seen, as this information can be updated by other users. Medical History Hearing loss Breast cancer screening by mammogram Osteoarthritis, shoulder Sinusitis URI (upper respiratory infection) Colon cancer screening Lymphedema Venous insufficiency of both lower extremities Incontinence of urine Migraine Pain in both lower legs Hypertension CAD (coronary artery disease) Tobacco abuse Restless leg syndrome Vitamin D deficiency (~03/11/18) Depression Bilateral low back pain with sciatica Neuropathy RF Neurontin Surgical History History of heart artery stent Family History Other No significant family history Social History Smoking Status: Current every day smoker tobacco type: cigarettes packs per day: 1 second hand exposure: No alcohol intake: never substance use type: denies use current occupational status: unemployed Travel in the last 8 weeks?: None household members: spouse housing: house marital status: education level: high school current occupational exposures/hazards: No caffeine: Yes special aron needs: No agree to transfusion: No do you feel safe at home: Yes victim of physical abuse: No victim of emotional abuse: No victim of sexual abuse: No would you like helpful sources: No Have you lived/traveled outside US in past 30 days?: No Contact w/someone who lives/traveled outside US past 30 days?: No Exposure to someone with infectious disease in past 14 days?: No Do you have a fever (greater than 100.4 F or 38 C)?: No Have you tested positive for COVID-19?: No Exposed to someone with COVID-19 in past 14 days?: No Do you have a sore throat?: No Do you have a cough?: No Do you have any weakness?: No Do you have any diarrhea?: No Are you experiencing any unusual bleeding?: No Do you have any muscle aches/pain?: No Do you have any abdominal pain?: Yes Are you experiencing loss of taste or smell?: No Other Medical History Have you received the Flu Vaccine for this season: No Have you received the Pneumonia Vaccine: Yes ROS Obtained: Yes Systems reviewed as appropriate & no additional complaints except as documented Physical Exam General General appearance: alert and in no apparent distress Head Head exam: atraumatic and normocephalic Eye Eye exam: Present PERRL and EOMI ENT ENT exam: Present mucous membranes moist Neck Neck exam: Present normal inspection Chest Chest inspection: Present normal inspection and symmetric chest wall rise Respiratory Respiratory exam: Present wheezes (Diffuse biphasic wheezes) and prolonged expiratory phase; Absent respiratory distress Cardiovascular Cardiovascular exam: Present regular rate and normal rhythm Abdominal Exam Abdominal exam: Present soft; Absent tenderness Extremities Exam Extremities exam: Present normal inspection Neurological Exam Neurological exam: Present alert Psychiatric Psychiatric exam: Present normal affect Skin Skin exam: Present warm and dry Medical Decision Making Medical Records Screening: Per USPSTF and CDC recommendations, given the prevalence of disease in our region, it is our hospital?s policy to screen for HIV and viral Hepatitis for all patients aged 18 and over and those with ongoing risk factors. Robson Inquiry Pt receiving controlled substance: No Vital Signs: 09/25/25 09:55 09/25/25 10:15 09/25/25 10:47 Temperature 98.4 F Temperature Source Oral Pulse Rate 65 81 Pulse Rate [Left] 78 Respiratory Rate 20 Blood Pressure 129/86 125/83 Blood Pressure [Right Arm] 137/93 H Blood Pressure Mean [Right Arm] 107 02 Sat by Pulse Oximetry 98 99 94 L Oxygen Delivery Method Room Air Room Air 09/25/25 11:01 09/25/25 11:16 09/25/25 11:30 Temperature Temperature Source Pulse Rate 67 69 70 Pulse Rate [Left] Respiratory Rate Blood Pressure 132/69 139/68 112/59 L Blood Pressure [Right Arm] Blood Pressure Mean [Right Arm] 02 Sat by Pulse Oximetry 100 100 93 L Oxygen Delivery Method Room Air Room Air Room Air Lab Data Lab Results 09/25/25 09:55: SARS-CoV-2 (PCR) Not detected, Influenza A Untype (PCR) Not detected, Influenza Type B (PCR) Not detected 09/25/25 10:43: WBC 9.9, RBC 4.47, Hgb 13.8, Hct 41.4, MCV 92.6, MCH 30.9, MCHC 33.3, RDW 14.7, Plt Count 354, MPV 9.2, Neut % (Auto) 58.6, Lymph % (Auto) 31.0, Baldwin % (Auto) 5.8, Eos % (Auto) 3.2, Baso % (Auto) 0.9, Neut # (Auto) 5.8, Lymph # (Auto) 3.1, Baldwin # (Auto) 0.6, Eos # (Auto) 0.3, Baso # (Auto) 0.1, VBG pH 7.39, VBG pCO2 41.7, VBG pO2 40.5 H, VBG HCO3 24.5, VBG Total CO2 25.8, VBG O2 Saturation 78.0 H, VBG Base Excess -0.5, VBG Lactic Acid 1.6, Sodium 139, Potassium 4.1, Chloride 103, Carbon Dioxide 27, Anion Gap 13.1, BUN 28 H, Creatinine 1.10 H, Estimated Creat Clear 71, Estimated GFR 49 L, Est GFR ( Amer) 60, Glucose 93, Calcium 9.4, Total Bilirubin 0.8, AST 28, ALT 18, Alkaline Phosphatase 112, Total Protein 8.5 H, Albumin 5.2 H, Globulin 3.3 H, Albumin/Globulin Ratio 1.6 09/25/25 10:43 09/25/25 10:43 Orders (Tests/Meds): ED MEDICATIONS Discontinued Medications Generic Name Dose Route Start Last Admin Trade Name Freq PRN Reason Stop Dose Admin Albuterol/Ipratropium 9 ml 09/25/25 10:10 09/25/25 10:38 Ipratropium/Albuterol 3 Ml Neb IH 09/25/25 10:11 9 ml ONCE ONE Administration Magnesium Sulfate 2 gm in 50 mls @ 50 mls/hr 09/25/25 10:10 09/25/25 12:13 Magnesium Sulfate 2gm/50ml Premix IV 09/25/25 11:09 Infused ONCE ONE Infusion Methylprednisolone Sodium Succinate 125 mg 09/25/25 10:10 09/25/25 10:39 Methylprednisolone Sod Succ 125mg Vial IV 09/25/25 10:11 125 mg ONCE ONE Administration ORDERS Category Date Time Status CXR 2 view (NOT portable) [XR chest 2V] Stat Exams 09/25/25 10:10 Completed CBC w/Auto Diff [Complete Blood Count Auto Diff] Stat Lab 09/25/25 10:43 Completed CMP [Comprehensive Metabolic Panel] Stat Lab 09/25/25 10:43 Completed Rapid PCR Covid and Flu A/B Stat Lab 09/25/25 09:55 Completed VBG [Venous Blood Gas] Stat RT 09/25/25 10:43 Completed EKG Request [ECG Request] Stat Y 09/25/25 10:11 Ordered ECG Data Tracing #1: Independently interpreted by me rate is 72, rhythm is regular, axis is normal, no ST elevation in anatomical contiguous leads, QTc 407. Medical Decision Narrative: In summary patient is 70-year-old female with past medical history of described above presents emergency department for evaluation of congestion and shortness of breath. Patient is hemodynamically stable nontoxic-appearing upon arrival saturating well on room air minimal tachypnea. Patient does have diffuse biphasic phasic wheezing in the setting of COPD. Patient is likely having a COPD exacerbation for which differential includes viral induced versus bacterial pneumonia, among others. Workup in totality will be conducted with hematologic labs, two-view chest x-ray, viral swab, EKG. Initial inventions include DuoNebs x 3, methylprednisolone, magnesium sulfate. Initial workup reviewed by me no significant leukocytosis no transfusable anemia compensated acid-base status no HECTOR or critical electrolyte abnormality. Chest x-ray informally interpreted by me no acute dense lobar opacities or large pneumothorax. Upon repeat evaluation patient continued to be saturating well on room air much improved respiratory distress and wheezing. Given this patient is appropriate for outpatient management at this time will be discharged with a course of azithromycin and steroids and was given return precautions. Critical Care Critical Care Time Critical Care Time: Yes Attestation: On 09/25/25, the high probability of a clinically significant, sudden or life threatening deterioration of the following system(s) required my full and direct attention, intervention and personal management. The time I documented below is in addition to time spent performing reported procedures but includes the following listed in this critical care notation. Total Time Total Critical Care Time: 35
--- NOTE | 2025-09-25 10:35 | ECG_ITS ---
APPROVED REPORT Exam: Resting ECG HR:72 bpm ECG Measurements Heart Rate 72 AXES FL 140 P 44 QRSd 95 QRS 69 QT 383 T 67 QTc 407 Conclusion SINUS RHYTHM SEPTAL MYOCARDIAL INFARCTION , PROBABLY OLD [40+ ms Q WAVE IN V1/V2] ABNORMAL ECG UNCONFIRMED REPORT Electronically signed by : FADI DAVIS, 09/26/2025 02:17:28
[2025-09-25] MEDS: IPRATROPIUM/ALBUTEROL 3 ML NEB 9 ML IH (10:38)
[2025-09-25] MEDS: METHYLPREDNISOLONE SOD SUCC 125MG VIAL 125 MG IV (10:39)
[2025-09-25] MEDS: MAGNESIUM SULFATE IN WATER 2 GM/50 ML PIGGYBACK IV (10:42)
--- NOTE | 2025-09-25 10:45 | PC.NURSE ---
There was a delay in labs and medication administration due to the pt being a difficult IV stick.
--- NOTE | 2025-09-25 10:50 | PC.NURSE ---
resp called for vbg
[2025-09-25 10:53] LABS: Hematocrit 41.4 % (37.0-47.0); Hemoglobin 13.8 g/dL (12.2-16.2); Immature Granulocytes % 0.5 %; Mean Corpuscular HGB Conc 33.3 g/dL (31.8-35.4); Mean Corpuscular Hemoglobin 30.9 pg (27.0-31.2); Mean Corpuscular Volume 92.6 fl (81-99); Nucleated Red Blood Cells % 0 %; Platelet Count 354 K/mm3 (142-424); Red Blood Count 4.47 M/mm3 (4.20-5.40); Red Cell Distribution Width-SD 50.4 fL; White Blood Count 9.9 K/mm3 (4.8-10.8)
[2025-09-25 10:56] LABS: Lactate Venous 1.6 mmol/L (0.4-2.0); VBG HCO3 24.5 mmol/L (23-30); VBG PCO2 41.7 mmol/L (35-51); VBG PH 7.39 mmol/L (7.31-7.41); VBG PO2 40.5 mmol/L (28-40)
[2025-09-25 11:08] LABS: Albumin Level 5.2 g/dl (3.5-5.0); Chloride 103 mmol/L (98-107); Potassium 4.1 mmoL/L (3.5-5.1); Sodium 139 mmol/L (136-145)
[2025-09-25 11:10] LABS: Blood Urea Nitrogen 28 mg/dl (7-17); Creatinine Clearance Estimated 71 mL/min (50-200); Creatinine,Serum 1.10 mg/dl (0.52-1.04); Estimated Glomerular Filt Rate 49 ml/min (>60); GFR (African American) 60 ML/MIN (>60)
[2025-09-25 11:11] LABS: Alanine Aminotransferase 18 U/L (12-78); Albumin/Globulin Ratio 1.6 (1.1-1.8); Alkaline Phosphatase 112 U/L (38-126); Anion Gap 13.1 mEq/L (5-15); Aspartate Amino Transferase 28 U/L (14-36); Bilirubin,Total 0.8 mg/dl (0.2-1.3); Calcium 9.4 mg/dl (8.4-10.2); Carbon Dioxide 27 mmol/L (22.0-30.0); Globulin 3.3 g/dL (1.3-3.2); Glucose 93 mg/dl (74-100); Total Protein,Serum 8.5 g/dl (6.3-8.2)
--- NOTE | 2025-09-25 17:49 | PC.NURSE ---
pt called to check on swab results
== END 2025-09-25 13:19 | disposition home or self-care (01) ==
PROVIDERS: Emergency Provider Emergency Medicine; PCP Family Medicine
DX: J44.1 Chronic obstructive pulmonary disease with (acute) exacerbation (principal); F17.210 Nicotine dependence, cigarettes, uncomplicated; I10 Essential (primary) hypertension; Z86.79 Personal history of other diseases of the circulatory system; Z95.5 Presence of coronary angioplasty implant and graft
CPT/HCPCS: 71046; 80053; 82803; 85025; 87636; 93005; 96365; 96375; 99285; J2919; J3475

== ENCOUNTER 2025-10-07 14:00 | Outpatient (CLI) | payer MEDICARE, MEDICAID, SELFPAY ==
--- OUTSIDE RECORDS SUMMARY | 2025-10-08 12:45 | XMS_ITS | Clinical Summary ---
Author Organization Healthcare Address [facility] [place] [address] Care Team Providers Care Strip Stamp Straightener Name Role Phone Pcp, No Primary Care [...] [facility]-Bone Density Scan 1957 [facility]-Depression Screening 1957 [facility]-/Child/Adol SDOH Screenings 1957 [facility]- SDOH Screenings 1975 [facility]-Adult SDOH Screenings 1975 CT Colonography 2002 Colonoscopy 2002 FIT-DNA 2002 FIT 2002 FOBT 2002 Sigmoidoscopy 2002 [facility]-Colorectal Cancer Screening 2002 [facility]-Pneumococcal Vaccine: 50 + Years (1 of 1 - PCV) 2007 [facility]-Zoster Vaccines (1 of 2) 2007 [id number] Vaccine (2 - season) 2025 02/23/2021 [facility]-Influenza [...] Insurance [employer] [facility] MEDIC[facility] Care Teams Strip Stamp Straightener Relationship Specialty Start Date End Date Pcp, [place] [address] PCP - General Family Medicine 05/18/25
--- OUTSIDE RECORDS SUMMARY | 2025-10-08 12:45 | XMS_ITS | Clinical Summary ---
Author Organization [facility] Address [address] [place] [address] Care Team Providers Care Field Application Engineer Name Role Phone Neftali Turner MD Primary Care Provider [phone] Allergies No known active allergies Medications FLUoxetine [...] 4:34 PM EDT): CAD s/p previous stenting [facility] 09/2010 in-stent restenosis of ramus BMS-received GRIS in-stent; [facility] 10/2011 GRIS Promus to OM. [facility] 04/2017 ramus stent occluded with 2-3+ collaterals. [facility] 06/2018- Chronically occluded ramus ISR. [...] (06/25/2018): Added automatically from request for surgery [id number] Assessment & Plan (05/29/2023 4:35 PM EDT): [...] - 200 mg/dL 06/11/2023 10:36 AM EDT [facility] Triglycerides 118 0 - 150 mg/dL 06/11/2023 10:36 AM EDT [facility] HDL Cholesterol 49 40 - 60 mg/dL 06/11/2023 10:36 AM EDT [facility] LDL Cholesterol 109(H) 0 - 100 mg/dL 06/11/2023 10:36 AM EDT [facility] VLDL Cholesterol 21 5 - 40 mg/dL 06/11/2023 10:36 AM EDT [facility] LDL/HDL Ratio 2.17 06/11/2023 10:36 AM EDT [facility] Blood Line / Unknown 06/11/2023 9: 52 AM EDT 06/11/2023 10:08 AM EDT Narrative [facility] - 06/11/2023 10:36 AM EDT Cholesterol [...] Crawford APRN LAB BLOOD ORDERABLES Final Result [facility]
[address] [place] [address], from Last 3 Months or Most Recently Relevant to Health Maintenance Insurance [facility] MEDICAID [id number] MEDICARE REPLACE Care Teams Field Application Engineer Relationship Specialty Start Date End Date Neftali Turner MD PCP - General Emergency Medicine 05/10/17
--- OUTSIDE RECORDS SUMMARY | 2025-10-08 12:45 | XMS_ITS | Clinical Summary ---
Author Organization [facility] [place] [address] Care Team Providers Care Clay Maker Name Role Phone Unavailable Primary Care Provider [...]
--- OUTSIDE RECORDS SUMMARY | 2025-10-08 12:45 | XMS_ITS | Encounter Summary ---
Author Organization Healthcare Address [address] [place] [address] Care Team Providers Care Mobile Lounge Driver Name Role Phone Pcp, No Primary Care Provider Unavailabl e Encounter Details Date Type Department Care Team (Late st Contact Info) Description 06/06/2021 Community Orders Community [facility] [address] [place] [address] Domitila Baldwin, PA [address] [place] [address] Elevated rheumatoid factor (Primary Dx); [...] (CRP) documented in this encounter Care Teams Mobile Lounge Driver Relationship Specialty Start Date End Date Pcp, No [address] [place] [address] PCP - General Family Medicine 05/18/25 documented as of this encounter
== END 2025-10-07 23:59 | disposition home or self-care (01) ==
LOC: LAB.DROPOF 10-08 12:42
PROVIDERS: PCP Family Medicine; Visit Provider Family Medicine
DX: N39.0 Urinary tract infection, site not specified (principal)
CPT/HCPCS: 87086; 87088; 87186

== ENCOUNTER 2025-10-27 07:00 | Outpatient (CLI) | payer MEDICARE, MEDICAID, SELFPAY ==
--- OUTSIDE RECORDS SUMMARY | 2025-10-27 07:03 | XMS_ITS | Clinical Summary ---
Author Organization [facility] [place] [address] Care Team Providers Care Materials Supervisor Name Role Phone Unavailable Primary Care Provider [...]
--- OUTSIDE RECORDS SUMMARY | 2025-10-27 07:03 | XMS_ITS | Clinical Summary ---
Author Organization Healthcare Address [facility] [place] [address] Care Team Providers Care Substance Abuse Rn Name Role Phone Pcp, No Primary Care [...] 2007 [facility]-Zoster Vaccines (1 of 2) 2007 [id number] Vaccine (2 - season) 2025 02/23/2021 [facility]-Influenza [...] to complete this topic Insurance [employer]ICA[employer] [facility] MEDICARE Care Teams Substance Abuse Rn Relationship Specialty Start Date End Date Pcp, [place] [address] PCP - General Family Medicine 05/18/25
--- OUTSIDE RECORDS SUMMARY | 2025-10-27 07:03 | XMS_ITS | Clinical Summary ---
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 [facility] 04/2017 ramus stent occluded with 2-3+ collaterals. [facility] 06/2018- Chronically occluded ramus ISR. 2+ collaterals. [...] (06/25/2018): Added automatically from request for surgery [id number] Assessment & Plan (05/29/2023 4:35 PM EDT): [...] - 200 mg/dL 06/11/2023 10:36 AM EDT [facility] Triglycerides 118 0 - 150 mg/dL 06/11/2023 10:36 AM EDT [facility] HDL Cholesterol 49 40 - 60 mg/dL 06/11/2023 10:36 AM EDT [facility] LDL Cholesterol 109(H) 0 - 100 mg/dL 06/11/2023 10:36 AM EDT [facility] VLDL Cholesterol 21 5 - 40 mg/dL 06/11/2023 10:36 AM EDT [facility] LDL/HDL Ratio 2.17 06/11/2023 10:36 AM EDT [facility] Blood Line / Unknown 06/11/2023 9: 52 AM EDT 06/11/2023 10:08 AM EDT Narrative [facility] - 06/11/2023 10:36 AM EDT [...] Crawford APRN LAB BLOOD ORDERABLES Final Result [facility]
[address] [place] [address], from Last 3 Months or Most Recently Relevant to Health Maintenance Insurance [facility] MEDICAID [employer] MEDICARE REPLACE Care Teams Rug Clipper Relationship Specialty Start Date End Date Neftali Turner MD PCP - General Emergency Medicine 05/10/17
--- OUTSIDE RECORDS SUMMARY | 2025-10-27 07:03 | XMS_ITS | Encounter Summary ---
Author Organization Healthcare Address [address] [place] [address] Care Team Providers Care Ingot Supervisor Name Role Phone Pcp, No Primary Care Provider Unavailabl e Encounter Details Date Type Department Care Team (Late st Contact Info) Description 06/06/2021 Community Orders Community Practice [address] [place] [address] Domitila Baldwin, PA [address] [place] [address] Elevated rheumatoid factor (Primary Dx); [...] (CRP) documented in this encounter Care Teams Ingot Supervisor Relationship Specialty Start Date End Date Pcp, No [address] [place] [address] PCP - General Family Medicine 05/18/25 documented as of this encounter
--- NOTE | 2025-10-27 08:00 | CT_ITS ---
FINAL REPORT CLINICAL HISTORY: abdominal/pelvic pain COMPARISON: 08/26/2025 FINDINGS: There is scarring at the lung bases. Gallbladder is present. The liver is normal in size and attenuation. The spleen is unremarkable. The left adrenal gland is diffusely enlarged consistent with diffuse adrenal hyperplasia. The pancreas is unremarkable. The kidneys enhance appropriately. Precontrast images demonstrate no nephrolithiasis. There is mild ectasia of the infrarenal abdominal aortic measuring up to 3.1 cm. Moderate stool seen throughout the colon. Urinary bladder is decompressed. Advanced degenerative disc disease is seen at L5-S1. IMPRESSION: 3.1 cm infrarenal abdominal aortic aneurysm. Left adrenal hyperplasia. Moderate stool throughout the colon. Correlate for constipation. Reviewed, Interpreted and Dictated by Deyvi Guerra MD Transcribed by Leonora Do Authenticated and [facility]
[2025-10-27 08:07] LABS: Blood Urea Nitrogen 27 mg/dl (7-17); Creatinine,Serum 1.30 mg/dl (0.52-1.04); Estimated Glomerular Filt Rate 41 ml/min (>60); GFR (African American) 49 ML/MIN (>60)
[2025-10-27] MEDS: IOPAMIDOL-370 (76%);100ML BOTTLE 75 ML IV (08:32)
[2025-10-27] MEDS: SODIUM CHLORIDE 0.9% 10ML SYR (RAD ONLY) 10 ML IV (08:32)
== END 2025-10-27 23:59 | disposition home or self-care (01) ==
PROVIDERS: PCP Family Medicine; Visit Provider Urology
DX: I71.43 Infrarenal abdominal aortic aneurysm, without rupture (principal); E27.8 Other specified disorders of adrenal gland; R93.3 Abnormal findings on diagnostic imaging of other parts of digestive tract; R10.20 Pelvic and perineal pain unspecified side
CPT/HCPCS: 36415; 74178; 82565; 84520; Q9967